=== PATIENT | male | born 1965 | race Caucasian/White ===

== ENCOUNTER → 2017-07-06 | Outpatient (CLI) | payer MEDICAID ==
--- NOTE | 2017-07-06 11:43 | RADIOLOGY REPORT (SQ) ---
EXAM DESCRIPTION: CT ABD/PELVIS NO ORAL OR IV COMPLETED DATE/TIME: 07/06/2017 10:34 am REASON FOR STUDY: RENAL COLIC N23 UNSPECIFIED RENAL COLIC COMPARISON: None. TECHNIQUE: CT scan of the abdomen and pelvis performed without intravenous or oral contrast. Images reviewed with lung, soft tissue, and bone windows. Reconstructed coronal and sagittal MPR images revi ewed. All images stored on PACS. All CT scanners at this facility use dose modulation, iterative reconstruction, and/or weight based d osing when appropriate to reduce radiation dose to as low as reasonably achievable (ALARA). [facility]: Dose Right [facility]: CareDose [facility]: Dose Right [facility]: Teradose 4D [facility]: [employer] RADIATION DOSE: CT Rad equipment meets quality standard of care and radiation dose reduction techniq ues were employed. CTDIvol: 19.0 mGy. DLP: 1109 mGy-cm.mGy. LIMITATIONS: None. FINDINGS: LOWER CHEST: No significant findings. No nodules or infiltrates. NON-CONTRASTED LIVER, SPLEEN, ADRENALS: Evaluation limited by lack of IV contrast. No identified sign ificant masses. PANCREAS: No masses. No peripancreatic inflammatory changes. GALLBLADDER: No identified stones by CT criteria. No inflammatory changes to suggest cholecystitis. RIGHT KIDNEY AND URETER: No suspicious masses. Assessment limited by lack of IV contrast. No signif icant calcifications. No hydronephrosis or hydroureter. LEFT KIDNEY AND URETER: No suspicious masses. Assessment limited by lack of IV contrast. No signifi cant calcifications. No hydronephrosis or hydroureter. AORTA AND RETROPERITONEUM: No aneurysm. No retroperitoneal masses or adenopathy. BOWEL AND PERITONEAL CAVITY: No obvious masses or inflammatory changes. No free fluid. APPENDIX: Normal. PELVIS, BLADDER, AND ABDOMINAL WALL:No abnormal masses. No free fluid. Urine distended bladder is id entified. BONES: There is a mild lumbar scoliosis convex to the left with associated degenerative changes. OTHER: No other significant finding. IMPRESSION: NO SIGNIFICANT OR ACUTE PROCESS IN THE ABDOMEN OR PELVIS. COMMENT: Quality ID # [id number]: Final reports with documentation of one or more dose reduction techniques (e.g., Automated exposure control, adjustment of the mA and/or kV according to patient size, use of iterative reconstruction technique) TECHNICAL DOCUMENTATION: JOB ID: [id number] [employer]- All Rights Reserved Reading location - IP/workstation name: [email or web address]
== END ==
LOC: RAD 10:11
PROVIDERS: ATTEND Internal Medicine
DX: N23 Unspecified renal colic (principal)
CPT/HCPCS: 74176

== ENCOUNTER → 2017-09-13 | Outpatient (CLI) | payer MEDICAID ==
--- NOTE | 2017-09-13 13:40 | RADIOLOGY REPORT (SQ) ---
EXAM DESCRIPTION: NM GASTRIC EMPTYING STUDY COMPLETED DATE/TIME: 09/13/2017 1:26 pm REASON FOR STUDY: BLOATING (R14.0), BELCHING (R14.2), DIABETES (E11.9) R14.0 ABDOMINAL DISTENSION ( GASEOUS) R14.2 ERUCTATION COMPARISON: None. RADIONUCLIDE AND DOSE: 2.2 millicuries Tc-99m Sulfur Colloid. A wide variety of solid foods have been used. The route of agent administration: Oral. TECHNIQUE: Serial images acquired to 4 hours with each image recorded over a 30 minute time frame. I mage intensity values plotted with respect to time with linear regression algorithm. LIMITATIONS: None. FINDINGS: Patient was observed for 4 hours. Gastric emptying at 60 minutes was 3.8%. Gastric emptying at 90 minutes was 5.7%. Gastric emptying at 120 minutes was 7.6% Gastric emptying at 240 minutes was 15.2%. IMPRESSION: Decreased gastric emptying. TECHNICAL DOCUMENTATION: JOB ID: [id number] [employer]- All Rights Reserved Reading location - IP/workstation name: [email or web address]
== END ==
LOC: RAD 07:30
PROVIDERS: ATTEND Internal Medicine Gastroenterology
DX: R14.0 Abdominal distension (gaseous) (principal); R14.2 Eructation; E11.9 Type 2 diabetes mellitus without complications
CPT/HCPCS: 78264; A9541

== ENCOUNTER 2018-12-04 10:52 | Inpatient (IN) | payer MEDICAID, MEDICARE ==
--- NOTE | 2018-12-04 11:21 | ER Document Report ---
ED Medical Screen (RME) - General Chief Complaint: Hand Swelling Stated Complaint: POSSIBLE FINGER INFECTION Time Seen by Provider: 12/04/18 11:11 Primary Care Provider: KACEY BLOOD MD [Primary Care Provider] - Follow up as needed Mode of Arrival: Wheelchair Information source: Patient Notes: Patient is a 53-year-old male with past medical history of type 2 diabetes presenting with left thumb pain and swelling. Patient reports history of multiple amputations in the past. He states that the pain and swelling he is experiencing in his left thumb are similar to when he has had to have fingers amputated in the past. He denies any fever but does report some chills last night. Exam: Swelling and discoloration noted to left thumb, normal sensation and normal m otor. I have greeted and performed a rapid initial assessment of this patient. A comprehensive ED assessment and evaluation of the patient, analysis of test results and completion of the medical decision making process will be conducted by additional ED providers. I have specifically instructed the patient or family members with the patient to immediately return to any nursing staff should anything change in the patient's condition or with their chief complaint. This medical record was dictated with voice recognizing software. There may be grammatical, syntax errors that are unintended. TRAVEL OUTSIDE OF THE [place] IN LAST 30 DAYS: No - Related Data Allergies/Adverse Reactions: No Known Allergies Allergy (Verified 04/16/13 19:04) Past Medical History - Past Medical History Cardiac Medical History: Reports: Hx Hypertension - no meds at this time, Hx Peripheral Vascular Disease Denies: Hx Coronary Artery Disease, Hx Heart Attack Pulmonary Medical History: Denies: Hx Asthma, Hx Bronchitis, Hx COPD, Hx Pneumonia, Hx Tuberculosis Neurological Medical History: Denies: Hx Cerebrovascular Accident, Hx Seizures Endocrine Medical History: Reports: Hx Diabetes Mellitus Type 2, Hx Hypothyroidism Musculoskeltal Medical History: Denies Hx Arthritis Psychiatric Medical History: Denies: Hx Depression Past Surgical History: Reports: Hx Orthopedic Surgery, Hx Tonsillectomy. Denies: Hx Pacemaker - Immunizations Hx Diphtheria, Pertussis, Tetanus Vaccination: Yes Physical Exam - Vital signs Vitals: Temp Pulse Resp BP Pulse Ox 98.4 F 105 H 20 145/99 H 100 12/04/18 10:59 12/04/18 10:59 12/04/18 10:59 12/04/18 10:59 12/04/18 10:59 Course - Vital Signs Vital signs: Temp Pulse Resp BP Pulse Ox 98.4 F 105 H 20 145/99 H 100 12/04/18 10:59 12/04/18 10:59 12/04/18 10:59 12/04/18 10:59 12/04/18 10:59 Doctor's Discharge - Discharge Referrals: KACEY BLOOD MD [Primary Care Provider] - Follow up as needed
--- NOTE | 2018-12-04 11:44 | RADIOLOGY REPORT (SQ) ---
EXAM DESCRIPTION: FINGER LEFT COMPLETED DATE/TIME: 12/04/2018 11:35 am REASON FOR STUDY: eval for L thumb infection COMPARISON: None. NUMBER OF VIEWS: Three views. TECHNIQUE: AP, lateral, and oblique images acquired of the left thumb. LIMITATIONS: None. FINDINGS: MINERALIZATION: Normal. BONES: No acute fracture or dislocation. No worrisome bone lesions. Status post trans proximal phal angeal amputation of the left long finger. SOFT TISSUES: Diffuse soft tissue swelling about the left thumb. There is a dense metallic foreign b dilshad about the base of the left 1st metacarpal. OTHER: No other significant finding. IMPRESSION: 1. Diffuse soft tissue swelling about the left thumb. No radiographic evidence of osteo myelitis. Consider MRI to more sensitively evaluate if suspected. 2. There is a dense metallic foreign body about the base of the left 1st metacarpal, of uncertain si gnificance. 3. 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 TECHNICAL DOCUMENTATION: JOB ID: [id number] [employer]- All Rights Reserved Reading location - IP/workstation name: [email or web address]
[2018-12-04 12:17] LABS: ALBUMIN 4.1 g/dL (3.5-5.0); ALKALINE PHOSPHATASE 64 U/L (38-126); ANION GAP 13 (5-19); ASPARTATE AMINO TRANSFERASE 19 U/L (17-59); BILIRUBIN,DIRECT 0.3 mg/dL (0.0-0.4); BILIRUBIN,TOTAL 1.1 mg/dL (0.2-1.3); BLOOD UREA NITROGEN 21 mg/dL (7-20); CALCIUM 9.5 mg/dL (8.4-10.2); CARBON DIOXIDE 22 mmol/L (22-30); CHLORIDE 102 mmol/L (98-107); GLUCOSE 236 mg/dL (75-110); POTASSIUM 4.3 mmol/L (3.6-5.0); TOTAL PROTEIN 7.7 g/dL (6.3-8.2)
[2018-12-04 12:34] LABS: ABSOLUTE BASOPHILS # (AUTO) 0.1 10^3/uL (0.0-0.2); ABSOLUTE EOSINOPHILS # (AUTO) 0.1 10^3/uL (0.0-0.6); ABSOLUTE LYMPHOCYTES (AUTO) 2.3 10^3/uL (0.5-4.7); ABSOLUTE MONOCYTES (AUTO) 1.8 10^3/uL (0.1-1.4); ABSOLUTE NEUT (AUTO) 12.1 10^3/uL (1.7-8.2); BASOPHILS % (AUTO) 0.4 % (0-2); EOSINOPHILS % (AUTO) 0.4 % (0-6); HEMATOCRIT 44.1 % (37.9-51.0); HEMOGLOBIN 15.5 g/dL (13.5-17.0); LYMPHOCYTES % (AUTO) 14.1 % (13-45); MEAN CORPUSCULAR HEMOGLOBIN 30.9 pg (27.0-33.4); MEAN CORPUSCULAR HGB CONC 35.1 g/dL (32.0-36.0); MEAN CORPUSCULAR VOLUME 88 fl (80-97); MONOCYTES % (AUTO) 11.1 % (3-13); PLATELET COUNT 330 10^3/uL (150-450); RED BLOOD COUNT 5.01 10^6/uL (4.35-5.55); TOTAL CELLS COUNTED % (AUTO) 100 %; WHITE BLOOD COUNT 16.3 10^3/uL (4.0-10.5)
[2018-12-04 12:41] LABS: ERYTHROCYTE SEDIMENTATION RATE 62 mm/hr (0-20)
[2018-12-04] MEDS ORDERED: VANCOMYCIN HCL INJ 1000 MG VIAL IV ONE (13:09)
[2018-12-04] MEDS ORDERED: PIPERACILLIN/TAZOBACTAM 3.375 GM VIAL IV ONE (13:09)
--- NOTE | 2018-12-04 14:09 | ER Document Report ---
ED General - General Chief Complaint: Hand Swelling Stated Complaint: POSSIBLE FINGER INFECTION Time Seen by Provider: 12/04/18 11:11 Primary Care Provider: KACEY BLOOD MD [ACTIVE STAFF] - Follow up as needed Mode of Arrival: Wheelchair TRAVEL OUTSIDE OF THE [place] IN LAST 30 DAYS: No - HPI Notes: Patient is a 53-year-old male, type II diabetic with significant neuropathy, who presents emergency department for evaluation of swelling in his left thumb. He states about a week ago he believed he burned it. He did sustain a small blister. He states that 3 days ago started swelling. He had some redness. He said some chills, but is unaware of any nathen fevers. No nausea or vomiting. He states he has significant neuropathy in that area so he really does not have any pain. He said multiple fingers amputated in the past secondary to osteomyelitis, as well as right lower extremity. He presents today because he is concerned that this is what happening. - Related Data Allergies/Adverse Reactions: No Known Allergies Allergy (Verified 04/16/13 19:04) Past Medical History - General Information source: Patient - Social History Smoking Status: Never Smoker Chew tobacco use (# tins/day): No Frequency of alcohol use: None Drug Abuse: None Family History: DM, Hypertension Patient has suicidal ideation: No Patient has homicidal ideation: No - Past Medical History Cardiac Medical History: Reports: Hx Hypertension - no meds at this time, Hx Peripheral Vascular Disease Denies: Hx Coronary Artery Disease, Hx Heart Attack Pulmonary Medical History: Denies: Hx Asthma, Hx Bronchitis, Hx COPD, Hx Pneumonia, Hx Tuberculosis Neurological Medical History: Denies: Hx Cerebrovascular Accident, Hx Seizures Endocrine Medical History: Reports: Hx Diabetes Mellitus Type 2, Hx Hypothyroidism Renal/ Medical History: Denies: Hx Peritoneal Dialysis Musculoskeletal Medical History: Denies Hx Arthritis Psychiatric Medical History: Denies: Hx Depression Past Surgical History: Reports: Hx Orthopedic Surgery, Hx Tonsillectomy. Denies : Hx Pacemaker - Immunizations Hx Diphtheria, Pertussis, Tetanus Vaccination: Yes Hx Pneumococcal Vaccination: 12/29/12 Review of Systems - Review of Systems Constitutional: See HPI EENT: No symptoms reported Cardiovascular: No symptoms reported Respiratory: No symptoms reported Gastrointestinal: No symptoms reported Genitourinary: No symptoms reported Musculoskeletal: See HPI Skin: No symptoms reported Neurological/Psychological: No symptoms reported Physical Exam - Vital signs Vitals: Temp Pulse Resp BP Pulse Ox 98.4 F 105 H 20 145/99 H 100 12/04/18 10:59 12/04/18 10:59 12/04/18 10:59 12/04/18 10:59 12/04/18 10:59 - Notes Notes: This is a pleasant 53-year-old male who appears her stated age in no acute distress. Vital signs reviewed, please refer to chart. Head is normocephalic, atraumatic. Pupils equal round, reactive to light. Neck is supple without meningismus. Heart is regular rate and rhythm. Lungs are clear to auscultation bilaterally. Abdomen is soft, nontender, normoactive bowel sounds throughout. Extremities without cyanosis, clubbing. 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 Peripheral pulses are equal. Examination of the left hand yields a significant amount of swelling and erythema to the left thumb. He does have a purulent appearing collection on the ulnar aspect of the palmar thumb, distal phalanx. He has had a previous amputation at the proximal phalangeal joint of the middle finger of the left upper extremity. He has full range of motion of the thumb. Sensation is diminished to the entire set of fingers, but capillary refill is brisk. Course - Re-evaluation Re-evalutation: 12/04/18 14:08 Patient presents emergency department for evaluation. This is a 53-year-old male with a history of poorly controlled diabetes, significant neuropathy, and multiple bouts of osteomyelitis. He sustained multiple limitations in the past. I am concerned that there is a fluid collection this time, but in this diabetic with a 16,000 white count multiple limitations, I do not feel comfortable doing this here in the emergency department. Orthopedics was consulted. I am concerned about the possibility of osteomyelitis. At any rate this patient is certainly at risk for losing this thumb, and I believe IV antibiotic therapy is indicated. Zosyn and vancomycin ordered. MRI is ordered. Orthopedics has been consulted. Will contact medicine for admission. 12/04/18 14:13 Dr. Adhikari will admit the patient - Vital Signs Vital signs: Temp Pulse Resp BP Pulse Ox 98.4 F 105 H 20 145/99 H 100 12/04/18 10:59 12/04/18 10:59 12/04/18 10:59 12/04/18 10:59 12/04/18 10:59 - Laboratory Result Diagrams: 12/04/18 11:40 12/04/18 11:40 Laboratory results interpreted by me: 12/04/18 12/04/18 11:40 11:40 WBC 16.3 H Absolute Neutrophils 12.1 H Absolute Monocytes 1.8 H ESR 62 H BUN 21 H Glucose 236 H - Diagnostic Test Radiology reviewed: Reports reviewed Radiology results interpreted by me: 12/04/18 14:09 Finger X-Ray 12/04/18 11:18 IMPRESSION: 1. Diffuse soft tissue swelling about the left thumb. No radiographic evidence of osteomyelitis. Consider MRI to more sensitively evaluate if suspected. 2. There is a dense metallic foreign body about the base of the left 1st me tacarpal, of uncertain significance. 3. 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 Discharge - Discharge Clinical Impression: Cellulitis of left thumb, Rule out osteomyelitis Condition: Stable Disposition: ADMITTED INPATIENT Admitting Provider: [facility] Unit Admitted: Medical Floor Referrals: KACEY BLOOD MD [ACTIVE STAFF] - Follow up as needed
[2018-12-04] MEDS ORDERED: NORMAL SALINE 1000 ML 1,000 ML IV PRN (18:26)
[2018-12-04] MEDS ORDERED: GLUCAGON,HUMAN RECOMB 1 MG INJ IM PRN (18:30)
[2018-12-04] MEDS ORDERED: DEXTROSE 50%-WATER 25 GM/50 ML DISP.SYRIN IV PRN ×2 (18:30)
[2018-12-04] MEDS ORDERED: DEXTROSE 40% GEL 15 GM TUBE PO PRN ×2 (18:30)
[2018-12-04] MEDS ORDERED: VANCOMYCIN HCL 0 MG in DEXTROSE 5%-WATER 250 ML IV NR (18:45)
[2018-12-04] MEDS ORDERED: LIRAGLUTIDE SQ SCH (18:45)
[2018-12-04 19:30] LABS: PROTHROMBIN TIME 14.2 SEC (11.4-15.4)
[2018-12-04 19:31] LABS: PARTIAL THROMBOPLASTIN TIME 42.2 SEC (23.5-35.8)
[2018-12-04 19:44] LABS: PHOSPHORUS 4.3 mg/dL (2.5-4.5)
[2018-12-04 19:56] LABS: CREATINE KINASE MB 1.04 ng/mL (<4.55)
[2018-12-04 20:00] LABS: FREE T4 (FREE THYROXINE) 1.19 ng/dL (0.78-2.19)
[2018-12-04 20:02] LABS: TROPONIN I < 0.012 ng/mL
--- NOTE | 2018-12-04 20:05 | PDOC H&P ---
History of Present Illness Admission Date/PCP: 12/04/18 14:25 AUDI GARCIA MD History of Present Illness: JULIAN CACERES is a 53 year old male, He has a history of poorly controlled type 2 diabetes he came to the emergency room for evaluation of a 3-day history of swelling of the left thumb, He stated that he had a small blister about 3 days ago on it as progressively worsened with swelling consistent with abscess of the thumb,There is no systemic symptoms there is no fever or chills but he has had multiple fingers amputated from both hands.There was leukocytosis with a left shift with elevated ESR Past Medical History Cardiac Medical History: Reports: Hypertension - no meds at this time, Peripheral Vascular Disease Endocrine Medical History: Reports: Diabetes Mellitus Type 2, Hypothyroidism Hematology: Denies: Anemia Past Surgical History Past Surgical History: Reports: Orthopedic Surgery, Tonsillectomy Social History Smoking Status: Never Smoker Frequency of Alcohol Use: None Hx Recreational Drug Use: No Drugs: None Hx Prescription Drug Abuse: No Family History Family History: DM, Hypertension Parental Family History Reviewed: Yes Children Family History Reviewed: Yes Sibling(s) Family History Reviewed.: Yes Medication/Allergy Home Medications: Atorvastatin Calcium [Lipitor 10 mg Tablet] 10 mg PO QHS #30 tablet 04/19/13 Tamsulosin HCl [Flomax 0.4 mg Cap.sr] 0.4 mg PO DAILY cap.sr.24h 12/17/15 Insulin Lispro [Humalog Insulin (Lispro) 100 unit/mL] 0 unit SUBCUT .SLIDING SCALE PRN 12/04/18 Levothyroxine Sodium [Synthroid 0.1 mg Tablet] 0.1 mg PO DAILY 12/04/18 Liraglutide [Victoza 2-Franklin] 1.8 ml SQ DAILY 12/04/18 Lisinopril [Prinivil 10 mg Tablet] 10 mg PO DAILY 12/04/18 Omeprazole 20 mg PO DAILY 12/04/18 Allergies/Adverse Reactions: No Known Allergies Allergy (Verified 04/16/13 19:04) Review of Systems Constitutional: ABSENT: chills, fever(s), headache(s), weight gain, weight loss Eyes: ABSENT: visual disturbances Ears: ABSENT: hearing changes Cardiovascular: ABSENT: chest pain, dyspnea on exertion, edema, orthropnea, palpitations Respiratory: ABSENT: cough, hemoptysis Gastrointestinal: ABSENT: abdominal pain, constipation, diarrhea, hematemesis, hematochezia, nausea, vomiting Genitourinary: ABSENT: dysuria, hematuria Musculoskeletal: ABSENT: joint swelling Integumentary: ABSENT: rash, wounds Neurological: ABSENT: abnormal gait, abnormal speech, confusion, dizziness, focal weakness, syncope Psychiatric: ABSENT: anxiety, depression, homidical ideation, suicidal ideation Endocrine: ABSENT: cold intolerance, heat intolerance, menstrual abnormalities, polydipsia, polyuria Hematologic/Lymphatic: ABSENT: easy bleeding, easy bruising, lymphadenopathy Physical Exam Vital Signs: Temp Pulse Resp BP Pulse Ox 98.2 F 91 16 144/88 H 100 12/04/18 17:41 12/04/18 17:41 12/04/18 17:41 12/04/18 17:41 12/04/18 17:41 Intake & Output 12/03/18 12/04/18 12/05/18 06:59 06:59 06:59 Weight 114.7 kg General appearance: PRESENT: no acute distress, well-developed, well-nourished Head exam: PRESENT: atraumatic, normocephalic Eye exam: PRESENT: conjunctiva pink, EOMI, PERRLA Ear exam: PRESENT: normal external ear exam Mouth exam: PRESENT: moist, tongue midline Neck exam: PRESENT: full ROM Respiratory exam: PRESENT: clear to auscultation mamta Cardiovascular exam: PRESENT: RRR, +S1, +S2 Pulses: PRESENT: normal dorsalis pedis pul, +2 pedal pulses bilateral Vascular exam: PRESENT: normal capillary refill GI/Abdominal exam: PRESENT: normal bowel sounds, soft Rectal exam: PRESENT: deferred Extremities exam: PRESENT: right AKA Musculoskeletal exam: PRESENT: other - There is abscess in the left thumb Multiple fingers missing in both hand Neurological exam: PRESENT: alert, awake, oriented to person, oriented to place, oriented to time, oriented to situation, CN II-XII grossly intact Psychiatric exam: PRESENT: appropriate affect, normal mood Skin exam: PRESENT: dry, intact, warm Results Laboratory Results: 12/04/18 11:40 12/04/18 11:40 12/04/18 12/04/18 12/04/18 11:40 11:40 19:05 WBC 16.3 H RBC 5.01 Hgb 15.5 Hct 44.1 MCV 88 MCH 30.9 MCHC 35.1 RDW 13.0 Plt Count 330 Seg Neutrophils % 74.0 Lymphocytes % 14.1 Monocytes % 11.1 Eosinophils % 0.4 Basophils % 0.4 Absolute Neutrophils 12.1 H Absolute Lymphocytes 2.3 Absolute Monocytes 1.8 H Absolute Eosinophils 0.1 Absolute Basophils 0.1 Sodium 137.3 Potassium 4.3 Chloride 102 Carbon Dioxide 22 Anion Gap 13 BUN 21 H Creatinine 0.96 Est GFR ( Amer) > 60 Est GFR (Non-Af Amer) > 60 Glucose 236 H Calcium 9.5 Phosphorus 4.3 Magnesium 2.1 Total Bilirubin 1.1 AST 19 Alkaline Phosphatase 64 Ammonia Total Protein 7.7 Albumin 4.1 Amylase 70 Lipase 131.8 12/04/18 19:05 WBC RBC Hgb Hct MCV MCH MCHC RDW Plt Count Seg Neutrophils % Lymphocytes % Monocytes % Eosinophils % Basophils % Absolute Neutrophils Absolute Lymphocytes Absolute Monocytes Absolute Eosinophils Absolute Basophils Sodium Potassium Chloride Carbon Dioxide Anion Gap BUN Creatinine Est GFR ( Amer) Est GFR (Non-Af Amer) Glucose Calcium Phosphorus Magnesium Total Bilirubin AST Alkaline Phosphatase Ammonia 12.4 Total Protein Albumin Amylase Lipase 12/04/18 12/04/18 19:05 19:05 Creatine Kinase 80 CK-MB (CK-2) 1.04 Troponin I < 0.012 Impressions: Finger X-Ray 12/04/18 11:18 IMPRESSION: 1. Diffuse soft tissue swelling about the left thumb. No radiographic evidence of osteomyelitis. Consider MRI to more sensitively evaluate if suspected. 2. There is a dense metallic foreign body about the base of the left 1st metacarpal, of uncertain significance. 3. 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 Assessment & Plan - Diagnosis (1) Abscess of left thumb Is this a current diagnosis for this admission?: Yes Plan: Start IV antibiotic to cover MRSA, gram-negative pathogens, consult surgery for I&D (2) T2DM (type 2 diabetes mellitus) Qualifiers: Diabetes mellitus chcf insulin use: with technician terminal and repeater use Diabetes mellit complication status: with neurologic complications Diabetes mellitus c omplication detail: with polyneuropathy Qualified Code(s): E11.42 - Type 2 diabetes mellitus with diabetic polyneuropathy; Z79.4 - jail (current) use of insulin Is this a current diagnosis for this admission?: Yes
[2018-12-04 20:14] LABS: THYROID STIMULATING HORMONE 3.23 uIU/mL (0.47-4.68)
[2018-12-04 20:17] LABS: APPEARANCE,URINE CLEAR; BILIRUBIN,URINE NEGATIVE (NEGATIVE); COLOR,URINE YELLOW; GLUCOSE, URINE >=500 mg/dL (NEGATIVE); KETONES,URINE NEGATIVE (NEGATIVE); LEUKOCYTE ESTERASE,URINE NEGATIVE (NEGATIVE); NITRITE,URINE NEGATIVE (NEGATIVE); PROTEIN,URINE 100 mg/dL (NEGATIVE); UROBILINOGEN,URINE NEGATIVE mg/dL (<2.0)
[2018-12-04] MEDS: PIPERACILLIN SODIUM/TAZOBACTAM 3.375 GM in NORMAL SALINE 100 ML IV SCH (22:11)
[2018-12-04] MEDS: LISINOPRIL 10 MG TABLET PO SCH (22:11)
[2018-12-04] MEDS: ATORVASTATIN CALCIUM 10 MG TABLET PO SCH (22:12)
[2018-12-04] MEDS: INSULIN LISPRO 100 UNIT/ML 3 ML VIAL SUBCUT SCH (22:12)
[2018-12-04] MEDS: PANTOPRAZOLE SODIUM 20 MG TABLET.DR PO SCH (22:12)
[2018-12-04] MEDS: TAMSULOSIN HCL 0.4 MG CAP.SR.24H PO SCH (22:13)
[2018-12-04] MEDS: ENOXAPARIN SODIUM INJ 40 MG/0.4 ML DISP.SYRIN SUBCUT SCH (22:13)
[2018-12-05] MEDS: VANCOMYCIN HCL 1,250 MG in DEXTROSE 5%-WATER 250 ML IV SCH ×4 (00:44→22:13)
[2018-12-05 01:53] LABS: CREATINE KINASE MB 0.71 ng/mL (<4.55)
[2018-12-05 01:59] LABS: TROPONIN I < 0.012 ng/mL
[2018-12-05] MEDS: PIPERACILLIN SODIUM/TAZOBACTAM 3.375 GM in NORMAL SALINE 100 ML IV SCH ×4 (04:05→22:12)
[2018-12-05 05:35] LABS: URINE AMPHETAMINES SCREEN NEGATIVE; URINE BARBITURATES SCREEN NEGATIVE; URINE BENZODIAZEPINES SCREEN NEGATIVE; URINE COCAINE SCREEN NEGATIVE; URINE MARIJUANA (THC) SCREEN NEGATIVE; URINE METHADONE SCREEN NEGATIVE; URINE PHENCYCLIDINE SCREEN NEGATIVE
[2018-12-05] MEDS: LEVOTHYROXINE SODIUM 0.1 MG TABLET PO SCH (06:17)
[2018-12-05] MEDS ORDERED: RINGERS SOLUTION,LACTATED 1,000 ML IV PRN ×2 (07:33→17:16)
--- NOTE | 2018-12-05 07:36 | PDOC CONSULTATION ---
Consultation Consult Date: 12/05/18 Provider Consulted: GERALD CHANDLER History of Present Illness Admission Date/PCP: 12/04/18 14:25 AUDI GARCIA MD History of Present Illness: JULIAN CACERES is a 53 year old male Patient is a 53-year-old white male with diabetes status post right below-knee amputation, left long finger amputation, right second and third digit amputation now with a left thumb abscess. Past Medical History Cardiac Medical History: Reports: Hypertension - no meds at this time, Peripheral Vascular Disease Denies: Coronary Artery Disease, Myocardial Infarction Pulmonary Medical History: Denies: Asthma, Bronchitis, Chronic Obstructive Pulmonary Disease (COPD), Pneumonia, Tuberculosis Neurological Medical History: Denies: Seizures Endocrine Medical History: Reports: Diabetes Mellitus Type 2, Hypothyroidism Musculoskeltal Medical History: Denies: Arthritis Psychiatric Medical History: Denies: Depression Hematology: Denies: Anemia Past Surgical History Past Surgical History: Reports: Orthopedic Surgery, Tonsillectomy Denies: Pacemaker Social History Information Source: Patient, [facility] Records Smoking Status: Never Smoker Frequency of Alcohol Use: None Hx Recreational Drug Use: No Drugs: None Hx Prescription Drug Abuse: No Family History Family History: DM, Hypertension Parental Family History Reviewed: No Children Family History Reviewed: No Sibling(s) Family History Reviewed.: No Medication/Allergy Home Medications: Atorvastatin Calcium [Lipitor 10 mg Tablet] 10 mg PO QHS #30 tablet 04/19/13 Tamsulosin HCl [Flomax 0.4 mg Cap.sr] 0.4 mg PO DAILY cap.sr.24h 12/17/15 Insulin Lispro [Humalog Insulin (Lispro) 100 unit/mL] 0 unit SUBCUT .SLIDING SCALE PRN 12/04/18 Levothyroxine Sodium [Synthroid 0.1 mg Tablet] 0.1 mg PO DAILY 12/04/18 Liraglutide [Victoza 2-Franklin] 1.8 ml SQ DAILY 12/04/18 Lisinopril [Prinivil 10 mg Tablet] 10 mg PO DAILY 12/04/18 Omeprazole 20 mg PO DAILY 12/04/18 Allergies/Adverse Reactions: No Known Allergies Allergy (Verified 04/16/13 19:04) Review of Systems All systems: as per PMH Physical Exam Vital Signs: Temp Pulse Resp BP Pulse Ox 37.3 C 100 18 132/42 H 100 12/04/18 22:26 12/05/18 02:00 12/04/18 22:26 12/04/18 22:26 12/04/18 22:26 Intake & Output 12/04/18 12/05/18 12/06/18 06:59 06:59 06:59 Intake Total 450 Output Total 800 Balance -350 Weight 115 kg General appearance: PRESENT: no acute distress, mild distress, obese, well- developed, well-nourished Head exam: PRESENT: normocephalic Respiratory exam: PRESENT: unlabored Cardiovascular exam: PRESENT: RRR Vascular exam: PRESENT: normal capillary refill GI/Abdominal exam: PRESENT: soft Rectal exam: PRESENT: deferred Extremities exam: PRESENT: other - Left volar thumb with discoloration consistent with an underlying abscess Psychiatric exam: PRESENT: appropriate affect, normal mood. ABSENT: homicidal ideation, suicidal ideation Skin exam: PRESENT: dry, intact, warm. ABSENT: cyanosis, rash Results Laboratory Results: 12/04/18 11:40 12/04/18 11:40 12/04/18 12/04/18 12/04/18 11:40 11:40 19:05 WBC 16.3 H RBC 5.01 Hgb 15.5 Hct 44.1 MCV 88 MCH 30.9 MCHC 35.1 RDW 13.0 Plt Count 330 Seg Neutrophils % 74.0 Lymphocytes % 14.1 Monocytes % 11.1 Eosinophils % 0.4 Basophils % 0.4 Absolute Neutrophils 12.1 H Absolute Lymphocytes 2.3 Absolute Monocytes 1.8 H Absolute Eosinophils 0.1 Absolute Basophils 0.1 Sodium 137.3 Potassium 4.3 Chloride 102 Carbon Dioxide 22 Anion Gap 13 BUN 21 H Creatinine 0.96 Est GFR ( Amer) > 60 Est GFR (Non-Af Amer) > 60 Glucose 236 H Calcium 9.5 Phosphorus 4.3 Magnesium 2.1 Total Bilirubin 1.1 AST 19 Alkaline Phosphatase 64 Ammonia Total Protein 7.7 Albumin 4.1 Amylase 70 Lipase 131.8 TSH Free T4 Urine Color Urine Appearance Urine pH Ur Specific [place] Urine Protein Urine Glucose (UA) Urine Ketones Urine Blood Urine Nitrite Ur Leukocyte Esterase Urine WBC (Auto) Urine RBC (Auto) 12/04/18 12/04/18 12/04/18 19:05 19:05 19:50 WBC RBC Hgb Hct MCV MCH MCHC RDW Plt Count Seg Neutrophils % Lymphocytes % Monocytes % Eosinophils % Basophils % Absolute Neutrophils Absolute Lymphocytes Absolute Monocytes Absolute Eosinophils Absolute Basophils Sodium Potassium Chloride Carbon Dioxide Anion Gap BUN Creatinine Est GFR ( Amer) Est GFR (Non-Af Amer) Glucose Calcium Phosphorus Magnesium Total Bilirubin AST Alkaline Phosphatase Ammonia 12.4 Total Protein Albumin Amylase Lipase TSH 3.23 Free T4 1.19 Urine Color YELLOW Urine Appearance CLEAR Urine pH 5.0 Ur Specific [place] 1.020 Urine Protein 100 H Urine Glucose (UA) >=500 H Urine Ketones NEGATIVE Urine Blood NEGATIVE Urine Nitrite NEGATIVE Ur Leukocyte Esterase NEGATIVE Urine WBC (Auto) 1 Urine RBC (Auto) 0 12/04/18 12/04/18 12/05/18 19:05 19:05 01:15 Creatine Kinase 80 70 CK-MB (CK-2) 1.04 Troponin I < 0.012 12/05/18 01:15 Creatine Kinase CK-MB (CK-2) 0.71 Troponin I < 0.012 Impressions: Finger X-Ray 12/04/18 11:18 IMPRESSION: 1. Diffuse soft tissue swelling about the left thumb. No rad iographic evidence of osteomyelitis. Consider MRI to more sensitively evaluate if suspected. 2. There is a dense metallic foreign body about the base of the left 1st metacarpal, of uncertain significance. 3. 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 Status: Imported from PACS Assessment & Plan - Diagnosis (1) Abscess of thumb, left Is this a current diagnosis for this admission?: Yes Plan: And for an I&D under local anesthesia - Time Time Spent: 50 to 70 Minutes Anticipated discharge: Home Within: within 24 hours
[2018-12-05 08:36] LABS: ABSOLUTE BASOPHILS # (AUTO) 0.1 10^3/uL (0.0-0.2); ABSOLUTE EOSINOPHILS # (AUTO) 0.1 10^3/uL (0.0-0.6); ABSOLUTE LYMPHOCYTES (AUTO) 1.3 10^3/uL (0.5-4.7); ABSOLUTE MONOCYTES (AUTO) 1.4 10^3/uL (0.1-1.4); ABSOLUTE NEUT (AUTO) 10.1 10^3/uL (1.7-8.2); BASOPHILS % (AUTO) 0.6 % (0-2); EOSINOPHILS % (AUTO) 0.7 % (0-6); HEMATOCRIT 38.9 % (37.9-51.0); HEMOGLOBIN 13.5 g/dL (13.5-17.0); MEAN CORPUSCULAR HEMOGLOBIN 30.5 pg (27.0-33.4); MEAN CORPUSCULAR HGB CONC 34.6 g/dL (32.0-36.0); MEAN CORPUSCULAR VOLUME 88 fl (80-97); MONOCYTES % (AUTO) 11.1 % (3-13); PLATELET COUNT 285 10^3/uL (150-450); RED BLOOD COUNT 4.42 10^6/uL (4.35-5.55); RED CELL DISTRIBUTION WIDTH 12.8 % (11.5-14.0); SEGMENTED NEUTROPHILS % (AUTO) 77.6 % (42-78); TOTAL CELLS COUNTED % (AUTO) 100 %
[2018-12-05] MEDS: INSULIN LISPRO 100 UNIT/ML 3 ML VIAL SUBCUT SCH ×4 (08:54→22:13)
[2018-12-05 08:56] LABS: ALBUMIN 3.3 g/dL (3.5-5.0); ALKALINE PHOSPHATASE 63 U/L (38-126); ANION GAP 12 (5-19); ASPARTATE AMINO TRANSFERASE 15 U/L (17-59); BILIRUBIN,DIRECT 0.4 mg/dL (0.0-0.4); BILIRUBIN,TOTAL 1.1 mg/dL (0.2-1.3); BLOOD UREA NITROGEN 19 mg/dL (7-20); CALCIUM 8.6 mg/dL (8.4-10.2); CARBON DIOXIDE 20 mmol/L (22-30); CHLORIDE 103 mmol/L (98-107); CREATINE KINASE 61 U/L (55-170); GLUCOSE 199 mg/dL (75-110); POTASSIUM 3.8 mmol/L (3.6-5.0); TOTAL PROTEIN 6.6 g/dL (6.3-8.2); TRIGLYCERIDES 138 mg/dL (<150)
[2018-12-05 09:06] LABS: CREATINE KINASE MB 0.49 ng/mL (<4.55)
[2018-12-05 09:07] LABS: DIRECT LDL 72 mg/dL (<100)
[2018-12-05 09:11] LABS: TROPONIN I < 0.012 ng/mL
[2018-12-05] MEDS: LISINOPRIL 10 MG TABLET PO SCH (09:14)
[2018-12-05] MEDS: TAMSULOSIN HCL 0.4 MG CAP.SR.24H PO SCH (09:14)
[2018-12-05] MEDS: PANTOPRAZOLE SODIUM 20 MG TABLET.DR PO SCH (09:14)
[2018-12-05] MEDS: ENOXAPARIN SODIUM INJ 40 MG/0.4 ML DISP.SYRIN SUBCUT SCH (09:33)
[2018-12-05] MEDS ORDERED: DEXAMETHASONE SOD PHOSPHATE INJ 4 MG/1 ML VIAL ONE (16:01)
[2018-12-05] MEDS ORDERED: ONDANSETRON HCL INJ/PF 4 MG/2 ML SDV ONE (16:01)
[2018-12-05] MEDS ORDERED: MIDAZOLAM 2 MG/2 ML INJ ONE (16:01)
[2018-12-05] MEDS ORDERED: FENTANYL CITRATE INJ/PF 100 MCG/2 ML AMPUL ONE (16:01)
[2018-12-05] MEDS ORDERED: PROPOFOL INJ 200 MG/20 ML VIAL IV ONE (16:02)
[2018-12-05] MEDS ORDERED: BACITRACIN INJ 50,000 UNIT VIAL ONE (16:10)
[2018-12-05] MEDS ORDERED: LIDOCAINE 0.5% INJ-PF (5 MG/ML) 50 ML SDV ONE (16:12)
[2018-12-05] MEDS ORDERED: BUPIVACAINE HCL 0.25 % INJ/PF (2.5 MG/1 ML) 30 ML VIAL ONE (16:39)
[2018-12-05] MEDS ORDERED: LIDOCAINE 1% INJ-PF (10 MG/ML) 30 ML SDV ONE (16:39)
[2018-12-05] MEDS ORDERED: PROMETHAZINE HCL INJ 25 MG/1 ML VIAL IV PRN ×2 (16:46)
[2018-12-05] MEDS ORDERED: MEPERIDINE HCL/PF INJ 25 MG/1 ML DISP.SYRIN IV PRN (16:46)
[2018-12-05] MEDS ORDERED: ONDANSETRON HCL INJ/PF 4 MG/2 ML SDV IV PRN (16:46)
[2018-12-05] MEDS ORDERED: MORPHINE SULFATE 10 MG/ML INJ IV PRN (16:46)
[2018-12-05] MEDS ORDERED: DIPHENHYDRAMINE HCL 50 MG/ML VIAL IV PRN (16:46)
[2018-12-05] MEDS ORDERED: FENTANYL CITRATE INJ/PF 100 MCG/2 ML AMPUL IV PRN ×3 (16:46)
--- NOTE | 2018-12-05 17:02 | Operative Report ---
Operative Report DATE OF SURGERY: 12/05/18 PREOPERATIVE DIAGNOSIS: Left thumb abscess OPERATION: I&D left thumb abscess SURGEON: GERALD CHANDLER ANESTHESIA: LMAC TISSUE REMOVED OR ALTERED: Cultures to microbiology ESTIMATED BLOOD LOSS: Normal PROCEDURE: With the patient supine on the operating table the left hand is prepped and draped in sterile fashion. A digital block is performed with a combination of Marcaine and Xylocaine at the base of the left thumb. Subsequently trached a longitudinal incision was made over the pulp of the left thumb and sharp dissection was carried incision through the dermis which unroofed a large amount of purulent material. This is sent for culture and sensitivity. The bed is then debrided sharply using a curette. The wound is irrigated with 1 L of normal saline containing Betadine. Iodoform gauze was placed into the bed of the wound. The wound was reapproximated using interrupted nylon. A sterile compressive dressing was applied and the patient's return to the PACU in satisfactory condition.
--- NOTE | 2018-12-05 20:58 | PDOC PROGRESS REPORT ---
Subjective Progress Note for:: 12/05/18 Subjective:: Patient seen by the bedside, he was seen by the surgeon today he underwent I&D of the abscess in the left thumb without complications Reason For Visit: CELLULITIS OF THE LEFT THUMB, T2DM Physical Exam Vital Signs: Temp Pulse Resp BP Pulse Ox 98.4 F 89 16 121/82 99 12/05/18 18:58 12/05/18 18:58 12/05/18 18:58 12/05/18 18:58 12/05/18 18:58 Intake & Output 12/04/18 12/05/18 12/06/18 06:59 06:59 06:59 Intake Total 450 1900 Output Total 800 1005 Balance -350 895 Weight 115 kg General appearance: PRESENT: no acute distress Eye exam: PRESENT: PERRLA Respiratory exam: PRESENT: clear to auscultation mamta Cardiovascular exam: PRESENT: +S1, +S2 GI/Abdominal exam: PRESENT: soft Neurological exam: PRESENT: alert Results Laboratory Results: 12/05/18 07:48 12/05/18 07:48 12/05/18 12/05/18 07:48 07:48 WBC 13.0 H RBC 4.42 Hgb 13.5 Hct 38.9 MCV 88 MCH 30.5 MCHC 34.6 RDW 12.8 Plt Count 285 Seg Neutrophils % 77.6 Lymphocytes % 10.0 L Monocytes % 11.1 Eosinophils % 0.7 Basophils % 0.6 Absolute Neutrophils 10.1 H Absolute Lymphocytes 1.3 Absolute Monocytes 1.4 Absolute Eosinophils 0.1 Absolute Basophils 0.1 Sodium 134.5 L Potassium 3.8 Chloride 103 Carbon Dioxide 20 L Anion Gap 12 BUN 19 Creatinine 0.95 Est GFR ( Amer) > 60 Est GFR (Non-Af Amer) > 60 Glucose 199 H Calcium 8.6 Total Bilirubin 1.1 AST 15 L Alkaline Phosphatase 63 Total Protein 6.6 Albumin 3.3 L Triglycerides 138 Cholesterol 117.20 LDL Cholesterol Direct 72 VLDL Cholesterol 28.0 HDL Cholesterol 31 L 12/04/18 12/04/18 12/05/18 19:05 19:05 01:15 Creatine Kinase 80 70 CK-MB (CK-2) 1.04 Troponin I < 0.012 12/05/18 12/05/18 12/05/18 01:15 07:48 07:48 Creatine Kinase 61 CK-MB (CK-2) 0.71 0.49 Troponin I < 0.012 < 0.012 Impressions: Finger X-Ray 12/04/18 11:18 IMPRESSION: 1. Diffuse soft tissue swelling about the left thumb. No radiographic evidence of osteomyelitis. Consider MRI to more sensitively evaluate if suspected. 2. There is a dense metallic foreign body about the base of the left 1st metacarpal, of uncertain significance. 3. 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 Assessment & Plan - Diagnosis (1) Abscess of left thumb Is this a current diagnosis for this admission?: Yes Plan: Patient is status post incision and drainage of the abscess, he feels better (2) T2DM (type 2 diabetes mellitus) Qualifiers: Diabetes mellitus buttermaker helper insulin use: with penitentiary use Diabetes mellitus complication status: with neurologic complications Diabetes mellitus complication detail: with polyneuropathy Qualified Code(s): E11.42 - Type 2 diabetes mellitus with diabetic polyneuropathy; Z79.4 - extermination inspector (current) use of insulin Is this a current diagnosis for this admission?: Yes
[2018-12-05] MEDS: ATORVASTATIN CALCIUM 10 MG TABLET PO SCH (22:13)
[2018-12-06] MEDS: PIPERACILLIN SODIUM/TAZOBACTAM 3.375 GM in NORMAL SALINE 100 ML IV SCH ×3 (03:36→15:52)
[2018-12-06 05:51] LABS: ANION GAP 9 (5-19); BLOOD UREA NITROGEN 20 mg/dL (7-20); CALCIUM 8.9 mg/dL (8.4-10.2); CARBON DIOXIDE 21 mmol/L (22-30); CHLORIDE 106 mmol/L (98-107); GLUCOSE 215 mg/dL (75-110); POTASSIUM 3.9 mmol/L (3.6-5.0)
[2018-12-06 05:54] LABS: ABSOLUTE BASOPHILS # (AUTO) 0.1 10^3/uL (0.0-0.2); ABSOLUTE EOSINOPHILS # (AUTO) 0.2 10^3/uL (0.0-0.6); ABSOLUTE LYMPHOCYTES (AUTO) 1.3 10^3/uL (0.5-4.7); ABSOLUTE MONOCYTES (AUTO) 1.2 10^3/uL (0.1-1.4); ABSOLUTE NEUT (AUTO) 8.3 10^3/uL (1.7-8.2); BASOPHILS % (AUTO) 0.8 % (0-2); EOSINOPHILS % (AUTO) 1.4 % (0-6); HEMATOCRIT 38.4 % (37.9-51.0); HEMOGLOBIN 13.4 g/dL (13.5-17.0); LYMPHOCYTES % (AUTO) 11.8 % (13-45); MEAN CORPUSCULAR HEMOGLOBIN 30.7 pg (27.0-33.4); MEAN CORPUSCULAR VOLUME 88 fl (80-97); MONOCYTES % (AUTO) 10.8 % (3-13); PLATELET COUNT 301 10^3/uL (150-450); RED BLOOD COUNT 4.36 10^6/uL (4.35-5.55); RED CELL DISTRIBUTION WIDTH 12.8 % (11.5-14.0); SEGMENTED NEUTROPHILS % (AUTO) 75.2 % (42-78); TOTAL CELLS COUNTED % (AUTO) 100 %; WHITE BLOOD COUNT 11.1 10^3/uL (4.0-10.5)
[2018-12-06] MEDS: LEVOTHYROXINE SODIUM 0.1 MG TABLET PO SCH (05:57)
[2018-12-06] MEDS: VANCOMYCIN HCL 1,250 MG in DEXTROSE 5%-WATER 250 ML IV SCH ×3 (05:57→21:58)
--- NOTE | 2018-12-06 07:29 | PDOC PROGRESS REPORT ---
Subjective Progress Note for:: 12/06/18 Reason For Visit: CELLULITIS OF THE LEFT THUMB, T2DM 53-year-old white male with diabetes status post multiple amputations in the past now postop day 1 status post I&D of a left thumb abscess Physical Exam Vital Signs: Temp Pulse Resp BP Pulse Ox 36.8 C 87 16 119/81 95 12/06/18 01:15 12/06/18 01:15 12/06/18 01:15 12/06/18 01:15 12/06/18 01:15 Intake & Output 12/05/18 12/06/18 12/07/18 06:59 06:59 06:59 Intake Total 450 3150 Output Total 800 2430 Balance -350 720 Weight 115 kg 115.2 kg Physical Exam: Overweight middle-aged white male lying in bed. Patient reports clinical improvement. General appearance: PRESENT: no acute distress Head exam: PRESENT: normocephalic Respiratory exam: PRESENT: unlabored Cardiovascular exam: PRESENT: RRR GI/Abdominal exam: PRESENT: soft Rectal exam: PRESENT: deferred Extremities exam: PRESENT: other - Left thumb dressing in dressing which is clean dry and intact. Neurological exam: PRESENT: alert, awake, oriented to person, oriented to place, oriented to time, oriented to situation. ABSENT: motor sensory deficit Psychiatric exam: PRESENT: appropriate affect, normal mood. ABSENT: homicidal ideation, suicidal ideation Skin exam: PRESENT: dry, intact, warm. ABSENT: cyanosis, rash Results Laboratory Results: 12/06/18 04:26 12/06/18 04:26 12/05/18 12/05/18 12/06/18 07:48 07:48 04:26 WBC 13.0 H 11.1 H RBC 4.42 4.36 Hgb 13.5 13.4 L Hct 38.9 38.4 MCV 88 88 MCH 30.5 30.7 MCHC 34.6 35.0 RDW 12.8 12.8 Plt Count 285 301 Seg Neutrophils % 77.6 75.2 Lymphocytes % 10.0 L 11.8 L Monocytes % 11.1 10.8 Eosinophils % 0.7 1.4 Basophils % 0.6 0.8 Absolute Neutrophils 10.1 H 8.3 H Absolute Lymphocytes 1.3 1.3 Absolute Monocytes 1.4 1.2 Absolute Eosinophils 0.1 0.2 Absolute Basophils 0.1 0.1 Sodium 134.5 L Potassium 3.8 Chloride 103 Carbon Dioxide 20 L Anion Gap 12 BUN 19 Creatinine 0.95 Est GFR ( Amer) > 60 Est GFR (Non-Af Amer) > 60 Glucose 199 H Calcium 8.6 Total Bilirubin 1.1 AST 15 L Alkaline Phosphatase 63 Total Protein 6.6 Albumin 3.3 L Triglycerides 138 Cholesterol 117.20 LDL Cholesterol Direct 72 VLDL Cholesterol 28.0 HDL Cholesterol 31 L 12/06/18 04:26 WBC RBC Hgb Hct MCV MCH MCHC RDW Plt Count Seg Neutrophils % Lymphocytes % Monocytes % Eosinophils % Basophils % Absolute Neutrophils Absolute Lymphocytes Absolute Monocytes Absolute Eosinophils Absolute Basophils Sodium 136.4 L Potassium 3.9 Chloride 106 Carbon Dioxide 21 L Anion Gap 9 BUN 20 Creatinine 1.06 Est GFR ( Amer) > 60 Est GFR (Non-Af Amer) > 60 Glucose 215 H Calcium 8.9 Total Bilirubin AST Alkaline Phosphatase Total Protein Albumin Triglycerides Cholesterol LDL Cholesterol Direct VLDL Cholesterol HDL Cholesterol 12/04/18 12/04/18 12/05/18 19:05 19:05 01:15 Creatine Kinase 80 70 CK-MB (CK-2) 1.04 Troponin I < 0.012 12/05/18 12/05/18 12/05/18 01:15 07:48 07:48 Creatine Kinase 61 CK-MB (CK-2) 0.71 0.49 Troponin I < 0.012 < 0.012 Impressions: Finger X-Ray 12/04/18 11:18 IMPRESSION: 1. Diffuse soft tissue swelling about the left thumb. No radiographic evidence of osteomyelitis. Consider MRI to more sensitively evaluate if suspected. 2. There is a dense metallic foreign body about the base of the left 1st metacarpal, of uncertain significance. 3. 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 Status: Imported from PACS Assessment & Plan - Diagnosis (1) Abscess of thumb, left Is this a current diagnosis for this admission?: Yes Plan: Antibiotics empirically at the current time will be tailored once microbiology data is available. Changes to start tomorrow with advancing iodoform packing. - Time Time Spent with patient: 15-24 minutes Anticipated discharge: Home with Homehealth Within: within 24 hours
[2018-12-06] MEDS: LISINOPRIL 10 MG TABLET PO SCH (09:02)
[2018-12-06] MEDS: INSULIN LISPRO 100 UNIT/ML 3 ML VIAL SUBCUT SCH ×4 (09:02→21:57)
[2018-12-06] MEDS: TAMSULOSIN HCL 0.4 MG CAP.SR.24H PO SCH (09:02)
[2018-12-06] MEDS: PANTOPRAZOLE SODIUM 20 MG TABLET.DR PO SCH (09:02)
[2018-12-06] MEDS: ENOXAPARIN SODIUM INJ 40 MG/0.4 ML DISP.SYRIN SUBCUT SCH (09:03)
--- NOTE | 2018-12-06 18:24 | PDOC PROGRESS REPORT ---
Subjective Progress Note for:: 12/06/18 Subjective:: The culture from the abscess is gram positive cocci in clusters suggesting staphylococcus, the specific Staphylococcus species is yet to be identified. Presently on Zosyn and vancomycin, will DC Zosyn, continue vancomycin until final culture result returns, if it is MSSA patient will be discharged home tomorrow if is MRSA that would complicate the picture Reason For Visit: CELLULITIS OF THE LEFT THUMB, T2DM Physical Exam Vital Signs: Temp Pulse Resp BP Pulse Ox 98.4 F 81 17 130/86 H 97 12/06/18 16:32 12/06/18 16:32 12/06/18 16:32 12/06/18 16:32 12/06/18 16:32 Intake & Output 12/05/18 12/06/18 12/07/18 06:59 06:59 06:59 Intake Total 450 3150 1420 Output Total 800 2430 Balance -941 150 8940 Weight 115 kg 115.2 kg General appearance: PRESENT: no acute distress Eye exam: PRESENT: PERRLA Respiratory exam: PRESENT: clear to auscultation mamta Cardiovascular exam: PRESENT: +S1, +S2 Neurological exam: PRESENT: alert, CN II-XII grossly intact Results Laboratory Results: 12/06/18 04:26 12/06/18 04:26 12/06/18 12/06/18 04:26 04:26 WBC 11.1 H RBC 4.36 Hgb 13.4 L Hct 38.4 MCV 88 MCH 30.7 MCHC 35.0 RDW 12.8 Plt Count 301 Seg Neutrophils % 75.2 Lymphocytes % 11.8 L Monocytes % 10.8 Eosinophils % 1.4 Basophils % 0.8 Absolute Neutrophils 8.3 H Absolute Lymphocytes 1.3 Absolute Monocytes 1.2 Absolute Eosinophils 0.2 Absolute Basophils 0.1 Sodium 136.4 L Potassium 3.9 Chloride 106 Carbon Dioxide 21 L Anion Gap 9 BUN 20 Creatinine 1.06 Est GFR ( Amer) > 60 Est GFR (Non-Af Amer) > 60 Glucose 215 H Calcium 8.9 12/04/18 19:50 Clean Catch Midstream Urine Culture - Final NO GROWTH 2 DAYS 12/04/18 12/04/18 12/05/18 19:05 19:05 01:15 Creatine Kinase 80 70 CK-MB (CK-2) 1.04 Troponin I < 0.012 12/05/18 12/05/18 12/05/18 01:15 07:48 07:48 Creatine Kinase 61 CK-MB (CK-2) 0.71 0.49 Troponin I < 0.012 < 0.012 Impressions: Finger X-Ray 12/04/18 11:18 IMPRESSION: 1. Diffuse soft tissue swelling about the left thumb. No radiographic evidence of osteomyelitis. Consider MRI to more sensitively evaluate if suspected. 2. There is a dense metallic foreign body about the base of the left 1st metacarpal, of uncertain significance. 3. 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
[2018-12-06] MEDS: ATORVASTATIN CALCIUM 10 MG TABLET PO SCH (21:58)
[2018-12-07] MEDS: LEVOTHYROXINE SODIUM 0.1 MG TABLET PO SCH (05:54)
[2018-12-07] MEDS: VANCOMYCIN HCL 1,250 MG in DEXTROSE 5%-WATER 250 ML IV SCH ×2 (05:54→14:35)
[2018-12-07 05:59] LABS: HEMATOCRIT 38.5 % (37.9-51.0); HEMOGLOBIN 13.5 g/dL (13.5-17.0); LYMPHOCYTES % (AUTO) 15.7 % (13-45); MEAN CORPUSCULAR VOLUME 89 fl (80-97); PLATELET COUNT 316 10^3/uL (150-450); RED BLOOD COUNT 4.36 10^6/uL (4.35-5.55); RED CELL DISTRIBUTION WIDTH 12.8 % (11.5-14.0); WHITE BLOOD COUNT 8.7 10^3/uL (4.0-10.5)
[2018-12-07 06:00] LABS: ABSOLUTE BASOPHILS # (AUTO) 0.1 10^3/uL (0.0-0.2); ABSOLUTE EOSINOPHILS # (AUTO) 0.2 10^3/uL (0.0-0.6); ABSOLUTE LYMPHOCYTES (AUTO) 1.4 10^3/uL (0.5-4.7); ABSOLUTE MONOCYTES (AUTO) 1.1 10^3/uL (0.1-1.4); ABSOLUTE NEUT (AUTO) 5.9 10^3/uL (1.7-8.2); BASOPHILS % (AUTO) 1.1 % (0-2); EOSINOPHILS % (AUTO) 2.4 % (0-6); MONOCYTES % (AUTO) 12.8 % (3-13); TOTAL CELLS COUNTED % (AUTO) 100 %
--- NOTE | 2018-12-07 06:40 | PDOC PROGRESS REPORT ---
Subjective Progress Note for:: 12/07/18 Reason For Visit: CELLULITIS OF THE LEFT THUMB, T2DM 53-year-old white male now postop day 2 status post I&D of a left thumb tuft abscess. Cultures are growing gram-positive cocci in clusters. Physical Exam Vital Signs: Temp Pulse Resp BP Pulse Ox 36.8 C 81 17 131/86 H 100 12/06/18 23:24 12/06/18 23:24 12/06/18 23:24 12/06/18 23:24 12/06/18 23:24 Intake & Output 12/05/18 12/06/18 12/07/18 06:59 06:59 06:59 Intake Total 450 3150 2295 Output Total 800 2430 515 Balance -840 770 6872 Weight 115 kg 115.2 kg Physical Exam: Overweight middle-aged white male sitting up in bed. Patient is alert, appropriate, and cooperative. General appearance: PRESENT: no acute distress, well-developed, well-nourished Head exam: PRESENT: normocephalic Respiratory exam: PRESENT: unlabored Cardiovascular exam: PRESENT: RRR Vascular exam: PRESENT: normal capillary refill Musculoskeletal exam: PRESENT: other - Left hand dressing is taken down. Wound is well approximated with sutures. Packing is removed. Fresh dressing is placed. Neurological exam: PRESENT: alert, awake, oriented to person, oriented to place, oriented to time, oriented to situation. ABSENT: motor sensory deficit Psychiatric exam: PRESENT: appropriate affect, normal mood. ABSENT: homicidal ideation, suicidal ideation Skin exam: PRESENT: dry, intact, warm. ABSENT: cyanosis, rash Results Laboratory Results: 12/07/18 05:20 12/06/18 04:26 12/07/18 05:20 WBC 8.7 RBC 4.36 Hgb 13.5 Hct 38.5 MCV 89 MCH 31.0 MCHC 35.0 RDW 12.8 Plt Count 316 Seg Neutrophils % 68.0 12/04/18 19:50 Clean Catch Midstream Urine Culture - Final NO GROWTH 2 DAYS 12/04/18 12/04/18 12/05/18 19:05 19:05 01:15 Creatine Kinase 80 70 CK-MB (CK-2) 1.04 Troponin I < 0.012 12/05/18 12/05/18 12/05/18 01:15 07:48 07:48 Creatine Kinase 61 CK-MB (CK-2) 0.71 0.49 Troponin I < 0.012 < 0.012 Impressions: Finger X-Ray 12/04/18 11:18 IMPRESSION: 1. Diffuse soft tissue swelling about the left thumb. No radiographic evidence of osteomyelitis. Consider MRI to more sensitively evaluate if suspected. 2. There is a dense metallic foreign body about the base of the left 1st me tacarpal, of uncertain significance. 3. 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 Status: Imported from PACS Assessment & Plan - Diagnosis (1) Abscess of thumb, left Is this a current diagnosis for this admission?: Yes Plan: At this point I think the patient could be discharged on oral antibiotics once culture and sensitivity are available. Follow-up with Dr. Tyler and [facility] for surgery on Tuesday for wound inspection. - Time Time Spent with patient: 15-24 minutes Anticipated discharge: Home Within: Other - Plan Summary Plan Summary: Follow-up with Dr. Tyler and [facility] for surgery on Tuesday for wound inspection.
[2018-12-07] MEDS: INSULIN LISPRO 100 UNIT/ML 3 ML VIAL SUBCUT SCH ×3 (08:46→17:32)
[2018-12-07] MEDS: TAMSULOSIN HCL 0.4 MG CAP.SR.24H PO SCH (09:35)
[2018-12-07] MEDS: LISINOPRIL 10 MG TABLET PO SCH (09:35)
[2018-12-07] MEDS: PANTOPRAZOLE SODIUM 20 MG TABLET.DR PO SCH (09:35)
[2018-12-07] MEDS: ENOXAPARIN SODIUM INJ 40 MG/0.4 ML DISP.SYRIN SUBCUT SCH (09:36)
[2018-12-07 19:21] VITALS: BP 132/42
--- NOTE | 2018-12-07 20:04 | PDOC DISCHARGE SUMMARY ---
General - Admit/Disc Date/PCP Admission Date/Primary Care Provider: 12/04/18 14:25 AUDI GARCIA MD Discharge Date: 12/07/18 - Discharge Diagnosis (1) Abscess of left thumb Is this a current diagnosis for this admission?: Yes (2) T2DM (type 2 diabetes mellitus) Is this a current diagnosis for this admission?: Yes - Additional Information Resuscitation Status: Full Code Discharge Diet: Diabetic Discharge Activity: Activity As Tolerated Prescriptions: Clindamycin HCl [Cleocin 300 mg Capsule] 300 mg PO Q8H #21 capsule Home Medications: Atorvastatin Calcium [Lipitor 10 mg Tablet] 10 mg PO QHS #30 tablet 04/19/13 Tamsulosin HCl [Flomax 0.4 mg Cap.sr] 0.4 mg PO DAILY cap.sr.24h 12/17/15 Insulin Lispro [Humalog Insulin (Lispro) 100 unit/mL] 0 unit SUBCUT .SLIDING SCALE PRN 12/04/18 Levothyroxine Sodium [Synthroid 0.1 mg Tablet] 0.1 mg PO DAILY 12/04/18 Liraglutide [Victoza 2-Franklin] 1.8 ml SQ DAILY 12/04/18 Lisinopril [Prinivil 10 mg Tablet] 10 mg PO DAILY 12/04/18 Omeprazole 20 mg PO DAILY 12/04/18 Clindamycin HCl [Cleocin 300 mg Capsule] 300 mg PO Q8H #21 capsule 12/07/18 History of Present Illness History of Present Illness: JULIAN CACERES is a 53 year old male, He has a history of poorly controlled type 2 diabetes he came to the emergency room for evaluation of a 3-day history of swelling of the left thumb, He stated that he had a small blister about 3 days ago on it as progressively worsened with swelling consistent with abscess of the thumb,There is no systemic symptoms there is no fever or chills but he 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 Tyler, he was initially e mpirically started on intravenous Zosyn and vancomycin. The culture from the finger grew gram positive cocci in clusters that suggest Staphylococcus bacteria, the specific speech she is not known yet. Patient is presently on intravenous vancomycin 1 g IV every 8 hours, he has multiple missing fingers on both hands due to previous infection. I advised this patient to stay on continue IV antibiotic until we know the specific Staphylococcus specie, if the Staphylococcus is MSSA, he could be discharge on p.o. antibiotic but if is MRSA, that may complicate the picture. But he insisted that he want to be discharged home today, he will be discharged home today on clindamycin and outpatient wou nd dressing I hope the Staphylococcus final result will be sensitive to clindamycin Physical Exam Vital Signs: Temp Pulse Resp BP Pulse Ox 97.9 F 76 18 132/42 H 95 12/07/18 19:17 12/07/18 19:17 12/07/18 19:17 12/07/18 19:17 12/07/18 19:17 Intake & Output 12/06/18 12/07/18 12/08/18 06:59 06:59 06:59 Intake Total 3150 2295 1300 Output Total 2430 915 Balance 720 1380 1300 Weight 115.2 kg 113.3 kg General appearance: PRESENT: no acute distress Eye exam: PRESENT: PERRLA Ear exam: PRESENT: normal external ear exam Mouth exam: PRESENT: moist, tongue midline Neck exam: PRESENT: full ROM Respiratory exam: PRESENT: clear to auscultation mamta Cardiovascular exam: PRESENT: RRR, +S1, +S2 Vascular exam: PRESENT: normal capillary refill GI/Abdominal exam: PRESENT: normal bowel sounds, soft Rectal exam: PRESENT: deferred Neurological exam: PRESENT: alert, awake, oriented to person, oriented to place, oriented to time, oriented to situation, CN II-XII grossly intact. ABSENT: motor sensory deficit Psychiatric exam: PRESENT: appropriate affect, normal mood Skin exam: PRESENT: dry, intact, warm Results Laboratory Results: 12/07/18 05:20 12/06/18 04:26 12/07/18 05:20 WBC 8.7 RBC 4.36 Hgb 13.5 Hct 38.5 MCV 89 MCH 31.0 MCHC 35.0 RDW 12.8 Plt Count 316 Seg Neutrophils % 68.0 12/05/18 16:42 Finger - Left Thumb Gram Stain - Final 12/04/18 12/04/18 12/05/18 19:05 19:05 01:15 Creatine Kinase 80 70 CK-MB (CK-2) 1.04 Troponin I < 0.012 12/05/18 12/05/18 12/05/18 01:15 07:48 07:48 Creatine Kinase 61 CK-MB (CK-2) 0.71 0.49 Troponin I < 0.012 < 0.012 Impressions: Finger X-Ray 12/04/18 11:18 IMPRESSION: 1. Diffuse soft tissue swelling about the left thumb. No radiographic evidence of osteomyelitis. Consider MRI to more sensitively evaluate if suspected. 2. There is a dense metallic foreign body about the base of the left 1st metacarpal, of uncertain significance. 3. 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 Qualifiers - * PATIENT BEING DISCHARGED WITH ANY OF THE FOLLOWING DIAGNOSIS: No VTE patient discharged on overlapping Therapy?: No Reason(s) for not prescribing Overlap Therapy:: Not indicated Stroke Pt being discharged on Anti-thrombolytic therapy?: No Reason(s) for not prescribing Anti-thrombolytic therapy:: Not indicated Stroke Pt being discharged on Anti-coagulation therapy?: No Reason(s) for not prescribing Anti-coagulation therapy:: Not indicated Stroke Pt being discharged on Statins?: No Reason(s) for not prescribing Statins therapy:: Not indicated KS Pt being discharged on Aspirin therapy?: No Reason(s) for not prescribing Aspirin therapy:: Not indicated KS Pt being discharged on Statins?: No Reason(s) for not prescribing Statin therapy:: Not indicated KS Pt discharged ACEI/ARBS?: No Reason(s) for not prescribing ACEI/ARBS:: Not indicated Acute Heart Failure - Is this a Heart Failure Patient?: No e) For LVEF <35%, discharged on Aldosterone antagonist?: Yes
== END 2018-12-07 20:00 | disposition home or self-care (01) | DRG 603 ==
LOC: ER 10:52 → EH 14:25 → 5 17:36
PROVIDERS: ADMIT Internal Medicine; ATTEND Internal Medicine
PROC: 0H9GXZZ Drainage of Left Hand Skin, External Approach (ICD-10-PCS; principal; 2018-12-05 16:30)
DX: L03.012 Cellulitis of left finger (principal); E11.40 Type 2 diabetes mellitus with diabetic neuropathy, unspecified; I10 Essential (primary) hypertension; E03.9 Hypothyroidism, unspecified; B95.61 Methicillin susceptible Staphylococcus aureus infection as the cause of diseases classified elsewhere; Z89.611 Acquired absence of right leg above knee; Z89.022 Acquired absence of left finger(s); Z79.4 Long term (current) use of insulin; Z79.899 Other long term (current) drug therapy
CPT/HCPCS: 01810; 36415; 80048; 80053; 80061; 80202; 80307; 81001; 82140; 82150; 82550; 82553; 82962; 83036; 83690; 83735; 84100; 84439; 84443; 84484; 85025; 85610; 85652; 85730; 87040; 87070; 87075; 87077; 87086; 87186; 87205; 96365; 96366; 96367; 99284; A6266; J1100; J1650; J1815; J2250; J2405; J2543; J2704; J3010; J3370; J3490; J7030; J7050; J7060

== ENCOUNTER 2019-06-09 11:39 | Inpatient (IN) | payer MEDICAID, MEDICARE ==
--- NOTE | 2019-06-09 11:52 | ER Document Report ---
ED Medical Screen (RME) - General Chief Complaint: Hand Pain Stated Complaint: FINGER PAIN Time Seen by Provider: 06/09/19 11:46 Primary Care Provider: AUDI GARCIA MD [Primary Care Provider] - Follow up as needed TRAVEL OUTSIDE OF THE [place] IN LAST 30 DAYS: No - HPI Notes: 06/09/19 11:50 Patient is a 53-year-old male with a history of peripheral neuropathy was extremities as well as diabetes and multiple amputations due to nonhealing infections presents complaining of fifth finger redness and swelling that he noticed developing over the past couple weeks, but worsened over the past 1 to 2 days. Patient is not sure if he will need his finger amputated or not, but came for evaluation. Denies drug allergies. No fever or chest pain. I have treated and performed a rapid initial assessment of this patient. A comprehensive ED assessment and evaluation of the patient, analysis of test results and completion of medical decision making process will be conducted by additional ED providers. PHYSICAL EXAMINATION: GENERAL: Well-appearing, well-nourished and in no acute distress. A&Ox4. Answers questions appropriately. Right hand: There are multiple amputations to this hand. His right fifth finger is erythemic with some necrotic appearing skin and sloughing of some superficial skin tissue. - Related Data Allergies/Adverse Reactions: No Known Allergies Allergy (Verified 04/16/13 19:04) Past Medical History - Past Medical History Cardiac Medical History: Reports: Hx Hypertension - no meds at this time, Hx Peripheral Vascular Disease Denies: Hx Coronary Artery Disease, Hx Heart Attack Pulmonary Medical History: Denies: Hx Asthma, Hx Bronchitis, Hx COPD, Hx Pneumonia, Hx Tuberculosis Neurological Medical History: Denies: Hx Cerebrovascular Accident, Hx Seizures Endocrine Medical History: Reports: Hx Diabetes Mellitus Type 2, Hx Hypothyroidism Renal/ Medical History: Denies: Hx Peritoneal Dialysis Musculoskeltal Medical History: Denies Hx Arthritis Psychiatric Medical History: Denies: Hx Depression Past Surgical History: Reports: Hx Orthopedic Surgery, Hx Tonsillectomy. Denies: Hx Pacemaker - Immunizations Hx Diphtheria, Pertussis, Tetanus Vaccination: Yes Physical Exam - Vital signs Vitals: Temp Pulse Resp BP Pulse Ox 98.1 F 84 20 167/90 H 100 06/09/19 11:46 06/09/19 11:46 06/09/19 11:46 06/09/19 11:46 06/09/19 11:46 Course - Vital Signs Vital signs: Temp Pulse Resp BP Pulse Ox 98.1 F 84 20 167/90 H 100 06/09/19 11:46 06/09/19 11:46 06/09/19 11:46 06/09/19 11:46 06/09/19 11:46 Doctor's Discharge - Discharge Referrals: AUDI GARCIA MD [Primary Care Provider] - Follow up as needed
[2019-06-09 12:26] LABS: ABSOLUTE BASOPHILS # (AUTO) 0.1 10^3/uL (0.0-0.2); ABSOLUTE EOSINOPHILS # (AUTO) 0.2 10^3/uL (0.0-0.6); ABSOLUTE LYMPHOCYTES (AUTO) 1.7 10^3/uL (0.5-4.7); ABSOLUTE MONOCYTES (AUTO) 0.9 10^3/uL (0.1-1.4); HEMATOCRIT 40.1 % (37.9-51.0); HEMOGLOBIN 14.1 g/dL (13.5-17.0); LYMPHOCYTES % (AUTO) 19.7 % (13-45); MEAN CORPUSCULAR HGB CONC 35.1 g/dL (32.0-36.0); MEAN CORPUSCULAR VOLUME 88 fl (80-97); MONOCYTES % (AUTO) 10.1 % (3-13); PLATELET COUNT 351 10^3/uL (150-450); RED BLOOD COUNT 4.54 10^6/uL (4.35-5.55); RED CELL DISTRIBUTION WIDTH 12.7 % (11.5-14.0); SEGMENTED NEUTROPHILS % (AUTO) 67.2 % (42-78); TOTAL CELLS COUNTED % (AUTO) 100 %; WHITE BLOOD COUNT 8.9 10^3/uL (4.0-10.5)
--- NOTE | 2019-06-09 12:29 | RADIOLOGY REPORT (SQ) ---
EXAM DESCRIPTION: HAND RIGHT 3 VIEWS COMPLETED DATE/TIME: 06/09/2019 12:11 pm REASON FOR STUDY: rt 5th finger erythema, h/o DM and amputations COMPARISON: None. EXAM PARAMETERS: NUMBER OF VIEWS: Three views. TECHNIQUE: AP, lateral and oblique radiographic images acquired of the right hand. LIMITATIONS: None. FINDINGS: MINERALIZATION: Normal. BONES: Prior amputation at the MCP joint seconds and 3rd digits. Posttraumatic changes DIP joint 4th digit. No significant finding along the digit. No erosion or cortical disruption. JOINTS: No effusions. SOFT TISSUES: Generalized soft tissue swelling of the 5th digit. OTHER: No other significant finding. IMPRESSION: Soft tissue swelling. No evidence for osteomyelitis. No acute fracture. TECHNICAL DOCUMENTATION: JOB ID: [id number] 2011 [employer]- All Rights Reserved Reading location - IP/workstation name: [email or web address]
[2019-06-09 12:43] LABS: ALBUMIN 3.4 g/dL (3.5-5.0); ALKALINE PHOSPHATASE 66 U/L (38-126); ANION GAP 11 (5-19); ASPARTATE AMINO TRANSFERASE 17 U/L (17-59); BILIRUBIN,DIRECT 0.3 mg/dL (0.0-0.4); BILIRUBIN,TOTAL 0.6 mg/dL (0.2-1.3); BLOOD UREA NITROGEN 12 mg/dL (7-20); CALCIUM 8.7 mg/dL (8.4-10.2); CARBON DIOXIDE 24 mmol/L (22-30); CHLORIDE 102 mmol/L (98-107); GLUCOSE 301 mg/dL (75-110); POTASSIUM 4.4 mmol/L (3.6-5.0); TOTAL PROTEIN 6.9 g/dL (6.3-8.2)
[2019-06-09] MEDS ORDERED: ERTAPENEM SODIUM INJ 1 GM VIAL IV ONE (12:48)
--- NOTE | 2019-06-09 12:55 | ER Document Report ---
ED General - General Chief Complaint: Wound Infection Stated Complaint: FINGER PAIN Time Seen by Provider: 06/09/19 11:46 Mode of Arrival: Ambulatory Information source: Patient, [facility] Records Notes: This 53-year-old insulin-dependent diabetes patient. He does have diabetic peripheral neuropathy. He reports the right fifth finger has been swelling for the past couple of weeks, is much worse the past 1 to 2 days. The skin has blistered up and peeled off. He has had the right second and third digits amputated in the past for the same problem. He has multiple other digit amputations on his other hand and his feet. TRAVEL OUTSIDE OF THE [place] IN LAST 30 DAYS: No - Related Data Allergies/Adverse Reactions: No Known Allergies Allergy (Verified 04/16/13 19:04) Home Medications: Lisinopril, Aspirin, Omeprazole, Atorvastatin, Levothyroxine. Past Medical History - General Information source: Patient, [facility] Records - Social History Smoking Status: Never Smoker Cigarette use (# per day): No Chew tobacco use (# tins/day): No Smoking Education Provided: No Frequency of alcohol use: None Drug Abuse: None Lives with: Family Family History: DM, Hypertension Patient has suicidal ideation: No Patient has homicidal ideation: No - Past Medical History Cardiac Medical History: Reports: Hx Hypertension, Hx Peripheral Vascular Dis ease Neurological Medical History: Reports: Other Endocrine Medical History: Reports: Hx Diabetes Mellitus Type 2, Hx Hypothyroidism Past Surgical History: Reports: Hx Orthopedic Surgery, Hx Tonsillectomy - Immunizations Hx Diphtheria, Pertussis, Tetanus Vaccination: Yes Hx Pneumococcal Vaccination: 12/29/12 Physical Exam - Vital signs Vitals: Temp Pulse Resp BP Pulse Ox 98.1 F 84 20 167/90 H 100 06/09/19 11:46 06/09/19 11:46 06/09/19 11:46 06/09/19 11:46 06/09/19 11:46 Interpretation: Hypertensive - General General appearance: Appears well, Alert In distress: None - HEENT Head: Normocephalic, Atraumatic Eyes: Normal Pupils: PERRL - Respiratory Respiratory status: No respiratory distress - Cardiovascular Rhythm: Regular Heart sounds: Normal auscultation Murmur: No - Abdominal Inspection: Obese Bowel sounds: Normal Tenderness: Nontender - Back Back: Normal - Extremities General upper extremity: Other - Right fifth finger is grossly swollen with desquamating skin on the distal aspect. The volar surface shows a small hole that suggests pus and abscess underneath. General lower extremity: Other - Right AKA Hand: Other - Right hand has amputations of the second and third digits at the MCP joint. - Neurological Neuro grossly intact: Yes - Psychological Associated symptoms: Normal affect, Normal mood - Skin Skin Temperature: Warm Skin Moisture: Dry Skin Color: Normal Course - Re-evaluation Re-evalutation: 06/09/19 15:06 Dr. Flores came to see the patient, debrided the finger finding a large pus pocket on the volar surface of the fingertip. - Vital Signs Vital signs: Temp Pulse Resp BP Pulse Ox 98.1 F 84 20 167/90 H 100 06/09/19 11:46 06/09/19 11:46 06/09/19 11:46 06/09/19 11:46 06/09/19 11:46 - Laboratory Result Diagrams: 06/09/19 12:00 06/09/19 12:00 Laboratory results interpreted by me: 06/09/19 12:00 Glucose 301 H Albumin 3.4 L - Diagnostic Test Radiology reviewed: Image reviewed, Reports reviewed - X-ray right fifth finger shows soft tissue swelling without bone involvement. - Consults Dr. Atkins Time consulted: 14:15 Consulted provider: will see as inpatient - Dr. Atkins requests that I consult Dr. Flores to see the patient. Dr. Flores Time consulted: 14:20 Consulted provider: will come to ER - Dr. Flores states he knows the patient well and will be by to see him sometime today. Discharge - Discharge Clinical Impression: Abscess of finger of right hand, Infected finger Diabetic neuropathy associated with type 2 diabetes mellitus Qualifiers: Diabetes mellitus complication detail: diabetic polyneuropathy Qualified Code(s): E11.42 - Type 2 diabetes mellitus with diabetic polyneuropathy Hypertension Qualifiers: Hypertension type: essential hypertension Qualified Code(s): I10 - Essential (primary) hypertension Condition: Stable Disposition: ADMITTED INPATIENT Admitting Provider: Onofre Atkins covering Unit Admitted: Medical Floor
[2019-06-09] MEDS ORDERED: LIDOCAINE 1% INJ-PF (10 MG/ML) 30 ML SDV ONE (14:45)
[2019-06-09] MEDS ORDERED: ACETAMINOPHEN 325 MG TABLET PO PRN (14:59)
[2019-06-09] MEDS ORDERED: DEXTROSE 40% GEL 15 GM TUBE PO PRN ×4 (15:04→17:58)
[2019-06-09] MEDS ORDERED: GLUCAGON,HUMAN RECOMB 1 MG INJ IM PRN ×2 (15:04→17:58)
[2019-06-09] MEDS ORDERED: DEXTROSE 50%-WATER 25 GM/50 ML DISP.SYRIN IV PRN ×4 (15:04→17:58)
--- NOTE | 2019-06-09 15:19 | Operative Report ---
Operative Report DATE OF SURGERY: 06/09/19 PREOPERATIVE DIAGNOSIS: 1. Infected, nonviable soft tissue distal right fifth phalanx. 2. Status post amputation index and middle fingers right hand. 3. Insulin-dependent diabetes mellitus POSTOPERATIVE DIAGNOSIS: Same OPERATION: Excisional debridement of nail ,skin, subcutaneous tissue, and pulp, plantar surface of distal aspect right fifth distal digit, and wound packing SURGEON: TINO BRADSHAW ANESTHESIA: Local TISSUE REMOVED OR ALTERED: Nonviable skin and deep soft tissue of the right fifth finger COMPLICATIONS: None ESTIMATED BLOOD LOSS: Scant INTRAOPERATIVE FINDINGS: See below PROCEDURE: Patient was seen in the emergency department where he is found to have a previously amputated first and second digit at the level of the metacarpal bones. These wounds were closed. There was a small ulcer mid interphalangeal joint right fourth finger, dry, palmar surface. The right fifth digit was grossly swollen, nail intact however the plantar surface of the of the distal phalanx was inflamed, swollen, with portions of nonviable tissue. The right fifth digit was prepped with Betadine. Timeout was conducted. The distal aspect of the right fifth finger was anesthetized 1% plain lidocaine. Using tenotomy scissors and a 15 blade, all obviously nonviable skin extending from the toe interphalangeal joint to the tip of the fifth finger was debrided. Beneath the dermis with some purulent material sent for Gram stain culture and sensitivity. The deep pulp of the tip of the fifth finger was excised with tenotomy scissors. All loculations were broken up. The overgrown fifth nail was debrided sharply. I felt that the damage control treatment for today was sufficient. There was good bleeding to the skin. The infection did not extend proximally into the middle or proximal phalanx. The wound was irrigated with peroxide saline and saline again, then dressed with a Xeroform 4 x 4's, and Kerlix. Patient tolerated procedure well. Recommendations: 1. Agree with IV empiric antibiotic therapy 2. We will check finger tomorrow on rounds to determine whether additional debridement is required. 3. Follow-up on wound cultures
[2019-06-09 16:06] LABS: ANION GAP 11 (5-19); BLOOD UREA NITROGEN 12 mg/dL (7-20); CALCIUM 8.8 mg/dL (8.4-10.2); CARBON DIOXIDE 23 mmol/L (22-30); CHLORIDE 104 mmol/L (98-107); GLUCOSE 207 mg/dL (75-110); POTASSIUM 3.9 mmol/L (3.6-5.0)
[2019-06-09] MEDS: INSULIN LISPRO 100 UNIT/ML 3 ML VIAL SUBCUT SCH ×2 (17:53→21:14)
--- NOTE | 2019-06-09 18:04 | PDOC H&P ---
History of Present Illness Admission Date/PCP: 06/09/19 14:20 AUDI GARCIA MD Patient complains of: Right fifth finger infections History of Present Illness: JULIAN CACERES is a 53 year old male Is a 53-year-old male patient of Dr. Garcia with a very poorly controlled diabetes with A1c is more than 9 with a history of the amputations on the right lower extremities history of the amputation of the left finger and the right 3 fingers went to see Dr. spears last week with a complaint of right fifth finger swelling and given clindamycin's and patient's try to do the dressing himself and getting more worse than the blisters came to the emergency departments In the ER patient underwent for the debridement by Dr. Flores x-ray did not show any osteomyelitis and decided to admit for the IV antibiotics Patients when I saw it in the ER patient is currently doing well Patient's denied any chest pain no short of breath Patient's denied any heart problems no strokes Patient have amputation in the lower extremity upper extremities due to the peripheral neuropathy significant Past Medical History Cardiac Medical History: Reports: Hypertension, Peripheral Vascular Disease Denies: Coronary Artery Disease, Myocardial Infarction Pulmonary Medical History: Denies: Asthma, Bronchitis, Chronic Obstructive Pulmonary Disease (COPD), Pneumonia, Tuberculosis Neurological Medical History: Reports: Other Denies: Seizures Endocrine Medical History: Reports: Diabetes Mellitus Type 2, Hypothyroidism Musculoskeltal Medical History: Denies: Arthritis Psychiatric Medical History: Denies: Depression Hematology: Denies: Anemia Past Surgical History Past Surgical History: Reports: Orthopedic Surgery, Tonsillectomy Denies: Pacemaker Social History Information Source: Patient Lives with: Family Smoking Status: Never Smoker Frequency of Alcohol Use: None Hx Recreational Drug Use: No Drugs: None Hx Prescription Drug Abuse: No Family History Family History: Reviewed & Not Pertinent, DM, Hypertension Parental Family History Reviewed: Yes Children Family History Reviewed: Yes Sibling(s) Family History Reviewed.: Yes Medication/Allergy Home Medications: Levothyroxine Sodium [Synthroid 0.1 mg Tablet] 0.1 mg PO DAILY 12/04/18 Liraglutide [Victoza 2-Franklin] 1.8 ml SQ DAILY 12/04/18 Lisinopril [Prinivil 10 mg Tablet] 10 mg PO DAILY 12/04/18 Omeprazole 20 mg PO DAILY 12/04/18 Aspirin [Ecotrin 81 mg EC Tablet] 81 mg PO DAILY 06/09/19 Atorvastatin Calcium [Lipitor 10 mg Tablet] 10 mg PO DAILY 06/09/19 Clindamycin HCl [Cleocin 300 mg Capsule] 300 mg PO DAILY 06/09/19 Allergies/Adverse Reactions: No Known Allergies Allergy (Verified 04/16/13 19:04) Review of Systems Constitutional: ABSENT: chills, fever(s), headache(s), weight gain, weight loss Eyes: ABSENT: visual disturbances Ears: ABSENT: hearing changes Cardiovascular: ABSENT: chest pain, dyspnea on exertion, edema, orthropnea, palpitations Respiratory: ABSENT: cough, hemoptysis Gastrointestinal: ABSENT: abdominal pain, constipation, diarrhea, hematemesis, hematochezia, nausea, vomiting Genitourinary: ABSENT: dysuria, hematuria Musculoskeletal: ABSENT: joint swelling Integumentary: ABSENT: rash, wounds Neurological: ABSENT: abnormal gait, abnormal speech, confusion, dizziness, focal weakness, syncope Psychiatric: ABSENT: anxiety, depression, homidical ideation, suicidal ideation Endocrine: ABSENT: cold intolerance, heat intolerance, menstrual abnormalities, polydipsia, polyuria Hematologic/Lymphatic: ABSENT: easy bleeding, easy bruising, lymphadenopathy Physical Exam Vital Signs: Temp Pulse Resp BP Pulse Ox 98 F 80 16 152/94 H 98 06/09/19 17:54 06/09/19 17:54 06/09/19 17:54 06/09/19 17:54 06/09/19 17:54 Intake & Output 06/08/19 06/09/19 06/10/19 06:59 06:59 06:59 Weight 118.6 kg General appearance: PRESENT: no acute distress, well-developed, well-nourished Head exam: PRESENT: atraumatic, normocephalic Eye exam: PRESENT: conjunctiva pink, EOMI, PERRLA. ABSENT: scleral icterus Ear exam: PRESENT: normal external ear exam Mouth exam: PRESENT: moist, tongue midline Neck exam: PRESENT: full ROM. ABSENT: carotid bruit, JVD, lymphadenopathy, thyromegaly Respiratory exam: PRESENT: clear to auscultation mamta Cardiovascular exam: PRESENT: RRR. ABSENT: diastolic murmur, rubs, systolic murmur Vascular exam: PRESENT: normal capillary refill GI/Abdominal exam: PRESENT: normal bowel sounds, soft. ABSENT: distended, guarding, mass, organolmegaly, rebound, tenderness Rectal exam: PRESENT: deferred Extremities exam: PRESENT: right AKA Additional comments: Amputation of the left upper extremities finger and the right 3 fingers Neurological exam: PRESENT: alert, awake, oriented to person, oriented to place, oriented to time, oriented to situation, CN II-XII grossly intact. ABSENT: motor sensory deficit Psychiatric exam: PRESENT: appropriate affect, normal mood. ABSENT: homicidal ideation, suicidal ideation Skin exam: PRESENT: dry, intact, warm. ABSENT: cyanosis, rash Results Laboratory Results: 06/09/19 12:00 06/09/19 15:25 06/09/19 06/09/19 06/09/19 12:00 12:00 15:25 WBC 8.9 RBC 4.54 Hgb 14.1 Hct 40.1 MCV 88 MCH 31.0 MCHC 35.1 RDW 12.7 Plt Count 351 Seg Neutrophils % 67.2 Sodium 137.2 137.5 Potassium 4.4 3.9 Chloride 102 104 Carbon Dioxide 24 23 Anion Gap 11 11 BUN 12 12 Creatinine 0.74 0.73 Est GFR ( Amer) > 60 > 60 Glucose 301 H 207 H Calcium 8.7 8.8 Total Bilirubin 0.6 AST 17 Alkaline Phosphatase 66 Total Protein 6.9 Albumin 3.4 L Impressions: Hand X-Ray 06/09/19 11:50 IMPRESSION: Soft tissue swelling. No evidence for osteomyelitis. No acute fracture. Assessment & Plan - Diagnosis (1) Abscess of finger of right hand Is this a current diagnosis for this admission?: Yes Plan: Underwent further debridement of the right hand fingers by Dr. Flores continues to IV antibiotic (2) Diabetic neuropathy associated with type 2 diabetes mellitus Qualifiers: Diabetes mellitus complication detail: diabetic polyneuropathy Qualified Code(s): E11.42 - Type 2 diabetes mellitus with diabetic polyneuropathy Is this a current diagnosis for this admission?: Yes Plan: Diabetic education's adjust the insulin (3) Hypertension Qualifiers: Hypertension type: essential hypertension Qualified Code(s): I10 - Essential (primary) hypertension Is this a current diagnosis for this admission?: Yes Plan: Your stable (4) Peripheral vascular disease Is this a current diagnosis for this admission?: Yes - Time Time Spent: 30 to 50 Minutes Medications reviewed and adjusted accordingly: Yes Anticipated discharge: Home Within: Other - Inpatient Certification Based on my medical assessment, after consideration of the patient's comorbidities, presenting symptoms, or acuity I expect that the services needed warrant INPATIENT care.: Yes I certify that my determination is in accordance with my understanding of Medicare's requirements for reasonable and necessary INPATIENT services [42 CFR 412.3e].: Yes Medical Necessity: Significant Comorbidiites Make Outpatient Treatment Too Risky, Need Close Monitoring Due to Risk of Patient Decompensation, Need for IV Antibiotics Post Hospital Care: D/C Strip Cutter Documentation - Plan Summary Plan Summary: With the patient on a medical floor Cover with the antibiotic Follow-up with the surgery
[2019-06-09] MEDS: MEROPENEM 500 MG in NORMAL SALINE 50 ML IV SCH (18:09)
[2019-06-09] MEDS ORDERED: INSULIN GLARGINE,HUM.REC.ANLOG 1,000 UNIT/10 ML VIAL (PYX) SUBCUT ONE (21:12)
[2019-06-09] MEDS: INSULIN GLARGINE,HUM.REC.ANLOG 1,000 UNIT/10 ML VIAL SUBCUT SCH (21:14)
[2019-06-10] MEDS: MEROPENEM 500 MG in NORMAL SALINE 50 ML IV SCH ×3 (01:04→17:09)
[2019-06-10] MEDS: PANTOPRAZOLE SODIUM 20 MG TABLET.DR PO SCH (05:19)
[2019-06-10 05:34] LABS: ABSOLUTE BASOPHILS # (AUTO) 0.1 10^3/uL (0.0-0.2); ABSOLUTE EOSINOPHILS # (AUTO) 0.2 10^3/uL (0.0-0.6); ABSOLUTE LYMPHOCYTES (AUTO) 1.6 10^3/uL (0.5-4.7); BASOPHILS % (AUTO) 1.1 % (0-2); EOSINOPHILS % (AUTO) 2.1 % (0-6); HEMATOCRIT 38.7 % (37.9-51.0); MEAN CORPUSCULAR HEMOGLOBIN 31.9 pg (27.0-33.4); MEAN CORPUSCULAR HGB CONC 36.2 g/dL (32.0-36.0); MEAN CORPUSCULAR VOLUME 88 fl (80-97); MONOCYTES % (AUTO) 10.9 % (3-13); PLATELET COUNT 356 10^3/uL (150-450); RED BLOOD COUNT 4.39 10^6/uL (4.35-5.55); RED CELL DISTRIBUTION WIDTH 12.5 % (11.5-14.0); SEGMENTED NEUTROPHILS % (AUTO) 67.9 % (42-78); TOTAL CELLS COUNTED % (AUTO) 100 %; WHITE BLOOD COUNT 8.8 10^3/uL (4.0-10.5)
[2019-06-10] MEDS: INSULIN LISPRO 100 UNIT/ML 3 ML VIAL SUBCUT SCH ×4 (08:59→21:25)
[2019-06-10] MEDS: ATORVASTATIN CALCIUM 10 MG TABLET PO SCH (09:47)
[2019-06-10] MEDS: ASPIRIN 81 MG TABLET, ENT COATED PO SCH (09:47)
[2019-06-10] MEDS: LISINOPRIL 10 MG TABLET PO SCH (09:47)
[2019-06-10] MEDS: LEVOTHYROXINE SODIUM 0.1 MG TABLET PO SCH (09:47)
--- NOTE | 2019-06-10 09:58 | PDOC PROGRESS REPORT ---
Subjective Progress Note for:: 06/10/19 Subjective:: Patient is currently doing well Patient's denied any chest pain no short of breath Patient's blood sugar is all stable patient is a noncompliance of the Controlling the diabetes Reason For Visit: DM INFECTED FINGER Physical Exam Vital Signs: Temp Pulse Resp BP Pulse Ox 98.4 F 97 16 162/97 H 94 06/10/19 07:46 06/10/19 07:46 06/10/19 07:46 06/10/19 07:46 06/10/19 07:46 Intake & Output 06/09/19 06/10/19 06/11/19 06:59 06:59 06:59 Intake Total 750 Balance 750 Weight 116.2 kg General appearance: PRESENT: no acute distress, well-developed, well-nourished Head exam: PRESENT: atraumatic, normocephalic Eye exam: PRESENT: conjunctiva pink, EOMI, PERRLA. ABSENT: scleral icterus Ear exam: PRESENT: normal external ear exam Mouth exam: PRESENT: moist, tongue midline Neck exam: PRESENT: full ROM. ABSENT: carotid bruit, JVD, lymphadenopathy, thyromegaly Respiratory exam: PRESENT: clear to auscultation mamta Cardiovascular exam: PRESENT: RRR. ABSENT: diastolic murmur, rubs, systolic murmur Vascular exam: PRESENT: normal capillary refill GI/Abdominal exam: PRESENT: normal bowel sounds, soft. ABSENT: distended, guarding, mass, organolmegaly, rebound, tenderness Rectal exam: PRESENT: deferred Additional comments: Right finger the dressing is intact other exam is pretty much same Neurological exam: PRESENT: alert, awake, oriented to person, oriented to place, oriented to time, oriented to situation, CN II-XII grossly intact. ABSENT: motor sensory deficit Psychiatric exam: PRESENT: appropriate affect, normal mood. ABSENT: homicidal ideation, suicidal ideation Skin exam: PRESENT: dry, intact, warm. ABSENT: cyanosis, rash Results Laboratory Results: 06/10/19 04:17 06/09/19 15:25 06/09/19 06/09/19 06/09/19 12:00 12:00 15:25 WBC 8.9 RBC 4.54 Hgb 14.1 Hct 40.1 MCV 88 MCH 31.0 MCHC 35.1 RDW 12.7 Plt Count 351 Seg Neutrophils % 67.2 Sodium 137.2 137.5 Potassium 4.4 3.9 Chloride 102 104 Carbon Dioxide 24 23 Anion Gap 11 11 BUN 12 12 Creatinine 0.74 0.73 Est GFR ( Amer) > 60 > 60 Glucose 301 H 207 H Calcium 8.7 8.8 Total Bilirubin 0.6 AST 17 Alkaline Phosphatase 66 Total Protein 6.9 Albumin 3.4 L 06/10/19 04:17 WBC 8.8 RBC 4.39 Hgb 14.0 Hct 38.7 MCV 88 MCH 31.9 MCHC 36.2 H RDW 12.5 Plt Count 356 Seg Neutrophils % 67.9 Sodium Potassium Chloride Carbon Dioxide Anion Gap BUN Creatinine Est GFR ( Amer) Glucose Calcium Total Bilirubin AST Alkaline Phosphatase Total Protein Albumin Impressions: Hand X-Ray 06/09/19 11:50 IMPRESSION: Soft tissue swelling. No evidence for osteomyelitis. No acute fracture. Assessment & Plan - Diagnosis (1) Abscess of finger of right hand Is this a current diagnosis for this admission?: Yes (2) Diabetic neuropathy associated with type 2 diabetes mellitus Qualifiers: Diabetes mellitus complication detail: diabetic polyneuropathy Qualified Code(s): E11.42 - Type 2 diabetes mellitus with diabetic polyneuropathy Is this a current diagnosis for this admission?: Yes (3) Hypertension Qualifiers: Hypertension type: essential hypertension Qualified Code(s): I10 - Essential (primary) hypertension Is this a current diagnosis for this admission?: Yes (4) Peripheral vascular disease Is this a current diagnosis for this admission?: Yes - Time Time Spent with patient: 15-24 minutes Level of Care: IMCU Medications reviewed and adjusted accordingly: Yes Anticipated discharge: Other Within: Other - Plan Summary Plan Summary: Continues to current medications
[2019-06-10] MEDS ORDERED: LIRAGLUTIDE SQ SCH (10:00)
[2019-06-10] MEDS ORDERED: ERTAPENEM SODIUM 1 GM in NORMAL SALINE 50 ML IV SCH (10:00)
--- NOTE | 2019-06-10 15:10 | PDOC PROGRESS REPORT ---
Subjective Progress Note for:: 06/10/19 Reason For Visit: DM INFECTED FINGER Patient did well overnight; again his right hand remains essentially insensate, so we cannot appreciate any difference between yesterday and today. Physical Exam Vital Signs: Temp Pulse Resp BP Pulse Ox 98.0 F 91 16 156/103 H 97 06/10/19 11:01 06/10/19 11:01 06/10/19 11:01 06/10/19 11:01 06/10/19 11:01 Intake & Output 06/09/19 06/10/19 06/11/19 06:59 06:59 06:59 Intake Total 750 290 Balance 750 290 Weight 116.2 kg General appearance: PRESENT: no acute distress Extremities exam: PRESENT: other - Dressing removed. Some devitalized deep subcutaneous tissue on the plantar aspect of the fifth finger. This was sharply debrided at bedside with pickups and scissors. Overall the edema, erythema and hostility to the finger proximally is diminished. Skin edges bled nicely. The nail remains viable. Results Laboratory Results: 06/10/19 04:17 06/09/19 15:25 06/09/19 06/10/19 15:25 04:17 WBC 8.8 RBC 4.39 Hgb 14.0 Hct 38.7 MCV 88 MCH 31.9 MCHC 36.2 H RDW 12.5 Plt Count 356 Seg Neutrophils % 67.9 Sodium 137.5 Potassium 3.9 Chloride 104 Carbon Dioxide 23 Anion Gap 11 BUN 12 Creatinine 0.73 Est GFR ( Amer) > 60 Glucose 207 H Calcium 8.8 Impressions: Hand X-Ray 06/09/19 11:50 IMPRESSION: Soft tissue swelling. No evidence for osteomyelitis. No acute fracture. Assessment & Plan - Diagnosis (1) Abscess of finger of right hand Plan: Impression: Deep soft tissue infection distal aspect right fifth finger status post serial debridements with marked clinical improvement in erythema and edema of the remainder of the digit with hand elevation, intravenous antibiotics Recommendations: 1. I believe the finger is no longer in jeopardy. Patient is growing gram- positive cocci. Continue patient on IV antibiotics, then may switch to oral antibiotics in the next 24 to 48 hours. 2. Patient is very familiar with wounds and wound management, and has acceptable support system. I would suggest twice daily dressing changes which I have ordered today, and follow-up with [facility] on an outpatient basis at time of discharge. 3. General surgery will sign off at this time; please reconsult if clinically indicated. - Time Time Spent: 30 to 50 Minutes
[2019-06-10] MEDS: INSULIN GLARGINE,HUM.REC.ANLOG 1,000 UNIT/10 ML VIAL SUBCUT SCH (21:26)
[2019-06-11] MEDS: MEROPENEM 500 MG in NORMAL SALINE 50 ML IV SCH ×3 (01:01→17:09)
[2019-06-11] MEDS: PANTOPRAZOLE SODIUM 20 MG TABLET.DR PO SCH (05:21)
[2019-06-11 05:59] LABS: ABSOLUTE BASOPHILS # (AUTO) 0.1 10^3/uL (0.0-0.2); ABSOLUTE EOSINOPHILS # (AUTO) 0.2 10^3/uL (0.0-0.6); ABSOLUTE LYMPHOCYTES (AUTO) 1.7 10^3/uL (0.5-4.7); ABSOLUTE MONOCYTES (AUTO) 0.7 10^3/uL (0.1-1.4); BASOPHILS % (AUTO) 1.7 % (0-2); EOSINOPHILS % (AUTO) 3.2 % (0-6); HEMATOCRIT 37.6 % (37.9-51.0); HEMOGLOBIN 13.7 g/dL (13.5-17.0); LYMPHOCYTES % (AUTO) 25.6 % (13-45); MEAN CORPUSCULAR HEMOGLOBIN 31.8 pg (27.0-33.4); MEAN CORPUSCULAR HGB CONC 36.5 g/dL (32.0-36.0); MEAN CORPUSCULAR VOLUME 87 fl (80-97); MONOCYTES % (AUTO) 10.8 % (3-13); PLATELET COUNT 358 10^3/uL (150-450); RED BLOOD COUNT 4.32 10^6/uL (4.35-5.55); RED CELL DISTRIBUTION WIDTH 12.6 % (11.5-14.0); SEGMENTED NEUTROPHILS % (AUTO) 58.7 % (42-78); TOTAL CELLS COUNTED % (AUTO) 100 %; WHITE BLOOD COUNT 6.7 10^3/uL (4.0-10.5)
[2019-06-11] MEDS: INSULIN LISPRO 100 UNIT/ML 3 ML VIAL SUBCUT SCH ×4 (08:21→22:08)
[2019-06-11] MEDS: LISINOPRIL 10 MG TABLET PO SCH (10:06)
[2019-06-11] MEDS: ASPIRIN 81 MG TABLET, ENT COATED PO SCH (10:06)
[2019-06-11] MEDS: ATORVASTATIN CALCIUM 10 MG TABLET PO SCH (10:06)
[2019-06-11] MEDS: LEVOTHYROXINE SODIUM 0.1 MG TABLET PO SCH (10:06)
--- NOTE | 2019-06-11 21:16 | PDOC PROGRESS REPORT ---
Subjective Progress Note for:: 06/11/19 Subjective:: Patient was admitted over the weekend when he presented with infected small finger of the right hand, he underwent debridement over the weekend by Dr. Flores. 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 Reason For Visit: DM INFECTED FINGER Physical Exam Vital Signs: Temp Pulse Resp BP Pulse Ox 97.8 F 84 16 151/96 H 97 06/11/19 15:33 06/11/19 15:33 06/11/19 15:33 06/11/19 15:33 06/11/19 15:33 Intake & Output 06/10/19 06/11/19 06/12/19 06:59 06:59 06:59 Intake Total 750 2072 565 Balance 750 2072 565 Weight 116.2 kg 117.1 kg General appearance: PRESENT: no acute distress Eye exam: PRESENT: PERRLA Respiratory exam: PRESENT: clear to auscultation mamta Cardiovascular exam: PRESENT: +S1, +S2 GI/Abdominal exam: PRESENT: soft Extremities exam: PRESENT: right AKA, other - Right hand many missing fingers Neurological exam: PRESENT: alert, CN II-XII grossly intact Results Laboratory Results: 06/11/19 04:32 06/09/19 15:25 06/11/19 04:32 WBC 6.7 RBC 4.32 L Hgb 13.7 Hct 37.6 L MCV 87 MCH 31.8 MCHC 36.5 H RDW 12.6 Plt Count 358 Seg Neutrophils % 58.7 06/09/19 15:10 Finger - Right Pinky Finger Gram Stain - Final 06/09/19 15:10 Finger - Right Pinky Finger Wound Culture - Final Staphylococcus Aureus No Anaerobic Organisms Impressions: Hand X-Ray 06/09/19 11:50 IMPRESSION: Soft tissue swelling. No evidence for osteomyelitis. No acute fracture. Assessment & Plan - Diagnosis (1) Type 2 diabetes mellitus with diabetic polyneuropathy Qualifiers: Diabetes mellitus alf insulin use: with alf use Qualified Code(s): E11.42 - Type 2 diabetes mellitus with diabetic polyneuropathy; Z79.4 - halfway (current) use of insulin Is this a current diagnosis for this admission?: Yes (2) Abscess of finger of right hand Is this a current diagnosis for this admission?: Yes Plan: The culture from the debridement is staph aureus sensitive to Levaquin resistant to clindamycin, DC meropenem start p.o. Levaquin, patient want to go home tomorrow - Time Time Spent with patient: 25-34 minutes Level of Care: MEDICAL
--- NOTE | 2019-06-11 21:30 | PDOC DISCHARGE SUMMARY ---
Impression - Admit/DC Date/PCP Admission Date/Primary Care Provider: 06/09/19 14:20 AUDI GARCIA MD Discharge Date: 06/12/19 - Discharge Diagnosis (1) Type 2 diabetes mellitus with diabetic polyneuropathy Is this a current diagnosis for this admission?: Yes (2) Abscess of finger of right hand Is this a current diagnosis for this admission?: Yes - Additional Information Discharge Diet: Diabetic Referrals: AUDI GARCIA MD [Primary Care Provider] - Follow up as needed Prescriptions: Levofloxacin [Levaquin 750 mg Tablet] 750 mg PO DAILY #10 tablet Lisinopril [Prinivil 10 mg Tablet] 10 mg PO DAILY #30 Home Medications: Levothyroxine Sodium [Synthroid 0.1 mg Tablet] 0.1 mg PO DAILY 12/04/18 Liraglutide [Victoza 2-[place]] 1.8 ml SQ DAILY 12/04/18 Omeprazole 20 mg PO DAILY 12/04/18 Aspirin [Ecotrin 81 mg EC Tablet] 81 mg PO DAILY 06/09/19 Atorvastatin Calcium [Lipitor 10 mg Tablet] 10 mg PO DAILY 06/09/19 Acetaminophen [Tylenol 325 mg Tablet] 650 mg PO Q4HP PRN tablet 06/11/19 Levofloxacin [Levaquin 750 mg Tablet] 750 mg PO DAILY #10 tablet 06/11/19 Lisinopril [Prinivil 10 mg Tablet] 10 mg PO DAILY #30 06/11/19 History of Present Illiness History of Present Illness: JULIAN CACERES is a 53 year old male Physical Exam Vital Signs: Temp Pulse Resp BP Pulse Ox 97.8 F 73 17 159/99 H 95 06/11/19 19:24 06/11/19 19:24 06/11/19 19:24 06/11/19 19:24 06/11/19 19:24 Intake & Output 06/10/19 06/11/19 06/12/19 06:59 06:59 06:59 Intake Total 750 2072 565 Balance 750 2072 565 Weight 116.2 kg 117.1 kg Results Laboratory Results: WBC 6.7 10^3/uL (4.0-10.5) 06/11/19 04:32 RBC 4.32 10^6/uL (4.35-5.55) L 06/11/19 04:32 Hgb 13.7 g/dL (13.5-17.0) 06/11/19 04:32 Hct 37.6 % (37.9-51.0) L 06/11/19 04:32 MCV 87 fl (80-97) 06/11/19 04:32 MCH 31.8 pg (27.0-33.4) 06/11/19 04:32 MCHC 36.5 g/dL (32.0-36.0) H 06/11/19 04:32 RDW 12.6 % (11.5-14.0) 06/11/19 04:32 Plt Count 358 10^3/uL (150-450) 06/11/19 04:32 Lymph % (Auto) 25.6 % (13-45) 06/11/19 04:32 [place] % (Auto) 10.8 % (3-13) 06/11/19 04:32 Eos % (Auto) 3.2 % (0-6) 06/11/19 04:32 Baso % (Auto) 1.7 % (0-2) 06/11/19 04:32 Absolute Neuts (auto) 4.0 10^3/uL (1.7-8.2) 06/11/19 04:32 Absolute Lymphs (auto) 1.7 10^3/uL (0.5-4.7) 06/11/19 04:32 Absolute Monos (auto) 0.7 10^3/uL (0.1-1.4) 06/11/19 04:32 Absolute Eos (auto) 0.2 10^3/uL (0.0-0.6) 06/11/19 04:32 Absolute Basos (auto) 0.1 10^3/uL (0.0-0.2) 06/11/19 04:32 Seg Neutrophils % 58.7 % (42-78) 06/11/19 04:32 Sodium 137.5 mmol/L (137-145) 06/09/19 15:25 Potassium 3.9 mmol/L (3.6-5.0) 06/09/19 15:25 Chloride 104 mmol/L (98-107) 06/09/19 15:25 Carbon Dioxide 23 mmol/L (22-30) 06/09/19 15:25 Anion Gap 11 (5-19) 06/09/19 15:25 BUN 12 mg/dL (7-20) 06/09/19 15:25 Creatinine 0.73 mg/dL (0.52-1.25) 06/09/19 15:25 Est GFR ( Amer) > 60 (>60) 06/09/19 15:25 Est GFR (MDRD) Non-Af > 60 (>60) 06/09/19 15:25 Glucose 207 mg/dL (75-110) H 06/09/19 15:25 POC Glucose 313 mg/dL (70-110) H 06/11/19 20:39 Calcium 8.8 mg/dL (8.4-10.2) 06/09/19 15:25 Total Bilirubin 0.6 mg/dL (0.2-1.3) 06/09/19 12:00 Direct Bilirubin 0.3 mg/dL (0.0-0.4) 06/09/19 12:00 Neonat Total Bilirubin Not Reportable 06/09/19 12:00 Neonat Direct Bilirubin Not Reportable 06/09/19 12:00 Neonat Indirect Bili Not Reportable 06/09/19 12:00 AST 17 U/L (17-59) 06/09/19 12:00 ALT 18 U/L (<50) 06/09/19 12:00 Alkaline Phosphatase 66 U/L (38-126) 06/09/19 12:00 Total Protein 6.9 g/dL (6.3-8.2) 06/09/19 12:00 Albumin 3.4 g/dL (3.5-5.0) L 06/09/19 12:00 Impressions: Hand X-Ray 06/09/19 11:50 IMPRESSION: Soft tissue swelling. No evidence for osteomyelitis. No acute fracture.
[2019-06-11] MEDS ORDERED: LEVOFLOXACIN 750 MG TABLET PO SCH (22:00)
[2019-06-11] MEDS: INSULIN GLARGINE,HUM.REC.ANLOG 1,000 UNIT/10 ML VIAL SUBCUT SCH (22:08)
[2019-06-12 05:06] LABS: ABSOLUTE BASOPHILS # (AUTO) 0.1 10^3/uL (0.0-0.2); ABSOLUTE EOSINOPHILS # (AUTO) 0.2 10^3/uL (0.0-0.6); ABSOLUTE LYMPHOCYTES (AUTO) 1.6 10^3/uL (0.5-4.7); ABSOLUTE MONOCYTES (AUTO) 0.8 10^3/uL (0.1-1.4); BASOPHILS % (AUTO) 1.2 % (0-2); EOSINOPHILS % (AUTO) 2.3 % (0-6); HEMATOCRIT 38.1 % (37.9-51.0); HEMOGLOBIN 13.6 g/dL (13.5-17.0); LYMPHOCYTES % (AUTO) 20.9 % (13-45); MEAN CORPUSCULAR HEMOGLOBIN 31.2 pg (27.0-33.4); MEAN CORPUSCULAR HGB CONC 35.8 g/dL (32.0-36.0); MEAN CORPUSCULAR VOLUME 87 fl (80-97); MONOCYTES % (AUTO) 10.2 % (3-13); PLATELET COUNT 352 10^3/uL (150-450); RED BLOOD COUNT 4.36 10^6/uL (4.35-5.55); RED CELL DISTRIBUTION WIDTH 12.5 % (11.5-14.0); SEGMENTED NEUTROPHILS % (AUTO) 65.4 % (42-78); TOTAL CELLS COUNTED % (AUTO) 100 %; WHITE BLOOD COUNT 7.7 10^3/uL (4.0-10.5)
[2019-06-12] MEDS: PANTOPRAZOLE SODIUM 20 MG TABLET.DR PO SCH (05:41)
[2019-06-12 06:29] VITALS: BP 139/94
[2019-06-12] MEDS: INSULIN LISPRO 100 UNIT/ML 3 ML VIAL SUBCUT SCH (07:26)
--- NOTE | 2019-06-12 20:22 | PDOC DISCHARGE SUMMARY ---
Impression - Admit/DC Date/PCP Admission Date/Primary Care Provider: 06/09/19 14:20 AUDI GARCIA MD Discharge Date: 06/12/19 - Discharge Diagnosis (1) Type 2 diabetes mellitus with diabetic polyneuropathy Is this a current diagnosis for this admission?: Yes (2) Abscess of finger of right hand Is this a current diagnosis for this admission?: Yes (4) Peripheral vascular disease Is this a current diagnosis for this admission?: Yes - Additional Information Discharge Diet: Diabetic Discharge Activity: Activity As Tolerated, No Lifting/Push/Pulling Referrals: [facility] [Provider Group] - 06/19/19 2:30 pm AUDI GARCIA MD [Primary Care Provider] - 06/19/19 9:30 am Prescriptions: Levofloxacin [Levaquin 750 mg Tablet] 750 mg PO DAILY #10 tablet Lisinopril [Prinivil 10 mg Tablet] 10 mg PO DAILY #30 Home Medications: Levothyroxine Sodium [Synthroid 0.1 mg Tablet] 0.1 mg PO DAILY 12/04/18 Liraglutide [Victoza 2-[place]] 1.8 ml SQ DAILY 12/04/18 Omeprazole 20 mg PO DAILY 12/04/18 Aspirin [Ecotrin 81 mg EC Tablet] 81 mg PO DAILY 06/09/19 Atorvastatin Calcium [Lipitor 10 mg Tablet] 10 mg PO DAILY 06/09/19 Acetaminophen [Tylenol 325 mg Tablet] 650 mg PO Q4HP PRN tablet 06/11/19 Levofloxacin [Levaquin 750 mg Tablet] 750 mg PO DAILY #10 tablet 06/11/19 Lisinopril [Prinivil 10 mg Tablet] 10 mg PO DAILY #30 06/11/19 History of Present Illiness History of Present Illness: JULIAN CACERES is a 53-year-old male insulin-dependent diabetes patient. He does have diabetic peripheral neuropathy. He reports the right fifth finger has been swelling for the past couple of weeks, is much worse the past 1 to 2 days. The skin has blistered up and peeled off. He has had the right second and third digits amputated in the past for the same problem. He has multiple other digit amputations on his other hand and his feet. Hospital Course Hospital Course: Patient was admitted for the management of abscess, infected small finger of the right hand, he was empirically treated with IV antibiotic meropenem, he was seen by the surgeon Dr. Flores, he underwent debridement of the infected small finger. The culture from the abscess was staph aureus sensitive to Levaquin, the medication was transition to p.o. Levaquin yesterday. Patient insisted on going home today. Patient is not very compliant with his diabetic care he does not follow-up consistently in the office for the management of his diabetes, status post amputation of his right leg from PAD. He also have multiple amputation of many fingers of his hand Physical Exam Vital Signs: Temp Pulse Resp BP Pulse Ox 97.9 F 77 17 139/94 H 98 06/12/19 07:49 06/12/19 07:49 06/12/19 07:49 06/12/19 07:49 06/12/19 07:49 Intake & Output 06/11/19 06/12/19 06/13/19 06:59 06:59 06:59 Intake Total 2071 113 Balance 2071 1135 Weight 117.1 kg 116.6 kg General appearance: PRESENT: no acute distress Eye exam: PRESENT: PERRLA Respiratory exam: PRESENT: clear to auscultation mamta Cardiovascular exam: PRESENT: +S1 GI/Abdominal exam: PRESENT: soft Neurological exam: PRESENT: alert, CN II-XII grossly intact Results Laboratory Results: WBC 7.7 10^3/uL (4.0-10.5) 06/12/19 04:19 RBC 4.36 10^6/uL (4.35-5.55) 06/12/19 04:19 Hgb 13.6 g/dL (13.5-17.0) 06/12/19 04:19 Hct 38.1 % (37.9-51.0) 06/12/19 04:19 MCV 87 fl (80-97) 06/12/19 04:19 MCH 31.2 pg (27.0-33.4) 06/12/19 04:19 MCHC 35.8 g/dL (32.0-36.0) 06/12/19 04:19 RDW 12.5 % (11.5-14.0) 06/12/19 04:19 Plt Count 352 10^3/uL (150-450) 06/12/19 04:19 Lymph % (Auto) 20.9 % (13-45) 06/12/19 04:19 [place] % (Auto) 10.2 % (3-13) 06/12/19 04:19 Eos % (Auto) 2.3 % (0-6) 06/12/19 04:19 Baso % (Auto) 1.2 % (0-2) 06/12/19 04:19 Absolute Neuts (auto) 5.0 10^3/uL (1.7-8.2) 06/12/19 04:19 Absolute Lymphs (auto) 1.6 10^3/uL (0.5-4.7) 06/12/19 04:19 Absolute Monos (auto) 0.8 10^3/uL (0.1-1.4) 06/12/19 04:19 Absolute Eos (auto) 0.2 10^3/uL (0.0-0.6) 06/12/19 04:19 Absolute Basos (auto) 0.1 10^3/uL (0.0-0.2) 06/12/19 04:19 Seg Neutrophils % 65.4 % (42-78) 06/12/19 04:19 Sodium 137.5 mmol/L (137-145) 06/09/19 15:25 Potassium 3.9 mmol/L (3.6-5.0) 06/09/19 15:25 Chloride 104 mmol/L (98-107) 06/09/19 15:25 Carbon Dioxide 23 mmol/L (22-30) 06/09/19 15:25 Anion Gap 11 (5-19) 06/09/19 15:25 BUN 12 mg/dL (7-20) 06/09/19 15:25 Creatinine 0.73 mg/dL (0.52-1.25) 06/09/19 15:25 Est GFR ( Amer) > 60 (>60) 06/09/19 15:25 Est GFR (MDRD) Non-Af > 60 (>60) 06/09/19 15:25 Glucose 207 mg/dL (75-110) H 06/09/19 15:25 POC Glucose 194 mg/dL (70-110) H 06/12/19 06:25 Calcium 8.8 mg/dL (8.4-10.2) 06/09/19 15:25 Total Bilirubin 0.6 mg/dL (0.2-1.3) 06/09/19 12:00 Direct Bilirubin 0.3 mg/dL (0.0-0.4) 06/09/19 12:00 Neonat Total Bilirubin Not Reportable 06/09/19 12:00 Neonat Direct Bilirubin Not Reportable 06/09/19 12:00 Neonat Indirect Bili Not Reportable 06/09/19 12:00 AST 17 U/L (17-59) 06/09/19 12:00 ALT 18 U/L (<50) 06/09/19 12:00 Alkaline Phosphatase 66 U/L (38-126) 06/09/19 12:00 Total Protein 6.9 g/dL (6.3-8.2) 06/09/19 12:00 Albumin 3.4 g/dL (3.5-5.0) L 06/09/19 12:00 Impressions: Hand X-Ray 06/09/19 11:50 IMPRESSION: Soft tissue swelling. No evidence for osteomyelitis. No acute fracture. Stroke Is this a Stroke Patient?: No Acute Heart Failure - Is this a Heart Failure Patient?: No
== END 2019-06-12 09:11 | disposition home or self-care (01) | DRG 603 ==
LOC: ER 11:39 → EH 14:20 → 4N 18:06
PROVIDERS: ADMIT Internal Medicine; ATTEND Internal Medicine
PROC: 0HBFXZZ Excision of Right Hand Skin, External Approach (ICD-10-PCS; principal; 2019-06-11)
DX: L02.511 Cutaneous abscess of right hand (principal); E11.51 Type 2 diabetes mellitus with diabetic peripheral angiopathy without gangrene; E11.42 Type 2 diabetes mellitus with diabetic polyneuropathy; E11.622 Type 2 diabetes mellitus with other skin ulcer; L98.499 Non-pressure chronic ulcer of skin of other sites with unspecified severity; E03.9 Hypothyroidism, unspecified; B95.61 Methicillin susceptible Staphylococcus aureus infection as the cause of diseases classified elsewhere; Z89.021 Acquired absence of right finger(s); Z89.022 Acquired absence of left finger(s); Z89.611 Acquired absence of right leg above knee; Z89.422 Acquired absence of other left toe(s); Z91.19 Patient's noncompliance with other medical treatment and regimen
CPT/HCPCS: 36415; 80053; 82962; 85025; 87040; 87070; 87075; 87077; 87186; 87205; 96365; 99285; J1335; J1815; J2185

== ENCOUNTER → 2019-09-20 | Outpatient (CLI) | payer MEDICAID, MEDICARE ==
--- NOTE | 2019-09-20 11:45 | RADIOLOGY REPORT (SQ) ---
EXAM DESCRIPTION: MRI HEAD WITHOUT IMAGES COMPLETED DATE/TIME: 09/20/2019 10:39 am REASON FOR STUDY: CEREBRAL INFARCTION, UNSPEC (I63.9) I63.9 CEREBRAL INFARCTION, UNSPECIFIED COMPARISON: None. TECHNIQUE: Multiplanar imaging includes non-contrasted T1, T2, FLAIR, and diffusion with ADC map seq uences. Images stored on PACS. LIMITATIONS: None. FINDINGS: ANATOMY: No anomalies. Normal vascular flow voids. Pituitary fossa normal. CSF SPACES: Normal in size and contour. No hemorrhage. CEREBRUM: Sulci and gyri normal in size and contour. Normal white matter signal on FLAIR imaging. No evidence of hemorrhage, mass, or extraaxial fluid collection. POSTERIOR FOSSA: No signal alteration. No hemorrhage. No edema, masses or mass effect. Internal watson tory canals, cerebello-pontine angles, mastoids normal. DIFFUSION IMAGING: Negative for acute or sub-acute infarction. ORBITS: No masses. Globes normal. PARANASAL SINUSES: Small polyp or retention cyst right maxillary sinus. OTHER: No other significant finding. IMPRESSION: Normal brain. EVIDENCE OF ACUTE STROKE: NO. TECHNICAL DOCUMENTATION: JOB ID: [id number] [employer]- All Rights Reserved Reading location - IP/workstation name: [email or web address]
== END ==
LOC: RAD 10:00
PROVIDERS: ATTEND Internal Medicine
DX: I63.9 Cerebral infarction, unspecified (principal)
CPT/HCPCS: 70551

== ENCOUNTER 2019-10-11 09:07 | Inpatient (IN) | payer MEDICAID, MEDICARE ==
--- NOTE | 2019-10-11 09:51 | ER Document Report ---
ED Medical Screen (RME) - General Chief Complaint: Hand Swelling Stated Complaint: HAND SWELLING Time Seen by Provider: 10/11/19 09:48 Primary Care Provider: AUDI GARCIA MD [Primary Care Provider] - Follow up as needed Information source: Patient Notes: This is a 53-year-old male who presents to the emergency room today stating that he has discomfort to his right hand he had some drainage coming out of it he is Hussain had several digits amputated. TRAVEL OUTSIDE OF THE [place] IN LAST 30 DAYS: No - Related Data Allergies/Adverse Reactions: No Known Allergies Allergy (Verified 10/11/19 09:39) Past Medical History - Social History Frequency of alcohol use: None Drug Abuse: None - Past Medical History Cardiac Medical History: Reports: Hx Hypertension, Hx Peripheral Vascular Disea se Denies: Hx Coronary Artery Disease, Hx Heart Attack Pulmonary Medical History: Denies: Hx Asthma, Hx Bronchitis, Hx COPD, Hx Pneumonia, Hx Tuberculosis Neurological Medical History: Denies: Hx Cerebrovascular Accident, Hx Seizures Endocrine Medical History: Reports: Hx Diabetes Mellitus Type 2, Hx Hypothyroidism Renal/ Medical History: Denies: Hx Peritoneal Dialysis Musculoskeltal Medical History: Denies Hx Arthritis Psychiatric Medical History: Denies: Hx Depression Past Surgical History: Reports: Hx Orthopedic Surgery - 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, Hx Tonsillectomy. Denies: Hx Pacemaker - Immunizations Hx Diphtheria, Pertussis, Tetanus Vaccination: Yes Physical Exam - Vital signs Vitals: Temp Pulse Resp BP Pulse Ox 98.4 F 117 H 16 151/87 H 97 10/11/19 09:11 10/11/19 09:11 10/11/19 09:11 10/11/19 09:11 10/11/19 09:11 Course - Vital Signs Vital signs: Temp Pulse Resp BP Pulse Ox 98.4 F 117 H 16 151/87 H 97 10/11/19 09:39 10/11/19 09:11 10/11/19 09:11 10/11/19 09:11 10/11/19 09:11 Doctor's Discharge - Discharge Referrals: AUDI GARCIA MD [Primary Care Provider] - Follow up as needed
[2019-10-11 10:18] LABS: HEMATOCRIT 42.1 % (37.9-51.0); HEMOGLOBIN 14.6 g/dL (13.5-17.0); MEAN CORPUSCULAR HEMOGLOBIN 30.8 pg (27.0-33.4); MEAN CORPUSCULAR HGB CONC 34.6 g/dL (32.0-36.0); MEAN CORPUSCULAR VOLUME 89 fl (80-97); PLATELET COUNT 281 10^3/uL (150-450); RED BLOOD COUNT 4.73 10^6/uL (4.35-5.55); RED CELL DISTRIBUTION WIDTH 13.5 % (11.5-14.0); WHITE BLOOD COUNT 20.6 10^3/uL (4.0-10.5)
[2019-10-11 10:25] LABS: APPEARANCE,URINE SLIGHTLY-CLOUDY; BILIRUBIN,URINE NEGATIVE (NEGATIVE); COLOR,URINE YELLOW; GLUCOSE, URINE >=500 mg/dL (NEGATIVE); KETONES,URINE 20 mg/dL (NEGATIVE); LEUKOCYTE ESTERASE,URINE NEGATIVE (NEGATIVE); NITRITE,URINE NEGATIVE (NEGATIVE); PROTEIN,URINE >=500 mg/dL (NEGATIVE); URINE SPECIFIC GRAVITY 1.028; UROBILINOGEN,URINE NEGATIVE mg/dL (<2.0)
[2019-10-11 10:37] LABS: ALBUMIN 3.7 g/dL (3.5-5.0); ALKALINE PHOSPHATASE 77 U/L (38-126); ANION GAP 11 (5-19); ASPARTATE AMINO TRANSFERASE 16 U/L (17-59); BILIRUBIN,DIRECT 0.2 mg/dL (0.0-0.4); BILIRUBIN,TOTAL 1.8 mg/dL (0.2-1.3); BLOOD UREA NITROGEN 19 mg/dL (7-20); CALCIUM 9.2 mg/dL (8.4-10.2); CARBON DIOXIDE 23 mmol/L (22-30); CHLORIDE 95 mmol/L (98-107); POTASSIUM 4.7 mmol/L (3.6-5.0); TOTAL PROTEIN 7.3 g/dL (6.3-8.2)
[2019-10-11 10:38] LABS: ABSOLUTE LYMPHOCYTES# (MANUAL) 1.2 10^3/uL (0.5-4.7); ABSOLUTE MONOCYTES # (MANUAL) 0.8 10^3/uL (0.1-1.4); BASOPHILS % (MANUAL) 0 % (0-2); EOSINOPHILS % (MANUAL) 0 % (0-6); LYMPHOCYTES % (MANUAL) 6 % (13-45); MONOCYTES % (MANUAL) 4 % (3-13); SEGMENTED NEUTROPHILS % (MAN) 90 % (42-78); TOTAL CELLS COUNTED 100
[2019-10-11 10:39] LABS: PLATELET CLUMPS PRESENT; PLATELET COMMENT ADEQUATE; PLATELET LARGE PRESENT; TOXIC VACUOLATION PRESENT
[2019-10-11 10:40] LABS: RBC MORPHOLOGY COMMENT NORMO-CYTIC/CHROMIC
[2019-10-11 10:44] LABS: GLUCOSE 411 mg/dL (75-110)
--- NOTE | 2019-10-11 10:48 | RADIOLOGY REPORT (SQ) ---
EXAM DESCRIPTION: HAND RIGHT 3 VIEWS IMAGES COMPLETED DATE/TIME: 10/11/2019 10:13 am REASON FOR STUDY: pain COMPARISON: 06/09/2019 EXAM PARAMETERS: NUMBER OF VIEWS: Three views. TECHNIQUE: AP, lateral and oblique radiographic images acquired of the right hand. LIMITATIONS: None. FINDINGS: MINERALIZATION: Normal. BONES: Status post 2nd and 3rd digit amputations at the metacarpal phalangeal joints. Mildly distrac emily tuft fracture involving the 5th digit. Marked degenerative changes are seen of the 4th and 5th d istal interphalangeal joints. JOINTS: No effusions. SOFT TISSUES: Circumferential soft tissue edema is present. No retained radiopaque foreign body demo nstrated. OTHER: No other significant finding. IMPRESSION: Mildly distracted tuft fracture involving the 5th digit distal phalanx. Circumferential soft tissue edema. Otherwise stable radiographic appearance of the hand. TECHNICAL DOCUMENTATION: JOB ID: [id number] 2010 [employer]- All Rights Reserved Reading location - IP/workstation name: [email or web address]
[2019-10-11] MEDS ORDERED: AMPICILLIN SOD/SULBACTAM 3 GM VIAL IV ONE (12:48)
[2019-10-11] MEDS ORDERED: VANCOMYCIN HCL INJ 1000 MG VIAL IV ONE (12:49)
[2019-10-11] MEDS ORDERED: NORMAL SALINE 1000 ML 1,000 ML IV ONE (12:49)
[2019-10-11] MEDS ORDERED: INSULIN REG, HUMAN 100 UNIT/ML 3 ML VIAL (PYX) IV ONE (12:49)
--- NOTE | 2019-10-11 13:47 | ER Document Report ---
Entered by MAHNAZ ZURITA SCRIBE 10/11/19 1323 Acting as scribe for:DIONE DELACRUZ DO ED Hand/Wrist Injury - General Chief Complaint: Hand Swelling Stated Complaint: HAND SWELLING Time Seen by Provider: 10/11/19 09:48 Mode of Arrival: Ambulatory Information source: Patient Notes: This 53-year-old male patient presents to the emergency department today with complaints of a possible infection to his RUE. 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 Patient denies fevers or sick contacts. Patient complained to nursing staff that he has had right hand swelling and redness for he last two days. TRAVEL OUTSIDE OF THE [place] IN LAST 30 DAYS: No - Related Data Allergies/Adverse Reactions: No Known Allergies Allergy (Verified 10/11/19 09:39) Past Medical History - General Information source: Patient - Social History Smoking Status: Never Smoker Cigarette use (# per day): No Frequency of alcohol use: None Drug Abuse: None Lives with: Family Family History: Reviewed & Not Pertinent, DM, Hypertension Patient has homicidal ideation: No - Past Medical History Cardiac Medical History: Reports: Hx Hypertension, Hx Peripheral Vascular Disease Endocrine Medical History: Reports: Hx Diabetes Mellitus Type 2, Hx Hypothyroidism Past Surgical History: Reports: Hx Orthopedic Surgery - 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, Hx Tonsillectomy - Immunizations Hx Diphtheria, Pertussis, Tetanus Vaccination: Yes Hx Pneumococcal Vaccination: 12/29/12 Review of Systems - Review of Systems Constitutional: denies: Fever EENT: No symptoms reported Cardiovascular: No symptoms reported Respiratory: No symptoms reported Gastrointestinal: No symptoms reported Genitourinary: No symptoms reported Male Genitourinary: No symptoms reported Musculoskeletal: No symptoms reported Skin: See HPI, Change in color, Lesions, Rash Hematologic/Lymphatic: No symptoms reported Neurological/Psychological: No symptoms reported -: Yes All other systems reviewed and negative Physical Exam - Vital signs Vitals: Temp Pulse Resp BP Pulse Ox 98.4 F 117 H 16 151/87 H 97 10/11/19 09:11 10/11/19 09:11 10/11/19 09:11 10/11/19 09:11 10/11/19 09:11 - Notes Notes: Physical Exam: General: Alert, appears chronically ill. HEENT: Normocephalic. Atraumatic. PERRL. Extraocular movements intact. Oropharynx clear. Neck: Supple. Non-tender. Respiratory: No respiratory distress. Clear and equal breath sounds bilaterally. Cardiovascular: Regular rate and rhythm. Abdominal: Normal Inspection. Non-tender. No distension. Normal Bowel Sounds. Back: No gross abnormalities. Extremities: Upper extremities: 2nd and 3rd fingers on the right hand and 3rd finger on the left hand are surgically absent. Lower extremities: Right AKA Neurological: Normal cognition. AAOx4. Normal speech. Psychological: Normal affect. Normal Mood. Skin: There is redness streaking up the RUE to the level of the elbow. Course - Re-evaluation Re-evalutation: 10/11/19 14:43 MDM 53 year old vasculopath with right arm/ forearm infection. Mild pain. Although nec fasc was considered feel this unlikely. DM as comorbidity is present and he was rapidly administered antibiotics here covering staph, strep and MRSA. I have discussed with Dr. GARCIA and he has graciously agreed to see and evaluate for admission. - Vital Signs Vital signs: Temp Pulse Resp BP Pulse Ox 98.4 F 117 H 16 151/87 H 97 10/11/19 09:39 10/11/19 09:11 10/11/19 09:11 10/11/19 09:11 10/11/19 09:11 - Laboratory Result Diagrams: 10/11/19 09:59 10/11/19 09:59 Laboratory results interpreted by me: 10/11/19 10/11/19 10/11/19 09:59 09:59 09:59 WBC 20.6 H Seg Neuts % (Manual) 90 H Lymphocytes % (Manual) 6 L Abs Neuts (Manual) 18.5 H Sodium 129.3 L Chloride 95 L Glucose 411 H* Total Bilirubin 1.8 H AST 16 L Urine Protein >=500 H Urine Glucose (UA) >=500 H Urine Ketones 20 H Urine Blood SMALL H Discharge - Discharge Clinical Impression: PAD (peripheral artery disease) Sepsis Qualifiers: Sepsis type: sepsis due to unspecified organism Sepsis acute organ dysfunction status: unspecified Qualified Code(s): A41.9 - Sepsis, unspecified organism Diabetes mellitus Qualifiers: Diabetes mellitus type: type 2 Diabetes mellitus hair spring winder insulin use: with hair spring winder use Diabetes mellitus complication status: with other specified complication Qualified Code(s): E11.69 - Type 2 diabetes mellitus with other specified complication; Z79.4 - undercover operator (current) use of insulin Cellulitis Qualifiers: Site of cellulitis: extremity Site of cellulitis of extremity: upper extremity Laterality: right Qualified Code(s): L03.113 - Cellulitis of right upper limb Condition: Stable Disposition: ADMITTED INPATIENT Admitting Provider: Onofre Unit Admitted: IMDARIO I personally performed the services described in the documentation, reviewed and edited the documentation which was dictated to the scribe in my presence, and it accurately records my words and actions.
[2019-10-11] MEDS ORDERED: VANCOMYCIN HCL 0 MG in DEXTROSE 5%-WATER 250 ML IV NR (14:15)
[2019-10-11] MEDS ORDERED: GLUCAGON,HUMAN RECOMB 1 MG INJ IM PRN (14:32)
[2019-10-11] MEDS ORDERED: DEXTROSE 50%-WATER 25 GM/50 ML DISP.SYRIN IV PRN ×2 (14:32)
[2019-10-11] MEDS ORDERED: DEXTROSE 40% GEL 15 GM TUBE PO PRN ×2 (14:32)
[2019-10-11 14:43] LABS: PHOSPHORUS 3.7 mg/dL (2.5-4.5)
[2019-10-11] MEDS ORDERED: GABAPENTIN 300 MG CAPSULE PO SCH (14:45)
[2019-10-11] MEDS: PIPERACILLIN SODIUM/TAZOBACTAM 3.375 GM in NORMAL SALINE 100 ML IV SCH ×3 (14:58→23:19)
[2019-10-11 15:00] LABS: FREE T4 (FREE THYROXINE) 1.15 ng/dL (0.78-2.19)
[2019-10-11 15:14] LABS: THYROID STIMULATING HORMONE 1.99 uIU/mL (0.47-4.68)
[2019-10-11] MEDS: LISINOPRIL 10 MG TABLET PO SCH (15:14)
[2019-10-11] MEDS: ASPIRIN 81 MG TABLET, ENT COATED PO SCH (15:14)
[2019-10-11 15:24] LABS: PROTHROMBIN TIME 15.3 SEC (11.4-15.4)
[2019-10-11 15:25] LABS: PARTIAL THROMBOPLASTIN TIME 42.4 SEC (23.5-35.8)
[2019-10-11 15:34] LABS: CREATINE KINASE MB 0.35 ng/mL (<4.55)
[2019-10-11 15:43] LABS: TROPONIN I < 0.012 ng/mL
[2019-10-11 15:57] LABS: ARTERIAL BLOOD BASE EXCESS -1.8 mmol/L; ARTERIAL BLOOD H2CO3 1.11 mmol/L (1.05-1.35); ARTERIAL BLOOD HCO3 22.6 mmol/L (20-24); ARTERIAL BLOOD O2 SATURATION 88.4 % (94-98); ARTERIAL BLOOD PCO2 36.9 mmHg (35-45); ARTERIAL BLOOD PO2 53.9 mmHg (80-100); ARTERIAL BLOOD TOTAL CO2 23.7 mmol/L (23-27)
[2019-10-11 15:59] LABS: ARTERIAL BLOOD FIO2 ROOM AIR
[2019-10-11 16:00] LABS: ANION GAP 10 (5-19); BLOOD UREA NITROGEN 19 mg/dL (7-20); CALCIUM 8.5 mg/dL (8.4-10.2); CARBON DIOXIDE 20 mmol/L (22-30); CHLORIDE 98 mmol/L (98-107); GLUCOSE 378 mg/dL (75-110); POTASSIUM 4.2 mmol/L (3.6-5.0)
[2019-10-11] MEDS: NORMAL SALINE 100 ML with INSULIN REGULAR, HUMAN 100 UNIT IV PRN ×2 (16:00)
[2019-10-11] MEDS: NORMAL SALINE 1000 ML 1,000 ML IV PRN (18:14)
[2019-10-11 19:14] LABS: AMORPHOUS SEDIMENT,URINE TRACE /HPF; APPEARANCE,URINE SLIGHTLY-CLOUDY; BILIRUBIN,URINE NEGATIVE (NEGATIVE); COLOR,URINE YELLOW; GLUCOSE, URINE >=500 mg/dL (NEGATIVE); KETONES,URINE TRACE mg/dL (NEGATIVE); LEUKOCYTE ESTERASE,URINE NEGATIVE (NEGATIVE); NITRITE,URINE NEGATIVE (NEGATIVE); PROTEIN,URINE >=500 mg/dL (NEGATIVE); URINE SPECIFIC GRAVITY 1.029; UROBILINOGEN,URINE NEGATIVE mg/dL (<2.0)
[2019-10-11 19:26] LABS: URINE AMPHETAMINES SCREEN NEGATIVE; URINE BARBITURATES SCREEN NEGATIVE; URINE BENZODIAZEPINES SCREEN NEGATIVE; URINE COCAINE SCREEN NEGATIVE; URINE MARIJUANA (THC) SCREEN NEGATIVE; URINE METHADONE SCREEN NEGATIVE; URINE PHENCYCLIDINE SCREEN NEGATIVE
[2019-10-11] MEDS: ACETAMINOPHEN 325 MG TABLET PO PRN (20:13)
[2019-10-11 21:27] LABS: ANION GAP 9 (5-19); BLOOD UREA NITROGEN 22 mg/dL (7-20); CALCIUM 8.3 mg/dL (8.4-10.2); CARBON DIOXIDE 23 mmol/L (22-30); CHLORIDE 96 mmol/L (98-107); GLUCOSE 329 mg/dL (75-110); POTASSIUM 4.3 mmol/L (3.6-5.0)
[2019-10-11 21:27] LABS: URINE CREATININE 96.5 mg/dL (22-328)
[2019-10-11 21:28] LABS: CREATINE KINASE MB 0.34 ng/mL (<4.55)
[2019-10-11] MEDS: GABAPENTIN 300 MG CAPSULE PO SCH (21:30)
[2019-10-11] MEDS: ATORVASTATIN CALCIUM 10 MG TABLET PO SCH (21:30)
--- NOTE | 2019-10-11 21:30 | PDOC H&P ---
History of Present Illness Admission Date/PCP: 10/11/19 14:23 AUDI GARCIA MD History of Present Illness: JULIAN CACERES is a 53 year old male, He came to the emergency room earlier today for evaluation of swelling of his right hand and possibly infection. 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 Mildly distracted fracture involving the fifth digit. Marked degenerative changes of the fourth and fifth digit interphalangeal joints. Circumferential soft tissue edema is present.There is severe leuk ocytosis, white blood cell count 20,000, on examination of this patient there is erythema extending from the hand to the elbow consistent with severe cellulitisThe serum glucose was more than 400, patient is not adherent with medication for the control of diabetes outpatient, is supposed to be on GLP agonist, Victoza, SGLT1 inhibitor farxiga Past Medical History Cardiac Medical History: Reports: Hypertension, Peripheral Vascular Disease Endocrine Medical History: Reports: Diabetes Mellitus Type 2, Hypothyroidism, Obesity Musculoskeltal Medical History: Denies: Arthritis Psychiatric Medical History: Denies: Depression Hematology: Denies: Anemia Past Surgical History Past Surgical History: Reports: Orthopedic Surgery - 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, Tonsillectomy Denies: Pacemaker Social History Lives with: Family Smoking Status: Never Smoker Electronic Cigarette use?: No Frequency of Alcohol Use: None Hx Recreational Drug Use: No Drugs: Cocaine Hx Prescription Drug Abuse: No Family History Family History: Reviewed & Not Pertinent, DM, Hypertension Parental Family History Reviewed: Yes Children Family History Reviewed: Yes Sibling(s) Family History Reviewed.: Yes Medication/Allergy Home Medications: Levothyroxine Sodium [Synthroid 0.1 mg Tablet] 0.1 mg PO DAILY 12/04/18 Omeprazole 20 mg PO DAILY 12/04/18 Aspirin [Ecotrin 81 mg EC Tablet] 81 mg PO DAILY 06/09/19 Atorvastatin Calcium [Lipitor 10 mg Tablet] 10 mg PO DAILY 06/09/19 Lisinopril [Prinivil 10 mg Tablet] 10 mg PO DAILY #30 06/11/19 Gabapentin 300 mg PO TID 10/11/19 Victoza 18mg/3ml Pen 1.8 mg SQ QHS 10/11/19 Allergies/Adverse Reactions: No Known Allergies Allergy (Verified 10/11/19 09:39) Review of Systems Constitutional: PRESENT: chills Ears: ABSENT: hearing changes Cardiovascular: ABSENT: chest pain, dyspnea on exertion, edema, orthropnea, palpitations Respiratory: ABSENT: cough, hemoptysis Gastrointestinal: ABSENT: abdominal pain, constipation, diarrhea, hematemesis, hematochezia, nausea, vomiting Genitourinary: ABSENT: dysuria, hematuria Musculoskeletal: ABSENT: joint swelling Integumentary: PRESENT: erythema. ABSENT: rash, wounds Neurological: ABSENT: abnormal gait, abnormal speech, confusion, dizziness, focal weakness, syncope Psychiatric: ABSENT: anxiety, depression, homidical ideation, suicidal ideation Endocrine: ABSENT: cold intolerance, heat intolerance, menstrual abnormalities, polydipsia, polyuria Hematologic/Lymphatic: ABSENT: easy bleeding, easy bruising, lymphadenopathy Physical Exam Vital Signs: Temp Pulse Resp BP Pulse Ox 102.7 F H 119 H 22 H 107/44 L 97 10/11/19 19:26 10/11/19 19:26 10/11/19 19:26 10/11/19 19:26 10/11/19 19:26 Intake & Output 10/10/19 10/11/19 10/12/19 06:59 06:59 06:59 Intake Total 1215 Balance 1215 Weight 117.2 kg General appearance: PRESENT: no acute distress Head exam: PRESENT: atraumatic, normocephalic Eye exam: PRESENT: PERRLA Ear exam: PRESENT: normal external ear exam Mouth exam: PRESENT: moist, tongue midline Neck exam: PRESENT: full ROM Respiratory exam: PRESENT: clear to auscultation mamta Cardiovascular exam: PRESENT: RRR, +S1, +S2 Vascular exam: PRESENT: normal capillary refill GI/Abdominal exam: PRESENT: normal bowel sounds, soft Rectal exam: PRESENT: deferred Extremities exam: PRESENT: right AKA, tenderness - Erythema, tenderness of the right upper extremities,2nd and 3rd digit amputations, other Neurological exam: PRESENT: alert, CN II-XII grossly intact Psychiatric exam: PRESENT: appropriate affect, normal mood Skin exam: PRESENT: dry, intact, warm Results Laboratory Results: 10/11/19 09:59 10/11/19 10/11/19 10/11/19 09:59 09:59 09:59 WBC 20.6 H RBC 4.73 Hgb 14.6 Hct 42.1 MCV 89 MCH 30.8 MCHC 34.6 RDW 13.5 Plt Count 281 Seg Neutrophils % Not Reportable Carbonic Acid HCO3/H2CO3 Ratio ABG pH ABG pCO2 ABG pO2 ABG HCO3 ABG O2 Saturation ABG Base Excess FiO2 Sodium 129.3 L Potassium 4.7 Chloride 95 L Carbon Dioxide 23 Anion Gap 11 BUN 19 Creatinine 1.13 Est GFR ( Amer) > 60 Est GFR (Non-Af Amer) Glucose 411 H* Lactic Acid Calcium 9.2 Phosphorus Magnesium Total Bilirubin 1.8 H AST 16 L Alkaline Phosphatase 77 Ammonia Total Protein 7.3 Albumin 3.7 Amylase Lipase TSH Free T4 Urine Color YELLOW Urine Appearance SLIGHTLY-CLOUDY Urine pH 5.0 Ur Specific [place] 1.028 Urine Protein >=500 H Urine Glucose (UA) >=500 H Urine Ketones 20 H Urine Blood SMALL H Urine Nitrite NEGATIVE Ur Leukocyte Esterase NEGATIVE Urine WBC (Auto) 1 Urine RBC (Auto) 2 10/11/19 10/11/19 10/11/19 09:59 09:59 14:47 WBC RBC Hgb Hct MCV MCH MCHC RDW Plt Count Seg Neutrophils % Carbonic Acid HCO3/H2CO3 Ratio ABG pH ABG pCO2 ABG pO2 ABG HCO3 ABG O2 Saturation ABG Base Excess FiO2 Sodium Cancelled Potassium Cancelled Chloride Cancelled Carbon Dioxide Cancelled Anion Gap Cancelled BUN Cancelled Creatinine Cancelled Est GFR ( Amer) Cancelled Est GFR (Non-Af Amer) Cancelled Glucose Cancelled Lactic Acid 1.3 Calcium Cancelled Phosphorus 3.7 Magnesium 2.1 Total Bilirubin AST Alkaline Phosphatase Ammonia Total Protein Albumin Amylase 33 Lipase 67.5 TSH 1.99 Free T4 1.15 Urine Color Urine Appearance Urine pH Ur Specific [place] Urine Protein Urine Glucose (UA) Urine Ketones Urine Blood Urine Nitrite Ur Leukocyte Esterase Urine WBC (Auto) Urine RBC (Auto) 10/11/19 10/11/19 10/11/19 14:47 15:20 15:46 WBC RBC Hgb Hct MCV MCH MCHC RDW Plt Count Seg Neutrophils % Carbonic Acid 1.11 HCO3/H2CO3 Ratio 20:1 ABG pH 7.40 ABG pCO2 36.9 ABG pO2 53.9 L ABG HCO3 22.6 ABG O2 Saturation 88.4 L ABG Base Excess -1.8 FiO2 ROOM AIR Sodium 128.2 L Potassium 4.2 Chloride 98 Carbon Dioxide 20 L Anion Gap 10 BUN 19 Creatinine 1.05 Est GFR ( Amer) > 60 Est GFR (Non-Af Amer) Glucose 378 H Lactic Acid Calcium 8.5 Phosphorus Magnesium Total Bilirubin AST Alkaline Phosphatase Ammonia < 8.7 L Total Protein Albumin Amylase Lipase TSH Free T4 Urine Color Urine Appearance Urine pH Ur Specific [place] Urine Protein Urine Glucose (UA) Urine Ketones Urine Blood Urine Nitrite Ur Leukocyte Esterase Urine WBC (Auto) Urine RBC (Auto) 10/11/19 18:22 WBC RBC Hgb Hct MCV MCH MCHC RDW Plt Count Seg Neutrophils % Carbonic Acid HCO3/H2CO3 Ratio ABG pH ABG pCO2 ABG pO2 ABG HCO3 ABG O2 Saturation ABG Base Excess FiO2 Sodium Potassium Chloride Carbon Dioxide Anion Gap BUN Creatinine Est GFR ( Amer) Est GFR (Non-Af Amer) Glucose Lactic Acid Calcium Phosphorus Magnesium Total Bilirubin AST Alkaline Phosphatase Ammonia Total Protein Albumin Amylase Lipase TSH Free T4 Urine Color YELLOW Urine Appearance SLIGHTLY-CLOUDY Urine pH 5.0 Ur Specific [place] 1.029 Urine Protein >=500 H Urine Glucose (UA) >=500 H Urine Ketones TRACE H Urine Blood SMALL H Urine Nitrite NEGATIVE Ur Leukocyte Esterase NEGATIVE Urine WBC (Auto) 2 Urine RBC (Auto) 4 10/11/19 10/11/19 10/11/19 09:59 14:47 15:20 Creatine Kinase 60 CK-MB (CK-2) 0.35 Troponin I < 0.012 NT-Pro-B Natriuret Pep 185 H Impressions: Hand X-Ray 10/11/19 09:49 IMPRESSION: Mildly distracted tuft fracture involving the 5th digit distal phalanx. Circumferential soft tissue edema. Otherwise stable radiographic appearance of the hand. Assessment & Plan - Diagnosis (1) Cellulitis of right upper extremity Is this a current diagnosis for this admission?: Yes Plan: He has cellulitis of the right upper extremity is very extensive, patient will be treated empirically with Zosyn and vancomycin to cover all potential pathogens (2) Hypoxemia Is this a current diagnosis for this admission?: Yes Plan: The arterial blood gas, pH 7.4, PO2 53.9, PCO2 36.9, bicarbonate 22.6, FiO2 ambient air, he has unexplained hypoxemia, he has no symptoms of shortness of breath or cough, a VQ scan to be obtained to rule out PE especially in this patient very sedentary (3) T2DM (type 2 diabetes mellitus) Qualifiers: Diabetes mellitus intermediate insulin use: with intermediate use Diabetes mellitus complication status: with neurologic complications Diabetes mellitus complication detail: with polyneuropathy Qualified Code(s): E11.42 - Type 2 diabetes mellitus with diabetic polyneuropathy; Z79.4 - nursing home (current) use of insulin Is this a current diagnosis for this admission?: Yes Plan: Continue treatment (4) Morbid obesity due to excess calories Is this a current diagnosis for this admission?: Yes (5) Hyperosmolar non-ketotic state due to type 2 diabetes mellitus Is this a current diagnosis for this admission?: Yes Plan: Start insulin drip, normal saline
[2019-10-11 21:31] LABS: TROPONIN I < 0.012 ng/mL
[2019-10-11 21:34] LABS: UR PRO/CREAT RATIO RESULT 4.3 mg/mg (0.0-0.2); URINE PROTEIN 415.8 mg/dL (<12)
[2019-10-11] MEDS: VANCOMYCIN HCL 1,250 MG in DEXTROSE 5%-WATER 250 ML IV SCH (21:35)
[2019-10-11] MEDS ORDERED: VICTOZA SUBCUT SCH (22:00)
--- NOTE | 2019-10-11 22:25 | RADIOLOGY REPORT (SQ) ---
EXAM DESCRIPTION: XR CHEST 2 VIEWS COMPLETED DATE/TME: 10/11/2019 00:00 CLINICAL HISTORY: 53 years, Male, unexplain hypoxemia EXAM DESCRIPTION: CLINICAL HISTORY: unexplain hypoxemia COMPARISON: None. FINDINGS: Two views of the chest are submitted. Cardiac silhouette appears enlarged. There is mild bilateral pulmonary edema. There is a small left pleural effusion. No focal parenchymal or pleural disease. There is bilateral pulmonary vascular engorgement. IMPRESSION: Mild pulmonary edema with cardiomegaly. Small left pleural effusion.
--- NOTE | 2019-10-11 22:57 | RADIOLOGY REPORT (SQ) ---
EXAM DESCRIPTION: NM LUNG PERFUSION COMPLETED DATE/TME: 10/11/2019 00:00 CLINICAL HISTORY: 53 years, Male, UNEXPLAINED HYPOXEMIA COMPARISON: Chest x-ray today's date Technique: Following the IV administration of 5 mCi technetium 99m MAA, a perfusion scan was performed. Multiple projections of the lungs were obtained. LIMITATIONS: None. FINDINGS: No visible perfusion defects. Normal background activity IMPRESSION: Normal perfusion scan copyright 2010 [employer]- All Rights Reserved
[2019-10-12] MEDS: NORMAL SALINE 100 ML with INSULIN REGULAR, HUMAN 100 UNIT IV PRN ×6 (00:06→23:23)
[2019-10-12 01:29] LABS: ANION GAP 9 (5-19); BLOOD UREA NITROGEN 26 mg/dL (7-20); CALCIUM 8.2 mg/dL (8.4-10.2); CARBON DIOXIDE 22 mmol/L (22-30); CHLORIDE 100 mmol/L (98-107); GLUCOSE 202 mg/dL (75-110); POTASSIUM 4.3 mmol/L (3.6-5.0)
[2019-10-12] MEDS: ACETAMINOPHEN 325 MG TABLET PO PRN ×2 (03:36→17:02)
[2019-10-12] MEDS: NORMAL SALINE 1000 ML 1,000 ML IV PRN (03:40)
[2019-10-12] MEDS: LEVOTHYROXINE SODIUM 0.1 MG TABLET PO SCH (05:23)
[2019-10-12] MEDS: GABAPENTIN 300 MG CAPSULE PO SCH ×3 (05:23→21:30)
[2019-10-12 05:24] LABS: HEMATOCRIT 35.1 % (37.9-51.0); MEAN CORPUSCULAR HGB CONC 35.7 g/dL (32.0-36.0); MEAN CORPUSCULAR VOLUME 87 fl (80-97); PLATELET COUNT 240 10^3/uL (150-450); RED BLOOD COUNT 4.04 10^6/uL (4.35-5.55); RED CELL DISTRIBUTION WIDTH 13.3 % (11.5-14.0)
[2019-10-12] MEDS: PIPERACILLIN SODIUM/TAZOBACTAM 3.375 GM in NORMAL SALINE 100 ML IV SCH ×4 (05:24→23:20)
[2019-10-12 05:29] LABS: ANION GAP 8 (5-19); BLOOD UREA NITROGEN 27 mg/dL (7-20); CALCIUM 8.2 mg/dL (8.4-10.2); CARBON DIOXIDE 20 mmol/L (22-30); CHLORIDE 102 mmol/L (98-107); CHOLESTEROL 102.65 mg/dL (0-200); CREATINE KINASE 69 U/L (55-170); GLUCOSE 142 mg/dL (75-110); POTASSIUM 3.8 mmol/L (3.6-5.0); TRIGLYCERIDES 136 mg/dL (<150)
[2019-10-12 05:41] LABS: DIRECT LDL 53 mg/dL (<100)
[2019-10-12 05:46] LABS: CREATINE KINASE MB 0.35 ng/mL (<4.55)
[2019-10-12 05:56] LABS: TROPONIN I < 0.012 ng/mL
[2019-10-12 05:58] LABS: ABSOLUTE LYMPHOCYTES# (MANUAL) 0.6 10^3/uL (0.5-4.7); ABSOLUTE MONOCYTES # (MANUAL) 0.2 10^3/uL (0.1-1.4); BASOPHILS % (MANUAL) 0 % (0-2); EOSINOPHILS % (MANUAL) 0 % (0-6); LYMPHOCYTES % (MANUAL) 2 % (13-45); MONOCYTES % (MANUAL) 1 % (3-13); SEGMENTED NEUTROPHILS % (MAN) 95 % (42-78); TOTAL CELLS COUNTED 100
[2019-10-12 06:00] LABS: HEMOGLOBIN 12.5 g/dL (13.5-17.0); PLATELET COMMENT ADEQUATE; TOXIC GRANULATION 1+
[2019-10-12 06:01] LABS: RBC MORPHOLOGY COMMENT NORMO-CYTIC/CHROMIC
[2019-10-12] MEDS ORDERED: NORMAL SALINE 250 ML with FUROSEMIDE 250 MG IV PRN ×4 (08:29→19:54)
[2019-10-12] MEDS: ASPIRIN 81 MG TABLET, ENT COATED PO SCH (09:13)
[2019-10-12] MEDS: LISINOPRIL 10 MG TABLET PO SCH (09:13)
[2019-10-12] MEDS: PANTOPRAZOLE SODIUM 20 MG TABLET.DR PO SCH (09:13)
[2019-10-12] MEDS: ENOXAPARIN SODIUM INJ 40 MG/0.4 ML DISP.SYRIN SUBCUT SCH (09:13)
[2019-10-12] MEDS: VANCOMYCIN HCL 1,250 MG in DEXTROSE 5%-WATER 250 ML IV SCH (09:53)
[2019-10-12 10:09] LABS: ANION GAP 10 (5-19); BLOOD UREA NITROGEN 29 mg/dL (7-20); CALCIUM 8.1 mg/dL (8.4-10.2); CARBON DIOXIDE 19 mmol/L (22-30); CHLORIDE 101 mmol/L (98-107); GLUCOSE 128 mg/dL (75-110)
[2019-10-12 10:24] LABS: VANCOMYCIN,TROUGH 13.4 ug/mL (5.0-20.0)
--- NOTE | 2019-10-12 13:22 | CDI QUERY ---
CDI Query CDI Review: Dear Provider: To better reflect your patients severity of illness, morbidity, and resource utilization Please specify and document in the Progress Notes and Discharge Summary if you are monitoring / treating / evaluating any of the following conditions: Query Clinical indicators Please clarify: Sepsis ruled out Sepsis resolved Unable to determine Other Per ED Note: Sepsis Qualifiers: Sepsis type: sepsis due to unspecified organism Sepsis acute organ dysfunction status: unspecified Qualified Code(s): A41.9 - Sepsis, unspecified organism Vitals 10/11/19 19:26 Temp 102.7.F H Pulse 119H Resp 22H BP 107/44 WBC 20.6 Cellulitis of right upper extremity The terms probable, suspected, likely, possible or still to be ruled out may be used if you are unable to determine the exact nature of a condition. Thank you for your consideration, Clinical Documentation Physician Advisor CHRISTIE Banks RN
[2019-10-12] MEDS ORDERED: INSULIN GLARGINE,HUM.REC.ANLOG 1,000 UNIT/10 ML VIAL SUBCUT ONE (13:44)
--- NOTE | 2019-10-12 13:44 | PDOC PROGRESS REPORT ---
Subjective Progress Note for:: 10/12/19 Subjective:: Patient was admitted yesterday for the management of cellulitis of the right upper extremities, he developed acute kidney injury today, he also have nephrotic range proteinuria Reason For Visit: CELLULITIS OF LUE T2DM WITH COMPLICATIONS Physical Exam Vital Signs: Temp Pulse Resp BP Pulse Ox 99.3 F 113 H 16 113/71 97 10/12/19 11:40 10/12/19 11:40 10/12/19 11:40 10/12/19 11:40 10/12/19 11:40 Intake & Output 10/11/19 10/12/19 10/13/19 06:59 06:59 06:59 Intake Total 2535 101 Balance 2535 101 Weight 117 kg General appearance: PRESENT: no acute distress Eye exam: PRESENT: PERRLA Respiratory exam: PRESENT: clear to auscultation mamta Cardiovascular exam: PRESENT: +S1, +S2 GI/Abdominal exam: PRESENT: soft Extremities exam: PRESENT: other - Cellulitis of the left upper extremities Neurological exam: PRESENT: alert, CN II-XII grossly intact Results Laboratory Results: 10/12/19 04:52 10/11/19 10/11/19 10/11/19 09:59 09:59 14:47 WBC RBC Hgb Hct MCV MCH MCHC RDW Plt Count Seg Neutrophils % Carbonic Acid HCO3/H2CO3 Ratio ABG pH ABG pCO2 ABG pO2 ABG HCO3 ABG O2 Saturation ABG Base Excess FiO2 Sodium Cancelled Potassium Cancelled Chloride Cancelled Carbon Dioxide Cancelled Anion Gap Cancelled BUN Cancelled Creatinine Cancelled Est GFR ( Amer) Cancelled Est GFR (Non-Af Amer) Cancelled Glucose Cancelled Lactic Acid 1.3 Calcium Cancelled Phosphorus 3.7 Magnesium 2.1 Ammonia Triglycerides Cholesterol LDL Cholesterol Direct VLDL Cholesterol HDL Cholesterol Amylase 33 Lipase 67.5 TSH 1.99 Free T4 1.15 Urine Color Urine Appearance Urine pH Ur Specific [place] Urine Protein Urine Glucose (UA) Urine Ketones Urine Blood Urine Nitrite Ur Leukocyte Esterase Urine WBC (Auto) Urine RBC (Auto) 10/11/19 10/11/19 10/11/19 14:47 15:20 15:46 WBC RBC Hgb Hct MCV MCH MCHC RDW Plt Count Seg Neutrophils % Carbonic Acid 1.11 HCO3/H2CO3 Ratio 20:1 ABG pH 7.40 ABG pCO2 36.9 ABG pO2 53.9 L ABG HCO3 22.6 ABG O2 Saturation 88.4 L ABG Base Excess -1.8 FiO2 ROOM AIR Sodium 128.2 L Potassium 4.2 Chloride 98 Carbon Dioxide 20 L Anion Gap 10 BUN 19 Creatinine 1.05 Est GFR ( Amer) > 60 Est GFR (Non-Af Amer) Glucose 378 H Lactic Acid Calcium 8.5 Phosphorus Magnesium Ammonia < 8.7 L Triglycerides Cholesterol LDL Cholesterol Direct VLDL Cholesterol HDL Cholesterol Amylase Lipase TSH Free T4 Urine Color Urine Appearance Urine pH Ur Specific [place] Urine Protein Urine Glucose (UA) Urine Ketones Urine Blood Urine Nitrite Ur Leukocyte Esterase Urine WBC (Auto) Urine RBC (Auto) 10/11/19 10/11/19 10/12/19 18:22 20:38 00:45 WBC RBC Hgb Hct MCV MCH MCHC RDW Plt Count Seg Neutrophils % Carbonic Acid HCO3/H2CO3 Ratio ABG pH ABG pCO2 ABG pO2 ABG HCO3 ABG O2 Saturation ABG Base Excess FiO2 Sodium 127.8 L 130.5 L Potassium 4.3 4.3 Chloride 96 L 100 Carbon Dioxide 23 22 Anion Gap 9 9 BUN 22 H 26 H Creatinine 1.41 H 1.78 H Est GFR ( Amer) > 60 49 L Est GFR (Non-Af Amer) Glucose 329 H 202 H Lactic Acid Calcium 8.3 L 8.2 L Phosphorus Magnesium Ammonia Triglycerides Cholesterol LDL Cholesterol Direct VLDL Cholesterol HDL Cholesterol Amylase Lipase TSH Free T4 Urine Color YELLOW Urine Appearance SLIGHTLY-CLOUDY Urine pH 5.0 Ur Specific [place] 1.029 Urine Protein >=500 H Urine Glucose (UA) >=500 H Urine Ketones TRACE H Urine Blood SMALL H Urine Nitrite NEGATIVE Ur Leukocyte Esterase NEGATIVE Urine WBC (Auto) 2 Urine RBC (Auto) 4 10/12/19 10/12/19 10/12/19 04:52 04:52 09:20 WBC 16.0 H RBC 4.04 L Hgb 12.5 L D Hct 35.1 L MCV 87 MCH 31.0 MCHC 35.7 RDW 13.3 Plt Count 240 Seg Neutrophils % Not Reportable Carbonic Acid HCO3/H2CO3 Ratio ABG pH ABG pCO2 ABG pO2 ABG HCO3 ABG O2 Saturation ABG Base Excess FiO2 Sodium 130.3 L 130.1 L Potassium 3.8 4.0 Chloride 102 101 Carbon Dioxide 20 L 19 L Anion Gap 8 10 BUN 27 H 29 H Creatinine 2.21 H 2.56 H Est GFR ( Amer) 38 L 32 L Est GFR (Non-Af Amer) Glucose 142 H 128 H Lactic Acid Calcium 8.2 L 8.1 L Phosphorus Magnesium Ammonia Triglycerides 136 Cholesterol 102.65 LDL Cholesterol Direct 53 VLDL Cholesterol 27.0 HDL Cholesterol 23 L Amylase Lipase TSH Free T4 Urine Color Urine Appearance Urine pH Ur Specific [place] Urine Protein Urine Glucose (UA) Urine Ketones Urine Blood Urine Nitrite Ur Leukocyte Esterase Urine WBC (Auto) Urine RBC (Auto) 10/11/19 10/11/19 10/11/19 09:59 14:47 15:20 Creatine Kinase 60 CK-MB (CK-2) 0.35 Troponin I < 0.012 NT-Pro-B Natriuret Pep 185 H 10/11/19 10/11/19 10/12/19 20:38 20:38 04:52 Creatine Kinase 55 69 CK-MB (CK-2) 0.34 Troponin I < 0.012 NT-Pro-B Natriuret Pep 10/12/19 04:52 Creatine Kinase CK-MB (CK-2) 0.35 Troponin I < 0.012 NT-Pro-B Natriuret Pep Impressions: Chest X-Ray 10/11/19 00:00 IMPRESSION: Mild pulmonary edema with cardiomegaly. Small left pleural effusion. Lung Scan-VQ NM 10/11/19 00:00 IMPRESSION: Normal perfusion scan copyright 2011 [employer]- All Rights Reserved Hand X-Ray 10/11/19 09:49 IMPRESSION: Mildly distracted tuft fracture involving the 5th digit distal phalanx. Circumferential soft tissue edema. Otherwise stable radiographic appearance of the hand. Assessment & Plan - Diagnosis (1) Cellulitis of right upper extremity Is this a current diagnosis for this admission?: Yes (2) Hypoxemia Is this a current diagnosis for this admission?: Yes Plan: Resolved (3) T2DM (type 2 diabetes mellitus) Qualifiers: Diabetes mellitus umbrella mender insulin use: with umbrella mender use Diabetes mellitus complication status: with neurologic complications Diabetes mellitus complication detail: with polyneuropathy Qualified Code(s): E11.42 - Type 2 diabetes mellitus with diabetic polyneuropathy; Z79.4 - quantitative analyst marketing (current) use of insulin Is this a current diagnosis for this admission?: Yes (4) Morbid obesity due to excess calories Is this a current diagnosis for this admission?: Yes (5) Hyperosmolar non-ketotic state due to type 2 diabetes mellitus Is this a current diagnosis for this admission?: Yes Plan: Start Lantus insulin patient still on insulin drip (6) Acute kidney injury Is this a current diagnosis for this admission?: Yes Plan: He sustained acute kidney injury, on admission the serum creatinine was normal, this most likely from vancomycin, vancomycin is nephrotoxic, he was started on antibiotic empirically to cover gram-negative organisms and MRSA. The antib iotic be changed to Zyvox less nephrotoxic excreted through the liver The other potential causes of acute kidney injury is sepsis, fluctuations in hemodynamics (7) Nephrotic range proteinuria Is this a current diagnosis for this admission?: Yes Plan: Urine protein creatinine ratio is 4.3 consistent with nephrotic range proteinuri a, discontinue normal saline start Lasix drip (8) Sepsis Qualifiers: Sepsis type: sepsis due to unspecified organism Sepsis acute organ dysfu nction status: with acute organ dysfunction Severe sepsis acute organ dys function type: acute renal failure Acute renal failure type: with acute tubular necrosis Severe sepsis shock status: without septic shock Qualified Code(s): A41.9 - Sepsis, unspecified organism; R65.20 - Severe sepsis without septic shock; N17.0 - Acute kidney failure with tubular necrosis Is this a current diagnosis for this admission?: Yes Plan: He has nephrotic proteinuria - Time Time Spent with patient: 35 or more minutes Level of Care: IMCU
[2019-10-12 14:00] LABS: ANION GAP 11 (5-19); BLOOD UREA NITROGEN 31 mg/dL (7-20); CALCIUM 7.7 mg/dL (8.4-10.2); CARBON DIOXIDE 17 mmol/L (22-30); CHLORIDE 100 mmol/L (98-107); GLUCOSE 119 mg/dL (75-110)
[2019-10-12] MEDS ORDERED: INSULIN GLARGINE,HUM.REC.ANLOG 1,000 UNIT/10 ML VIAL (PYX) SUBCUT ONE (14:30)
[2019-10-12] MEDS: LINEZOLID 600 MG/300 ML RTUPB IV SCH (16:57)
[2019-10-12 17:31] LABS: ANION GAP 11 (5-19); BLOOD UREA NITROGEN 32 mg/dL (7-20); CALCIUM 7.7 mg/dL (8.4-10.2); CARBON DIOXIDE 18 mmol/L (22-30); CHLORIDE 99 mmol/L (98-107); GLUCOSE 76 mg/dL (75-110); POTASSIUM 3.8 mmol/L (3.6-5.0)
[2019-10-12 21:09] LABS: ANION GAP 13 (5-19); BLOOD UREA NITROGEN 34 mg/dL (7-20); CALCIUM 7.5 mg/dL (8.4-10.2); CARBON DIOXIDE 17 mmol/L (22-30); CHLORIDE 96 mmol/L (98-107); GLUCOSE 136 mg/dL (75-110); POTASSIUM 3.7 mmol/L (3.6-5.0)
[2019-10-12] MEDS: ATORVASTATIN CALCIUM 10 MG TABLET PO SCH (21:30)
[2019-10-12] MEDS ORDERED: INSULIN GLARGINE,HUM.REC.ANLOG 1,000 UNIT/10 ML VIAL SUBCUT SCH (22:00)
[2019-10-13 04:35] LABS: ANION GAP 13 (5-19); BLOOD UREA NITROGEN 38 mg/dL (7-20); CALCIUM 7.6 mg/dL (8.4-10.2); CARBON DIOXIDE 15 mmol/L (22-30); CHLORIDE 99 mmol/L (98-107); GLUCOSE 109 mg/dL (75-110); POTASSIUM 3.6 mmol/L (3.6-5.0)
[2019-10-13] MEDS: PIPERACILLIN SODIUM/TAZOBACTAM 3.375 GM in NORMAL SALINE 100 ML IV SCH ×4 (05:29→23:17)
[2019-10-13] MEDS: LINEZOLID 600 MG/300 ML RTUPB IV SCH ×2 (05:30→17:26)
[2019-10-13] MEDS: LEVOTHYROXINE SODIUM 0.1 MG TABLET PO SCH (05:30)
[2019-10-13] MEDS: GABAPENTIN 300 MG CAPSULE PO SCH ×3 (05:31→21:52)
[2019-10-13 07:24] LABS: ABSOLUTE MONOCYTES (AUTO) 1.6 10^3/uL (0.1-1.4); ABSOLUTE NEUT (AUTO) 10.3 10^3/uL (1.7-8.2); BASOPHILS % (AUTO) 0.3 % (0-2); EOSINOPHILS % (AUTO) 0.2 % (0-6); HEMATOCRIT 33.3 % (37.9-51.0); HEMOGLOBIN 11.6 g/dL (13.5-17.0); LYMPHOCYTES % (AUTO) 7.6 % (13-45); MEAN CORPUSCULAR HEMOGLOBIN 30.8 pg (27.0-33.4); MEAN CORPUSCULAR HGB CONC 34.8 g/dL (32.0-36.0); MEAN CORPUSCULAR VOLUME 88 fl (80-97); MONOCYTES % (AUTO) 12.3 % (3-13); PLATELET COUNT 246 10^3/uL (150-450); RED BLOOD COUNT 3.77 10^6/uL (4.35-5.55); RED CELL DISTRIBUTION WIDTH 13.4 % (11.5-14.0); SEGMENTED NEUTROPHILS % (AUTO) 79.6 % (42-78); TOTAL CELLS COUNTED % (AUTO) 100 %
[2019-10-13 07:41] LABS: ANION GAP 13 (5-19); BLOOD UREA NITROGEN 37 mg/dL (7-20); CALCIUM 7.4 mg/dL (8.4-10.2); CARBON DIOXIDE 16 mmol/L (22-30); CHLORIDE 97 mmol/L (98-107); GLUCOSE 131 mg/dL (75-110); POTASSIUM 3.6 mmol/L (3.6-5.0)
[2019-10-13] MEDS: PANTOPRAZOLE SODIUM 20 MG TABLET.DR PO SCH (10:51)
[2019-10-13] MEDS: ENOXAPARIN SODIUM INJ 40 MG/0.4 ML DISP.SYRIN SUBCUT SCH (10:51)
[2019-10-13] MEDS: ASPIRIN 81 MG TABLET, ENT COATED PO SCH (10:51)
[2019-10-13] MEDS: LISINOPRIL 10 MG TABLET PO SCH (10:52)
[2019-10-13 12:14] LABS: ANION GAP 13 (5-19); BLOOD UREA NITROGEN 40 mg/dL (7-20); CALCIUM 7.7 mg/dL (8.4-10.2); CARBON DIOXIDE 16 mmol/L (22-30); CHLORIDE 97 mmol/L (98-107); GLUCOSE 213 mg/dL (75-110); POTASSIUM 3.8 mmol/L (3.6-5.0)
[2019-10-13] MEDS: NORMAL SALINE 100 ML with INSULIN REGULAR, HUMAN 100 UNIT IV PRN ×2 (15:12)
[2019-10-13 15:17] LABS: ANION GAP 12 (5-19); BLOOD UREA NITROGEN 40 mg/dL (7-20); CALCIUM 7.5 mg/dL (8.4-10.2); CARBON DIOXIDE 19 mmol/L (22-30); CHLORIDE 96 mmol/L (98-107); GLUCOSE 123 mg/dL (75-110); POTASSIUM 3.7 mmol/L (3.6-5.0)
[2019-10-13] MEDS: ACETAMINOPHEN 325 MG TABLET PO PRN ×2 (16:25→23:18)
[2019-10-13 19:02] LABS: ANION GAP 12 (5-19); BLOOD UREA NITROGEN 43 mg/dL (7-20); CALCIUM 7.2 mg/dL (8.4-10.2); CARBON DIOXIDE 15 mmol/L (22-30); CHLORIDE 98 mmol/L (98-107); GLUCOSE 139 mg/dL (75-110); POTASSIUM 3.6 mmol/L (3.6-5.0)
[2019-10-13] MEDS ORDERED: INSULIN GLARGINE,HUM.REC.ANLOG 1,000 UNIT/10 ML VIAL (PYX) SUBCUT PRN ×2 (20:10→20:30)
[2019-10-13] MEDS ORDERED: INSULIN GLARGINE,HUM.REC.ANLOG 1,000 UNIT/10 ML VIAL (PYX) SUBCUT ONE (21:49)
[2019-10-13] MEDS: ATORVASTATIN CALCIUM 10 MG TABLET PO SCH (21:52)
[2019-10-13] MEDS: INSULIN GLARGINE,HUM.REC.ANLOG 1,000 UNIT/10 ML VIAL SUBCUT SCH (21:52)
[2019-10-13 22:24] LABS: ANION GAP 11 (5-19); BLOOD UREA NITROGEN 44 mg/dL (7-20); CALCIUM 7.4 mg/dL (8.4-10.2); CARBON DIOXIDE 16 mmol/L (22-30); CHLORIDE 98 mmol/L (98-107); GLUCOSE 75 mg/dL (75-110); POTASSIUM 3.8 mmol/L (3.6-5.0)
[2019-10-14 04:15] LABS: ANION GAP 15 (5-19); BLOOD UREA NITROGEN 45 mg/dL (7-20); CALCIUM 7.7 mg/dL (8.4-10.2); CARBON DIOXIDE 17 mmol/L (22-30); CHLORIDE 97 mmol/L (98-107); GLUCOSE 118 mg/dL (75-110)
[2019-10-14] MEDS: LINEZOLID 600 MG/300 ML RTUPB IV SCH ×2 (05:44→17:33)
[2019-10-14] MEDS: PIPERACILLIN SODIUM/TAZOBACTAM 3.375 GM in NORMAL SALINE 100 ML IV SCH ×3 (05:45→18:44)
[2019-10-14] MEDS: GABAPENTIN 300 MG CAPSULE PO SCH ×2 (05:49→13:27)
[2019-10-14] MEDS: LEVOTHYROXINE SODIUM 0.1 MG TABLET PO SCH (05:49)
[2019-10-14 07:06] LABS: ABSOLUTE BASOPHILS # (AUTO) 0.1 10^3/uL (0.0-0.2); ABSOLUTE EOSINOPHILS # (AUTO) 0.1 10^3/uL (0.0-0.6); ABSOLUTE LYMPHOCYTES (AUTO) 0.7 10^3/uL (0.5-4.7); ABSOLUTE MONOCYTES (AUTO) 1.4 10^3/uL (0.1-1.4); ABSOLUTE NEUT (AUTO) 9.6 10^3/uL (1.7-8.2); BASOPHILS % (AUTO) 0.7 % (0-2); EOSINOPHILS % (AUTO) 0.8 % (0-6); HEMATOCRIT 32.3 % (37.9-51.0); HEMOGLOBIN 11.3 g/dL (13.5-17.0); MEAN CORPUSCULAR HEMOGLOBIN 30.8 pg (27.0-33.4); MEAN CORPUSCULAR VOLUME 88 fl (80-97); MONOCYTES % (AUTO) 11.6 % (3-13); PLATELET COUNT 241 10^3/uL (150-450); RED BLOOD COUNT 3.67 10^6/uL (4.35-5.55); RED CELL DISTRIBUTION WIDTH 13.5 % (11.5-14.0); SEGMENTED NEUTROPHILS % (AUTO) 80.9 % (42-78); TOTAL CELLS COUNTED % (AUTO) 100 %; WHITE BLOOD COUNT 11.9 10^3/uL (4.0-10.5)
[2019-10-14 07:24] LABS: ANION GAP 16 (5-19); BLOOD UREA NITROGEN 46 mg/dL (7-20); CALCIUM 7.5 mg/dL (8.4-10.2); CARBON DIOXIDE 13 mmol/L (22-30); CHLORIDE 98 mmol/L (98-107); GLUCOSE 122 mg/dL (75-110); POTASSIUM 3.7 mmol/L (3.6-5.0)
[2019-10-14] MEDS ORDERED: DEXTROSE 50%-WATER SYRINGE 12.5 GM/25 ML DOSE IV PRN (09:00)
[2019-10-14] MEDS ORDERED: GLUCAGON,HUMAN RECOMB 1 MG INJ IM PRN (09:00)
[2019-10-14] MEDS ORDERED: DEXTROSE 40% GEL 15 GM TUBE PO PRN (09:00)
[2019-10-14] MEDS ORDERED: DEXTROSE 40% GEL 15 GM TUBE X 2 PO PRN (09:00)
[2019-10-14] MEDS ORDERED: DEXTROSE 50%-WATER SYRINGE 25 GM/50 ML DOSE IV PRN (09:00)
[2019-10-14] MEDS: ASPIRIN 81 MG TABLET, ENT COATED PO SCH (09:09)
[2019-10-14] MEDS: PANTOPRAZOLE SODIUM 20 MG TABLET.DR PO SCH (09:09)
[2019-10-14] MEDS: INSULIN GLARGINE,HUM.REC.ANLOG 1,000 UNIT/10 ML VIAL SUBCUT SCH ×2 (09:09→21:17)
[2019-10-14] MEDS: LISINOPRIL 10 MG TABLET PO SCH (09:09)
[2019-10-14] MEDS: ENOXAPARIN SODIUM INJ 40 MG/0.4 ML DISP.SYRIN SUBCUT SCH (09:10)
[2019-10-14] MEDS: ACETAMINOPHEN 325 MG TABLET PO PRN ×3 (09:10→23:27)
[2019-10-14] MEDS: INSULIN LISPRO 100 UNIT/ML 3 ML VIAL SUBCUT SCH ×3 (12:08→21:16)
[2019-10-14 14:36] LABS: C DIFFICILE GDH NEGATIVE (NEGATIVE)
[2019-10-14] MEDS ORDERED: LOPERAMIDE HCL 2 MG CAPSULE PO ONE (16:00)
--- NOTE | 2019-10-14 20:29 | PDOC PROGRESS REPORT ---
Subjective Progress Note for:: 10/13/19 Subjective:: No chest pain or difficulty with breathing. No fever or chills. Remain on insulin drip. Accuchek have been fairly stable. Reason For Visit: CELLULITIS OF LUE T2DM WITH COMPLICATIONS Physical Exam Vital Signs: Temp Pulse Resp BP Pulse Ox 98.1 F 105 H 16 105/63 91 L 10/13/19 17:41 10/13/19 15:53 10/13/19 15:53 10/13/19 15:53 10/13/19 15:53 Intake & Output 10/12/19 10/13/19 10/14/19 06:59 06:59 06:59 Intake Total 2635 3140 1323 Balance 2635 3140 1323 Weight 117 kg 120.1 kg 120.1 kg General appearance: PRESENT: no acute distress, obese Head exam: PRESENT: atraumatic, normocephalic Eye exam: PRESENT: conjunctiva pink. ABSENT: scleral icterus Mouth exam: PRESENT: moist Respiratory exam: PRESENT: clear to auscultation mamta, decreased breath sounds - at lung bases Cardiovascular exam: PRESENT: RRR, +S1, +S2. ABSENT: diastolic murmur, rubs, systolic murmur Vascular exam: ABSENT: pallor GI/Abdominal exam: PRESENT: normal bowel sounds, soft. ABSENT: distended, guarding, mass, organolmegaly, rebound, tenderness Extremities exam: PRESENT: right AKA, other - multiple fingers amputation bilaterally Musculoskeletal exam: PRESENT: deformity - from finger amputations Neurological exam: PRESENT: alert, awake, oriented to person, oriented to place, oriented to time, oriented to situation, CN II-XII grossly intact. ABSENT: motor sensory deficit Psychiatric exam: PRESENT: appropriate affect, normal mood. ABSENT: homicidal ideation, suicidal ideation Skin exam: PRESENT: dry, warm, other - resolving erythematous rash region right forearm medial aspect. Results Laboratory Results: 10/13/19 07:00 10/13/19 18:39 10/12/19 10/13/19 10/13/19 20:35 03:45 07:00 WBC 13.0 H RBC 3.77 L Hgb 11.6 L Hct 33.3 L MCV 88 MCH 30.8 MCHC 34.8 RDW 13.4 Plt Count 246 Seg Neutrophils % 79.6 H Sodium 125.8 L 127.4 L Potassium 3.7 3.6 Chloride 96 L 99 Carbon Dioxide 17 L 15 L Anion Gap 13 13 BUN 34 H 38 H Creatinine 3.67 H 4.12 H Est GFR ( Amer) 21 L 18 L Glucose 136 H 109 Calcium 7.5 L 7.6 L 10/13/19 10/13/19 10/13/19 07:00 11:07 14:40 WBC RBC Hgb Hct MCV MCH MCHC RDW Plt Count Seg Neutrophils % Sodium 126.4 L 126.0 L 126.7 L Potassium 3.6 3.8 3.7 Chloride 97 L 97 L 96 L Carbon Dioxide 16 L 16 L 19 L Anion Gap 13 13 12 BUN 37 H 40 H 40 H Creatinine 4.32 H 4.85 H 5.04 H Est GFR ( Amer) 17 L 15 L 15 L Glucose 131 H 213 H 123 H Calcium 7.4 L 7.7 L 7.5 L 10/13/19 18:39 WBC RBC Hgb Hct MCV MCH MCHC RDW Plt Count Seg Neutrophils % Sodium 124.9 L Potassium 3.6 Chloride 98 Carbon Dioxide 15 L Anion Gap 12 BUN 43 H Creatinine 5.03 H Est GFR ( Amer) 15 L Glucose 139 H Calcium 7.2 L 10/11/19 10/11/19 10/11/19 09:59 14:47 15:20 Creatine Kinase 60 CK-MB (CK-2) 0.35 Troponin I < 0.012 NT-Pro-B Natriuret Pep 185 H 10/11/19 10/11/19 10/12/19 20:38 20:38 04:52 Creatine Kinase 55 69 CK-MB (CK-2) 0.34 Troponin I < 0.012 NT-Pro-B Natriuret Pep 10/12/19 04:52 Creatine Kinase CK-MB (CK-2) 0.35 Troponin I < 0.012 NT-Pro-B Natriuret Pep Impressions: Chest X-Ray 10/11/19 00:00 IMPRESSION: Mild pulmonary edema with cardiomegaly. Small left pleural effusion. Lung Scan-VQ NM 10/11/19 00:00 IMPRESSION: Normal perfusion scan copyright 2011 [employer]- All Rights Reserved Hand X-Ray 10/11/19 09:49 IMPRESSION: Mildly distracted tuft fracture involving the 5th digit distal phalanx. Circumferential soft tissue edema. Otherwise stable radiographic appearance of the hand. Assessment & Plan - Diagnosis (1) Cellulitis of right upper extremity Is this a current diagnosis for this admission?: Yes Plan: Continue current medication management. (2) Acute kidney injury Is this a current diagnosis for this admission?: Yes Plan: Continue current medication management. (3) Hyperosmolar non-ketotic state due to type 2 diabetes mellitus Is this a current diagnosis for this admission?: Yes Plan: Continue current medication management. (4) Nephrotic range proteinuria Is this a current diagnosis for this admission?: Yes Plan: Continue current medication management. (5) Diabetic neuropathy associated with type 2 diabetes mellitus Qualifiers: Diabetes mellitus complication detail: diabetic polyneuropathy Qualified Code(s): E11.42 - Type 2 diabetes mellitus with diabetic polyneuropathy Is this a current diagnosis for this admission?: Yes Plan: Continue current medication management. (6) Hypertension Qualifiers: Hypertension type: essential hypertension Qualified Code(s): I10 - Essential (primary) hypertension Is this a current diagnosis for this admission?: Yes Plan: Continue current medication management. - Time Time Spent with patient: 25-34 minutes Level of Care: IMCU Medications reviewed and adjusted accordingly: Yes Anticipated discharge: Home with Homehealth Within: Other - Inpatient Certification Based on my medical assessment, after consideration of the patient's comorbidities, presenting symptoms, or acuity I expect that the services needed warrant INPATIENT care.: Yes I certify that my determination is in accordance with my understanding of Medicare's requirements for reasonable and necessary INPATIENT services [42 CFR 412.3e].: Yes Medical Necessity: Significant Comorbidiites Make Outpatient Treatment Too Risky, Need Close Monitoring Due to Risk of Patient Decompensation, Need For IV Fluids, Need For Continuous Telemetry Monitoring, Need for IV Antibiotics, Risk of Complication if Not Cared For in Hospital, Risk of Diagnosis Which Will Require Inpatient Eval/Care/Monitoring Post Hospital Care: D/C Increment Manager Documentation - Plan Summary Plan Summary: Continue current medication management.
--- NOTE | 2019-10-14 20:34 | PDOC PROGRESS REPORT ---
Subjective Progress Note for:: 10/14/19 Subjective:: Patient reported episodes of diarrhea. No chest pain or difficulty with breathing. No fever or chills. No nausea, vomiting, or abdominal pain. Reason For Visit: CELLULITIS OF LUE T2DM WITH COMPLICATIONS Physical Exam Vital Signs: Temp Pulse Resp BP Pulse Ox 98.8 F 85 16 115/70 98 10/14/19 15:18 10/14/19 15:18 10/14/19 15:18 10/14/19 15:18 10/14/19 15:18 Intake & Output 10/13/19 10/14/19 10/15/19 06:59 06:59 06:59 Intake Total 3140 1523 2225 Output Total 250 1325 Balance 3140 1273 900 Weight 120.1 kg 120 kg Physical Exam: General appearance: PRESENT: no acute distress, obese Head exam: PRESENT: atraumatic, normocephalic Eye exam: PRESENT: conjunctiva pink. ABSENT: pallor, scleral icterus Mouth exam: PRESENT: moist Respiratory exam: PRESENT: clear to auscultation mamta, decreased breath sounds - at lung bases Cardiovascular exam: PRESENT: RRR, +S1, +S2. ABSENT: diastolic murmur, rubs, systolic murmur GI/Abdominal exam: PRESENT: normal bowel sounds, soft. ABSENT: distended, guarding, mass, organomegaly, rebound, tenderness Extremities exam: PRESENT: right AKA, other - multiple fingers amputation bilaterally Musculoskeletal exam: PRESENT: deformity - from finger amputations Neurological exam: PRESENT: alert, awake, oriented to person, oriented to place, oriented to time, oriented to situation, CN II-XII grossly intact. ABSENT: motor sensory deficit Psychiatric exam: PRESENT: appropriate affect, normal mood. ABSENT: homicidal ideation, suicidal ideation Skin exam: PRESENT: dry, warm, other - resolving erythematous rash region right forearm medial aspect. Results Laboratory Results: 10/14/19 06:45 10/14/19 06:45 10/13/19 10/14/19 10/14/19 21:44 03:20 06:45 WBC 11.9 H RBC 3.67 L Hgb 11.3 L Hct 32.3 L MCV 88 MCH 30.8 MCHC 35.0 RDW 13.5 Plt Count 241 Seg Neutrophils % 80.9 H Sodium 125.2 L 128.7 L Potassium 3.8 4.0 Chloride 98 97 L Carbon Dioxide 16 L 17 L Anion Gap 11 15 BUN 44 H 45 H Creatinine 5.24 H 5.74 H Est GFR ( Amer) 14 L 13 L Glucose 75 118 H Calcium 7.4 L 7.7 L 10/14/19 06:45 WBC RBC Hgb Hct MCV MCH MCHC RDW Plt Count Seg Neutrophils % Sodium 126.7 L Potassium 3.7 Chloride 98 Carbon Dioxide 13 L Anion Gap 16 BUN 46 H Creatinine 5.66 H Est GFR ( Amer) 13 L Glucose 122 H Calcium 7.5 L 10/11/19 10/11/19 10/11/19 09:59 14:47 15:20 Creatine Kinase 60 CK-MB (CK-2) 0.35 Troponin I < 0.012 NT-Pro-B Natriuret Pep 185 H 10/11/19 10/11/19 10/12/19 20:38 20:38 04:52 Creatine Kinase 55 69 CK-MB (CK-2) 0.34 Troponin I < 0.012 NT-Pro-B Natriuret Pep 10/12/19 04:52 Creatine Kinase CK-MB (CK-2) 0.35 Troponin I < 0.012 NT-Pro-B Natriuret Pep Impressions: Chest X-Ray 10/11/19 00:00 IMPRESSION: Mild pulmonary edema with cardiomegaly. Small left pleural effusion. Lung Scan-VQ NM 10/11/19 00:00 IMPRESSION: Normal perfusion scan copyright 2010 [employer] All Rights Reserved Hand X-Ray 10/11/19 09:49 IMPRESSION: Mildly distracted tuft fracture involving the 5th digit distal phalanx. Circumferential soft tissue edema. Otherwise stable radiographic appearance of the hand. Assessment & Plan - Diagnosis (1) Cellulitis of right upper extremity Is this a current diagnosis for this admission?: Yes (2) Acute kidney injury Is this a current diagnosis for this admission?: Yes Plan: D/C Lisinopril and adjust antibiotic dosing as per renal status. Start on IV flu id N/S at 100 mL/hour. Obtain BMP in AM. (3) Hyperosmolar non-ketotic state due to type 2 diabetes mellitus Is this a current diagnosis for this admission?: Yes (4) Nephrotic range proteinuria Is this a current diagnosis for this admission?: Yes (5) Diabetic neuropathy associated with type 2 diabetes mellitus Qualifiers: Diabetes mellitus complication detail: diabetic polyneuropathy Qualified Code(s): E11.42 - Type 2 diabetes mellitus with diabetic polyneuropathy Is this a current diagnosis for this admission?: Yes Plan: Adjust Gabapentin [place] as per his current renal status. Continue other current medication management. (6) Hypertension Qualifiers: Hypertension type: essential hypertension Qualified Code(s): I10 - Essential (primary) hypertension Is this a current diagnosis for this admission?: Yes - Time Time Spent with patient: 25-34 minutes Level of Care: IMCU Medications reviewed and adjusted accordingly: Yes Anticipated discharge: Home with Homehealth Within: Other - Inpatient Certification Based on my medical assessment, after consideration of the patient's comorbidities, presenting symptoms, or acuity I expect that the services needed warrant INPATIENT care.: Yes I certify that my determination is in accordance with my understanding of Medicare's requirements for reasonable and necessary INPATIENT services [42 CFR 412.3e].: Yes Medical Necessity: Significant Comorbidiites Make Outpatient Treatment Too Risky, Need Close Monitoring Due to Risk of Patient Decompensation, Need For IV Fluids, Need For Continuous Telemetry Monitoring, Need for IV Antibiotics, Risk of Complication if Not Cared For in Hospital, Risk of Diagnosis Which Will Require Inpatient Eval/Care/Monitoring Post Hospital Care: D/C Brand Strategy Manager Documentation - Plan Summary Plan Summary: See covering attending physician orders for details about care plan.
[2019-10-14] MEDS: ATORVASTATIN CALCIUM 10 MG TABLET PO SCH (21:17)
[2019-10-14] MEDS ORDERED: PIPERACILLIN/TAZOBACTAM 2.25 GM VIAL IV ONE (22:40)
[2019-10-14] MEDS: NORMAL SALINE 1000 ML 1,000 ML IV PRN (23:30)
[2019-10-14] MEDS: PIPERACILLIN SODIUM/TAZOBACTAM 2.25 GM in NORMAL SALINE 50 ML IV SCH (23:31)
[2019-10-15] MEDS ORDERED: PIPERACILLIN/TAZOBACTAM 2.25 GM VIAL IV ONE (02:46)
[2019-10-15 03:45] LABS: ANION GAP 14 (5-19); BLOOD UREA NITROGEN 51 mg/dL (7-20); CALCIUM 7.5 mg/dL (8.4-10.2); CARBON DIOXIDE 16 mmol/L (22-30); CHLORIDE 98 mmol/L (98-107); GLUCOSE 143 mg/dL (75-110); POTASSIUM 3.8 mmol/L (3.6-5.0)
[2019-10-15] MEDS: LEVOTHYROXINE SODIUM 0.1 MG TABLET PO SCH (05:10)
[2019-10-15] MEDS: PIPERACILLIN SODIUM/TAZOBACTAM 2.25 GM in NORMAL SALINE 50 ML IV SCH ×3 (05:12→22:45)
[2019-10-15] MEDS: LINEZOLID 600 MG/300 ML RTUPB IV SCH ×2 (06:26→17:00)
[2019-10-15] MEDS: INSULIN LISPRO 100 UNIT/ML 3 ML VIAL SUBCUT SCH ×4 (08:13→22:44)
[2019-10-15] MEDS: PANTOPRAZOLE SODIUM 20 MG TABLET.DR PO SCH (08:13)
[2019-10-15] MEDS ORDERED: ACETAMINOPHEN 325 MG TABLET PO PRN (09:01)
[2019-10-15] MEDS: ASPIRIN 81 MG TABLET, ENT COATED PO SCH (09:42)
[2019-10-15] MEDS: OXYCODONE-ACETAMINOPHEN 5-325 MG TABLET PO PRN ×3 (09:42→22:44)
[2019-10-15] MEDS: GABAPENTIN 300 MG CAPSULE PO SCH (09:43)
[2019-10-15] MEDS: ENOXAPARIN SODIUM INJ 40 MG/0.4 ML DISP.SYRIN SUBCUT SCH (09:43)
[2019-10-15] MEDS: INSULIN GLARGINE,HUM.REC.ANLOG 1,000 UNIT/10 ML VIAL SUBCUT SCH ×2 (09:43→22:44)
[2019-10-15] MEDS: NORMAL SALINE 1000 ML 1,000 ML IV PRN (12:56)
[2019-10-15 13:56] LABS: URIC ACID 10.9 mg/dL (3.5-8.5)
--- NOTE | 2019-10-15 15:16 | RADIOLOGY REPORT (SQ) ---
EXAM DESCRIPTION: U/S RETROPERITON (RENAL/AORTA) IMAGES COMPLETED DATE/TIME: 10/15/2019 3:04 pm REASON FOR STUDY: WILL COMPARISON: None. TECHNIQUE: Dynamic and static grayscale images acquired of the kidneys and bladder and recorded on P ACS. Additional selected color Doppler and spectral images recorded. LIMITATIONS: None. FINDINGS: RIGHT KIDNEY: The right kidney measures 13.4 cm in length. Normal echogenicity. No so lid or suspicious masses. Mild dilatation of the right collecting system. No calcifications. LEFT KIDNEY: The left kidney measures 14.8 cm in length. Normal echogenicity. No solid or suspic ious masses. No hydronephrosis. No calcifications. BLADDER: No masses. OTHER FINDINGS: No other significant finding. IMPRESSION: Mild right-sided hydronephrosis. No other significant findings. TECHNICAL DOCUMENTATION: JOB ID: [id number] 2010 [employer]- All Rights Reserved Reading location - IP/workstation name: [email or web address]
[2019-10-15 16:57] LABS: APPEARANCE,URINE SLIGHTLY-CLOUDY; BILIRUBIN,URINE NEGATIVE (NEGATIVE); COLOR,URINE YELLOW; GLUCOSE, URINE NEGATIVE (NEGATIVE); KETONES,URINE NEGATIVE (NEGATIVE); PROTEIN,URINE 30 mg/dL (NEGATIVE); URINE SPECIFIC GRAVITY 1.008; UROBILINOGEN,URINE NEGATIVE mg/dL (<2.0)
[2019-10-15 17:29] LABS: URINE CREATININE 64.1 mg/dL (22-328)
[2019-10-15 18:46] LABS: EOSINOPHIL SMEAR RARE; SPECIMEN TYPE URINE
--- NOTE | 2019-10-15 20:37 | PDOC PROGRESS REPORT ---
Subjective Progress Note for:: 10/15/19 Subjective:: Patient seen by the bedside the cellulitis of the right upper extremity is improved, He developed acute kidney injury most likely from compression of factors including vancomycin nephrotoxicity, hemodynamic instability, Complain of back pain Reason For Visit: CELLULITIS OF LUE T2DM WITH COMPLICATIONS Physical Exam Vital Signs: Temp Pulse Resp BP Pulse Ox 98.2 F 91 18 126/97 H 93 10/15/19 12:47 10/15/19 16:45 10/15/19 15:58 10/15/19 16:45 10/15/19 16:45 Intake & Output 10/14/19 10/15/19 10/16/19 06:59 06:59 06:59 Intake Total 1523 3425 2687 Output Total 250 1825 900 Balance 1273 1600 1787 Weight 120 kg 120 kg General appearance: PRESENT: no acute distress Eye exam: PRESENT: PERRLA Respiratory exam: PRESENT: clear to auscultation mamta Cardiovascular exam: PRESENT: +S1, +S2 GI/Abdominal exam: PRESENT: soft Results Laboratory Results: 10/14/19 06:45 10/15/19 03:04 10/15/19 10/15/19 10/15/19 03:04 03:04 03:04 Sodium 128.0 L Potassium 3.8 Chloride 98 Carbon Dioxide 16 L Anion Gap 14 BUN 51 H Creatinine 6.38 H Est GFR ( Amer) 11 L Glucose 143 H Serum Osmolality 279 Uric Acid 10.9 H Calcium 7.5 L Urine Color Urine Appearance Urine pH Ur Specific [place] Urine Protein Urine Glucose (UA) Urine Ketones Urine Blood Urine RBC (Auto) Urine Osmolality 10/15/19 10/15/19 16:15 16:15 Sodium Potassium Chloride Carbon Dioxide Anion Gap BUN Creatinine Est GFR ( Amer) Glucose Serum Osmolality Uric Acid Calcium Urine Color YELLOW Urine Appearance SLIGHTLY-CLOUDY Urine pH 5.0 Ur Specific [place] 1.008 Urine Protein 30 H Urine Glucose (UA) NEGATIVE Urine Ketones NEGATIVE Urine Blood MODERATE H Urine RBC (Auto) 2 Urine Osmolality 172 L 10/11/19 10/11/19 10/11/19 09:59 14:47 15:20 Creatine Kinase 60 CK-MB (CK-2) 0.35 Troponin I < 0.012 NT-Pro-B Natriuret Pep 185 H 10/11/19 10/11/19 10/12/19 20:38 20:38 04:52 Creatine Kinase 55 69 CK-MB (CK-2) 0.34 Troponin I < 0.012 NT-Pro-B Natriuret Pep 10/12/19 04:52 Creatine Kinase CK-MB (CK-2) 0.35 Troponin I < 0.012 NT-Pro-B Natriuret Pep Impressions: Chest X-Ray 10/11/19 00:00 IMPRESSION: Mild pulmonary edema with cardiomegaly. Small left pleural effusion. Lung Scan-VQ NM 10/11/19 00:00 IMPRESSION: Normal perfusion scan copyright 2010 [employer]- All Rights Reserved Hand X-Ray 10/11/19 09:49 IMPRESSION: Mildly distracted tuft fracture involving the 5th digit distal phalanx. Circumferential soft tissue edema. Otherwise stable radiographic appearance of the hand. Renal Ultrasound 10/15/19 00:00 IMPRESSION: Mild right-sided hydronephrosis. No other significant findings. Assessment & Plan - Diagnosis (1) Cellulitis of right upper extremity Is this a current diagnosis for this admission?: Yes (2) Hypoxemia Is this a current diagnosis for this admission?: Yes (3) T2DM (type 2 diabetes mellitus) Qualifiers: Diabetes mellitus detention insulin use: with extermination inspector use Diabetes mellitus complication status: with neurologic complications Diabetes mellitus complication detail: with polyneuropathy Qualified Code(s): E11.42 - Type 2 diabetes mellitus with diabetic polyneuropathy; Z79.4 - buttermaker (current) use of insulin Is this a current diagnosis for this admission?: Yes (4) Morbid obesity due to excess calories Is this a current diagnosis for this admission?: Yes (5) Hyperosmolar non-ketotic state due to type 2 diabetes mellitus Is this a current diagnosis for this admission?: Yes (6) Acute kidney injury Is this a current diagnosis for this admission?: Yes Plan: consult nephrology (7) Nephrotic range proteinuria Is this a current diagnosis for this admission?: Yes (8) Sepsis Qualifiers: Sepsis type: sepsis due to unspecified organism Sepsis acute organ dysfunction status: with acute organ dysfunction Severe sepsis acute organ dysfunction type: acute renal failure Acute renal failure type: with acute tubular necrosis Severe sepsis shock status: without septic shock Qualified Code(s): A41.9 - Sepsis, unspecified organism; R65.20 - Severe sepsis without septic shock; N17.0 - Acute kidney failure with tubular necrosis Is this a current diagnosis for this admission?: Yes Plan: continue treatment - Time Time Spent with patient: 15-24 minutes Level of Care: IMCU
[2019-10-15] MEDS: ATORVASTATIN CALCIUM 10 MG TABLET PO SCH (22:45)
--- NOTE | 2019-10-15 23:26 | PDOC CONSULTATION ---
Consultation Consult Date: 10/15/19 Provider Consulted: RUTHIE ROSAS Consult reason:: WILL History of Present Illness Admission Date/PCP: 10/11/19 14:23 AUDI GARCIA MD History of Present Illness: JULIAN CACERSE is a 53 year old gentleman with history of uncontrolled diabetes mellitus type 2, hypertension, peripheral vascular disease, hypothyroidism and obesity who was admitted on 10/11/2019 for cellulitis of the right upper extremity. Patient has received antibiotics since admission including a dose of Unasyn, 2 doses of vancomycin and currently patient is being maintained on IV linezolid and IV Zosyn. Since admission the patient said that his right hand and forearm swelling has improved including the erythema and he is able to move his fingers on his right hand but it still hurting. He reports decreased appetite although he is eating. He has occasional dry heaves but not much vomiting, no abdominal pain. He denies any shortness of breath or chest pains. On admission he was noted to have hypoxemia of unknown etiology with negative and normal VQ scan. Chest x-ray on admission showed some bilateral pulmonary congestion and small left pleural effusion though. He was placed on Lasix on admission but has been discontinued. Patient also reports some diarrhea for which he tested negative for C. difficile. On admission the patient has a normal kidney function with a BUN of 19, creatinine 1.13. He has low sodium of 129.3. Subsequently during the following days of admission the patient's kidney function is getting worse and today he has a BUN of 51, creatinine of 6.38. His sodium is still low at 128. His bicarbonate is low at 16 from 23. His initial urinalysis showed greater than or equal to 500 of protein and glucose and small blood. He also has urine protein to creatinine ratio 4.3. His hemoglobin A1c is 11.1 which he said was previously 12. His urine output for the last 24 hours has been 1825 mL and prior to that is not being quantified. Patient states that within the last 4 years he had an episode of acute kidney injury when he was hospitalized in [place] for the right second and third finger amputation. He said he was given an antibiotics which cause nephrotoxicity presumably vancomycin requiring him to stay in the hospital for about 17 days. He did not require any hemodialysis at this time. He said his kidney function improved and went back to normal after that. He did follow- up with a vp organizational development in [place] for 2-3 times after that but has not followed for a while. He denies any NSAID use no use of any herbal [id number] medications. He denies any history of hepatitis. Past Medical History Cardiac Medical History: Reports: Hypertension-primary, Peripheral Vascular D isease Endocrine Medical History: Reports: Diabetes Mellitus Type 2, Hypothyroidism, Obesity Renal/ Medical History: Reports: Proteinuria Past Surgical History Past Surgical History: Reports: Orthopedic Surgery - 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, left middle finger amputation, Tonsillectomy Social History Information Source: Patient, [facility] Records Lives with: Family Smoking Status: Never Smoker Electronic Cigarette use?: No Frequency of Alcohol Use: None Hx Recreational Drug Use: No Drugs: Cocaine Hx Prescription Drug Abuse: No Family History Family History: CAD - Father with CABG, Malignancy - Mother has metastatic breast cancer, Other - Kidney stones in his father Parental Family History Reviewed: Yes Children Family History Reviewed: Yes Sibling(s) Family History Reviewed.: Yes Medication/Allergy Home Medications: Levothyroxine Sodium [Synthroid 0.1 mg Tablet] 0.1 mg PO DAILY 12/04/18 Omeprazole 20 mg PO DAILY 12/04/18 Aspirin [Ecotrin 81 mg EC Tablet] 81 mg PO DAILY 06/09/19 Atorvastatin Calcium [Lipitor 10 mg Tablet] 10 mg PO DAILY 06/09/19 Lisinopril [Prinivil 10 mg Tablet] 10 mg PO DAILY #30 06/11/19 Gabapentin 300 mg PO TID 10/11/19 Victoza 18mg/3ml Pen 1.8 mg SQ QHS 10/11/19 Allergies/Adverse Reactions: No Known Allergies Allergy (Verified 10/11/19 09:39) Review of Systems All systems: reviewed and no additional remarkable complaints except as stated Review of Systems: Constitutional: ABSENT: chills, fatigue, fever(s), headache(s), weight gain, weight loss; admits decreased appetite Eyes: ABSENT: visual disturbances Ears: ABSENT: hearing changes Cardiovascular: ABSENT: chest pain, dyspnea on exertion, edema, orthropnea, palpitations Respiratory: ABSENT: cough, dyspnea, hemoptysis Gastrointestinal: ABSENT: abdominal pain, constipation, hematemesis, hematochezia, vomiting; admits diarrhea and occasional dry heaves. Genitourinary: ABSENT: dysuria, hematuria Musculoskeletal: ABSENT: joint swelling; right forearm and right hand swelling and pain Integumentary: ABSENT: rash, wounds Neurological: ABSENT: abnormal gait, abnormal speech, confusion, dizziness, focal weakness, numbness, syncope Psychiatric: ABSENT: anxiety, depression Endocrine: ABSENT: cold intolerance, heat intolerance, polydipsia, polyuria Hematologic/Lymphatic: ABSENT: easy bleeding, easy bruising, lymphadenopathy Physical Exam Vital Signs: Temp Pulse Resp BP Pulse Ox 98.6 F 92 20 111/70 91 L 10/15/19 08:01 10/15/19 08:01 10/15/19 08:01 10/15/19 08:01 10/15/19 08:01 Intake & Output 10/14/19 10/15/19 10/16/19 06:59 06:59 06:59 Intake Total 1523 3425 1300 Output Total 250 1825 Balance 1273 1600 1300 Weight 120 kg 120 kg Exam: General appearance: No acute distress, cooperative, well-developed, well- nourished Head exam: PRESENT: atraumatic, normocephalic Eye exam: PRESENT: Conjunctiva Noel, EOMI, PERRLA. ABSENT: conjunctival injection, scleral icterus Mouth exam: PRESENT: moist, neck supple, tongue midline Neck exam: PRESENT: full ROM. ABSENT: carotid bruit, JVD, lymphadenopathy, thyromegaly Respiratory exam: PRESENT: clear to auscultation bilaterally. ABSENT: rales, rhonchi, stridor, wheezes Cardiovascular exam: PRESENT: RRR, +S1, +S2. ABSENT: systolic murmur Pulses: PRESENT: normal radial pulses, normal dorsalis pedis pulses GI/Abdominal exam: PRESENT: normal bowel sounds, soft. ABSENT: guarding, mass, tenderness Rectal exam: Deferred Extremities exam: PRESENT: Right hand and forearm swelling seems to have significantly improve although it still swollen and the erythema has improved as well. Patient is able to move his remaining fingers. ABSENT: calf tenderness, pedal edema Musculoskeletal: PRESENT: full ROM. Right hand second and third finger amputation, left middle finger amputation, right AKA. ABSENT: deformity Neurological exam: PRESENT: alert, Awake, Oriented to person, Oriented to place, Oriented to time, reflexes normal, CN II-XII grossly intact. ABSENT: motor sensory deficit Psychiatric exam: PRESENT: appropriate affect, normal mood. ABSENT: homicidal ideation, suicidal ideation Skin exam: PRESENT: intact, dry, warm. ABSENT: rash Results Laboratory Results: 10/14/19 06:45 10/15/19 03:04 10/15/19 03:04 Sodium 128.0 L Potassium 3.8 Chloride 98 Carbon Dioxide 16 L Anion Gap 14 BUN 51 H Creatinine 6.38 H Est GFR ( Amer) 11 L Glucose 143 H Calcium 7.5 L 10/11/19 10/11/19 10/11/19 09:59 14:47 15:20 Creatine Kinase 60 CK-MB (CK-2) 0.35 Troponin I < 0.012 NT-Pro-B Natriuret Pep 185 H 10/11/19 10/11/19 10/12/19 20:38 20:38 04:52 Creatine Kinase 55 69 CK-MB (CK-2) 0.34 Troponin I < 0.012 NT-Pro-B Natriuret Pep 10/12/19 04:52 Creatine Kinase CK-MB (CK-2) 0.35 Troponin I < 0.012 NT-Pro-B Natriuret Pep Impressions: Chest X-Ray 10/11/19 00:00 IMPRESSION: Mild pulmonary edema with cardiomegaly. Small left pleural effusion. Lung Scan-VQ NM 10/11/19 00:00 IMPRESSION: Normal perfusion scan copyright 2011 [employer]- All Rights Reserved Hand X-Ray 10/11/19 09:49 IMPRESSION: Mildly distracted tuft fracture involving the 5th digit distal phalanx. Circumferential soft tissue edema. Otherwise stable radiographic ap pearance of the hand. Assessment & Plan - Diagnosis (1) Acute kidney injury Is this a current diagnosis for this admission?: Yes Plan: Patient is nonoliguric. He is hemodynamically stable. Possible etiology of his worsening kidney function could be related to his IV antibiotics more likely due to the IV piperacillin/tazobactam which can cause acute interstitial nephritis causing slow insidious worsening kidney function. He only received 2 doses of vancomycin and a trough level was within therapeutic level during early part of admission so that could not have been the cause of his WILL. I will check the patient's urinalysis again, urine sodium and urine creatinine, urine eosinophils and kidney ultrasound. If possible he may need to change the patient's IV Zosyn to another type of antibiotics. At this time the patient does not need any acute renal replacement therapy nevertheless I discussed the possibility of this if the patient's kidney function continued to get worse. Patient states that if needed he will agree to do dialysis. Avoid further nephrotoxic medications. Continue monitoring the patient's kidney function and electrolytes. (2) Cellulitis of right upper extremity Is this a current diagnosis for this admission?: Yes Plan: Currently on IV penicillin and piperacillin/tazobactam. Per Dr. Garcia. (3) Metabolic acidosis Is this a current diagnosis for this admission?: Yes Plan: Secondary to WILL. Start sodium bicarbonate 650 mg twice a day. (4) Nephrotic range proteinuria Is this a current diagnosis for this admission?: Yes Plan: Patient most likely has underlying diabetic nephropathy causing the nephrotic range proteinuria due to uncontrolled diabetes mellitus. I will also check the patient's serum for protein electrophoresis. (5) T2DM (type 2 diabetes mellitus) Qualifiers: Diabetes mellitus [facility] insulin use: with weaver hand loom use Diabetes mellitus complication status: with neurologic complications Diabetes mellitus complication detail: with polyneuropathy Qualified Code(s): E11.42 - Type 2 diabetes mellitus with diabetic polyneuropathy; Z79.4 - custodial (current) use of insulin Is this a current diagnosis for this admission?: Yes Plan: Uncontrolled. Defer to Dr. Garcia. Advised patient that he needs to control his diabetes to retard progression of kidney disease if ever his kidney function will improve from here. (6) Hyponatremia Is this a current diagnosis for this admission?: Yes Plan: Mild. TSH and free T4 normal. Uric acid is elevated. Will check cortisol, urine osmolality, plasma osmolality and urine sodium and urine creatinine. Will do free water restriction. (7) Hypertension Qualifiers: Hypertension type: essential hypertension Qualified Code(s): I10 - Essential (primary) hypertension Is this a current diagnosis for this admission?: Yes Plan: Well-controlled. (8) Peripheral vascular disease Is this a current diagnosis for this admission?: Yes Plan: Status post right AKA, right hand second and third finger amputation and left hand third finger amputation. (9) Diarrhea Is this a current diagnosis for this admission?: Yes Plan: Likely antibiotic induced. C. difficile is negative. - Notes Notes: Thank you very much for this consultation. We will follow patient with you. - Time Time Spent: Greater than 70 Minutes
[2019-10-16] MEDS: OXYCODONE-ACETAMINOPHEN 5-325 MG TABLET PO PRN ×3 (04:45→18:04)
[2019-10-16] MEDS: NORMAL SALINE 1000 ML 1,000 ML IV PRN ×2 (04:50→19:00)
[2019-10-16] MEDS: PIPERACILLIN SODIUM/TAZOBACTAM 2.25 GM in NORMAL SALINE 50 ML IV SCH (05:39)
[2019-10-16] MEDS: LINEZOLID 600 MG/300 ML RTUPB IV SCH ×2 (05:39→17:58)
[2019-10-16] MEDS: LEVOTHYROXINE SODIUM 0.1 MG TABLET PO SCH (05:39)
[2019-10-16 07:08] LABS: ANION GAP 12 (5-19); BLOOD UREA NITROGEN 52 mg/dL (7-20); CALCIUM 7.3 mg/dL (8.4-10.2); CARBON DIOXIDE 13 mmol/L (22-30); CHLORIDE 102 mmol/L (98-107); GLUCOSE 184 mg/dL (75-110); PHOSPHORUS 6.7 mg/dL (2.5-4.5)
[2019-10-16] MEDS: INSULIN LISPRO 100 UNIT/ML 3 ML VIAL SUBCUT SCH ×4 (08:57→22:17)
[2019-10-16] MEDS: PANTOPRAZOLE SODIUM 20 MG TABLET.DR PO SCH (08:57)
[2019-10-16] MEDS: SODIUM BICARBONATE 650 MG TABLET PO SCH ×4 (09:11→17:57)
[2019-10-16] MEDS: INSULIN GLARGINE,HUM.REC.ANLOG 1,000 UNIT/10 ML VIAL SUBCUT SCH ×2 (09:11→22:18)
[2019-10-16] MEDS: GABAPENTIN 300 MG CAPSULE PO SCH (09:11)
[2019-10-16] MEDS: ASPIRIN 81 MG TABLET, ENT COATED PO SCH (09:11)
[2019-10-16] MEDS: ENOXAPARIN SODIUM INJ 40 MG/0.4 ML DISP.SYRIN SUBCUT SCH (09:12)
--- NOTE | 2019-10-16 11:35 | PDOC PROGRESS REPORT ---
Subjective Progress Note for:: 10/16/19 Subjective:: Patient said his not doing too well today he was complaining of his sinuses bothering him in his some left lower back pain with radiation to his left leg. Other than that he continues to make adequate amount of urine output. He denies any shortness of breathing. No other new complaints. Reason For Visit: CELLULITIS OF LUE T2DM WITH COMPLICATIONS Physical Exam Vital Signs: Temp Pulse Resp BP Pulse Ox 97.5 F 77 18 118/78 99 10/16/19 08:00 10/16/19 08:00 10/16/19 08:00 10/16/19 08:00 10/16/19 08:00 Intake & Output 10/15/19 10/16/19 10/17/19 06:59 06:59 06:59 Intake Total 3425 3737 Output Total 1825 1400 Balance 1600 2337 Weight 120 kg 122 kg Exam: General appearance: PRESENT: no acute distress, cooperative, well-developed, well-nourished Head exam: PRESENT: atraumatic, normocephalic Eye exam: PRESENT: conjunctiva pink, PERRLA. ABSENT: scleral icterus Neck exam: ABSENT: JVD Respiratory exam: PRESENT: Normal breath sounds. ABSENT: crackles, rales, rhonchi, unlabored, wheezes Cardiovascular exam: PRESENT: Regular rate rhythm -+S1, +S2. ABSENT: diastolic murmur, systolic murmur GI/Abdominal exam: PRESENT: normal bowel sounds, soft. ABSENT: guarding, mass, tenderness Extremities exam: Trace left lower extremity edema Neurological exam: PRESENT: alert, awake, oriented to person, place and time. Skin exam: PRESENT: dry, warm, Results Laboratory Results: 10/14/19 06:45 10/16/19 06:09 10/15/19 10/15/19 10/15/19 03:04 03:04 16:15 Sodium Potassium Chloride Carbon Dioxide Anion Gap BUN Creatinine Est GFR ( Amer) Glucose Serum Osmolality 279 Uric Acid 10.9 H Calcium Phosphorus Magnesium Urine Color YELLOW Urine Appearance SLIGHTLY-CLOUDY Urine pH 5.0 Ur Specific [place] 1.008 Urine Protein 30 H Urine Glucose (UA) NEGATIVE Urine Ketones NEGATIVE Urine Blood MODERATE H Urine RBC (Auto) 2 Urine Osmolality 10/15/19 10/16/19 16:15 06:09 Sodium 127.0 L Potassium 4.0 Chloride 102 Carbon Dioxide 13 L Anion Gap 12 BUN 52 H Creatinine 6.30 H Est GFR ( Amer) 11 L Glucose 184 H Serum Osmolality Uric Acid Calcium 7.3 L Phosphorus 6.7 H Magnesium 1.9 Urine Color Urine Appearance Urine pH Ur Specific [place] Urine Protein Urine Glucose (UA) Urine Ketones Urine Blood Urine RBC (Auto) Urine Osmolality 172 L 10/11/19 09:59 Blood Blood Culture - Final NO GROWTH IN 5 DAYS 10/11/19 10/11/19 10/11/19 09:59 14:47 15:20 Creatine Kinase 60 CK-MB (CK-2) 0.35 Troponin I < 0.012 NT-Pro-B Natriuret Pep 185 H 10/11/19 10/11/19 10/12/19 20:38 20:38 04:52 Creatine Kinase 55 69 CK-MB (CK-2) 0.34 Troponin I < 0.012 NT-Pro-B Natriuret Pep 10/12/19 04:52 Creatine Kinase CK-MB (CK-2) 0.35 Troponin I < 0.012 NT-Pro-B Natriuret Pep Impressions: Chest X-Ray 10/11/19 00:00 IMPRESSION: Mild pulmonary edema with cardiomegaly. Small left pleural effusion. Lung Scan-VQ NM 10/11/19 00:00 IMPRESSION: Normal perfusion scan copyright 2011 [employer]- All Rights Reserved Hand X-Ray 10/11/19 09:49 IMPRESSION: Mildly distracted tuft fracture involving the 5th digit distal phalanx. Circumferential soft tissue edema. Otherwise stable radiographic appearance of the hand. Renal Ultrasound 10/15/19 00:00 IMPRESSION: Mild right-sided hydronephrosis. No other significant findings. Assessment & Plan - Diagnosis (1) Acute kidney injury Is this a current diagnosis for this admission?: Yes Plan: Nonoliguric. Consider possibility of acute interstitial nephritis secondary to IV Zosyn. Patient had previous episode of WILL secondary to vancomycin toxicity years ago. Patient had received 2 doses of vancomycin here breath he had a therapeutic trough. I discussed the case with Dr. Adhikari today. I recommended discontinuation of IV Zosyn for now to see if this to improve the kidney function and he agreed. Will monitor kidney function after that. At this time he does not have any need for renal placement therapy. His repeat urinalysis is somewhat questionable because his urine protein went down to only 30 which for the last 2 specimen is been greater than 500 and he has moderate amount of blood but no leukocyte esterase. His urine eosinophils are rare. This does not rule out acute interstitial nephritis though. His renal ultrasound showed normal size kidneys with the right kidney measuring 13.4 cm and the left kidney 14.8 cm with normal echogenicity bilaterally. There were no masses no hydronephrosis in both kidneys. However there is some mild right- sided hydronephrosis or dilation of the pelvis without any calcifications. I do not think this finding is very significant that would warrant intervention for now. (2) Cellulitis of right upper extremity Is this a current diagnosis for this admission?: Yes Plan: As above I will discontinue the IV Zosyn and continue IV linezolid for now. Discussed with Dr. Adhikari. (3) Metabolic acidosis Is this a current diagnosis for this admission?: Yes Plan: Worsening. I started the patient on sodium bicarbonate 650 mg and will make it 3 times a day today. (4) Nephrotic range proteinuria Is this a current diagnosis for this admission?: Yes Plan: Urine protein to creatinine ratio 4.3. Most likely secondary to underlying diabetic nephropathy. (5) T2DM (type 2 diabetes mellitus) Qualifiers: Diabetes mellitus nursing home insulin use: with long term care social worker use Diabetes mellitus complication status: with neurologic complications Diabetes mellitus complication detail: with polyneuropathy Qualified Code(s): E11.42 - Type 2 diabetes mellitus with diabetic polyneuropathy; Z79.4 - nursing home (current) use of insulin Is this a current diagnosis for this admission?: Yes Plan: Uncontrolled. Defer to Dr. Adhikari. (6) Hyponatremia Is this a current diagnosis for this admission?: Yes Plan: Unchanged if not slightly improved. (7) Hypertension Qualifiers: Hypertension type: essential hypertension Qualified Code(s): I10 - Ess ential (primary) hypertension Is this a current diagnosis for this admission?: Yes Plan: Controlled. (8) Peripheral vascular disease Is this a current diagnosis for this admission?: Yes (9) Diarrhea Is this a current diagnosis for this admission?: Yes Plan: C. difficile negative. Still antibiotic induced. (10) Hyperphosphatemia Is this a current diagnosis for this admission?: Yes Plan: I will temporarily put him on calcium acetate to be taken with meals. (11) Hypocalcemia Is this a current diagnosis for this admission?: Yes Plan: We will start calcium acetate as above. - Time Time with patient: 15-25 minutes
[2019-10-16] MEDS: CALCIUM ACETATE 667 MG CAPSULE PO SCH ×2 (12:50→17:57)
[2019-10-16 16:37] LABS: A/G RATIO 0.6 (0.7-1.7); ALBUMIN 2 2.2 g/dL (2.9-4.4); ALPHA-2-GLOBULIN 2 1.2 g/dL (0.4-1.0); BETA GLOBULINS 0.7 g/dL (0.7-1.3); GLOBULIN TOTAL 3.5 g/dL (2.2-3.9); MONOCLONAL SPIKE Not Observed g/dL (Not Observ); PROTEIN TOTAL SERUM 5.7 g/dL (6.0-8.5)
--- NOTE | 2019-10-16 21:45 | PDOC PROGRESS REPORT ---
Subjective Progress Note for:: 10/16/19 Subjective:: Patient seen by the bedside, complaining of back pain, the swelling of the hand ,still somewhat tight will consult surgery for guidance Reason For Visit: CELLULITIS OF LUE T2DM WITH COMPLICATIONS Physical Exam Vital Signs: Temp Pulse Resp BP Pulse Ox 99.2 F 91 18 116/76 91 L 10/16/19 16:45 10/16/19 16:45 10/16/19 16:45 10/16/19 16:45 10/16/19 16:45 Intake & Output 10/15/19 10/16/19 10/17/19 06:59 06:59 06:59 Intake Total 3425 4037 1614 Output Total 1825 1400 1000 Balance 1600 2637 614 Weight 120 kg 122 kg General appearance: PRESENT: no acute distress Eye exam: PRESENT: PERRLA Respiratory exam: PRESENT: clear to auscultation mamta Cardiovascular exam: PRESENT: +S1, +S2 GI/Abdominal exam: PRESENT: soft Results Laboratory Results: 10/14/19 06:45 10/16/19 06:09 10/16/19 06:09 Sodium 127.0 L Potassium 4.0 Chloride 102 Carbon Dioxide 13 L Anion Gap 12 BUN 52 H Creatinine 6.30 H Est GFR ( Amer) 11 L Glucose 184 H Calcium 7.3 L Phosphorus 6.7 H Magnesium 1.9 10/11/19 11:14 Blood Blood Culture - Final NO GROWTH IN 5 DAYS 10/11/19 09:59 Blood Blood Culture - Final NO GROWTH IN 5 DAYS 10/11/19 10/11/19 10/11/19 09:59 14:47 15:20 Creatine Kinase 60 CK-MB (CK-2) 0.35 Troponin I < 0.012 NT-Pro-B Natriuret Pep 185 H 10/11/19 10/11/19 10/12/19 20:38 20:38 04:52 Creatine Kinase 55 69 CK-MB (CK-2) 0.34 Troponin I < 0.012 NT-Pro-B Natriuret Pep 10/12/19 04:52 Creatine Kinase CK-MB (CK-2) 0.35 Troponin I < 0.012 NT-Pro-B Natriuret Pep Impressions: Chest X-Ray 10/11/19 00:00 IMPRESSION: Mild pulmonary edema with cardiomegaly. Small left pleural effusion. Lung Scan-VQ NM 10/11/19 00:00 IMPRESSION: Normal perfusion scan copyright 2010 [employer]- All Rights Reserved Hand X-Ray 10/11/19 09:49 IMPRESSION: Mildly distracted tuft fracture involving the 5th digit distal phalanx. Circumferential soft tissue edema. Otherwise stable radiographic appearance of the hand. Renal Ultrasound 10/15/19 00:00 IMPRESSION: Mild right-sided hydronephrosis. No other significant findings. Assessment & Plan - Diagnosis (1) Cellulitis of right upper extremity Is this a current diagnosis for this admission?: Yes (2) Hypoxemia Is this a current diagnosis for this admission?: Yes (3) T2DM (type 2 diabetes mellitus) Qualifiers: Diabetes mellitus [facility] insulin use: with ad terminal makeup operator use Diabetes mellitus complication status: with neurologic complications Diabetes mellitus complication detail: with polyneuropathy Qualified Code(s): E11.42 - Type 2 diabetes mellitus with diabetic polyneuropathy; Z79.4 - supervisor intermediates (current) use of insulin Is this a current diagnosis for this admission?: Yes (4) Morbid obesity due to excess calories Is this a current diagnosis for this admission?: Yes (5) Hyperosmolar non-ketotic state due to type 2 diabetes mellitus Is this a current diagnosis for this admission?: Yes (6) Acute kidney injury Is this a current diagnosis for this admission?: Yes Plan: d/c zosyn ,continue linezolid (7) Nephrotic range proteinuria Is this a current diagnosis for this admission?: Yes (8) Sepsis Qualifiers: Sepsis type: sepsis due to unspecified organism Sepsis acute organ dysfunction status: with acute organ dysfunction Severe sepsis acute organ dysfunction type: acute renal failure Acute renal failure type: with acute tubular necrosis Severe sepsis shock status: without septic shock Qualified Code(s): A41.9 - Sepsis, unspecified organism; R65.20 - Severe sepsis without septic shock; N17.0 - Acute kidney failure with tubular necrosis Is this a current diagnosis for this admission?: Yes Plan: continue treatment - Time Time Spent with patient: 15-24 minutes Level of Care: IMCU
[2019-10-16] MEDS: ATORVASTATIN CALCIUM 10 MG TABLET PO SCH (22:19)
[2019-10-17] MEDS: OXYCODONE-ACETAMINOPHEN 5-325 MG TABLET PO PRN ×4 (00:10→22:14)
[2019-10-17] MEDS: LEVOTHYROXINE SODIUM 0.1 MG TABLET PO SCH (05:39)
[2019-10-17] MEDS: LINEZOLID 600 MG/300 ML RTUPB IV SCH ×2 (05:40→17:31)
[2019-10-17] MEDS: NORMAL SALINE 1000 ML 1,000 ML IV PRN ×2 (05:44→15:18)
[2019-10-17 06:09] LABS: ANION GAP 11 (5-19); BLOOD UREA NITROGEN 51 mg/dL (7-20); CALCIUM 7.7 mg/dL (8.4-10.2); CARBON DIOXIDE 15 mmol/L (22-30); CHLORIDE 106 mmol/L (98-107); GLUCOSE 156 mg/dL (75-110); POTASSIUM 4.5 mmol/L (3.6-5.0)
--- NOTE | 2019-10-17 06:38 | Progress Note ---
Provider Note Provider Note: Patient with edema of the hand and new onset contractures of the fourth and fifth digits. With involvement of tendons, I cannot provide guidance. This appears to be more consistent with an orthopedic issue. I will contact orthopedics and have them evaluate the patient.
--- NOTE | 2019-10-17 07:34 | PDOC CONSULTATION ---
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 Patient's been on antibiotics and states that the swelling and erythema has considerably decreased. Past Medical History Cardiac Medical History: Reports: Hypertension, Peripheral Vascular Disease Denies: Coronary Artery Disease, Myocardial Infarction Pulmonary Medical History: Denies: Asthma, Bronchitis, Chronic Obstructive Pulmonary Disease (COPD), Pneumonia, Tuberculosis Neurological Medical History: Denies: Seizures Endocrine Medical History: Reports: Diabetes Mellitus Type 2, Hypothyroidism, Obesity Musculoskeltal Medical History: Denies: Arthritis Psychiatric Medical History: Denies: Depression Hematology: Denies: Anemia Past Surgical History Past Surgical History: Reports: Orthopedic Surgery - 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, left middle finger amputation, Tonsillectomy Denies: Pacemaker Social History Information Source: Patient, [facility] Records Lives with: Family Smoking Status: Never Smoker Electronic Cigarette use?: No Frequency of Alcohol Use: None Hx Recreational Drug Use: No Drugs: Cocaine Hx Prescription Drug Abuse: No Family History Family History: Reviewed & Not Pertinent, DM, Hypertension Parental Family History Reviewed: No Children Family History Reviewed: No Sibling(s) Family History Reviewed.: No Medication/Allergy Home Medications: Levothyroxine Sodium [Synthroid 0.1 mg Tablet] 0.1 mg PO DAILY 12/04/18 Omeprazole 20 mg PO DAILY 12/04/18 Aspirin [Ecotrin 81 mg EC Tablet] 81 mg PO DAILY 06/09/19 Atorvastatin Calcium [Lipitor 10 mg Tablet] 10 mg PO DAILY 06/09/19 Lisinopril [Prinivil 10 mg Tablet] 10 mg PO DAILY #30 06/11/19 Gabapentin 300 mg PO TID 10/11/19 Victoza 18mg/3ml Pen 1.8 mg SQ QHS 10/11/19 Allergies/Adverse Reactions: No Known Allergies Allergy (Verified 10/11/19 09:39) Review of Systems All systems: as per PMH Physical Exam Vital Signs: Temp Pulse Resp BP Pulse Ox 37.3 C 91 18 116/76 91 L 10/16/19 16:45 10/16/19 16:45 10/16/19 16:45 10/16/19 16:45 10/16/19 16:45 Intake & Output 10/16/19 10/17/19 10/18/19 06:59 06:59 06:59 Intake Total 4037 3914 Output Total 1400 1000 Balance 2637 2914 Weight 122 kg 126.8 kg General appearance: PRESENT: no acute distress, mild distress, obese Respiratory exam: PRESENT: unlabored Cardiovascular exam: PRESENT: RRR GI/Abdominal exam: PRESENT: soft Rectal exam: PRESENT: deferred Musculoskeletal exam: PRESENT: other - Right hand status post index and long finger MCP disarticulation's in the past. There is residual erythema and induration over the ulnar and dorsal border of the lateral hand at the level of the metacarpals. There is contractures of the DIP, PIP, and MCP joints of the remaining ring and small fingers. When these are passively extended there is a pulling and uncomfortable sensation that extends to the medial humeral epicondyle. There is no erythema or induration about the forearm nor is her any tenderness. There is brisk capillary refill in the subungual regions of the small and ring finger. Sensory examination is intact to touch but subjectively decreased. Results Laboratory Results: 10/14/19 06:45 10/17/19 05:29 10/15/19 10/17/19 03:04 05:29 Sodium 131.5 L Potassium 4.5 Chloride 106 Carbon Dioxide 15 L Anion Gap 11 BUN 51 H Creatinine 5.71 H Est GFR ( Amer) 13 L Glucose 156 H Calcium 7.7 L Total Protein 5.7 L Albumin 2.2 L 10/11/19 11:14 Blood Blood Culture - Final NO GROWTH IN 5 DAYS 10/11/19 09:59 Blood Blood Culture - Final NO GROWTH IN 5 DAYS 10/11/19 10/11/19 10/11/19 09:59 14:47 15:20 Creatine Kinase 60 CK-MB (CK-2) 0.35 Troponin I < 0.012 NT-Pro-B Natriuret Pep 185 H 10/11/19 10/11/19 10/12/19 20:38 20:38 04:52 Creatine Kinase 55 69 CK-MB (CK-2) 0.34 Troponin I < 0.012 NT-Pro-B Natriuret Pep 10/12/19 04:52 Creatine Kinase CK-MB (CK-2) 0.35 Troponin I < 0.012 NT-Pro-B Natriuret Pep Impressions: Chest X-Ray 10/11/19 00:00 IMPRESSION: Mild pulmonary edema with cardiomegaly. Small left pleural effusion. Lung Scan-VQ NM 10/11/19 00:00 IMPRESSION: Normal perfusion scan copyright 2011 [employer]- All Rights Reserved Hand X-Ray 10/11/19 09:49 IMPRESSION: Mildly distracted tuft fracture involving the 5th digit distal phalanx. Circumferential soft tissue edema. Otherwise stable radiographic appearance of the hand. Renal Ultrasound 10/15/19 00:00 IMPRESSION: Mild right-sided hydronephrosis. No other significant findings. 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 By the patient's report and by his vital signs he seems to be responding to the current antibiotics including Zosyn. The concern is residual flexion contractures. I think occupational therapy for active and passive range of motion of the digits and continued observation is probably appropriate at this point. I do not think that there is a drainable abscess cavity. I do not think that ring and small finger viability is threatened at this point. - Time Time Spent: 50 to 70 Minutes Anticipated discharge: Other Within: Other
[2019-10-17] MEDS: INSULIN LISPRO 100 UNIT/ML 3 ML VIAL SUBCUT SCH ×4 (08:41→22:16)
[2019-10-17] MEDS: ASPIRIN 81 MG TABLET, ENT COATED PO SCH (09:47)
[2019-10-17] MEDS: CALCIUM ACETATE 667 MG CAPSULE PO SCH ×3 (09:47→17:31)
[2019-10-17] MEDS: SODIUM BICARBONATE 650 MG TABLET PO SCH ×3 (09:47→17:31)
[2019-10-17] MEDS: GABAPENTIN 300 MG CAPSULE PO SCH (09:47)
[2019-10-17] MEDS: INSULIN GLARGINE,HUM.REC.ANLOG 1,000 UNIT/10 ML VIAL SUBCUT SCH ×2 (09:48→22:16)
[2019-10-17] MEDS: PANTOPRAZOLE SODIUM 20 MG TABLET.DR PO SCH (09:49)
[2019-10-17] MEDS: ENOXAPARIN SODIUM INJ 30 MG/0.3 ML DISP.SYRIN SUBCUT SCH (09:50)
--- NOTE | 2019-10-17 12:15 | PDOC PROGRESS REPORT ---
Subjective Progress Note for:: 10/17/19 Subjective:: Patient is clinically stable. He still complains of some difficulty in moving his fingers on his right hand. He is making some urine but apparently not being quantified accurately. He was evaluated by Dr. Castelan and Dr. Tyler who recommended just physical therapy. He continues to be on IV linezolid. I discontinued his IV Zosyn due to potential effect on the kidney function. Reason For Visit: CELLULITIS OF LUE T2DM WITH COMPLICATIONS Physical Exam Vital Signs: Temp Pulse Resp BP Pulse Ox 98.4 F 90 16 123/72 91 L 10/17/19 07:21 10/17/19 07:21 10/17/19 07:21 10/17/19 07:21 10/17/19 07:21 Intake & Output 10/16/19 10/17/19 10/18/19 06:59 06:59 06:59 Intake Total 4037 3914 300 Output Total 1400 1000 Balance 2637 2914 300 Weight 122 kg 126.8 kg Exam: General appearance: PRESENT: no acute distress, cooperative, well-developed, well-nourished Head exam: PRESENT: atraumatic, normocephalic Eye exam: PRESENT: conjunctiva slightly pale, PERRLA. ABSENT: scleral icterus Neck exam: ABSENT: JVD Respiratory exam: PRESENT: Normal breath sounds. ABSENT: crackles, rales, rhonchi, unlabored, wheezes Cardiovascular exam: PRESENT: Regular rate rhythm -+S1, +S2. ABSENT: diastolic murmur, systolic murmur GI/Abdominal exam: PRESENT: normal bowel sounds, soft. ABSENT: guarding, mass, tenderness Extremities exam: Grade 1 bilateral lower extremity pitting edema; right AKA; right hand and forearm swelling with slow improvement, localized erythematous area on the ulnar side of the right hand but the erythema on the forearm has subsided. Neurological exam: PRESENT: alert, awake, oriented to person, place and time. Skin exam: PRESENT: dry, warm, Results Laboratory Results: 10/14/19 06:45 10/17/19 05:29 10/15/19 10/17/19 03:04 05:29 Sodium 131.5 L Potassium 4.5 Chloride 106 Carbon Dioxide 15 L Anion Gap 11 BUN 51 H Creatinine 5.71 H Est GFR ( Amer) 13 L Glucose 156 H Calcium 7.7 L Total Protein 5.7 L Albumin 2.2 L 10/11/19 11:14 Blood Blood Culture - Final NO GROWTH IN 5 DAYS 10/11/19 09:59 Blood Blood Culture - Final NO GROWTH IN 5 DAYS 10/11/19 10/11/19 10/11/19 09:59 14:47 15:20 Creatine Kinase 60 CK-MB (CK-2) 0.35 Troponin I < 0.012 NT-Pro-B Natriuret Pep 185 H 10/11/19 10/11/19 10/12/19 20:38 20:38 04:52 Creatine Kinase 55 69 CK-MB (CK-2) 0.34 Troponin I < 0.012 NT-Pro-B Natriuret Pep 10/12/19 04:52 Creatine Kinase CK-MB (CK-2) 0.35 Troponin I < 0.012 NT-Pro-B Natriuret Pep Impressions: Chest X-Ray 10/11/19 00:00 IMPRESSION: Mild pulmonary edema with cardiomegaly. Small left pleural effusion. Lung Scan-VQ NM 10/11/19 00:00 IMPRESSION: Normal perfusion scan copyright 2011 [email or web address]- All Rights Reserved Hand X-Ray 10/11/19 09:49 IMPRESSION: Mildly distracted tuft fracture involving the 5th digit distal phalanx. Circumferential soft tissue edema. Otherwise stable radiographic nery earance of the hand. Renal Ultrasound 10/15/19 00:00 IMPRESSION: Mild right-sided hydronephrosis. No other significant findings. Assessment & Plan - Diagnosis (1) Acute kidney injury Is this a current diagnosis for this admission?: Yes Plan: Nonoliguric. Consider possibility of acute interstitial nephritis secondary to IV Zosyn. Patient had previous episode of WILL secondary to vancomycin toxicity years ago. Patient had received 2 doses of vancomycin here breath he had a therapeutic trough. I discussed the case with Dr. Adhikari today. I recomm ended discontinuation of IV Zosyn for now to see if this to improve the kidney function and he agreed. Will monitor kidney function after that. At this time he does not have any need for renal placement therapy. His repeat urinalysis is somewhat questionable because his urine protein went down to only 30 which for the last 2 specimen is been greater than 500 and he has moderate amount of blood but no leukocyte esterase. His urine eosinophils are rare. This does not rule out acute interstitial nephritis though. His renal ultrasound showed normal size kidneys with the right kidney measuring 13.4 cm and the left kidney 14.8 cm with normal echogenicity bilaterally. There were no masses no hydronephrosis in both kidneys. However there is some mild right- sided hydronephrosis or dilation of the pelvis without any calcifications. I do not think this finding is very significant that would warrant intervention for now. Kidney function is slightly better today after discontinuation of IV Zosyn yesterday.Continue current management. (2) Cellulitis of right upper extremity Is this a current diagnosis for this admission?: Yes Plan: As above I disconotinued the IV Zosyn on 10/15 and continue IV linezolid for now. Discussed with Dr. Adhikari. (3) Metabolic acidosis Is this a current diagnosis for this admission?: Yes Plan: Slightly better today. Patient on sodium bicarbonate 650 mg 3 times daily. (4) Nephrotic range proteinuria Is this a current diagnosis for this admission?: Yes Plan: Urine protein to creatinine ratio 4.3. Most likely secondary to underlying diabetic nephropathy. Serum protein electrophoresis negative for monoclonal protein. 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 Defer to Dr. Adhikari. Discussed with the patient the importance of controlling diabetes to prevent progression and worsening of kidney disease. (6) Hyponatremia Is this a current diagnosis for this admission?: Yes Plan: Slowly improving. (7) Hypertension Qualifiers: Hypertension type: essential hypertension Qualified Code(s): I10 - Essential (primary) hypertension Is this a current diagnosis for this admission?: Yes Plan: Controlled. (8) Peripheral vascular disease Is this a current diagnosis for this admission?: Yes (9) Diarrhea Is this a current diagnosis for this admission?: Yes Plan: C. difficile negative. Still antibiotic induced. (10) Hyperphosphatemia Is this a current diagnosis for this admission?: Yes Plan: I will temporarily put him on calcium acetate to be taken with meals. (11) Hypocalcemia Is this a current diagnosis for this admission?: Yes Plan: We will start calcium acetate as above. - Time Time with patient: 15-25 minutes
--- NOTE | 2019-10-17 16:58 | PDOC PROGRESS REPORT ---
Subjective Progress Note for:: 10/17/19 Subjective:: Patient seen by the bedside,he was seen by orthopedics,there is slight improvement of the kidney function Reason For Visit: CELLULITIS OF LUE T2DM WITH COMPLICATIONS Physical Exam Vital Signs: Temp Pulse Resp BP Pulse Ox 98.9 F 87 18 108/72 95 10/17/19 11:23 10/17/19 11:23 10/17/19 11:23 10/17/19 11:23 10/17/19 11:23 Intake & Output 10/16/19 10/17/19 10/18/19 06:59 06:59 06:59 Intake Total 4037 3914 1257 Output Total 1400 1000 Balance 2637 2914 1257 Weight 122 kg 126.8 kg General appearance: PRESENT: no acute distress Eye exam: PRESENT: PERRLA Respiratory exam: PRESENT: clear to auscultation mamta Cardiovascular exam: PRESENT: +S1, +S2 GI/Abdominal exam: PRESENT: soft Neurological exam: PRESENT: alert Results Laboratory Results: 10/14/19 06:45 10/17/19 05:29 10/15/19 10/17/19 03:04 05:29 Sodium 131.5 L Potassium 4.5 Chloride 106 Carbon Dioxide 15 L Anion Gap 11 BUN 51 H Creatinine 5.71 H Est GFR ( Amer) 13 L Glucose 156 H Calcium 7.7 L Total Protein 5.7 L Albumin 2.2 L 10/11/19 10/11/19 10/11/19 09:59 14:47 15:20 Creatine Kinase 60 CK-MB (CK-2) 0.35 Troponin I < 0.012 NT-Pro-B Natriuret Pep 185 H 10/11/19 10/11/19 10/12/19 20:38 20:38 04:52 Creatine Kinase 55 69 CK-MB (CK-2) 0.34 Troponin I < 0.012 NT-Pro-B Natriuret Pep 10/12/19 04:52 Creatine Kinase CK-MB (CK-2) 0.35 Troponin I < 0.012 NT-Pro-B Natriuret Pep Impressions: Chest X-Ray 10/11/19 00:00 IMPRESSION: Mild pulmonary edema with cardiomegaly. Small left pleural effusion. Lung Scan-VQ NM 10/11/19 00:00 IMPRESSION: Normal perfusion scan copyright 2011 [employer]- All Rights Reserved Hand X-Ray 10/11/19 09:49 IMPRESSION: Mildly distracted tuft fracture involving the 5th digit distal phalanx. Circumferential soft tissue edema. Otherwise stable radiographic appearance of the hand. Renal Ultrasound 10/15/19 00:00 IMPRESSION: Mild right-sided hydronephrosis. No other significant findings. Assessment & Plan - Diagnosis (1) Cellulitis of right upper extremity Is this a current diagnosis for this admission?: Yes (2) Hypoxemia Is this a current diagnosis for this admission?: Yes (3) T2DM (type 2 diabetes mellitus) Qualifiers: Diabetes mellitus senior care insulin use: with senior care use Diabetes mellitus complication status: with neurologic complications Diabetes mellitus complication detail: with polyneuropathy Qualified Code(s): E11.42 - Type 2 diabetes mellitus with diabetic polyneuropathy; Z79.4 - terminal worker (current) use of insulin Is this a current diagnosis for this admission?: Yes (4) Morbid obesity due to excess calories Is this a current diagnosis for this admission?: Yes (5) Hyperosmolar non-ketotic state due to type 2 diabetes mellitus Is this a current diagnosis for this admission?: Yes (6) Acute kidney injury Is this a current diagnosis for this admission?: Yes (7) Nephrotic range proteinuria Is this a current diagnosis for this admission?: Yes (8) Sepsis Qualifiers: Sepsis type: sepsis due to unspecified organism Sepsis acute organ dysfunction status: with acute organ dysfunction Severe sepsis acute organ dysfunction type: acute renal failure Acute renal failure type: with acute tubular necrosis Severe sepsis shock status: without septic shock Qualified Code(s): A41.9 - Sepsis, unspecified organism; R65.20 - Severe sepsis without septic shock; N17.0 - Acute kidney failure with tubular necrosis Is this a current diagnosis for this admission?: Yes Plan: continue treatment - Time Time Spent with patient: 15-24 minutes Level of Care: CU
[2019-10-17] MEDS: ATORVASTATIN CALCIUM 10 MG TABLET PO SCH (22:14)
[2019-10-18] MEDS: OXYCODONE-ACETAMINOPHEN 5-325 MG TABLET PO PRN ×3 (05:11→18:30)
[2019-10-18] MEDS: LEVOTHYROXINE SODIUM 0.1 MG TABLET PO SCH (05:11)
[2019-10-18] MEDS: LINEZOLID 600 MG/300 ML RTUPB IV SCH ×2 (05:11→17:34)
[2019-10-18 06:27] LABS: ANION GAP 11 (5-19); BLOOD UREA NITROGEN 46 mg/dL (7-20); CALCIUM 7.6 mg/dL (8.4-10.2); CARBON DIOXIDE 17 mmol/L (22-30); CHLORIDE 105 mmol/L (98-107); GLUCOSE 146 mg/dL (75-110); POTASSIUM 4.3 mmol/L (3.6-5.0)
--- NOTE | 2019-10-18 07:11 | PDOC PROGRESS REPORT ---
Subjective Progress Note for:: 10/18/19 Reason For Visit: CELLULITIS OF LUE T2DM WITH COMPLICATIONS Right hand cellulitis Physical Exam Vital Signs: Temp Pulse Resp BP Pulse Ox 37.5 C 94 20 127/82 H 90 L 10/18/19 00:00 10/18/19 00:00 10/18/19 00:00 10/17/19 20:00 10/17/19 20:00 Intake & Output 10/17/19 10/18/19 10/19/19 06:59 06:59 06:59 Intake Total 3914 3839 Output Total 1000 600 Balance 2914 3239 Weight 126.8 kg 124.2 kg Physical Exam: Obese middle-aged white male lying in bed. Patient is alert, oriented, and appropriate. General appearance: PRESENT: obese Musculoskeletal exam: PRESENT: other - Continued improvement in the right ulnar border dorsal hand cellulitis with decreased erythema. There continues to be focal induration but no evidence of abscess. Results Laboratory Results: 10/14/19 06:45 10/18/19 05:42 10/18/19 05:42 Sodium 132.8 L Potassium 4.3 Chloride 105 Carbon Dioxide 17 L Anion Gap 11 BUN 46 H Creatinine 5.29 H Est GFR ( Amer) 14 L Glucose 146 H Calcium 7.6 L 10/11/19 10/11/19 10/11/19 09:59 14:47 15:20 Creatine Kinase 60 CK-MB (CK-2) 0.35 Troponin I < 0.012 NT-Pro-B Natriuret Pep 185 H 10/11/19 10/11/19 10/12/19 20:38 20:38 04:52 Creatine Kinase 55 69 CK-MB (CK-2) 0.34 Troponin I < 0.012 NT-Pro-B Natriuret Pep 10/12/19 04:52 Creatine Kinase CK-MB (CK-2) 0.35 Troponin I < 0.012 NT-Pro-B Natriuret Pep Impressions: Chest X-Ray 10/11/19 00:00 IMPRESSION: Mild pulmonary edema with cardiomegaly. Small left pleural effusion. Lung Scan-VQ NM 10/11/19 00:00 IMPRESSION: Normal perfusion scan copyright 2011 [employer]- All Rights Reserved Hand X-Ray 10/11/19 09:49 IMPRESSION: Mildly distracted tuft fracture involving the 5th digit distal phalanx. Circumferential soft tissue edema. Otherwise stable radiographic appearance of the hand. Renal Ultrasound 10/15/19 00:00 IMPRESSION: Mild right-sided hydronephrosis. No other significant findings. Assessment & Plan - Diagnosis (1) Cellulitis of right upper extremity Is this a current diagnosis for this admission?: Yes Plan: Continue current care - Time Time Spent with patient: 15-24 minutes Anticipated discharge: Other Within: Other
[2019-10-18] MEDS: GABAPENTIN 300 MG CAPSULE PO SCH (09:38)
[2019-10-18] MEDS: SODIUM BICARBONATE 650 MG TABLET PO SCH ×3 (09:38→17:34)
[2019-10-18] MEDS: CALCIUM ACETATE 667 MG CAPSULE PO SCH ×3 (09:38→17:34)
[2019-10-18] MEDS: PANTOPRAZOLE SODIUM 20 MG TABLET.DR PO SCH (09:39)
[2019-10-18] MEDS: ENOXAPARIN SODIUM INJ 30 MG/0.3 ML DISP.SYRIN SUBCUT SCH (09:40)
[2019-10-18] MEDS: ASPIRIN 81 MG TABLET, ENT COATED PO SCH (09:40)
[2019-10-18] MEDS: INSULIN LISPRO 100 UNIT/ML 3 ML VIAL SUBCUT SCH ×4 (09:43→21:28)
[2019-10-18] MEDS: INSULIN GLARGINE,HUM.REC.ANLOG 1,000 UNIT/10 ML VIAL SUBCUT SCH ×2 (10:09→21:29)
[2019-10-18] MEDS: NORMAL SALINE 1000 ML 1,000 ML IV PRN (10:58)
[2019-10-18 13:05] LABS: HEMATOCRIT 33.4 % (37.9-51.0); HEMOGLOBIN 11.2 g/dL (13.5-17.0); MEAN CORPUSCULAR HEMOGLOBIN 30.1 pg (27.0-33.4); MEAN CORPUSCULAR HGB CONC 33.6 g/dL (32.0-36.0); MEAN CORPUSCULAR VOLUME 90 fl (80-97); PLATELET COUNT 319 10^3/uL (150-450); RED BLOOD COUNT 3.73 10^6/uL (4.35-5.55); RED CELL DISTRIBUTION WIDTH 13.6 % (11.5-14.0); WHITE BLOOD COUNT 8.2 10^3/uL (4.0-10.5)
[2019-10-18 13:26] LABS: ABSOLUTE LYMPHOCYTES# (MANUAL) 1.3 10^3/uL (0.5-4.7); ABSOLUTE MONOCYTES # (MANUAL) 1.1 10^3/uL (0.1-1.4); BASOPHILS % (MANUAL) 0 % (0-2); EOSINOPHILS % (MANUAL) 0 % (0-6); LYMPHOCYTES % (MANUAL) 16 % (13-45); MONOCYTES % (MANUAL) 14 % (3-13); SEGMENTED NEUTROPHILS % (MAN) 70 % (42-78); TOTAL CELLS COUNTED 100
[2019-10-18 13:27] LABS: PLATELET COMMENT ADEQUATE; RBC MORPHOLOGY COMMENT NORMO-CYTIC/CHROMIC
--- NOTE | 2019-10-18 14:55 | PDOC PROGRESS REPORT ---
Subjective Progress Note for:: 10/18/19 Subjective:: Patient was seen sitting up in bed at the time of examination. He is still concerned of the swelling of his right hand the fact that the cellulitis has not gone away. He denies fever or chills. He does still have pain with the right hand. Urine output continues to be good. He is not collecting every urination. Reason For Visit: CELLULITIS OF LUE T2DM WITH COMPLICATIONS Physical Exam Vital Signs: Temp Pulse Resp BP Pulse Ox 100.5 F H 99 15 123/78 91 L 10/18/19 12:07 10/18/19 12:07 10/18/19 12:07 10/18/19 12:07 10/18/19 12:07 Intake & Output 10/17/19 10/18/19 10/19/19 06:59 06:59 06:59 Intake Total 3914 4839 Output Total 1000 600 Balance 2914 4239 Weight 126.8 kg 124.2 kg General appearance: PRESENT: no acute distress, well-developed, well-nourished Mouth exam: PRESENT: moist, neck supple Neck exam: ABSENT: JVD, tracheal deviation Respiratory exam: PRESENT: clear to auscultation mamta. ABSENT: crackles, rales, rhonchi, wheezes Cardiovascular exam: PRESENT: +S1, +S2 GI/Abdominal exam: PRESENT: soft. ABSENT: tenderness Extremities exam: PRESENT: other - slightly swollen right hand with some erythema on the ulnar side of the hand.. ABSENT: pedal edema, tenderness, +1 edema, +2 edema Musculoskeletal exam: PRESENT: deformity - -right BKA. ABSENT: normal inspection Neurological exam: PRESENT: alert, awake, oriented to person, oriented to place, oriented to time, oriented to situation Skin exam: PRESENT: dry, erythema, intact, warm. ABSENT: cyanosis Results Laboratory Results: 10/18/19 05:42 10/18/19 05:42 10/18/19 10/18/19 05:42 05:42 WBC 8.2 RBC 3.73 L Hgb 11.2 L Hct 33.4 L MCV 90 MCH 30.1 MCHC 33.6 RDW 13.6 Plt Count 319 Seg Neutrophils % Not Reportable Sodium 132.8 L Potassium 4.3 Chloride 105 Carbon Dioxide 17 L Anion Gap 11 BUN 46 H Creatinine 5.29 H Est GFR ( Amer) 14 L Glucose 146 H Calcium 7.6 L 10/11/19 10/11/19 10/11/19 09:59 14:47 15:20 Creatine Kinase 60 CK-MB (CK-2) 0.35 Troponin I < 0.012 NT-Pro-B Natriuret Pep 185 H 10/11/19 10/11/19 10/12/19 20:38 20:38 04:52 Creatine Kinase 55 69 CK-MB (CK-2) 0.34 Troponin I < 0.012 NT-Pro-B Natriuret Pep 10/12/19 04:52 Creatine Kinase CK-MB (CK-2) 0.35 Troponin I < 0.012 NT-Pro-B Natriuret Pep Impressions: Chest X-Ray 10/11/19 00:00 IMPRESSION: Mild pulmonary edema with cardiomegaly. Small left pleural effusion. Lung Scan-VQ NM 10/11/19 00:00 IMPRESSION: Normal perfusion scan copyright 2011 [employer]- All Rights Reserved Hand X-Ray 10/11/19 09:49 IMPRESSION: Mildly distracted tuft fracture involving the 5th digit distal phalanx. Circumferential soft tissue edema. Otherwise stable radiographic appearance of the hand. Renal Ultrasound 10/15/19 00:00 IMPRESSION: Mild right-sided hydronephrosis. No other significant findings. Assessment & Plan - Diagnosis (1) Acute kidney injury Is this a current diagnosis for this admission?: Yes Plan: nonoliguric, AIN from Zoysn along with insult from ATN from the cellulitis. Zoysn was discontinued, patient has been recieving normal saline. Ultrasound of the kidneys showed normal kidneys. He did have nephrotic level proteinuria, likely from his poorly controlled diabetes. Creatinine is slowly improving since the zoysn was removed. Continue with the normal saline and reassess tomorrow. All medications should be adjusted to a GFR of less than 25. (2) Cellulitis of right upper extremity Is this a current diagnosis for this admission?: Yes Plan: on linazolid, which does not need renal dosing. (3) Hypocalcemia Is this a current diagnosis for this admission?: Yes Plan: checking PTH and ionized calcium. Will adjust calcium supplements and calcitriol pending labs. (4) Hyperphosphatemia Is this a current diagnosis for this admission?: Yes Plan: on calcium acetate 2 with meals (5) Hyponatremia Is this a current diagnosis for this admission?: Yes Plan: improving on normal saline (6) Metabolic acidosis Is this a current diagnosis for this admission?: Yes Plan: improving on sodium bicarb 650mg TID (7) Nephrotic range proteinuria Is this a current diagnosis for this admission?: Yes Plan: likely due to his poorly controlled diabetes. Patient needs to better control his diabetes. 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 (9) Hypertension Qualifiers: Hypertension type: essential hypertension Qualified Code(s): I10 - Essential (primary) hypertension Is this a current diagnosis for this admission?: Yes Plan: bp is controlled (10) Morbid obesity due to excess calories Is this a current diagnosis for this admission?: Yes
--- NOTE | 2019-10-18 20:52 | PDOC PROGRESS REPORT ---
Subjective Progress Note for:: 10/18/19 Subjective:: Patient seen by the bedside still complaining of pain involving his back he was seen by orthopedic regarding the right hand , undergoing physical therapy Reason For Visit: CELLULITIS OF LUE T2DM WITH COMPLICATIONS Physical Exam Vital Signs: Temp Pulse Resp BP Pulse Ox 100.5 F H 99 15 123/78 91 L 10/18/19 12:07 10/18/19 12:07 10/18/19 12:07 10/18/19 12:07 10/18/19 12:07 Intake & Output 10/17/19 10/18/19 10/19/19 06:59 06:59 06:59 Intake Total 3914 5139 2880 Output Total 0654 099 1587 Balance 2914 4539 280 Weight 126.8 kg 124.2 kg General appearance: PRESENT: no acute distress Eye exam: PRESENT: PERRLA Respiratory exam: PRESENT: clear to auscultation mamta Cardiovascular exam: PRESENT: +S1, +S2 Neurological exam: PRESENT: alert Results Laboratory Results: 10/18/19 05:42 10/18/19 05:42 10/18/19 10/18/19 10/18/19 05:42 05:42 15:20 WBC 8.2 RBC 3.73 L Hgb 11.2 L Hct 33.4 L MCV 90 MCH 30.1 MCHC 33.6 RDW 13.6 Plt Count 319 Seg Neutrophils % Not Reportable Sodium 132.8 L Potassium 4.3 Chloride 105 Carbon Dioxide 17 L Anion Gap 11 BUN 46 H Creatinine 5.29 H Est GFR ( Amer) 14 L Glucose 146 H Calcium 7.6 L Ionized Calcium Tenzin PTH Intact 111.3 H 10/18/19 15:20 WBC RBC Hgb Hct MCV MCH MCHC RDW Plt Count Seg Neutrophils % Sodium Potassium Chloride Carbon Dioxide Anion Gap BUN Creatinine Est GFR ( Amer) Glucose Calcium Ionized Calcium Tenzin 1.14 PTH Intact 10/11/19 10/11/19 10/11/19 09:59 14:47 15:20 Creatine Kinase 60 CK-MB (CK-2) 0.35 Troponin I < 0.012 NT-Pro-B Natriuret Pep 185 H 10/11/19 10/11/19 10/12/19 20:38 20:38 04:52 Creatine Kinase 55 69 CK-MB (CK-2) 0.34 Troponin I < 0.012 NT-Pro-B Natriuret Pep 10/12/19 04:52 Creatine Kinase CK-MB (CK-2) 0.35 Troponin I < 0.012 NT-Pro-B Natriuret Pep Impressions: Chest X-Ray 10/11/19 00:00 IMPRESSION: Mild pulmonary edema with cardiomegaly. Small left pleural effusion. Lung Scan-VQ NM 10/11/19 00:00 IMPRESSION: Normal perfusion scan copyright 2010 [employer]- All Rights Reserved Hand X-Ray 10/11/19 09:49 IMPRESSION: Mildly distracted tuft fracture involving the 5th digit distal phalanx. Circumferential soft tissue edema. Otherwise stable radiographic appearance of the hand. Renal Ultrasound 10/15/19 00:00 IMPRESSION: Mild right-sided hydronephrosis. No other significant findings. Assessment & Plan - Diagnosis (1) Cellulitis of right upper extremity Is this a current diagnosis for this admission?: Yes Plan: continue treatment (2) Hypoxemia Is this a current diagnosis for this admission?: Yes (3) T2DM (type 2 diabetes mellitus) Qualifiers: Diabetes mellitus long-term insulin use: with long-term use Diabetes mellitus complication status: with neurologic complications Diabetes mellitus complication detail: with polyneuropathy Qualified Code(s): E11.42 - Type 2 diabetes mellitus with diabetic polyneuropathy; Z79.4 - detention (current) use of insulin Is this a current diagnosis for this admission?: Yes (4) Morbid obesity due to excess calories Is this a current diagnosis for this admission?: Yes (5) Hyperosmolar non-ketotic state due to type 2 diabetes mellitus Is this a current diagnosis for this admission?: Yes (6) Acute kidney injury Is this a current diagnosis for this admission?: Yes (7) Nephrotic range proteinuria Is this a current diagnosis for this admission?: Yes (8) Sepsis Qualifiers: Sepsis type: sepsis due to unspecified organism Sepsis acute organ dysfunction status: with acute organ dysfunction Severe sepsis acute organ dysfunction type: acute renal failure Acute renal failure type: with acute tubular necrosis Severe sepsis shock status: without septic shock Qualified Code(s): A41.9 - Sepsis, unspecified organism; R65.20 - Severe sepsis without septic shock; N17.0 - Acute kidney failure with tubular necrosis Is this a current diagnosis for this admission?: Yes - Time Time Spent with patient: 15-24 minutes
[2019-10-18] MEDS: ATORVASTATIN CALCIUM 10 MG TABLET PO SCH (21:29)
[2019-10-19] MEDS: NORMAL SALINE 1000 ML 1,000 ML IV PRN (00:48)
[2019-10-19] MEDS: OXYCODONE-ACETAMINOPHEN 5-325 MG TABLET PO PRN ×2 (00:53→06:57)
[2019-10-19] MEDS: LINEZOLID 600 MG/300 ML RTUPB IV SCH (05:36)
[2019-10-19] MEDS: LEVOTHYROXINE SODIUM 0.1 MG TABLET PO SCH (05:37)
[2019-10-19 07:05] LABS: ANION GAP 8 (5-19); BLOOD UREA NITROGEN 38 mg/dL (7-20); CALCIUM 7.7 mg/dL (8.4-10.2); CARBON DIOXIDE 19 mmol/L (22-30); CHLORIDE 106 mmol/L (98-107); GLUCOSE 147 mg/dL (75-110); POTASSIUM 4.2 mmol/L (3.6-5.0)
[2019-10-19] MEDS ORDERED: LORATADINE 10 MG TABLET PO SCH (10:00)
[2019-10-19] MEDS: INSULIN LISPRO 100 UNIT/ML 3 ML VIAL SUBCUT SCH ×2 (10:01→13:50)
[2019-10-19] MEDS: SODIUM BICARBONATE 650 MG TABLET PO SCH ×2 (10:09→13:50)
[2019-10-19] MEDS: ASPIRIN 81 MG TABLET, ENT COATED PO SCH (10:10)
[2019-10-19] MEDS: PANTOPRAZOLE SODIUM 20 MG TABLET.DR PO SCH (10:10)
[2019-10-19] MEDS: GABAPENTIN 300 MG CAPSULE PO SCH (10:11)
[2019-10-19] MEDS: INSULIN GLARGINE,HUM.REC.ANLOG 1,000 UNIT/10 ML VIAL SUBCUT SCH (10:11)
[2019-10-19] MEDS: ENOXAPARIN SODIUM INJ 30 MG/0.3 ML DISP.SYRIN SUBCUT SCH (10:11)
[2019-10-19] MEDS: CALCIUM ACETATE 667 MG CAPSULE PO SCH ×2 (10:12→13:50)
[2019-10-19] MEDS ORDERED: NORMAL SALINE 1000 ML 1,000 ML IV PRN (12:46)
--- NOTE | 2019-10-19 12:54 | PDOC PROGRESS REPORT ---
Subjective Progress Note for:: 10/19/19 Reason For Visit: Patient seen today. He is generally feeling better. 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 Evaluations revealed that he had WILL with a peak creatinine of 6.3 on 10/15. His diagnosis was of AIN from Zoysn along with insult from ATN / cellulitis. Zoysn was discontinued, patient has been recieving normal saline. Ultrasound of the kidneys showed normal kidneys. Creatinine is slowly improving since the zoysn was removed. Labs and medications were reviewed. Today's creatinine is 4.2 as compared to a peak of 6.3 a few days ago. He is nonoliguric. Physical Exam Vital Signs: Temp Pulse Resp BP Pulse Ox 98.9 F 90 20 148/81 H 86 L 10/19/19 10:58 10/19/19 10:58 10/19/19 10:58 10/19/19 10:58 10/19/19 10:58 Intake & Output 10/18/19 10/19/19 10/20/19 06:59 06:59 06:59 Intake Total 5139 4180 Output Total 600 4200 Balance 4539 -20 Weight 124.2 kg 124.7 kg General appearance: PRESENT: no acute distress Respiratory exam: PRESENT: clear to auscultation mamta, decreased breath sounds. ABSENT: crackles Cardiovascular exam: PRESENT: +S1, +S2 GI/Abdominal exam: PRESENT: normal bowel sounds, soft. ABSENT: organomegaly, tenderness Extremities exam: PRESENT: pedal edema Neurological exam: PRESENT: alert, oriented to person, oriented to place Psychiatric exam: PRESENT: appropriate affect Results Laboratory Results: 10/18/19 05:42 10/19/19 06:21 10/18/19 10/18/19 10/18/19 05:42 15:20 15:20 WBC 8.2 RBC 3.73 L Hgb 11.2 L Hct 33.4 L MCV 90 MCH 30.1 MCHC 33.6 RDW 13.6 Plt Count 319 Seg Neutrophils % Not Reportable Sodium Potassium Chloride Carbon Dioxide Anion Gap BUN Creatinine Est GFR ( Amer) Glucose Calcium Ionized Calcium Tenzin 1.14 PTH Intact 111.3 H 10/19/19 06:21 WBC RBC Hgb Hct MCV MCH MCHC RDW Plt Count Seg Neutrophils % Sodium 132.7 L Potassium 4.2 Chloride 106 Carbon Dioxide 19 L Anion Gap 8 BUN 38 H Creatinine 4.24 H Est GFR ( Amer) 18 L Glucose 147 H Calcium 7.7 L Ionized Calcium Tenzin PTH Intact 10/11/19 10/11/19 10/11/19 09:59 14:47 15:20 Creatine Kinase 60 CK-MB (CK-2) 0.35 Troponin I < 0.012 NT-Pro-B Natriuret Pep 185 H 10/11/19 10/11/19 10/12/19 20:38 20:38 04:52 Creatine Kinase 55 69 CK-MB (CK-2) 0.34 Troponin I < 0.012 NT-Pro-B Natriuret Pep 10/12/19 04:52 Creatine Kinase CK-MB (CK-2) 0.35 Troponin I < 0.012 NT-Pro-B Natriuret Pep Impressions: Chest X-Ray 10/11/19 00:00 IMPRESSION: Mild pulmonary edema with cardiomegaly. Small left pleural effusion. Lung Scan-VQ NM 10/11/19 00:00 IMPRESSION: Normal perfusion scan copyright 2010 [employer]- All Rights Reserved Hand X-Ray 10/11/19 09:49 IMPRESSION: Mildly distracted tuft fracture involving the 5th digit distal phalanx. Circumferential soft tissue edema. Otherwise stable radiographic appearance of the hand. Renal Ultrasound 10/15/19 00:00 IMPRESSION: Mild right-sided hydronephrosis. No other significant findings. Assessment & Plan - Diagnosis (1) Acute kidney injury Is this a current diagnosis for this admission?: Yes Plan: Normal oliguric and improving. Current creatinine 4.2. Titrate downwards on the IV fluids which have done. Monitor. No indications for renal replacements. (2) Cellulitis of right upper extremity Is this a current diagnosis for this admission?: Yes Plan: Improving on current medications. As per PCP. (3) Diabetes mellitus Qualifiers: Diabetes mellitus type: type 2 Diabetes mellitus terminal superintendent insulin use: with terminal superintendent use Diabetes mellitus complication status: with other specified complication Qualified Code(s): E11.69 - Type 2 diabetes mellitus with other specified complication; Z79.4 - manager long term care (current) use of insulin Plan: Poorly controlled with his A1c at 11.1. Discussed nephrotic proteinuria. Advised him on the long-term consequences. (4) Hyponatremia Is this a current diagnosis for this admission?: Yes Plan: Improving. Continue current guidelines. Monitor. (5) Morbid obesity due to excess calories Is this a current diagnosis for this admission?: Yes (6) Nephrotic range proteinuria Is this a current diagnosis for this admission?: Yes Plan: Discussed the need for better diabetic control. (7) Hypertension Qualifiers: Hypertension type: essential hypertension Qualified Code(s): I10 - Esse ntial (primary) hypertension Is this a current diagnosis for this admission?: Yes Plan: Fairly well controlled. Monitor.
--- NOTE | 2019-10-19 14:12 | PDOC DISCHARGE SUMMARY ---
Impression - Admit/DC Date/PCP Admission Date/Primary Care Provider: 10/11/19 14:23 AUDI GARCIA MD Discharge Date: 10/19/19 - Discharge Diagnosis (1) Cellulitis of right upper extremity Is this a current diagnosis for this admission?: Yes (2) Hypoxemia Is this a current diagnosis for this admission?: Yes (3) T2DM (type 2 diabetes mellitus) Is this a current diagnosis for this admission?: Yes (4) Morbid obesity due to excess calories Is this a current diagnosis for this admission?: Yes (5) Hyperosmolar non-ketotic state due to type 2 diabetes mellitus Is this a current diagnosis for this admission?: Yes (6) Acute kidney injury Is this a current diagnosis for this admission?: Yes (7) Nephrotic range proteinuria Is this a current diagnosis for this admission?: Yes (8) Sepsis Is this a current diagnosis for this admission?: Yes (9) Acute interstitial nephritis Is this a current diagnosis for this admission?: Yes - Additional Information Referrals: AUDI GARCIA MD [Primary Care Provider] - Follow up as needed Prescriptions: Clindamycin HCl 300 mg PO TID #30 capsule Calcium Acetate [Phoslo 667 mg Capsule] 667 mg PO TID #360 capsule Sodium Bicarbonate [Sodium Bicarbonate 650 mg Tablet] 650 mg PO TID #90 tablet Home Medications: Levothyroxine Sodium [Synthroid 0.1 mg Tablet] 0.1 mg PO DAILY 12/04/18 Aspirin [Ecotrin 81 mg EC Tablet] 81 mg PO DAILY 06/09/19 Atorvastatin Calcium [Lipitor 10 mg Tablet] 10 mg PO DAILY 06/09/19 Lisinopril [Prinivil 10 mg Tablet] 10 mg PO DAILY #30 06/11/19 Gabapentin 300 mg PO TID 10/11/19 Victoza 18mg/3ml Pen 1.8 mg SQ QHS 10/11/19 Acetaminophen [Tylenol 325 mg Tablet] 650 mg PO Q6HP PRN tablet 10/19/19 Calcium Acetate [Phoslo 667 mg Capsule] 667 mg PO TID #360 capsule 10/19/19 Clindamycin HCl 300 mg PO TID #30 capsule 10/19/19 Loratadine [Claritin 10 mg Tablet] 10 mg PO DAILY tablet 10/19/19 Sodium Bicarbonate [Sodium Bicarbonate 650 mg Tablet] 650 mg PO TID #90 tablet 10/19/19 History of Present Illiness History of Present Illness: JULIAN CACERES is a 53 year old male, He came to the emergency room earlier today for evaluation of swelling of his right hand and possibly infection. 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 Mildly distracted fracture involving the fifth digit. Marked degenerative changes of the fourth and fifth digit interphalangeal joints. Circumferential soft tissue edema is present.There is severe leukocytosis, white blood cell count 20,000, on examination of this patient there is erythema extending from the hand to the elbow consistent with severe cellulitisThe serum glucose was more than 400, patient is not adherent with medication for the control of diabetes outpatient, is supposed to be on GLP agonist, Victoza, [facility] Hospital Course: Patient was admitted for the management of severe cellulitis affecting right upper extremities, he was empirically treated with IV antibiotic Zosyn and vancomycin, he has a history of diabetes nephropathy, with nephrotic range proteinuria he developed acute kidney injury this was felt to be due to medication initially he was taken off vancomycin because he had a similar incidence in [place] undeveloped vancomycin nephrotoxicity, despite stopping vancomycin the kidney function continues to decline, consultation was obtained from nephrology. Dr. Ruiz nephrology felt this probably acute interstitial nephritis and that Zosyn could also be a factor in the causation of the acute interstitial nephritis so she recommended that Zosyn be discontinued as well. When the vancomycin was discontinued it was replaced with zyvox the kidney function started showing improvement, the most recent serum creatinine is 4 from the peak of over 6 ,patient insisted on going home today, I felt the patient need to stay for a few more days, he has many other complaints including back pain, no sinus symptoms. The surgeon also reviewed the hand he has many fingers missing, there is tremendous swelling of the hand, the surgeon recommend physical therapy, he was seen by the physical therapist in the hospital. There was evidence of sepsis on admission the cellulitis at presentation was extensive there is near resolution of the cellulitis at the moment. Physical Exam Vital Signs: Temp Pulse Resp BP Pulse Ox 98.9 F 90 20 148/81 H 86 L 10/19/19 10:58 10/19/19 10:58 10/19/19 10:58 10/19/19 10:58 10/19/19 10:58 Intake & Output 10/18/19 10/19/19 10/20/19 06:59 06:59 06:59 Intake Total 5139 4180 Output Total 600 4200 Balance 4539 -20 Weight 124.2 kg 124.7 kg General appearance: PRESENT: no acute distress Eye exam: PRESENT: PERRLA Respiratory exam: PRESENT: clear to auscultation mamta Cardiovascular exam: PRESENT: +S1, +S2 GI/Abdominal exam: PRESENT: soft Neurological exam: PRESENT: alert Results Laboratory Results: WBC 8.2 10^3/uL (4.0-10.5) 10/18/19 05:42 RBC 3.73 10^6/uL (4.35-5.55) L 10/18/19 05:42 Hgb 11.2 g/dL (13.5-17.0) L 10/18/19 05:42 Hct 33.4 % (37.9-51.0) L 10/18/19 05:42 MCV 90 fl (80-97) 10/18/19 05:42 MCH 30.1 pg (27.0-33.4) 10/18/19 05:42 MCHC 33.6 g/dL (32.0-36.0) 10/18/19 05:42 RDW 13.6 % (11.5-14.0) 10/18/19 05:42 Plt Count 319 10^3/uL (150-450) 10/18/19 05:42 Lymph % (Auto) Not Reportable 10/18/19 05:42 Rolette % (Auto) Not Reportable 10/18/19 05:42 Eos % (Auto) Not Reportable 10/18/19 05:42 Baso % (Auto) Not Reportable 10/18/19 05:42 Absolute Neuts (auto) Not Reportable 10/18/19 05:42 Absolute Lymphs (auto) Not Reportable 10/18/19 05:42 Absolute Monos (auto) Not Reportable 10/18/19 05:42 Absolute Eos (auto) Not Reportable 10/18/19 05:42 Absolute Basos (auto) Not Reportable 10/18/19 05:42 Total Counted 100 10/18/19 05:42 Seg Neutrophils % Not Reportable 10/18/19 05:42 Seg Neuts % (Manual) 70 % (42-78) 10/18/19 05:42 Lymphocytes % (Manual) 16 % (13-45) 10/18/19 05:42 Atypical Lymphs % 2 % (0) 10/12/19 04:52 Monocytes % (Manual) 14 % (3-13) H 10/18/19 05:42 Eosinophils % (Manual) 0 % (0-6) 10/18/19 05:42 Basophils % (Manual) 0 % (0-2) 10/18/19 05:42 Abs Neuts (Manual) 5.7 10^3/uL (1.7-8.2) 10/18/19 05:42 Abs Lymphs (Manual) 1.3 10^3/uL (0.5-4.7) 10/18/19 05:42 Abs Monocytes (Manual) 1.1 10^3/uL (0.1-1.4) 10/18/19 05:42 Absolute Eos (Manual) 0.0 10^3/uL (0.0-0.6) 10/18/19 05:42 Abs Basophils (Manual) 0.0 10^3/uL (0.0-0.2) 10/18/19 05:42 Toxic Granulation 1+ 10/12/19 04:52 Toxic Vacuolation PRESENT 10/11/19 09:59 Clumped Platelets PRESENT 10/11/19 09:59 Large Platelets PRESENT 10/11/19 09:59 Platelet Comment ADEQUATE 10/18/19 05:42 RBC Morph Comment NORMO-CYTIC/CHROMIC 10/18/19 05:42 Eos Smear Source URINE 10/15/19 16:15 Eosinophil Smear RARE 10/15/19 16:15 PT 15.3 SEC (11.4-15.4) 10/11/19 14:47 INR 1.20 10/11/19 14:47 APTT 42.4 SEC (23.5-35.8) H 10/11/19 14:47 Carbonic Acid 1.11 mmol/L (1.05-1.35) 10/11/19 15:46 HCO3/H2CO3 Ratio 20:1 10/11/19 15:46 ABG pH 7.40 (7.35-7.45) 10/11/19 15:46 ABG pCO2 36.9 mmHg (35-45) 10/11/19 15:46 ABG pO2 53.9 mmHg (80-100) L 10/11/19 15:46 ABG HCO3 22.6 mmol/L (20-24) 10/11/19 15:46 ABG Total CO2 23.7 mmol/L (23-27) 10/11/19 15:46 ABG O2 Saturation 88.4 % (94-98) L 10/11/19 15:46 ABG Base Excess -1.8 mmol/L 10/11/19 15:46 FiO2 ROOM AIR 10/11/19 15:46 Sodium 132.7 mmol/L (137-145) L 10/19/19 06:21 Potassium 4.2 mmol/L (3.6-5.0) 10/19/19 06:21 Chloride 106 mmol/L (98-107) 10/19/19 06:21 Carbon Dioxide 19 mmol/L (22-30) L 10/19/19 06:21 Anion Gap 8 (5-19) 10/19/19 06:21 BUN 38 mg/dL (7-20) H 10/19/19 06:21 Creatinine 4.24 mg/dL (0.52-1.25) H 10/19/19 06:21 Est GFR ( Amer) 18 (>60) L 10/19/19 06:21 Est GFR (Non-Af Amer) Cancelled 10/11/19 09:59 Est GFR (MDRD) Non-Af 15 (>60) L 10/19/19 06:21 Glucose 147 mg/dL (75-110) H 10/19/19 06:21 POC Glucose 170 mg/dL (70-110) H 10/19/19 10:58 Hemoglobin A1c % 11.1 % (4.7-6.0) H 10/12/19 04:52 Serum Osmolality 279 mOsm/kg (275-301) 10/15/19 03:04 Lactic Acid 1.3 mmol/L (0.7-2.1) 10/11/19 14:47 Uric Acid 10.9 mg/dL (3.5-8.5) H 10/15/19 03:04 Calcium 7.7 mg/dL (8.4-10.2) L 10/19/19 06:21 Ionized Calcium Tenzin 1.14 mmol/L (1.14-1.30) 10/18/19 15:20 Phosphorus 6.7 mg/dL (2.5-4.5) H 10/16/19 06:09 Magnesium 1.9 mg/dL (1.6-2.3) 10/16/19 06:09 Total Bilirubin 1.8 mg/dL (0.2-1.3) H 10/11/19 09:59 Direct Bilirubin 0.2 mg/dL (0.0-0.4) 10/11/19 09:59 Neonat Total Bilirubin Not Reportable 10/11/19 09:59 Neonat Direct Bilirubin Not Reportable 10/11/19 09:59 Neonat Indirect Bili Not Reportable 10/11/19 09:59 AST 16 U/L (17-59) L 10/11/19 09:59 ALT 14 U/L (<50) 10/11/19 09:59 Alkaline Phosphatase 77 U/L (38-126) 10/11/19 09:59 Ammonia < 8.7 umol/L (9-33) L 10/11/19 14:47 Creatine Kinase 69 U/L (55-170) 10/12/19 04:52 CK-MB (CK-2) 0.35 ng/mL (<4.55) 10/12/19 04:52 Troponin I < 0.012 ng/mL 10/12/19 04:52 NT-Pro-B Natriuret Pep 185 pg/mL (<125) H 10/11/19 09:59 Total Protein 5.7 g/dL (6.0-8.5) L 10/15/19 03:04 Albumin 2.2 g/dL (2.9-4.4) L 10/15/19 03:04 Globulin 3.5 g/dL (2.2-3.9) 10/15/19 03:04 Albumin/Globulin Ratio 0.6 (0.7-1.7) L 10/15/19 03:04 [id number]-7-[id number] 0.5 g/dL (0.0-0.4) H 10/15/19 03:04 Beta Globulins 0.7 g/dL (0.7-1.3) 10/15/19 03:04 Gamma Globulins 1.0 g/dL (0.4-1.8) 10/15/19 03:04 M-Anshul Not Observed g/dL (Not Observ) 10/15/19 03:04 PEP Note Comment (.) 10/15/19 03:04 PEP Interpretation Comment (.) 10/15/19 03:04 Triglycerides 136 mg/dL (<150) 10/12/19 04:52 Cholesterol 102.65 mg/dL (0-200) 10/12/19 04:52 LDL Cholesterol Direct 53 mg/dL (<100) 10/12/19 04:52 VLDL Cholesterol 27.0 mg/dL (10-31) 10/12/19 04:52 HDL Cholesterol 23 mg/dL (>40) L 10/12/19 04:52 Amylase 33 U/L (30-110) 10/11/19 09:59 Lipase 67.5 U/L (23-300) 10/11/19 09:59 EGFR Cancelled 10/11/19 09:59 Procalcitonin 1.37 ng/mL (0.00-0.08) H 10/11/19 20:38 TSH 1.99 uIU/mL (0.47-4.68) 10/11/19 09:59 Free T4 1.15 ng/dL (0.78-2.19) 10/11/19 09:59 PTH Intact 111.3 pg/mL (10.0-65.0) H 10/18/19 15:20 Random Cortisol 18.20 ug/dL (None Established) 10/15/19 03:04 Urine Color YELLOW 10/15/19 16:15 Urine Appearance SLIGHTLY-CLOUDY 10/15/19 16:15 Urine pH 5.0 (5.0-9.0) 10/15/19 16:15 Ur Specific [place] 1.008 10/15/19 16:15 Urine Protein 30 mg/dL (NEGATIVE) H 10/15/19 16:15 Urine Glucose (UA) NEGATIVE mg/dL (NEGATIVE) 10/15/19 16:15 Urine Ketones NEGATIVE mg/dL (NEGATIVE) 10/15/19 16:15 Urine Blood MODERATE (NEGATIVE) H 10/15/19 16:15 Urine Nitrite NEGATIVE (NEGATIVE) 10/11/19 18:22 Urine Nitrite (Reflex) NEGATIVE (NEGATIVE) 10/15/19 16:15 Urine Bilirubin NEGATIVE (NEGATIVE) 10/15/19 16:15 Urine Urobilinogen NEGATIVE mg/dL (<2.0) 10/15/19 16:15 Ur Leukocyte Esterase NEGATIVE (NEGATIVE) 10/11/19 18:22 Leukocyte Esterase Rfl NEGATIVE (NEGATIVE) 10/15/19 16:15 Urine WBC (Auto) 2 /HPF 10/11/19 18:22 Urine RBC (Auto) 2 /HPF 10/15/19 16:15 Urine WBC (Reflex) 1 /HPF 10/15/19 16:15 Squamous Epi Cells Auto <1 /HPF 10/15/19 16:15 Amorphous Sediment Auto TRACE /HPF 10/11/19 18:22 Urine Mucus (Auto) RARE /LPF 10/15/19 16:15 Urine Osmolality 172 mOsm/kg (300-900) L 10/15/19 16:15 Urine Creatinine 64.1 mg/dL (22-328) 10/15/19 16:15 Protein/Creatinin Ratio 4.3 mg/mg (0.0-0.2) H 10/11/19 18:22 Urine Sodium 22 mmol/L (30-90) L 10/15/19 16:15 Urine Total Protein 415.8 mg/dL (<12) H 10/11/19 18:22 Urine Ascorbic Acid NEGATIVE (NEGATIVE) 10/15/19 16:15 Stl C. Difficile GDH Ag NEGATIVE (NEGATIVE) 10/14/19 10:01 Stl C.difficile Tox A&B NEGATIVE (NEGATIVE) 10/14/19 10:01 Time Trough Drawn 91910/12/19 09:20 Vancomycin Trough 13.4 ug/mL (5.0-20.0) 10/12/19 09:20 Urine Opiates Screen NEGATIVE 10/11/19 18:22 Urine Methadone Screen NEGATIVE 10/11/19 18:22 Ur Barbiturates Screen NEGATIVE 10/11/19 18:22 Ur Phencyclidine Scrn NEGATIVE 10/11/19 18:22 Ur Amphetamines Screen NEGATIVE 10/11/19 18:22 U Benzodiazepines Scrn NEGATIVE 10/11/19 18:22 Urine Cocaine Screen NEGATIVE 10/11/19 18:22 U Marijuana (THC) Screen NEGATIVE 10/11/19 18:22 Fnybo-4-Ickkjpmtl TOM 1.2 g/dL (0.4-1.0) H 10/15/19 03:04 10/11/19 10/11/19 10/11/19 09:59 14:47 20:38 CK-MB (CK-2) 0.35 0.34 Troponin I < 0.012 < 0.012 NT-Pro-B Natriuret Pep 185 H 10/12/19 04:52 CK-MB (CK-2) 0.35 Troponin I < 0.012 NT-Pro-B Natriuret Pep Impressions: Chest X-Ray 10/11/19 00:00 IMPRESSION: Mild pulmonary edema with cardiomegaly. Small left pleural effusion. Lung Scan-VQ NM 10/11/19 00:00 IMPRESSION: Normal perfusion scan copyright 2011 [employer]- All Rights Reserved Hand X-Ray 10/11/19 09:49 IMPRESSION: Mildly distracted tuft fracture involving the 5th digit distal phalanx. Circumferential soft tissue edema. Otherwise stable radiographic appearance of the hand. Renal Ultrasound 10/15/19 00:00 IMPRESSION: Mild right-sided hydronephrosis. No other significant findings. Stroke Is this a Stroke Patient?: No Acute Heart Failure - Is this a Heart Failure Patient?: No
[2019-10-19 14:46] VITALS: BP 135/84
== END 2019-10-19 15:57 | disposition home or self-care (01) | DRG 871 ==
LOC: ER 09:07 → EH 14:23 → 3S 16:36
PROVIDERS: ADMIT Internal Medicine; ATTEND Internal Medicine
DX: A41.9 Sepsis, unspecified organism (principal); E11.00 Type 2 diabetes mellitus with hyperosmolarity without nonketotic hyperglycemic-hyperosmolar coma (NKHHC); N17.0 Acute kidney failure with tubular necrosis; L03.113 Cellulitis of right upper limb; N10 Acute pyelonephritis; K52.1 Toxic gastroenteritis and colitis; R65.20 Severe sepsis without septic shock; R09.02 Hypoxemia; E66.01 Morbid (severe) obesity due to excess calories; E03.9 Hypothyroidism, unspecified; I10 Essential (primary) hypertension; E11.51 Type 2 diabetes mellitus with diabetic peripheral angiopathy without gangrene; E11.65 Type 2 diabetes mellitus with hyperglycemia; E11.42 Type 2 diabetes mellitus with diabetic polyneuropathy; N14.1 Nephropathy induced by other drugs, medicaments and biological substances; T36.8X5A Adverse effect of other systemic antibiotics, initial encounter; E83.39 Other disorders of phosphorus metabolism; E83.51 Hypocalcemia; Z68.38 Body mass index [BMI] 38.0-38.9, adult; M62.441 Contracture of muscle, right hand; Y92.9 Unspecified place or not applicable; Z41.9 Encounter for procedure for purposes other than remedying health state, unspecified; Z79.82 Long term (current) use of aspirin; Z79.890 Hormone replacement therapy; Z79.899 Other long term (current) drug therapy; Z89.611 Acquired absence of right leg above knee; Z89.021 Acquired absence of right finger(s); Z89.022 Acquired absence of left finger(s); Z79.4 Long term (current) use of insulin
CPT/HCPCS: 36415; 71046; 76770; 78580; 80048; 80053; 80061; 80202; 80307; 81001; 82140; 82150; 82330; 82533; 82550; 82553; 82570; 82803; 82962; 83036; 83605; 83690; 83735; 83880; 83930; 83935; 83970; 84100; 84145; 84156; 84165; 84300; 84439; 84443; 84484; 84550; 85025; 85610; 85730; 87040; 87324; 87449; 89190; 96365; 96368; 99285; A9540; J0295; J1650; J1815; J1940; J2020; J2543; J3370; J3490; J7030; J7050; J7060; Q9969

== ENCOUNTER 2019-10-22 01:20 | Inpatient (IN) | payer MEDICARE ==
[2019-10-22] MEDS ORDERED: LEVOFLOXACIN 750 MG/D5W RTU 750 MG/150 ML RTUPB IV ONE (02:05)
[2019-10-22] MEDS ORDERED: NORMAL SALINE IV ONE (02:05)
[2019-10-22 02:13] LABS: ABSOLUTE LYMPHOCYTES (AUTO) 0.8 10^3/uL (0.5-4.7); ABSOLUTE NEUT (AUTO) 9.7 10^3/uL (1.7-8.2); BASOPHILS % (AUTO) 0.3 % (0-2); EOSINOPHILS % (AUTO) 0.1 % (0-6); HEMATOCRIT 34.9 % (37.9-51.0); LYMPHOCYTES % (AUTO) 6.9 % (13-45); MEAN CORPUSCULAR HEMOGLOBIN 30.5 pg (27.0-33.4); MEAN CORPUSCULAR HGB CONC 34.4 g/dL (32.0-36.0); MEAN CORPUSCULAR VOLUME 89 fl (80-97); MONOCYTES % (AUTO) 8.6 % (3-13); PLATELET COUNT 473 10^3/uL (150-450); RED BLOOD COUNT 3.94 10^6/uL (4.35-5.55); RED CELL DISTRIBUTION WIDTH 14.1 % (11.5-14.0); SEGMENTED NEUTROPHILS % (AUTO) 84.1 % (42-78); TOTAL CELLS COUNTED % (AUTO) 100 %; WHITE BLOOD COUNT 11.6 10^3/uL (4.0-10.5)
[2019-10-22 02:14] LABS: VENOUS BLOOD BASE EXCESS -3.7 mmol/L; VENOUS BLOOD HCO3 21.1 mmol/L (20-32); VENOUS BLOOD PH 7.37 (7.30-7.42)
[2019-10-22 02:15] LABS: INTERNATIONAL RATION (INR) 1.16; PROTHROMBIN TIME 14.8 SEC (11.4-15.4)
[2019-10-22 02:20] LABS: ALBUMIN 3.1 g/dL (3.5-5.0); ALKALINE PHOSPHATASE 80 U/L (38-126); ANION GAP 12 (5-19); ASPARTATE AMINO TRANSFERASE 39 U/L (17-59); BILIRUBIN,DIRECT 0.1 mg/dL (0.0-0.4); BILIRUBIN,TOTAL 0.6 mg/dL (0.2-1.3); BLOOD UREA NITROGEN 27 mg/dL (7-20); CALCIUM 8.5 mg/dL (8.4-10.2); CARBON DIOXIDE 20 mmol/L (22-30); CHLORIDE 104 mmol/L (98-107); GLUCOSE 178 mg/dL (75-110); POTASSIUM 4.3 mmol/L (3.6-5.0)
--- NOTE | 2019-10-22 03:21 | RADIOLOGY REPORT (SQ) ---
CLINICAL INDICATION: dyspnea. TECHNIQUE: A single portable AP view was obtained of the chest at 0247 hours. COMPARISON: October 11, 2019. FINDINGS: The cardiomediastinal silhouette is prominent but stable. The lungs demonstrate progressive patchy interstitial and airspace disease, bilaterally. Small right effusion. No pneumothorax. The visualized bones are unremarkable. IMPRESSION: Aggressive patchy interstitial and airspace disease, likely infectious inflammatory.
--- NOTE | 2019-10-22 03:49 | ER Document Report ---
Entered by CHEY BALDERAS SCRIBE 10/22/19 0143 Acting as scribe for:JUAN JOSE KHAN IV, MD ED General - General Chief Complaint: Respiratory Distress Stated Complaint: LOWER BACK PAIN Primary Care Provider: AUDI PIERRE MD [Primary Care Provider] - Follow up as needed Mode of Arrival: Medic Information source: Patient, Emergency Med Personnel Notes: This 53 year old male patient with a history of hypertension, type 2 diabetes mellitus, hypothyroidism, and peripheral vascular disease brought in by EMS presents to the ED today with complaints of lower back pain. EMS reports that they were called out for back pain, but upon their arrival, patient's O2 sats were 87% on RA. EMS placed the patient on 4L O2 and administered an Albuterol neb. Patient was admitted here on 10/11/2019 for RUE cellulitis and was treated with IV Vancomycin and IV Zosyn. Upon admission, patient had hypoxemia of unknown etiology and had VQ scan performed which was normal. Patient developed WILL due to Vancomycin toxicity on 10/11 so that was discontinued and replaced with IV Linezoid. IV Zosyn was then discontinued on 10/16 due to the potential effect on kidney function. Patient was discharged on 10/19/2019. TRAVEL OUTSIDE OF THE [place] IN LAST 30 DAYS: No - Related Data Allergies/Adverse Reactions: No Known Allergies Allergy (Verified 10/22/19 01:45) Past Medical History - General Information source: Patient, [facility] Records - Social History Smoking Status: Unknown if Ever Smoked Cigarette use (# per day): No Chew tobacco use (# tins/day): No Smoking Education Provided: No Family History: Reviewed & Not Pertinent, DM, Hypertension Patient has suicidal ideation: No Patient has homicidal ideation: No - Past Medical History Cardiac Medical History: Reports: Hx Hypertension, Hx Peripheral Vascular Dise ase Endocrine Medical History: Reports: Hx Diabetes Mellitus Type 2, Hx Hyp othyroidism Past Surgical History: Reports: Hx Orthopedic Surgery - 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, left middle finger amputation, Hx Tonsillectomy - Immunizations Hx Diphtheria, Pertussis, Tetanus Vaccination: Yes Hx Pneumococcal Vaccination: 12/29/12 Review of Systems - Review of Systems Constitutional: No symptoms reported EENT: No symptoms reported Cardiovascular: No symptoms reported Respiratory: See HPI, Short of breath Gastrointestinal: No symptoms reported Genitourinary: No symptoms reported Male Genitourinary: No symptoms reported Musculoskeletal: See HPI, Back pain Skin: No symptoms reported Hematologic/Lymphatic: No symptoms reported Neurological/Psychological: No symptoms reported -: Yes All other systems reviewed and negative Physical Exam - Vital signs Vitals: Resp BP Pulse Ox 23 H 143/89 H 87 L 10/22/19 01:28 10/22/19 01:28 10/22/19 01:28 - General General appearance: Alert, Other - Shaking chills - HEENT Head: Normocephalic, Atraumatic Eyes: Normal Pupils: PERRL - Respiratory Respiratory status: No respiratory distress Chest status: Nontender Breath sounds: Decreased air movement - Diminished breath sounds on the left Chest palpation: Normal - Cardiovascular Rhythm: Regular, Tachycardia Heart sounds: Normal auscultation Murmur: No Friction rub: No Gallop: None auscultated - Abdominal Inspection: Normal Distension: No distension Bowel sounds: Normal Tenderness: Nontender - Abdomen soft Organomegaly: No organomegaly - Back Back: Normal, Nontender - Extremities General upper extremity: Other - Amputation of 2nd and 3rd digit of right hand, and 3rd digit of left hand General lower extremity: Other - Right AKA - Neurological Neuro grossly intact: Yes Orientation: AAOx4 Stephens Coma Scale Eye Opening: Spontaneous Alanya Coma Scale Verbal: Oriented Alayna Coma Scale Motor: Obeys Commands Alayna Coma Scale Total: 15 - Psychological Associated symptoms: Normal affect, Normal mood - Skin Skin Temperature: Warm Skin Moisture: Dry Skin Color: Normal Course - Re-evaluation Re-evalutation: 10/22/19 03:42 Results of ED MSE discussed with patient. All questions were answered. Recommendation for admission was shared with patient. - Vital Signs Vital signs: Temp Pulse Resp BP Pulse Ox 99.9 F 32 H 170/94 H 97 10/22/19 01:40 10/22/19 02:31 10/22/19 02:31 10/22/19 02:31 - Laboratory Result Diagrams: 10/22/19 01:40 10/22/19 01:40 Laboratory results interpreted by me: 10/22/19 10/22/19 01:40 01:40 WBC 11.6 H RBC 3.94 L Hgb 12.0 L Hct 34.9 L RDW 14.1 H Plt Count 473 H Lymph % (Auto) 6.9 L Absolute Neuts (auto) 9.7 H Seg Neutrophils % 84.1 H Sodium 136.4 L Carbon Dioxide 20 L BUN 27 H Creatinine 2.67 H Est GFR ( Amer) 30 L Est GFR (MDRD) Non-Af 25 L Glucose 178 H Albumin 3.1 L - Diagnostic Test Radiology reviewed: Reports reviewed - EKG Interpretation by Me Additional EKG results interpreted by me: 10/22/19 03:43 EKG obtained on 10/22/2019 at 0242 hrs. was interpreted by this MD. Findings sinus tachycardia with a rate of 108, normal axis, P waves preceding QRS complexes, QRS complexes appear narrow, there are no obvious patterns of ST segment elevation or depression present to suggest acute myocardial ischemia or infarction. Impression: Sinus tachycardia with nonspecific ST segments. - Consults Dr. Pierre Time consulted: 03:39 - dr. pierre agreed to admit pt to imcu Reason for consultation: 10/22/19 03:44 respiratory distress, bilateral pneumonia Consulted provider: will see as inpatient Discharge - Discharge Clinical Impression: Renal insufficiency Bilateral pneumonia Qualifiers: Pneumonia type: due to unspecified organism Lung location: unspecified part of lung Qualified Code(s): J18.9 - Pneumonia, unspecified organism Condition: Stable Disposition: ADMITTED INPATIENT Admitting Provider: Onofre Unit Admitted: [facility] Referrals: AUDI PIERRE MD [Primary Care Provider] - Follow up as needed I personally performed the services described in the documentation, reviewed and edited the documentation which was dictated to the scribe in my presence, and it accurately records my words and actions.
[2019-10-22] MEDS ORDERED: OXYCODONE-ACETAMINOPHEN 5-325 MG TABLET PO ONE (04:13)
[2019-10-22 05:00] LABS: APPEARANCE,URINE CLEAR; BILIRUBIN,URINE NEGATIVE (NEGATIVE); COLOR,URINE YELLOW; GLUCOSE, URINE NEGATIVE (NEGATIVE); KETONES,URINE TRACE mg/dL (NEGATIVE); PROTEIN,URINE 100 mg/dL (NEGATIVE); URINE SPECIFIC GRAVITY 1.009; UROBILINOGEN,URINE NEGATIVE mg/dL (<2.0)
[2019-10-22] MEDS ORDERED: GUAIFENESIN SYRP 200 MG/10 ML UDC PO PRN (07:06)
[2019-10-22] MEDS ORDERED: ALBUTEROL SULFATE HFA (90 MCG/PUFF) 8 GM MDI IH PRN (07:06)
[2019-10-22] MEDS ORDERED: ACETAMINOPHEN 325 MG TABLET PO PRN (07:06)
[2019-10-22] MEDS ORDERED: DEXTROSE 50%-WATER 25 GM/50 ML DISP.SYRIN IV PRN ×2 (07:13)
[2019-10-22] MEDS ORDERED: GLUCAGON,HUMAN RECOMB 1 MG INJ IM PRN (07:13)
[2019-10-22] MEDS ORDERED: DEXTROSE 40% GEL 15 GM TUBE PO PRN ×2 (07:13)
[2019-10-22] MEDS ORDERED: ALBUTEROL SULFATE HFA (90 MCG/PUFF) 200 PUFF/8.5 GM MDI IH PRN (08:04)
[2019-10-22] MEDS: INSULIN LISPRO 100 UNIT/ML 3 ML VIAL SUBCUT SCH ×4 (08:56→21:25)
[2019-10-22 10:07] LABS: CREATINE KINASE MB 0.61 ng/mL (<4.55)
[2019-10-22 10:14] LABS: TROPONIN I < 0.012 ng/mL
[2019-10-22 10:22] LABS: ARTERIAL BLOOD BASE EXCESS -5.3 mmol/L; ARTERIAL BLOOD FIO2 5L; ARTERIAL BLOOD H2CO3 0.83 mmol/L (1.05-1.35); ARTERIAL BLOOD HCO3 17.9 mmol/L (20-24); ARTERIAL BLOOD O2 SATURATION 90.4 % (94-98); ARTERIAL BLOOD PCO2 27.6 mmHg (35-45); ARTERIAL BLOOD PH 7.43 (7.35-7.45); ARTERIAL BLOOD PO2 55.8 mmHg (80-100); ARTERIAL BLOOD TOTAL CO2 18.7 mmol/L (23-27)
--- NOTE | 2019-10-22 10:39 | EKG REPORT ---
SEVERITY:- OTHERWISE NORMAL ECG - SINUS TACHYCARDIA LOW VOLTAGE IN FRONTAL LEADS : Confirmed by: Juan Diego Alcala MD 22-Oct-2019 10:38:46
[2019-10-22] MEDS: HEPARIN SOD (PORCINE) 5,000 UNIT/ML 1 ML VIAL SUBCUT SCH ×2 (11:37→17:26)
[2019-10-22] MEDS: FAMOTIDINE 20 MG TABLET PO SCH ×2 (11:37→21:17)
[2019-10-22] MEDS: LINEZOLID 600 MG/300 ML RTUPB IV SCH ×2 (11:37→21:17)
[2019-10-22] MEDS: OXYCODONE-ACETAMINOPHEN 5-325 MG TABLET PO PRN ×2 (11:52→20:04)
[2019-10-22] MEDS: AZTREONAM 1 GM in DEXTROSE 5%-WATER 50 ML IV SCH ×2 (12:57→17:26)
[2019-10-22] MEDS: RINGERS SOLUTION,LACTATED 1,000 ML IV PRN (14:49)
--- NOTE | 2019-10-22 19:32 | PDOC H&P ---
History of Present Illness Admission Date/PCP: 10/22/19 04:15 AUDI GARCIA MD History of Present Illness: JULIAN CACERES is a 53 year old male,He came to the emergency room earlier this morning for evaluation of respiratory distress, he was recently admitted on October 11, 2019 when he presented with right upper extremity cellulitis, at that time he was treated with intravenous vancomycin and Zosyn, he developed acute kidney injury felt to be due to vancomycin toxicity this was discontinued and despite that the kidney function continued to decline. He was seen by nephrology ,Dr. Ruiz she felt patient probably sustained acute interstitial nephritis due to antibiotic she also recommended that the intravenous Zosyn should be discontinued, he was continued on IV Zyvox. The kidney function was showing improvement this past weekend When he decided he needed to be discharged home, he was discharged home on October 19 2019, He was not ready yet for discharge, on discharge the serum creatinine was 4, when he presented this morning the chest x-ray that was done demonstrated diffuse bilateral infiltrate of both lung field the arterial blood gas that was done, pH was 7.43, PO2 55.8, PCO2 27.6, bicarbonate 17.9, FiO2 5 L Past Medical History Cardiac Medical History: Reports: Hypertension, Peripheral Vascular Disease Denies: Coronary Artery Disease, Myocardial Infarction Pulmonary Medical History: Denies: Asthma, Bronchitis, Chronic Obstructive Pulmonary Disease (COPD), Pneumonia, Tuberculosis Neurological Medical History: Denies: Seizures Endocrine Medical History: Reports: Diabetes Mellitus Type 2, Hypothyroidism Musculoskeltal Medical History: Denies: Arthritis Psychiatric Medical History: Denies: Depression Hematology: Denies: Anemia Past Surgical History Past Surgical History: Reports: Orthopedic Surgery - 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, left middle finger amputation, Tonsillectomy Denies: Pacemaker Social History Smoking Status: Unknown if Ever Smoked Electronic Cigarette use?: No Frequency of Alcohol Use: None Hx Recreational Drug Use: No Drugs: None Hx Prescription Drug Abuse: No Family History Family History: Reviewed & Not Pertinent, DM, Hypertension Parental Family History Reviewed: Yes Children Family History Reviewed: Yes Sibling(s) Family History Reviewed.: Yes Medication/Allergy Home Medications: Levothyroxine Sodium [Synthroid 0.1 mg Tablet] 0.1 mg PO DAILY 12/04/18 Aspirin [Ecotrin 81 mg EC Tablet] 81 mg PO DAILY 06/09/19 Atorvastatin Calcium [Lipitor 10 mg Tablet] 10 mg PO DAILY 06/09/19 Lisinopril [Prinivil 10 mg Tablet] 10 mg PO DAILY #30 06/11/19 Gabapentin 300 mg PO TID 10/11/19 Victoza 18mg/3ml Pen 1.8 mg SQ QHS 10/11/19 Acetaminophen [Tylenol 325 mg Tablet] 650 mg PO Q6HP PRN tablet 10/19/19 Calcium Acetate [Phoslo 667 mg Capsule] 667 mg PO TID #360 capsule 10/19/19 Clindamycin HCl 300 mg PO TID #30 capsule 10/19/19 Loratadine [Claritin 10 mg Tablet] 10 mg PO DAILY tablet 10/19/19 Sodium Bicarbonate [Sodium Bicarbonate 650 mg Tablet] 650 mg PO TID #90 tablet 10/19/19 Allergies/Adverse Reactions: No Known Allergies Allergy (Verified 10/22/19 01:45) Review of Systems Constitutional: PRESENT: chills, weakness Eyes: ABSENT: visual disturbances Ears: ABSENT: hearing changes Cardiovascular: PRESENT: dyspnea on exertion Respiratory: PRESENT: cough, dyspnea, sputum Gastrointestinal: ABSENT: abdominal pain, constipation, diarrhea, hematemesis, hematochezia, nausea, vomiting Genitourinary: ABSENT: dysuria, hematuria Musculoskeletal: ABSENT: joint swelling Integumentary: ABSENT: rash, wounds Neurological: ABSENT: abnormal gait, abnormal speech, confusion, dizziness, focal weakness, syncope Psychiatric: ABSENT: anxiety, depression, homidical ideation, suicidal ideation Endocrine: ABSENT: cold intolerance, heat intolerance, menstrual abnormalities, polydipsia, polyuria Hematologic/Lymphatic: ABSENT: easy bleeding, easy bruising, lymphadenopathy Physical Exam Vital Signs: Temp Pulse Resp BP Pulse Ox 98.0 F 81 23 H 141/84 H 91 L 10/22/19 15:38 10/22/19 15:38 10/22/19 15:38 10/22/19 15:38 10/22/19 15:38 Intake & Output 10/21/19 10/22/19 10/23/19 06:59 06:59 06:59 Intake Total 150 1040 Output Total 400 750 Balance -250 290 Weight 121.3 kg General appearance: PRESENT: obese Head exam: PRESENT: atraumatic, normocephalic Eye exam: PRESENT: PERRLA Mouth exam: PRESENT: moist, tongue midline Neck exam: PRESENT: full ROM Respiratory exam: PRESENT: rhonchi Cardiovascular exam: PRESENT: RRR, +S1, +S2 Pulses: PRESENT: normal dorsalis pedis pul, +2 pedal pulses bilateral Vascular exam: PRESENT: normal capillary refill GI/Abdominal exam: PRESENT: normal bowel sounds, soft Rectal exam: PRESENT: deferred Extremities exam: PRESENT: right AKA Neurological exam: PRESENT: alert, CN II-XII grossly intact Psychiatric exam: PRESENT: appropriate affect, normal mood Skin exam: PRESENT: dry, intact, warm. ABSENT: cyanosis, rash Results Laboratory Results: 10/22/19 01:40 10/22/19 01:40 10/22/19 10/22/19 10/22/19 01:40 01:40 01:40 WBC 11.6 H RBC 3.94 L Hgb 12.0 L Hct 34.9 L MCV 89 MCH 30.5 MCHC 34.4 RDW 14.1 H Plt Count 473 H Seg Neutrophils % 84.1 H Carbonic Acid HCO3/H2CO3 Ratio ABG pH ABG pCO2 ABG pO2 ABG HCO3 ABG O2 Saturation ABG Base Excess VBG pH 7.37 VBG pCO2 37.0 VBG HCO3 21.1 VBG Base Excess -3.7 FiO2 Sodium 136.4 L Potassium 4.3 Chloride 104 Carbon Dioxide 20 L Anion Gap 12 BUN 27 H Creatinine 2.67 H Est GFR ( Amer) 30 L Glucose 178 H Lactic Acid Calcium 8.5 Total Bilirubin 0.6 AST 39 Alkaline Phosphatase 80 Total Protein 7.0 Albumin 3.1 L Urine Color Urine Appearance Urine pH Ur Specific [place] Urine Protein Urine Glucose (UA) Urine Ketones Urine Blood Urine RBC (Auto) 10/22/19 10/22/19 10/22/19 01:40 04:34 05:59 WBC RBC Hgb Hct MCV MCH MCHC RDW Plt Count Seg Neutrophils % Carbonic Acid HCO3/H2CO3 Ratio ABG pH ABG pCO2 ABG pO2 ABG HCO3 ABG O2 Saturation ABG Base Excess VBG pH VBG pCO2 VBG HCO3 VBG Base Excess FiO2 Sodium Potassium Chloride Carbon Dioxide Anion Gap BUN Creatinine Est GFR ( Amer) Glucose Lactic Acid 1.5 1.5 Calcium Total Bilirubin AST Alkaline Phosphatase Total Protein Albumin Urine Color YELLOW Urine Appearance CLEAR Urine pH 6.0 Ur Specific [place] 1.009 Urine Protein 100 H Urine Glucose (UA) NEGATIVE Urine Ketones TRACE H Urine Blood SMALL H Urine RBC (Auto) 3 10/22/19 10/22/19 09:06 09:46 WBC RBC Hgb Hct MCV MCH MCHC RDW Plt Count Seg Neutrophils % Carbonic Acid 0.83 L HCO3/H2CO3 Ratio 21:1 ABG pH 7.43 ABG pCO2 27.6 L ABG pO2 55.8 L ABG HCO3 17.9 L ABG O2 Saturation 90.4 L ABG Base Excess -5.3 VBG pH VBG pCO2 VBG HCO3 VBG Base Excess FiO2 5L Sodium Potassium Chloride Carbon Dioxide Anion Gap BUN Creatinine Est GFR ( Amer) Glucose Lactic Acid 1.1 Calcium Total Bilirubin AST Alkaline Phosphatase Total Protein Albumin Urine Color Urine Appearance Urine pH Ur Specific [place] Urine Protein Urine Glucose (UA) Urine Ketones Urine Blood Urine RBC (Auto) 10/22/19 10/22/19 10/22/19 01:40 09:06 09:06 Creatine Kinase 156 CK-MB (CK-2) 0.61 Troponin I < 0.012 < 0.012 Impressions: Chest X-Ray 10/22/19 02:05 IMPRESSION: Aggressive patchy interstitial and airspace disease, likely infectious inflammatory. Assessment & Plan - Diagnosis (1) Acute hypoxemic respiratory failure Is this a current diagnosis for this admission?: Yes Plan: Patient presently not requiring noninvasive positive pressure ventilation BiPAP he was initially supported with this device in the emergency room presently on oxygen via nasal cannula (2) Healthcare-associated pneumonia Is this a current diagnosis for this admission?: Yes Plan: He has healthcare associated pneumonia he was just discharged from the hospital, he will empirically be treated with IV antibiotic to cover MRSA, gram-positive and gram-negative organisms unfortunately he developed acute interstitial nephritis from Zosyn and vancomycin, he will be treated with IV antibiotic, aztreonam, and IV Zyvox,SARS-CoV-2 infection needs to be ruled out (3) Acute kidney injury Is this a current diagnosis for this admission?: Yes Plan: The serum creatinine on discharge was 4, The serum creatinine today is 2.67, kidney function continues to show some improvement (4) T2DM (type 2 diabetes mellitus) Qualifiers: Diabetes mellitus termite technician insulin use: with chcf use Diabetes mellitus complication status: with neurologic complications Diabetes mellitus complication detail: with polyneuropathy Qualified Code(s): E11.42 - Type 2 diabetes mellitus with diabetic polyneuropathy; Z79.4 - buttermaker continuous churn (current) use of insulin Is this a current diagnosis for this admission?: Yes
[2019-10-22 22:54] LABS: APPEARANCE,URINE CLEAR; BILIRUBIN,URINE NEGATIVE (NEGATIVE); COLOR,URINE YELLOW; GLUCOSE, URINE NEGATIVE (NEGATIVE); KETONES,URINE NEGATIVE (NEGATIVE); LEUKOCYTE ESTERASE,URINE NEGATIVE (NEGATIVE); NITRITE,URINE NEGATIVE (NEGATIVE); PROTEIN,URINE 100 mg/dL (NEGATIVE); UROBILINOGEN,URINE NEGATIVE mg/dL (<2.0)
[2019-10-23] MEDS: AZTREONAM 1 GM in DEXTROSE 5%-WATER 50 ML IV SCH ×3 (02:07→18:38)
[2019-10-23] MEDS: HEPARIN SOD (PORCINE) 5,000 UNIT/ML 1 ML VIAL SUBCUT SCH ×3 (02:07→17:01)
[2019-10-23] MEDS: OXYCODONE-ACETAMINOPHEN 5-325 MG TABLET PO PRN ×4 (02:33→22:27)
[2019-10-23 06:13] LABS: ABSOLUTE LYMPHOCYTES (AUTO) 0.5 10^3/uL (0.5-4.7); ABSOLUTE MONOCYTES (AUTO) 0.7 10^3/uL (0.1-1.4); BASOPHILS % (AUTO) 0.2 % (0-2); HEMATOCRIT 29.7 % (37.9-51.0); HEMOGLOBIN 10.6 g/dL (13.5-17.0); LYMPHOCYTES % (AUTO) 6.1 % (13-45); MEAN CORPUSCULAR HEMOGLOBIN 31.1 pg (27.0-33.4); MEAN CORPUSCULAR HGB CONC 35.5 g/dL (32.0-36.0); MEAN CORPUSCULAR VOLUME 88 fl (80-97); MONOCYTES % (AUTO) 9.1 % (3-13); PLATELET COUNT 427 10^3/uL (150-450); RED BLOOD COUNT 3.39 10^6/uL (4.35-5.55); RED CELL DISTRIBUTION WIDTH 14.1 % (11.5-14.0); SEGMENTED NEUTROPHILS % (AUTO) 84.6 % (42-78); TOTAL CELLS COUNTED % (AUTO) 100 %; WHITE BLOOD COUNT 8.3 10^3/uL (4.0-10.5)
[2019-10-23 06:32] LABS: ALKALINE PHOSPHATASE 55 U/L (38-126); ANION GAP 10 (5-19); ASPARTATE AMINO TRANSFERASE 29 U/L (17-59); BILIRUBIN,TOTAL 0.4 mg/dL (0.2-1.3); BLOOD UREA NITROGEN 25 mg/dL (7-20); CARBON DIOXIDE 18 mmol/L (22-30); CHLORIDE 105 mmol/L (98-107); GLUCOSE 184 mg/dL (75-110); POTASSIUM 4.3 mmol/L (3.6-5.0); TOTAL PROTEIN 6.8 g/dL (6.3-8.2)
[2019-10-23] MEDS: INSULIN LISPRO 100 UNIT/ML 3 ML VIAL SUBCUT SCH ×4 (08:26→22:27)
[2019-10-23] MEDS: LINEZOLID 600 MG/300 ML RTUPB IV SCH ×2 (08:27→22:24)
[2019-10-23] MEDS: FAMOTIDINE 20 MG TABLET PO SCH ×2 (10:35→22:29)
[2019-10-23] MEDS: RINGERS SOLUTION,LACTATED 1,000 ML IV PRN (18:39)
--- NOTE | 2019-10-23 19:49 | PDOC PROGRESS REPORT ---
Subjective Progress Note for:: 10/23/19 Subjective:: Patient was admitted with severe bilateral pneumonia, the SARS-CoV-2 test came back positive Reason For Visit: HEALTHCARE ASSOCIATED PNEUMONIA, RECENT H/O WILL, Physical Exam Vital Signs: Temp Pulse Resp BP Pulse Ox 99.2 F 102 H 24 H 144/75 H 91 L 10/23/19 15:49 10/23/19 15:49 10/23/19 15:49 10/23/19 15:49 10/23/19 15:49 Intake & Output 10/22/19 10/23/19 10/24/19 06:59 06:59 06:59 Intake Total 150 1040 2440 Output Total 400 1775 450 Balance -250 -735 1989 Weight 121.3 kg 121 kg General appearance: PRESENT: obese Respiratory exam: PRESENT: rhonchi Cardiovascular exam: PRESENT: +S1, +S2 GI/Abdominal exam: PRESENT: soft Neurological exam: PRESENT: alert Results Laboratory Results: 10/23/19 05:25 10/23/19 05:25 10/22/19 10/23/19 10/23/19 22:10 05:25 05:25 WBC 8.3 RBC 3.39 L Hgb 10.6 L Hct 29.7 L MCV 88 MCH 31.1 MCHC 35.5 RDW 14.1 H Plt Count 427 Seg Neutrophils % 84.6 H Sodium 132.6 L Potassium 4.3 Chloride 105 Carbon Dioxide 18 L Anion Gap 10 BUN 25 H Creatinine 2.32 H Est GFR ( Amer) 36 L Glucose 184 H Calcium 8.0 L Total Bilirubin 0.4 AST 29 Alkaline Phosphatase 55 Total Protein 6.8 Albumin 3.0 L Urine Color YELLOW Urine Appearance CLEAR Urine pH 6.0 Ur Specific [place] 1.010 Urine Protein 100 H Urine Glucose (UA) NEGATIVE Urine Ketones NEGATIVE Urine Blood SMALL H Urine Nitrite NEGATIVE Ur Leukocyte Esterase NEGATIVE Urine WBC (Auto) 4 Urine RBC (Auto) 3 10/22/19 10/22/19 10/22/19 01:40 09:06 09:06 Creatine Kinase 156 CK-MB (CK-2) 0.61 Troponin I < 0.012 < 0.012 Impressions: Chest X-Ray 10/22/19 02:05 IMPRESSION: Aggressive patchy interstitial and airspace disease, likely infectious inflammatory. Assessment & Plan - Diagnosis (1) Acute hypoxemic respiratory failure Is this a current diagnosis for this admission?: Yes (2) Healthcare-associated pneumonia Is this a current diagnosis for this admission?: Yes Plan: Continue present IV antibiotic coverage (3) Acute kidney injury Is this a current diagnosis for this admission?: Yes Plan: Continue present IV therapy with Ringer's lactate in light of acute kidney injury (4) T2DM (type 2 diabetes mellitus) Qualifiers: Diabetes mellitus termite exterminator insulin use: with fci use Diabetes mellitus complication status: with neurologic complications Diabetes mellitus complication detail: with polyneuropathy Qualified Code(s): E11.42 - Type 2 diabetes mellitus with diabetic polyneuropathy; Z79.4 - care home (current) use of insulin Is this a current diagnosis for this admission?: Yes (5) Pneumonia due to COVID-19 virus Is this a current diagnosis for this admission?: Yes Plan: The only approved strategy at the moment is to use dexamethasone 6 mg IV daily, REMDESIVIR, this is presently nonformulary - Time Time Spent with patient: 35 or more minutes Level of Care: IMCU Medications reviewed and adjusted accordingly: Yes
[2019-10-23] MEDS: DEXAMETHASONE SOD PHOSPHATE INJ 4 MG/1 ML VIAL IV SCH ×2 (20:51→22:27)
[2019-10-24] MEDS: MORPHINE SULFATE 10 MG/ML INJ IV PRN ×5 (00:54→16:48)
[2019-10-24] MEDS ORDERED: OXYCODONE-ACETAMINOPHEN 5-325 MG TABLET PO PRN (01:00)
[2019-10-24] MEDS: AZTREONAM 1 GM in DEXTROSE 5%-WATER 50 ML IV SCH ×3 (01:03→17:56)
[2019-10-24] MEDS: HEPARIN SOD (PORCINE) 5,000 UNIT/ML 1 ML VIAL SUBCUT SCH ×3 (01:09→17:56)
[2019-10-24 07:10] LABS: HEMATOCRIT 30.4 % (37.9-51.0); HEMOGLOBIN 10.7 g/dL (13.5-17.0); MEAN CORPUSCULAR HEMOGLOBIN 30.7 pg (27.0-33.4); MEAN CORPUSCULAR HGB CONC 35.1 g/dL (32.0-36.0); MEAN CORPUSCULAR VOLUME 87 fl (80-97); PLATELET COUNT 466 10^3/uL (150-450); RED BLOOD COUNT 3.48 10^6/uL (4.35-5.55); RED CELL DISTRIBUTION WIDTH 13.9 % (11.5-14.0); WHITE BLOOD COUNT 9.7 10^3/uL (4.0-10.5)
[2019-10-24 07:24] LABS: ALBUMIN 2.6 g/dL (3.5-5.0); ALKALINE PHOSPHATASE 55 U/L (38-126); ANION GAP 11 (5-19); ASPARTATE AMINO TRANSFERASE 28 U/L (17-59); BILIRUBIN,DIRECT 0.1 mg/dL (0.0-0.4); BILIRUBIN,TOTAL 0.5 mg/dL (0.2-1.3); BLOOD UREA NITROGEN 27 mg/dL (7-20); CALCIUM 7.9 mg/dL (8.4-10.2); CARBON DIOXIDE 19 mmol/L (22-30); CHLORIDE 102 mmol/L (98-107); GLUCOSE 208 mg/dL (75-110); POTASSIUM 5.1 mmol/L (3.6-5.0); TOTAL PROTEIN 6.2 g/dL (6.3-8.2)
[2019-10-24 07:36] LABS: ABSOLUTE LYMPHOCYTES# (MANUAL) 0.2 10^3/uL (0.5-4.7); ABSOLUTE MONOCYTES # (MANUAL) 0.6 10^3/uL (0.1-1.4); BASOPHILS % (MANUAL) 0 % (0-2); EOSINOPHILS % (MANUAL) 0 % (0-6); LYMPHOCYTES % (MANUAL) 2 % (13-45); MONOCYTES % (MANUAL) 6 % (3-13); SEGMENTED NEUTROPHILS % (MAN) 92 % (42-78); TOTAL CELLS COUNTED 100
[2019-10-24 07:46] LABS: POLYCHROMASIA SLIGHT
[2019-10-24 07:47] LABS: PLATELET COMMENT INCREASED
[2019-10-24] MEDS: INSULIN LISPRO 100 UNIT/ML 3 ML VIAL SUBCUT SCH ×4 (08:45→21:57)
[2019-10-24] MEDS: LINEZOLID 600 MG/300 ML RTUPB IV SCH ×2 (08:47→21:53)
[2019-10-24] MEDS: FAMOTIDINE 20 MG TABLET PO SCH ×2 (10:05→21:57)
[2019-10-24] MEDS: DEXAMETHASONE SOD PHOSPHATE INJ 4 MG/1 ML VIAL IV SCH ×2 (10:10→17:57)
--- NOTE | 2019-10-24 15:59 | PDOC PROGRESS REPORT ---
Subjective Progress Note for:: 10/24/19 Subjective:: Patient with positive SARS-CoV-2,COVID Pneumonia.He continues to require noninvasive positive pressure ventilation so far he is able to maintain adequate oxygenation, patient have a potential to decompensate, he has severe bilateral pneumonia. Presently on dexamethasone, antibiotic,anti-viral Remdesivir is nonformulary at [facility], is the only presently approved evidence-based medication for SARS COVID pneumonia.Hydroxychloroquine is not FDA approved for this condition Reason For Visit: HEALTHCARE ASSOCIATED PNEUMONIA, RECENT H/O WILL, Physical Exam Vital Signs: Temp Pulse Resp BP Pulse Ox 97.5 F 80 19 172/94 H 96 10/24/19 11:34 10/24/19 11:34 10/24/19 11:34 10/24/19 11:34 10/24/19 11:34 Intake & Output 10/23/19 10/24/19 10/25/19 06:59 06:59 06:59 Intake Total 1040 3340 300 Output Total 1775 1000 Balance -735 2340 300 Weight 121 kg 122.3 kg General appearance: PRESENT: obese Results Laboratory Results: 10/24/19 05:52 10/24/19 05:52 10/24/19 10/24/19 05:52 05:52 WBC 9.7 RBC 3.48 L Hgb 10.7 L Hct 30.4 L MCV 87 MCH 30.7 MCHC 35.1 RDW 13.9 Plt Count 466 H Seg Neutrophils % Not Reportable Sodium 131.7 L Potassium 5.1 H Chloride 102 Carbon Dioxide 19 L Anion Gap 11 BUN 27 H Creatinine 2.13 H Est GFR ( Amer) 40 L Glucose 208 H Calcium 7.9 L Total Bilirubin 0.5 AST 28 Alkaline Phosphatase 55 Total Protein 6.2 L Albumin 2.6 L 10/22/19 22:10 Clean Catch Midstream Urine Culture - Final NO GROWTH 2 DAYS 10/22/19 10/22/19 10/22/19 01:40 09:06 09:06 Creatine Kinase 156 CK-MB (CK-2) 0.61 Troponin I < 0.012 < 0.012 Impressions: Chest X-Ray 10/22/19 02:05 IMPRESSION: Aggressive patchy interstitial and airspace disease, likely infectious inflammatory. Assessment & Plan - Diagnosis (1) Acute hypoxemic respiratory failure Is this a current diagnosis for this admission?: Yes Plan: Patient continues to require noninvasive positive pressure ventilation, BiPAP (2) Healthcare-associated pneumonia Is this a current diagnosis for this admission?: Yes Plan: Continue present IV antibiotic coverage (3) Acute kidney injury Is this a current diagnosis for this admission?: Yes Plan: Slight improvement in the serum creatinine (4) T2DM (type 2 diabetes mellitus) Qualifiers: Diabetes mellitus photogrammetric technician insulin use: with usp use Diabetes mellitus complication status: with neurologic complications Diabetes mellitus complication detail: with polyneuropathy Qualified Code(s): E11.42 - Type 2 diabetes mellitus with diabetic polyneuropathy; Z79.4 - FDC (current) use of insulin Is this a current diagnosis for this admission?: Yes (5) Pneumonia due to COVID-19 virus Is this a current diagnosis for this admission?: Yes Plan: Continue dexamethasone 3 mg IV every 12 hours continue other supportive care - Time Time Spent with patient: 35 or more minutes Level of Care: IMCU Medications reviewed and adjusted accordingly: Yes
[2019-10-24] MEDS ORDERED: DEXAMETHASONE SOD PHOS INJ 10 MG/1 ML VIAL IV SCH ×2 (16:00→22:00)
[2019-10-25] MEDS: HEPARIN SOD (PORCINE) 5,000 UNIT/ML 1 ML VIAL SUBCUT SCH ×4 (02:56→21:53)
[2019-10-25] MEDS: AZTREONAM 1 GM in DEXTROSE 5%-WATER 50 ML IV SCH ×3 (02:56→18:55)
[2019-10-25 05:18] LABS: HEMATOCRIT 32.4 % (37.9-51.0); HEMOGLOBIN 11.3 g/dL (13.5-17.0); MEAN CORPUSCULAR HEMOGLOBIN 30.3 pg (27.0-33.4); MEAN CORPUSCULAR HGB CONC 34.7 g/dL (32.0-36.0); MEAN CORPUSCULAR VOLUME 87 fl (80-97); PLATELET COUNT 508 10^3/uL (150-450); RED BLOOD COUNT 3.71 10^6/uL (4.35-5.55); RED CELL DISTRIBUTION WIDTH 14.2 % (11.5-14.0); WHITE BLOOD COUNT 6.5 10^3/uL (4.0-10.5)
[2019-10-25 05:51] LABS: ABSOLUTE LYMPHOCYTES# (MANUAL) 0.3 10^3/uL (0.5-4.7); ABSOLUTE MONOCYTES # (MANUAL) 0.3 10^3/uL (0.1-1.4); ANISOCYTOSIS SLIGHT; BASOPHILS % (MANUAL) 0 % (0-2); EOSINOPHILS % (MANUAL) 0 % (0-6); LYMPHOCYTES % (MANUAL) 5 % (13-45); MONOCYTES % (MANUAL) 4 % (3-13); PLATELET COMMENT INCREASED; SEGMENTED NEUTROPHILS % (MAN) 91 % (42-78); TOTAL CELLS COUNTED 100
[2019-10-25 05:52] LABS: ALBUMIN 2.7 g/dL (3.5-5.0); ALKALINE PHOSPHATASE 57 U/L (38-126); ANION GAP 12 (5-19); ASPARTATE AMINO TRANSFERASE 24 U/L (17-59); BILIRUBIN,DIRECT 0.1 mg/dL (0.0-0.4); BILIRUBIN,TOTAL 0.4 mg/dL (0.2-1.3); BLOOD UREA NITROGEN 36 mg/dL (7-20); CALCIUM 8.4 mg/dL (8.4-10.2); CARBON DIOXIDE 17 mmol/L (22-30); CHLORIDE 104 mmol/L (98-107); GLUCOSE 293 mg/dL (75-110); POLYCHROMASIA SLIGHT; POTASSIUM 5.3 mmol/L (3.6-5.0); TOTAL PROTEIN 6.5 g/dL (6.3-8.2)
[2019-10-25] MEDS: DEXAMETHASONE SOD PHOSPHATE INJ 4 MG/1 ML VIAL IV SCH ×2 (06:14→17:24)
[2019-10-25] MEDS: INSULIN LISPRO 100 UNIT/ML 3 ML VIAL SUBCUT SCH ×4 (08:50→21:54)
[2019-10-25] MEDS: LINEZOLID 600 MG/300 ML RTUPB IV SCH ×2 (08:50→21:53)
[2019-10-25] MEDS: RINGERS SOLUTION,LACTATED 1,000 ML IV PRN (08:50)
[2019-10-25] MEDS: FAMOTIDINE 20 MG TABLET PO SCH ×2 (10:18→21:53)
--- NOTE | 2019-10-25 18:35 | RADIOLOGY REPORT (SQ) ---
EXAM DESCRIPTION: CHEST SINGLE VIEW IMAGES COMPLETED DATE/TIME: 10/25/2019 6:16 pm REASON FOR STUDY: bilateral pneumonia COMPARISON: Chest films 10/11/2019, 10/22/2019 EXAM PARAMETERS: NUMBER OF VIEWS: One view. TECHNIQUE: Single frontal radiographic view of the chest acquired. RADIATION DOSE: NA LIMITATIONS: None. FINDINGS: LUNGS AND PLEURA: Diffuse bilateral airspace disease is present, similar compared to 020 No pleural effusions. No pneumothorax MEDIASTINUM AND HILAR STRUCTURES: No masses. Contour normal. HEART AND VASCULAR STRUCTURES: No cardiomegaly BONES: No acute findings. HARDWARE: None in the chest. OTHER: No other significant finding. IMPRESSION: Stable diffuse bilateral airspace disease worrisome for pneumonia TECHNICAL DOCUMENTATION: JOB ID: [id number] [employer]- All Rights Reserved Reading location - IP/workstation name: [email or web address]
--- NOTE | 2019-10-25 20:35 | PDOC PROGRESS REPORT ---
Subjective Progress Note for:: 10/25/19 Subjective:: Patient with covid pneumonia I communicated with him via telephonic conference to preserve PPE and also to reduce the spread of a highly contagious infection it sounds very upbeat on the phone, the chest x-ray that was done today did not show worsening of the infiltrate seem to have stabilized that is a good sign, presently requiring high flow nasal cannula oxygen therapy also on dexamethasone 3 mg IV every 12 empirically on antibiotic this strategy seems to be effective patient seems to be pulling through this process 1 day at a time. The kidney function is also improving Reason For Visit: HEALTHCARE ASSOCIATED PNEUMONIA, RECENT H/O WILL, Physical Exam Vital Signs: Temp Pulse Resp BP Pulse Ox 97.6 F 71 19 127/84 H 92 10/25/19 16:38 10/25/19 16:38 10/25/19 12:07 10/25/19 16:38 10/25/19 16:38 Intake & Output 10/24/19 10/25/19 10/26/19 06:59 06:59 06:59 Intake Total 3340 1713 762 Output Total 1000 800 Balance 2340 913 762 Weight 122.3 kg 123.6 kg Results Laboratory Results: 10/25/19 04:26 10/25/19 04:26 10/25/19 10/25/19 04:26 04:26 WBC 6.5 RBC 3.71 L Hgb 11.3 L Hct 32.4 L MCV 87 MCH 30.3 MCHC 34.7 RDW 14.2 H Plt Count 508 H Seg Neutrophils % Not Reportable Sodium 132.5 L Potassium 5.3 H Chloride 104 Carbon Dioxide 17 L Anion Gap 12 BUN 36 H Creatinine 1.79 H Est GFR ( Amer) 48 L Glucose 293 H Calcium 8.4 Total Bilirubin 0.4 AST 24 Alkaline Phosphatase 57 Total Protein 6.5 Albumin 2.7 L 10/22/19 22:10 Sputum Gram Stain - Final 10/22/19 22:10 Sputum Sputum Culture - Final C.albicans/C.dubliniensis Normal Susan 10/22/19 10/22/19 10/22/19 01:40 09:06 09:06 Creatine Kinase 156 CK-MB (CK-2) 0.61 Troponin I < 0.012 < 0.012 Impressions: Chest X-Ray 10/25/19 00:00 IMPRESSION: Stable diffuse bilateral airspace disease worrisome for pneumonia Assessment & Plan - Diagnosis (1) Acute hypoxemic respiratory failure Is this a current diagnosis for this admission?: Yes Plan: Patient continues to require noninvasive positive pressure ventilation, BiPAP (2) Healthcare-associated pneumonia Is this a current diagnosis for this admission?: Yes Plan: Continue present IV antibiotic coverage (3) Acute kidney injury Is this a current diagnosis for this admission?: Yes Plan: Slight improvement in the serum creatinine (4) T2DM (type 2 diabetes mellitus) Qualifiers: Diabetes mellitus fdc insulin use: with fdc use Diabetes mellitus complication status: with neurologic complications Diabetes mellitus complication detail: with polyneuropathy Qualified Code(s): E11.42 - Type 2 diabetes mellitus with diabetic polyneuropathy; Z79.4 - certified physician assistant (current) use of insulin Is this a current diagnosis for this admission?: Yes (5) Pneumonia due to COVID-19 virus Is this a current diagnosis for this admission?: Yes Plan: Continue dexamethasone 3 mg IV every 12 hours continue other supportive care - Time Time Spent with patient: 35 or more minutes Level of Care: IMCU
[2019-10-26] MEDS: AZTREONAM 1 GM in DEXTROSE 5%-WATER 50 ML IV SCH ×3 (02:17→23:52)
[2019-10-26] MEDS: DEXAMETHASONE SOD PHOSPHATE INJ 4 MG/1 ML VIAL IV SCH ×2 (06:36→17:53)
[2019-10-26] MEDS: HEPARIN SOD (PORCINE) 5,000 UNIT/ML 1 ML VIAL SUBCUT SCH ×3 (06:36→21:47)
[2019-10-26] MEDS: INSULIN LISPRO 100 UNIT/ML 3 ML VIAL SUBCUT SCH ×4 (08:38→21:52)
[2019-10-26 10:24] LABS: HEMATOCRIT 34.6 % (37.9-51.0); HEMOGLOBIN 11.8 g/dL (13.5-17.0); MEAN CORPUSCULAR HGB CONC 34.1 g/dL (32.0-36.0); MEAN CORPUSCULAR VOLUME 88 fl (80-97); PLATELET COUNT 648 10^3/uL (150-450); RED BLOOD COUNT 3.93 10^6/uL (4.35-5.55); RED CELL DISTRIBUTION WIDTH 14.1 % (11.5-14.0); WHITE BLOOD COUNT 9.4 10^3/uL (4.0-10.5)
[2019-10-26 10:35] LABS: ALBUMIN 2.7 g/dL (3.5-5.0); ALKALINE PHOSPHATASE 58 U/L (38-126); ASPARTATE AMINO TRANSFERASE 20 U/L (17-59); CARBON DIOXIDE 20 mmol/L (22-30); GLUCOSE 291 mg/dL (75-110); POTASSIUM 5.3 mmol/L (3.6-5.0)
[2019-10-26 10:36] LABS: BILIRUBIN,TOTAL 0.5 mg/dL (0.2-1.3); BLOOD UREA NITROGEN 47 mg/dL (7-20); CALCIUM 8.6 mg/dL (8.4-10.2); TOTAL PROTEIN 6.4 g/dL (6.3-8.2)
[2019-10-26 10:37] LABS: ANION GAP 9 (5-19); CHLORIDE 106 mmol/L (98-107)
[2019-10-26] MEDS: LINEZOLID 600 MG/300 ML RTUPB IV SCH ×2 (11:04→21:46)
[2019-10-26 12:23] LABS: ABSOLUTE LYMPHOCYTES# (MANUAL) 0.2 10^3/uL (0.5-4.7); ABSOLUTE MONOCYTES # (MANUAL) 0.9 10^3/uL (0.1-1.4); ANISOCYTOSIS SLIGHT; BASOPHILS % (MANUAL) 0 % (0-2); EOSINOPHILS % (MANUAL) 0 % (0-6); LYMPHOCYTES % (MANUAL) 2 % (13-45); MONOCYTES % (MANUAL) 10 % (3-13); PLATELET COMMENT INCREASED; PLATELET LARGE PRESENT; POLYCHROMASIA SLIGHT; SEGMENTED NEUTROPHILS % (MAN) 88 % (42-78); TOTAL CELLS COUNTED 100
[2019-10-26] MEDS: FAMOTIDINE 20 MG TABLET PO SCH ×2 (13:56→21:47)
[2019-10-26] MEDS: MORPHINE SULFATE 10 MG/ML INJ IV PRN (14:57)
--- NOTE | 2019-10-26 21:02 | PDOC PROGRESS REPORT ---
Subjective Progress Note for:: 10/26/19 Subjective:: Patient with COVID pneumonia on low-dose dexamethasone 3 mg IV every 12 hours ,will receive the steroid for 10 days and will continue antibiotic as well for healthcare associated pneumonia patient continues to require supplemental oxygen ,high flow oxygen therapy with occasional use of noninvasive positive pressure ventilation. Reason For Visit: HEALTHCARE ASSOCIATED PNEUMONIA, RECENT H/O WILL, Physical Exam Vital Signs: Temp Pulse Resp BP Pulse Ox 97.4 F 56 L 22 H 177/92 H 98 10/26/19 11:57 10/26/19 14:00 10/26/19 16:00 10/26/19 11:57 10/26/19 16:00 Intake & Output 10/25/19 10/26/19 10/27/19 06:59 06:59 06:59 Intake Total 1713 1062 640 Output Total 800 Balance 913 1062 640 Weight 123.6 kg 121.2 kg General appearance: PRESENT: no acute distress, obese Eye exam: PRESENT: PERRLA Respiratory exam: PRESENT: rhonchi Cardiovascular exam: PRESENT: +S1, +S2 GI/Abdominal exam: PRESENT: soft Neurological exam: PRESENT: alert Results Laboratory Results: 10/26/19 09:42 10/26/19 09:42 10/26/19 10/26/19 09:42 09:42 WBC 9.4 RBC 3.93 L Hgb 11.8 L Hct 34.6 L MCV 88 MCH 30.0 MCHC 34.1 RDW 14.1 H Plt Count 648 H Seg Neutrophils % Not Reportable Sodium 134.8 L Potassium 5.3 H Chloride 106 Carbon Dioxide 20 L Anion Gap 9 BUN 47 H Creatinine 1.76 H Est GFR ( Amer) 49 L Glucose 291 H Calcium 8.6 Total Bilirubin 0.5 AST 20 Alkaline Phosphatase 58 Total Protein 6.4 Albumin 2.7 L 10/22/19 10/22/19 10/22/19 01:40 09:06 09:06 Creatine Kinase 156 CK-MB (CK-2) 0.61 Troponin I < 0.012 < 0.012 Impressions: Chest X-Ray 10/25/19 00:00 IMPRESSION: Stable diffuse bilateral airspace disease worrisome for pneumonia Assessment & Plan - Diagnosis (1) Acute hypoxemic respiratory failure Is this a current diagnosis for this admission?: Yes Plan: Patient continues to require noninvasive positive pressure ventilation, BiPAP (2) Healthcare-associated pneumonia Is this a current diagnosis for this admission?: Yes Plan: Continue present IV antibiotic coverage (3) Acute kidney injury Is this a current diagnosis for this admission?: Yes Plan: Slight improvement in the serum creatinine (4) T2DM (type 2 diabetes mellitus) Qualifiers: Diabetes mellitus usp insulin use: with termite renewal inspector use Diabetes mellitus complication status: with neurologic complications Diabetes mellitus complication detail: with polyneuropathy Qualified Code(s): E11.42 - Type 2 diabetes mellitus with diabetic polyneuropathy; Z79.4 - termite inspector (current) use of insulin Is this a current diagnosis for this admission?: Yes (5) Pneumonia due to COVID-19 virus Is this a current diagnosis for this admission?: Yes Plan: Continue dexamethasone 3 mg IV every 12 hours continue other supportive care - Time Time Spent with patient: 25-34 minutes Level of Care: IMCU
[2019-10-27] MEDS: MORPHINE SULFATE 10 MG/ML INJ IV PRN ×4 (00:26→22:55)
[2019-10-27] MEDS: DEXAMETHASONE SOD PHOSPHATE INJ 4 MG/1 ML VIAL IV SCH ×2 (06:02→17:13)
[2019-10-27] MEDS: AZTREONAM 1 GM in DEXTROSE 5%-WATER 50 ML IV SCH ×2 (06:02→14:31)
[2019-10-27] MEDS: HEPARIN SOD (PORCINE) 5,000 UNIT/ML 1 ML VIAL SUBCUT SCH ×3 (06:03→22:35)
[2019-10-27] MEDS: LINEZOLID 600 MG/300 ML RTUPB IV SCH ×2 (08:55→22:33)
[2019-10-27] MEDS: INSULIN LISPRO 100 UNIT/ML 3 ML VIAL SUBCUT SCH ×4 (08:55→22:35)
[2019-10-27] MEDS: FAMOTIDINE 20 MG TABLET PO SCH ×2 (10:02→22:35)
--- NOTE | 2019-10-27 11:40 | PDOC PROGRESS REPORT ---
Subjective Progress Note for:: 10/27/19 Subjective:: Patient admitted because of the COVID and respiratory distress and pneumonia Patient is currently on a BiPAP Patient is currently doing fair Patient in no distress Currently on IV antibiotic and dexamethasone Antiviral drugs is nonformulary in the hospital Discussed with the nursing staff no other concerns Tele visit outside the room Reason For Visit: HEALTHCARE ASSOCIATED PNEUMONIA, RECENT H/O WILL, Physical Exam Vital Signs: Temp Pulse Resp BP Pulse Ox 97.4 F 56 L 12 177/92 H 98 10/26/19 11:57 10/27/19 07:00 10/27/19 08:00 10/26/19 11:57 10/27/19 08:00 Intake & Output 10/26/19 10/27/19 10/28/19 06:59 06:59 06:59 Intake Total 1062 1180 300 Balance 1062 1180 300 Weight 121.2 kg 118.6 kg Results Laboratory Results: 10/26/19 09:42 10/26/19 09:42 10/26/19 09:42 WBC 9.4 RBC 3.93 L Hgb 11.8 L Hct 34.6 L MCV 88 MCH 30.0 MCHC 34.1 RDW 14.1 H Plt Count 648 H Seg Neutrophils % Not Reportable 10/22/19 02:50 Blood Blood Culture - Final NO GROWTH IN 5 DAYS 10/22/19 01:40 Blood Blood Culture - Final NO GROWTH IN 5 DAYS 10/22/19 10/22/19 10/22/19 01:40 09:06 09:06 Creatine Kinase 156 CK-MB (CK-2) 0.61 Troponin I < 0.012 < 0.012 Impressions: Chest X-Ray 10/25/19 00:00 IMPRESSION: Stable diffuse bilateral airspace disease worrisome for pneumonia Assessment & Plan - Diagnosis (1) Acute hypoxemic respiratory failure Is this a current diagnosis for this admission?: Yes Plan: Patient continues to require noninvasive positive pressure ventilation, BiPAP (2) Bilateral pneumonia Qualifiers: Pneumonia type: due to unspecified organism Lung location: unspecified part of lung Qualified Code(s): J18.9 - Pneumonia, unspecified organism Is this a current diagnosis for this admission?: Yes (3) Pneumonia due to COVID-19 virus Is this a current diagnosis for this admission?: Yes Plan: Continue dexamethasone 3 mg IV every 12 hours continue other supportive care (4) Renal insufficiency Is this a current diagnosis for this admission?: Yes (5) Diabetes mellitus Qualifiers: Diabetes mellitus type: type 2 Diabetes mellitus intermediate manager insulin use: with intermediate manager use Diabetes mellitus complication status: with other specified complication Qualified Code(s): E11.69 - Type 2 diabetes mellitus with other specified complication; Z79.4 - penitentiary (current) use of insulin Is this a current diagnosis for this admission?: Yes (6) Hypertension Qualifiers: Hypertension type: essential hypertension Qualified Code(s): I10 - Essential (primary) hypertension Is this a current diagnosis for this admission?: Yes - Time Time Spent with patient: 15-24 minutes Level of Care: IMCU Medications reviewed and adjusted accordingly: Yes Anticipated discharge: Other Within: Other - Plan Summary Plan Summary: Continues to current medications we will repeat the blood work in the morning we will repeat the ABG in the morning
[2019-10-27] MEDS: RINGERS SOLUTION,LACTATED 1,000 ML IV PRN (22:32)
[2019-10-28] MEDS: AZTREONAM 1 GM in DEXTROSE 5%-WATER 50 ML IV SCH ×4 (01:21→21:59)
[2019-10-28] MEDS: DEXAMETHASONE SOD PHOSPHATE INJ 4 MG/1 ML VIAL IV SCH ×2 (05:44→17:21)
[2019-10-28] MEDS: HEPARIN SOD (PORCINE) 5,000 UNIT/ML 1 ML VIAL SUBCUT SCH ×3 (05:45→22:00)
[2019-10-28 06:25] LABS: HEMATOCRIT 35.4 % (37.9-51.0); HEMOGLOBIN 12.2 g/dL (13.5-17.0); MEAN CORPUSCULAR HGB CONC 34.6 g/dL (32.0-36.0); MEAN CORPUSCULAR VOLUME 87 fl (80-97); PLATELET COUNT 554 10^3/uL (150-450); RED BLOOD COUNT 4.09 10^6/uL (4.35-5.55); RED CELL DISTRIBUTION WIDTH 13.9 % (11.5-14.0); WHITE BLOOD COUNT 7.7 10^3/uL (4.0-10.5)
[2019-10-28 06:40] LABS: ANION GAP 6 (5-19); BLOOD UREA NITROGEN 45 mg/dL (7-20); CALCIUM 8.9 mg/dL (8.4-10.2); CARBON DIOXIDE 21 mmol/L (22-30); CHLORIDE 109 mmol/L (98-107); GLUCOSE 199 mg/dL (75-110); POTASSIUM 4.7 mmol/L (3.6-5.0)
[2019-10-28 07:15] LABS: ABSOLUTE LYMPHOCYTES# (MANUAL) 0.5 10^3/uL (0.5-4.7); ABSOLUTE MONOCYTES # (MANUAL) 0.5 10^3/uL (0.1-1.4); BASOPHILS % (MANUAL) 0 % (0-2); EOSINOPHILS % (MANUAL) 1 % (0-6); LYMPHOCYTES % (MANUAL) 6 % (13-45); MONOCYTES % (MANUAL) 7 % (3-13); PLATELET COMMENT INCREASED; SEGMENTED NEUTROPHILS % (MAN) 86 % (42-78); TOTAL CELLS COUNTED 100
[2019-10-28 07:16] LABS: BURR CELLS SLIGHT
[2019-10-28 07:18] LABS: POLYCHROMASIA SLIGHT; SCHISTOCYTES SLIGHT
[2019-10-28] MEDS: INSULIN LISPRO 100 UNIT/ML 3 ML VIAL SUBCUT SCH ×4 (08:19→21:58)
[2019-10-28] MEDS: LINEZOLID 600 MG/300 ML RTUPB IV SCH ×2 (08:20→20:18)
[2019-10-28] MEDS: MORPHINE SULFATE 10 MG/ML INJ IV PRN (09:29)
[2019-10-28] MEDS: FAMOTIDINE 20 MG TABLET PO SCH ×2 (09:29→22:00)
--- NOTE | 2019-10-28 09:39 | PDOC PROGRESS REPORT ---
Subjective Progress Note for:: 10/28/19 Subjective:: Patient is currently doing much better Patient's kidney function is all improving Patient's denied any chest pain No shortness of the breath Continues the IV antibiotic Reason For Visit: HEALTHCARE ASSOCIATED PNEUMONIA, RECENT H/O WILL, Physical Exam Vital Signs: Temp Pulse Resp BP Pulse Ox 97.3 F 55 L 13 157/96 H 100 10/27/19 16:33 10/28/19 07:00 10/28/19 08:05 10/27/19 16:33 10/28/19 04:35 Intake & Output 10/27/19 10/28/19 10/29/19 06:59 06:59 06:59 Intake Total 1180 1990 Output Total 600 Balance 1180 1390 Weight 118.6 kg 119 kg Results Laboratory Results: 10/28/19 05:59 10/28/19 05:59 10/28/19 10/28/19 05:59 05:59 WBC 7.7 RBC 4.09 L Hgb 12.2 L Hct 35.4 L MCV 87 MCH 30.0 MCHC 34.6 RDW 13.9 Plt Count 554 H Seg Neutrophils % Not Reportable Sodium 135.8 L Potassium 4.7 Chloride 109 H Carbon Dioxide 21 L Anion Gap 6 BUN 45 H Creatinine 1.41 H Est GFR ( Amer) > 60 Glucose 199 H Calcium 8.9 10/22/19 10/22/19 10/22/19 01:40 09:06 09:06 Creatine Kinase 156 CK-MB (CK-2) 0.61 Troponin I < 0.012 < 0.012 Impressions: Chest X-Ray 10/25/19 00:00 IMPRESSION: Stable diffuse bilateral airspace disease worrisome for pneumonia Assessment & Plan - Diagnosis (1) Acute hypoxemic respiratory failure Is this a current diagnosis for this admission?: Yes Plan: Patient continues to require noninvasive positive pressure ventilation, BiPAP (2) Bilateral pneumonia Qualifiers: Pneumonia type: due to unspecified organism Lung location: unspecified part of lung Qualified Code(s): J18.9 - Pneumonia, unspecified organism Is this a current diagnosis for this admission?: Yes Plan: Continues the IV antibiotic (3) Pneumonia due to COVID-19 virus Is this a current diagnosis for this admission?: Yes Plan: Continue dexamethasone 3 mg IV every 12 hours continue other supportive care (4) Renal insufficiency Is this a current diagnosis for this admission?: Yes Plan: Currently all improving (5) Diabetes mellitus Qualifiers: Diabetes mellitus type: type 2 Diabetes mellitus fpc insulin use: with ferry terminal supervisor use Diabetes mellitus complication status: with other specified complication Qualified Code(s): E11.69 - Type 2 diabetes mellitus with other specified complication; Z79.4 - detention (current) use of insulin Is this a current diagnosis for this admission?: Yes (6) Hypertension Qualifiers: Hypertension type: essential hypertension Qualified Code(s): I10 - Essential (primary) hypertension Is this a current diagnosis for this admission?: Yes - Time Time Spent with patient: 15-24 minutes Level of Care: IMCU Medications reviewed and adjusted accordingly: Yes Anticipated discharge: Other Within: Other - Plan Summary Plan Summary: Patient is currently improving continues to current medications
[2019-10-28] MEDS ORDERED: OXYCODONE-ACETAMINOPHEN 5-325 MG TABLET PO PRN (13:12)
[2019-10-28] MEDS: RINGERS SOLUTION,LACTATED 1,000 ML IV PRN (14:42)
[2019-10-28] MEDS ORDERED: DEXAMETHASONE SOD PHOSPHATE INJ 4 MG/1 ML VIAL ONE (17:07)
[2019-10-29] MEDS: HEPARIN SOD (PORCINE) 5,000 UNIT/ML 1 ML VIAL SUBCUT SCH ×3 (05:06→21:42)
[2019-10-29] MEDS: AZTREONAM 1 GM in DEXTROSE 5%-WATER 50 ML IV SCH ×3 (05:06→21:42)
[2019-10-29] MEDS: DEXAMETHASONE SOD PHOSPHATE INJ 4 MG/1 ML VIAL IV SCH ×2 (05:06→17:56)
[2019-10-29 07:32] LABS: HEMATOCRIT 33.4 % (37.9-51.0); HEMOGLOBIN 11.7 g/dL (13.5-17.0); MEAN CORPUSCULAR HEMOGLOBIN 30.2 pg (27.0-33.4); MEAN CORPUSCULAR VOLUME 86 fl (80-97); PLATELET COUNT 481 10^3/uL (150-450); RED BLOOD COUNT 3.87 10^6/uL (4.35-5.55); RED CELL DISTRIBUTION WIDTH 13.8 % (11.5-14.0); WHITE BLOOD COUNT 8.2 10^3/uL (4.0-10.5)
[2019-10-29 07:58] LABS: ANION GAP 6 (5-19); BLOOD UREA NITROGEN 41 mg/dL (7-20); CALCIUM 8.6 mg/dL (8.4-10.2); CARBON DIOXIDE 22 mmol/L (22-30); CHLORIDE 107 mmol/L (98-107); GLUCOSE 252 mg/dL (75-110); POTASSIUM 4.5 mmol/L (3.6-5.0)
[2019-10-29 08:19] LABS: ABSOLUTE LYMPHOCYTES# (MANUAL) 0.2 10^3/uL (0.5-4.7); ABSOLUTE MONOCYTES # (MANUAL) 0.4 10^3/uL (0.1-1.4); BAND NEUTROPHILS % (MANUAL) 1 % (3-5); BASOPHILS % (MANUAL) 0 % (0-2); EOSINOPHILS % (MANUAL) 2 % (0-6); LYMPHOCYTES % (MANUAL) 2 % (13-45); MONOCYTES % (MANUAL) 5 % (3-13); SEGMENTED NEUTROPHILS % (MAN) 90 % (42-78); TOTAL CELLS COUNTED 100
[2019-10-29 08:21] LABS: RBC MORPHOLOGY COMMENT NORMO-CYTIC/CHROMIC; TOXIC GRANULATION SLIGHT
[2019-10-29 08:22] LABS: PLATELET COMMENT INCREASED
[2019-10-29] MEDS: INSULIN LISPRO 100 UNIT/ML 3 ML VIAL SUBCUT SCH ×4 (09:18→21:53)
[2019-10-29] MEDS: LINEZOLID 600 MG/300 ML RTUPB IV SCH ×2 (09:18→20:03)
[2019-10-29] MEDS: FAMOTIDINE 20 MG TABLET PO SCH ×2 (09:18→21:42)
[2019-10-29] MEDS: RINGERS SOLUTION,LACTATED 1,000 ML IV PRN (10:00)
[2019-10-29] MEDS: MORPHINE SULFATE 10 MG/ML INJ IV PRN (14:09)
--- NOTE | 2019-10-29 16:11 | RADIOLOGY REPORT (SQ) ---
EXAM DESCRIPTION: CHEST SINGLE VIEW IMAGES COMPLETED DATE/TIME: 10/29/2019 4:01 pm REASON FOR STUDY: pneumonia COMPARISON: 10/25/2019 EXAM PARAMETERS: NUMBER OF VIEWS: One view. TECHNIQUE: Single frontal radiographic view of the chest acquired. RADIATION DOSE: NA LIMITATIONS: None. FINDINGS: LUNGS AND PLEURA: Increasing bilateral alveolar and interstitial airspace disease consiste nt with pneumonia. MEDIASTINUM AND HILAR STRUCTURES: No masses. Contour normal. HEART AND VASCULAR STRUCTURES: Heart normal in size. Normal vasculature. BONES: No acute findings. HARDWARE: None in the chest. OTHER: No other significant finding. IMPRESSION: Increasing bilateral airspace disease. There is involvement of both the upper and lower lobes. There has been significant progression since the . TECHNICAL DOCUMENTATION: JOB ID: [id number] 2010 [employer]- All Rights Reserved Reading location - IP/workstation name: [email or web address]
--- NOTE | 2019-10-29 17:27 | PDOC PROGRESS REPORT ---
Subjective Progress Note for:: 10/29/19 Subjective:: Chest x-ray shows progression of bilateral infiltrate, patient continues to require noninvasive positive pressure ventilation he has COVID-19 pneumonia chest x-ray is progressing he has underlining comorbid condition, Patient's condition remains precarious, I will obtain ABG if ABG suggest that patient is tiring out he may need to be transferred to ICU hopefully we can avoid mechanical ventilation this will portend poor prognosis Reason For Visit: HEALTHCARE ASSOCIATED PNEUMONIA, RECENT H/O WILL, Physical Exam Vital Signs: Temp Pulse Resp BP Pulse Ox 97.5 F 61 19 158/85 H 99 10/29/19 15:56 10/29/19 15:56 10/29/19 15:56 10/29/19 15:56 10/29/19 15:56 Intake & Output 10/28/19 10/29/19 10/30/19 06:59 06:59 06:59 Intake Total 1990 4100 300 Output Total 600 Balance 1390 4100 300 Weight 119 kg 119 kg Results Laboratory Results: 10/29/19 07:15 10/29/19 07:15 10/29/19 10/29/19 07:15 07:15 WBC 8.2 RBC 3.87 L Hgb 11.7 L Hct 33.4 L MCV 86 MCH 30.2 MCHC 35.0 RDW 13.8 Plt Count 481 H Seg Neutrophils % Not Reportable Sodium 135.3 L Potassium 4.5 Chloride 107 Carbon Dioxide 22 Anion Gap 6 BUN 41 H Creatinine 1.31 H Est GFR ( Amer) > 60 Glucose 252 H Calcium 8.6 10/22/19 10/22/19 10/22/19 01:40 09:06 09:06 Creatine Kinase 156 CK-MB (CK-2) 0.61 Troponin I < 0.012 < 0.012 Impressions: Chest X-Ray 10/29/19 00:00 IMPRESSION: Increasing bilateral airspace disease. There is involvement of both the upper and lower lobes. There has been significant progression since the . Assessment & Plan - Diagnosis (1) Acute hypoxemic respiratory failure Is this a current diagnosis for this admission?: Yes Plan: Patient continues to require noninvasive positive pressure ventilation (2) Healthcare-associated pneumonia Is this a current diagnosis for this admission?: Yes Plan: Continue IV antibiotic (3) Acute kidney injury Is this a current diagnosis for this admission?: Yes Plan: Improving (4) T2DM (type 2 diabetes mellitus) Qualifiers: Diabetes mellitus oysterman insulin use: with custodial use Diabetes m ellitus complication status: with neurologic complications Diabetes mellitus complication detail: with polyneuropathy Qualified Code(s): E11.42 - Type 2 diabetes mellitus with diabetic polyneuropathy; Z79.4 - adjunct faculty for medical terminology (current) use of insulin Is this a current diagnosis for this admission?: Yes (5) Pneumonia due to COVID-19 virus Is this a current diagnosis for this admission?: Yes Plan: Chest x-ray suggests worsening infiltrate bilaterally, will obtain ABG, patient may require ICU transfer - Time Time Spent with patient: 35 or more minutes Level of Care: IMCU Medications reviewed and adjusted accordingly: Yes
[2019-10-29] MEDS ORDERED: LISINOPRIL 10 MG TABLET ONE (17:52)
[2019-10-29 17:58] LABS: ARTERIAL BLOOD BASE EXCESS -2.6 mmol/L; ARTERIAL BLOOD FIO2 45%; ARTERIAL BLOOD H2CO3 0.94 mmol/L (1.05-1.35); ARTERIAL BLOOD HCO3 20.6 mmol/L (20-24); ARTERIAL BLOOD O2 SATURATION 97.4 % (94-98); ARTERIAL BLOOD PCO2 31.1 mmHg (35-45); ARTERIAL BLOOD PH 7.44 (7.35-7.45); ARTERIAL BLOOD TOTAL CO2 21.6 mmol/L (23-27)
[2019-10-29] MEDS: DEXAMETHASONE SOD PHOS INJ 10 MG/1 ML VIAL IV SCH (18:11)
[2019-10-29] MEDS: LISINOPRIL 10 MG TABLET PO SCH (18:17)
[2019-10-30] MEDS: RINGERS SOLUTION,LACTATED 1,000 ML IV PRN (04:24)
[2019-10-30 05:39] LABS: ANION GAP 7 (5-19); BLOOD UREA NITROGEN 34 mg/dL (7-20); CALCIUM 8.5 mg/dL (8.4-10.2); CARBON DIOXIDE 23 mmol/L (22-30); CHLORIDE 104 mmol/L (98-107); GLUCOSE 249 mg/dL (75-110); POTASSIUM 4.2 mmol/L (3.6-5.0)
[2019-10-30] MEDS: DEXAMETHASONE SOD PHOS INJ 10 MG/1 ML VIAL IV SCH ×2 (05:51→17:34)
[2019-10-30] MEDS: AZTREONAM 1 GM in DEXTROSE 5%-WATER 50 ML IV SCH ×3 (05:51→22:29)
[2019-10-30] MEDS: HEPARIN SOD (PORCINE) 5,000 UNIT/ML 1 ML VIAL SUBCUT SCH ×2 (05:52→15:31)
--- NOTE | 2019-10-30 09:11 | RADIOLOGY REPORT (SQ) ---
EXAM DESCRIPTION: CHEST SINGLE VIEW IMAGES COMPLETED DATE/TIME: 10/30/2019 8:55 am REASON FOR STUDY: pneumonia COMPARISON: None. NUMBER OF VIEWS: One view. TECHNIQUE: Single frontal radiographic image of the chest acquired. LIMITATIONS: 10/29/2019 FINDINGS: LUNGS AND PLEURA: Patchy bilateral airspace disease not significantly changed. No evidenc e of cavitation. MEDIASTINUM AND HEART: Stable heart size and mediastinal structures. BONY STRUCTURES: No acute findings. HARDWARE: None. OTHER: No other significant finding. IMPRESSION: No significant change. TECHNICAL DOCUMENTATION: JOB ID: [id number] Reading location - IP/workstation name: [email or web address]-
[2019-10-30] MEDS: LINEZOLID 600 MG/300 ML RTUPB IV SCH ×2 (09:51→20:20)
[2019-10-30 10:29] LABS: ARTERIAL BLOOD BASE EXCESS 2.6 mmol/L; ARTERIAL BLOOD FIO2 70%; ARTERIAL BLOOD H2CO3 1.11 mmol/L (1.05-1.35); ARTERIAL BLOOD HCO3 26.2 mmol/L (20-24); ARTERIAL BLOOD O2 SATURATION 99.3 % (94-98); ARTERIAL BLOOD PH 7.47 (7.35-7.45); ARTERIAL BLOOD PO2 171.9 mmHg (80-100); ARTERIAL BLOOD TOTAL CO2 27.3 mmol/L (23-27)
[2019-10-30] MEDS: FAMOTIDINE 20 MG TABLET PO SCH ×2 (10:51→22:29)
[2019-10-30] MEDS: LISINOPRIL 10 MG TABLET PO SCH ×2 (10:51→17:37)
--- NOTE | 2019-10-30 11:58 | PDOC CRITICAL CARE PROG REPORT ---
General Date:: 10/30/19 Hospital Day:: 9 Resuscitation Status: Full Code Events in the past 12 to 24 Hours:: This obese 53-year-old male is seen in consultation at the request of Dr. LISA Adhikari for recommendations on further evaluation and management of respiratory distress. Consult request case was communicated by the nurse on the floor, requesting transfer to the ICU. The patient is seen in room 309, where the patient has been admitted at after a confirmatory test diagnosed COVID-19 pneumonia. At the time of clinical interview, the patient is on BiPAP 16/8, FiO2 70%. Respiratory rate 16-20. He is awake, alert and oriented to time, person and place. He is conversant and able to speak in complete sentences. He endorses dyspnea. He denies paroxysmal coughing. He denies pleuritic pain. No ABG was drawn prior to consult request. ABG was requested for the clinical encounter. The patient initially presented on 10/22/2019 with respiratory distress and lower back pain. He had recently been admitted (10/11/2019) for right upper extremity cellulitis and was treated with Zosyn/vancomycin. Chest x-ray revealed diffuse bilateral infiltrates. He was positive for COVID-19 by nucleic acid amplification. It is believed that his treatment was complicated by development of acute kidney injury while on vancomycin. Linezolid was substituted. He was discharged on 10/19/2019. Review of systems relevant to events:: Respiratory: COVID-19 pneumonia Endocrine: Diabetes Reason for ICU Addmission:: ICU transfer is not indicated at this time Physical Exam Vital Signs: Temp Pulse Resp BP Pulse Ox 97.6 F 67 22 H 154/91 H 98 10/30/19 08:00 10/30/19 08:00 10/30/19 08:55 10/30/19 08:00 10/30/19 08:55 Intake & Output 10/29/19 10/30/19 10/31/19 06:59 06:59 06:59 Intake Total 4100 2254 Balance 4100 2254 Weight 119 kg 114.7 kg Weight/Height Weight 114.7 kg Height 1.83 m General appearance: PRESENT: no acute distress, well-developed, well-nourished, other - On BiPAP 16/8, FiO2 70% Head exam: PRESENT: atraumatic, normocephalic Eye exam: PRESENT: conjunctiva pink, EOMI, PERRLA. ABSENT: scleral icterus Mouth exam: PRESENT: moist, tongue midline Neck exam: ABSENT: carotid bruit, JVD, lymphadenopathy, thyromegaly Respiratory exam: PRESENT: clear to auscultation mamta, crackles. ABSENT: rales, rhonchi, wheezes Cardiovascular exam: PRESENT: RRR. ABSENT: diastolic murmur, rubs, systolic mu rmur GI/Abdominal exam: PRESENT: normal bowel sounds, soft. ABSENT: distended, guarding, mass, organolmegaly, rebound, tenderness Extremities exam: PRESENT: other - Right AKA. ABSENT: joint swelling, pedal edema, +1 edema Neurological exam: PRESENT: alert, awake, oriented to person, oriented to place, oriented to time, oriented to situation, CN II-XII grossly intact. ABSENT: motor sensory deficit Psychiatric exam: PRESENT: appropriate affect, normal mood. ABSENT: homicidal ideation, suicidal ideation Skin exam: PRESENT: dry, intact, petechiae - Non-blanchable purpura, warm. ABSENT: cyanosis, rash Laboratory/Radiographs Laboratory Results: 10/29/19 07:15 10/30/19 04:19 10/29/19 10/30/19 10/30/19 17:42 04:19 10:06 Carbonic Acid 0.94 L 1.11 HCO3/H2CO3 Ratio 21:1 23:1 ABG pH 7.44 7.47 H ABG pCO2 31.1 L 37.0 ABG pO2 92.0 171.9 H ABG HCO3 20.6 26.2 H ABG O2 Saturation 97.4 99.3 H ABG Base Excess -2.6 2.6 FiO2 45% 70% Sodium 133.9 L Potassium 4.2 Chloride 104 Carbon Dioxide 23 Anion Gap 7 BUN 34 H Creatinine 1.22 Est GFR ( Amer) > 60 Glucose 249 H Calcium 8.5 10/22/19 10/22/19 10/22/19 01:40 09:06 09:06 Creatine Kinase 156 CK-MB (CK-2) 0.61 Troponin I < 0.012 < 0.012 Impressions: Chest X-Ray 10/30/19 00:00 IMPRESSION: No significant change. All labs, radiographs, diagnostic studies and EKGs were personally reviewed: Yes In addition, reports of radiographic and diagnostic studies were read: Yes Assessment and Plan - Diagnosis (1) Acute hypoxemic respiratory failure Is this a current diagnosis for this admission?: Yes Plan: * ICU transfer is not indicated at this time. * I would suggest titrating noninvasive positive pressure ventilation support based on ABG results. If necessary, pulmonary consultation may be helpful. * The most recent ABG results ([phone]/172) reflect a combined mixed metabolic and alkalotic alkalosis. That is, the patient is hyperventilatory in addition to having a metabolic alkalosis, likely secondary to volume contraction. In this scenario, ventilatory assistance in the form of BiPAP is not necessary. CPAP would be more than sufficient to correct this patient's oxygenation problems at this time. * The patient's medication list is noted to include morphine and oxycodone. These medications should be used judiciously to avoid any component of respiratory suppression. (2) Pneumonia due to COVID-19 virus Is this a current diagnosis for this admission?: Yes Plan: * Continue dexamethasone. * Continue lisinopril. * This patient is currently on standard DVT prophylaxis dosing of heparin. There is current academic interest in more aggressive DVT prophylaxis dosing in COVID-19 positive patients. I am unconvinced that this patient is actively clinically deteriorating. However, suffice it to say that significant clinical suspicion for venous thrombo-embolic disease or any compelling indication for therapeutic anticoagulation (e.g. atrial fibrillation, m yocardial ischemia) would warrant prompt initiation of therapeutic anticoagulation. * At this time, there are no proven therapies for [id number] available to this patient at this institution. On the other hand there has been discussion for potential roles of medications like hydroxychloroquine, azithromycin, zinc sulfate and vitamin C. While none of these have compelling data to establish unequivocal benefit, the risk benefit analysis may prove favorable for the patient. If the overall clinical suspicion is that the patient has failed to improve or is, in fact, declining, these therapy should be considered. (3) Diabetic neuropathy associated with type 2 diabetes mellitus Qualifiers: Diabetes mellitus complication detail: diabetic polyneuropathy Qualified Code(s): E11.42 - Type 2 diabetes mellitus with diabetic polyneuropathy Is this a current diagnosis for this admission?: Yes Plan Summary: ICU transfer is not indicated at this time. Will see if needed. Please call if needed. Critical Time Critical Time (minutes): 45 Level of Care: IMCU -: 1. The care of a critical patient is a dynamic process. This note is a employee relations representative synopsis but static in nature. The timeframe for treatments given in order is not necessarily the actual time these treatments may have been done. 2. This patient requires critical care secondary to ongoing requirements for therapy not offered or safe outside the critical care environment. Transfer to a lower level of care will result in altered life or limb morbidity and mortality. 3. Multidisciplinary rounds completed. 4. ABCDE bundle addressed.
[2019-10-30] MEDS: INSULIN LISPRO 100 UNIT/ML 3 ML VIAL SUBCUT SCH ×4 (13:15→22:29)
[2019-10-30 18:49] LABS: D-DIMER 1.77 ug/mL (0.00-0.50)
--- NOTE | 2019-10-30 19:43 | PDOC PROGRESS REPORT ---
Subjective Progress Note for:: 10/30/19 Subjective:: Patient seen by the bedside, he continues to require noninvasive positive pressure ventilation.He has a lot of bruises on the anterior chest wall, he was started on unfractionated heparin for DVT prophylaxis on admission because he has acute kidney injury from prior encounter the kidney function has normalized, patient will be started on Lovenox 40 mg for DVT prophylaxis. The chest x-ray from today did not show any worsening from yesterday that is a good finding, it was felt he may need an ICU transfer he was seen by the process manager who felt patient should still continue to be managed in [facility].there was no need at the moment for ICU transfer. Reason For Visit: HEALTHCARE ASSOCIATED PNEUMONIA, RECENT H/O WILL, Physical Exam Vital Signs: Temp Pulse Resp BP Pulse Ox 97.6 F 59 L 22 H 154/91 H 98 10/30/19 08:00 10/30/19 14:00 10/30/19 08:55 10/30/19 08:00 10/30/19 08:55 Intake & Output 10/29/19 10/30/19 10/31/19 06:59 06:59 06:59 Intake Total 4100 2254 Balance 4100 2254 Weight 119 kg 114.7 kg Results Laboratory Results: 10/29/19 07:15 10/30/19 04:19 10/30/19 10/30/19 04:19 10:06 Carbonic Acid 1.11 HCO3/H2CO3 Ratio 23:1 ABG pH 7.47 H ABG pCO2 37.0 ABG pO2 171.9 H ABG HCO3 26.2 H ABG O2 Saturation 99.3 H ABG Base Excess 2.6 FiO2 70% Sodium 133.9 L Potassium 4.2 Chloride 104 Carbon Dioxide 23 Anion Gap 7 BUN 34 H Creatinine 1.22 Est GFR ( Amer) > 60 Glucose 249 H Calcium 8.5 10/22/19 10/22/19 10/22/19 01:40 09:06 09:06 Creatine Kinase 156 CK-MB (CK-2) 0.61 Troponin I < 0.012 < 0.012 Impressions: Chest X-Ray 10/30/19 00:00 IMPRESSION: No significant change. Assessment & Plan - Diagnosis (1) Acute hypoxemic respiratory failure Is this a current diagnosis for this admission?: Yes Plan: Patient continues to require noninvasive positive pressure ventilation BiPAP (2) Healthcare-associated pneumonia Is this a current diagnosis for this admission?: Yes Plan: Continue IV antibiotic (3) Acute kidney injury Is this a current diagnosis for this admission?: Yes Plan: Acute kidney injury has resolved, kidney function normalized (4) T2DM (type 2 diabetes mellitus) Qualifiers: Diabetes mellitus rodent exterminator insulin use: with fci use Diabetes mellitus complication status: with neurologic complications Diabetes mellitus complication detail: with polyneuropathy Qualified Code(s): E11.42 - Type 2 diabetes mellitus with diabetic polyneuropathy; Z79.4 - group home (current) use of insulin Is this a current diagnosis for this admission?: Yes (5) Pneumonia due to COVID-19 virus Is this a current diagnosis for this admission?: Yes Plan: Continue low-dose dexamethasone for a total of 10 days based on current recommendationElmer there is no effusion,REMDESIVIR is nonformulary in the hospital - Time Time Spent with patient: 35 or more minutes Level of Care: IMCU
[2019-10-30 19:44] LABS: HEMATOCRIT 34.8 % (37.9-51.0); HEMOGLOBIN 11.8 g/dL (13.5-17.0); MEAN CORPUSCULAR HEMOGLOBIN 29.7 pg (27.0-33.4); MEAN CORPUSCULAR HGB CONC 33.9 g/dL (32.0-36.0); MEAN CORPUSCULAR VOLUME 87 fl (80-97); PLATELET COUNT 456 10^3/uL (150-450); RED BLOOD COUNT 3.98 10^6/uL (4.35-5.55); RED CELL DISTRIBUTION WIDTH 14.2 % (11.5-14.0); WHITE BLOOD COUNT 9.1 10^3/uL (4.0-10.5)
[2019-10-30] MEDS ORDERED: ENOXAPARIN SODIUM INJ 40 MG/0.4 ML DISP.SYRIN SUBCUT SCH (20:00)
[2019-10-30 20:01] LABS: ABSOLUTE LYMPHOCYTES# (MANUAL) 0.7 10^3/uL (0.5-4.7); ABSOLUTE MONOCYTES # (MANUAL) 0.2 10^3/uL (0.1-1.4); BAND NEUTROPHILS % (MANUAL) 1 % (3-5); BASOPHILS % (MANUAL) 0 % (0-2); EOSINOPHILS % (MANUAL) 0 % (0-6); LYMPHOCYTES % (MANUAL) 5 % (13-45); MONOCYTES % (MANUAL) 2 % (3-13); SEGMENTED NEUTROPHILS % (MAN) 89 % (42-78); TOTAL CELLS COUNTED 100
[2019-10-30 20:03] LABS: ANISOCYTOSIS SLIGHT; TOXIC GRANULATION SLIGHT
[2019-10-30 20:04] LABS: PLATELET COMMENT INCREASED
[2019-10-30] MEDS ORDERED: ENOXAPARIN SODIUM INJ 40 MG/0.4 ML DISP.SYRIN SUBCUT ONE ×2 (20:28→21:00)
[2019-10-31] MEDS: DEXAMETHASONE SOD PHOS INJ 10 MG/1 ML VIAL IV SCH (05:17)
[2019-10-31] MEDS: AZTREONAM 1 GM in DEXTROSE 5%-WATER 50 ML IV SCH ×3 (05:17→22:35)
[2019-10-31 05:21] LABS: HEMATOCRIT 33.5 % (37.9-51.0); HEMOGLOBIN 11.9 g/dL (13.5-17.0); MEAN CORPUSCULAR HEMOGLOBIN 30.3 pg (27.0-33.4); MEAN CORPUSCULAR HGB CONC 35.4 g/dL (32.0-36.0); MEAN CORPUSCULAR VOLUME 86 fl (80-97); PLATELET COUNT 399 10^3/uL (150-450); RED BLOOD COUNT 3.91 10^6/uL (4.35-5.55); RED CELL DISTRIBUTION WIDTH 13.8 % (11.5-14.0); WHITE BLOOD COUNT 7.6 10^3/uL (4.0-10.5)
[2019-10-31 05:41] LABS: ABSOLUTE LYMPHOCYTES# (MANUAL) 0.3 10^3/uL (0.5-4.7); ABSOLUTE MONOCYTES # (MANUAL) 0.8 10^3/uL (0.1-1.4); BAND NEUTROPHILS % (MANUAL) 1 % (3-5); BASOPHILS % (MANUAL) 0 % (0-2); EOSINOPHILS % (MANUAL) 2 % (0-6); LYMPHOCYTES % (MANUAL) 4 % (13-45); METAMYELOCYTES % (MANUAL) 1 % (0-1); MONOCYTES % (MANUAL) 10 % (3-13); SEGMENTED NEUTROPHILS % (MAN) 82 % (42-78); TOTAL CELLS COUNTED 100
[2019-10-31 05:42] LABS: PLATELET COMMENT ADEQUATE; RBC MORPHOLOGY COMMENT NORMO-CYTIC/CHROMIC
[2019-10-31] MEDS: INSULIN LISPRO 100 UNIT/ML 3 ML VIAL SUBCUT SCH ×4 (07:49→22:34)
[2019-10-31] MEDS: LINEZOLID 600 MG/300 ML RTUPB IV SCH ×2 (09:52→22:35)
[2019-10-31] MEDS: FAMOTIDINE 20 MG TABLET PO SCH ×2 (09:53→22:35)
[2019-10-31] MEDS: ENOXAPARIN SODIUM INJ 40 MG/0.4 ML DISP.SYRIN SUBCUT SCH (09:53)
[2019-10-31] MEDS: LISINOPRIL 10 MG TABLET PO SCH ×3 (15:01→22:35)
--- NOTE | 2019-10-31 15:07 | PDOC PROGRESS REPORT ---
Subjective Progress Note for:: 10/31/19 Subjective:: Patient seen by the bedside,, he looks better today, the excessive bruising seems to have remitted since started on Lovenox and the unfractionated heparin discontinued. It seems that patient may be showing signs of improvement, he was able to come off of the NIPPV, uses supplemental oxygen via nasal cannula. Chest x-ray from yesterday shows stability from the day before, x-ray will be obtained today as well to check for progression. Reason For Visit: HEALTHCARE ASSOCIATED PNEUMONIA, RECENT H/O WILL, Physical Exam Vital Signs: Temp Pulse Resp BP Pulse Ox 97.6 F 60 19 182/92 H 100 10/31/19 12:00 10/31/19 12:00 10/31/19 12:00 10/31/19 12:00 10/31/19 12:00 Intake & Output 10/30/19 10/31/19 11/01/19 06:59 06:59 06:59 Intake Total 2254 600 Balance 2254 600 Weight 114.7 kg 114.7 kg General appearance: PRESENT: no acute distress Eye exam: PRESENT: PERRLA Respiratory exam: PRESENT: clear to auscultation mamta Cardiovascular exam: PRESENT: +S1, +S2 GI/Abdominal exam: PRESENT: soft Neurological exam: PRESENT: alert, CN II-XII grossly intact Results Laboratory Results: 10/31/19 05:00 10/30/19 04:19 10/30/19 10/31/19 18:08 05:00 WBC 9.1 7.6 RBC 3.98 L 3.91 L Hgb 11.8 L 11.9 L Hct 34.8 L 33.5 L MCV 87 86 MCH 29.7 30.3 MCHC 33.9 35.4 RDW 14.2 H 13.8 Plt Count 456 H 399 Seg Neutrophils % Not Reportable Not Reportable 10/22/19 10/22/19 10/22/19 01:40 09:06 09:06 Creatine Kinase 156 CK-MB (CK-2) 0.61 Troponin I < 0.012 < 0.012 Impressions: Chest X-Ray 10/30/19 00:00 IMPRESSION: No significant change. Assessment & Plan - Diagnosis (1) Acute hypoxemic respiratory failure Is this a current diagnosis for this admission?: Yes Plan: Continue supportive care with NIPPV and supplemental oxygen via nasal cannula (2) Healthcare-associated pneumonia Is this a current diagnosis for this admission?: Yes Plan: Patient will continue intravenous aztreonam and Zyvox (3) Acute kidney injury Is this a current diagnosis for this admission?: Yes Plan: This is resolved, DC IV fluid (4) T2DM (type 2 diabetes mellitus) Qualifiers: Diabetes mellitus longwall shearer operator insulin use: with longwall shearer operator use Diabetes mellitus complication status: with neurologic complications Diabetes mellitus complication detail: with polyneuropathy Qualified Code(s): E11.42 - Type 2 diabetes mellitus with diabetic polyneuropathy; Z79.4 - [facility] (current) use of insulin Is this a current diagnosis for this admission?: Yes (5) Pneumonia due to COVID-19 virus Is this a current diagnosis for this admission?: Yes Plan: Continue low-dose dexamethasone for a total of 10 days based on current recommendation,,REMDESIVIR is nonformulary in the hospital - Time Time Spent with patient: 35 or more minutes Level of Care: IMCU
[2019-10-31] MEDS ORDERED: RINGERS SOLUTION,LACTATED 1,000 ML IV PRN (15:09)
--- NOTE | 2019-10-31 16:06 | RADIOLOGY REPORT (SQ) ---
EXAM DESCRIPTION: CHEST SINGLE VIEW IMAGES COMPLETED DATE/TIME: 10/31/2019 3:49 pm REASON FOR STUDY: pneumonia COMPARISON: None. EXAM PARAMETERS: NUMBER OF VIEWS: One view. TECHNIQUE: Single frontal radiographic view of the chest acquired. RADIATION DOSE: NA LIMITATIONS: None. FINDINGS: LUNGS AND PLEURA: Improving bilateral pneumonia. Residual infiltrates are present on each side. MEDIASTINUM AND HILAR STRUCTURES: No masses. Contour normal. HEART AND VASCULAR STRUCTURES: Heart normal in size. Normal vasculature. BONES: No acute findings. HARDWARE: None in the chest. OTHER: No other significant finding. IMPRESSION: Improving pneumonia. TECHNICAL DOCUMENTATION: JOB ID: [id number] 2010 [employer]- All Rights Reserved Reading location - IP/workstation name: [email or web address]
[2019-10-31] MEDS: SITAGLIPTIN PHOSPHATE 50 MG TABLET PO SCH (17:19)
[2019-10-31] MEDS: DEXAMETHASONE SOD PHOSPHATE INJ 4 MG/1 ML VIAL IV SCH (17:24)
[2019-11-01] MEDS: DEXAMETHASONE SOD PHOSPHATE INJ 4 MG/1 ML VIAL IV SCH ×2 (06:43→17:20)
[2019-11-01] MEDS: AZTREONAM 1 GM in DEXTROSE 5%-WATER 50 ML IV SCH ×3 (06:43→22:12)
[2019-11-01] MEDS: INSULIN LISPRO 100 UNIT/ML 3 ML VIAL SUBCUT SCH ×4 (08:40→23:37)
[2019-11-01] MEDS: LINEZOLID 600 MG/300 ML RTUPB IV SCH ×2 (09:20→22:10)
[2019-11-01] MEDS: FAMOTIDINE 20 MG TABLET PO SCH ×2 (11:17→22:10)
[2019-11-01] MEDS: SITAGLIPTIN PHOSPHATE 50 MG TABLET PO SCH (11:17)
[2019-11-01] MEDS: ENOXAPARIN SODIUM INJ 40 MG/0.4 ML DISP.SYRIN SUBCUT SCH (11:26)
--- NOTE | 2019-11-01 15:56 | PDOC PROGRESS REPORT ---
Subjective Progress Note for:: 11/01/19 Subjective:: Patient seen by the bedside, he seemed to be improving, He said he feels better Reason For Visit: HEALTHCARE ASSOCIATED PNEUMONIA, RECENT H/O WILL, Physical Exam Vital Signs: Temp Pulse Resp BP Pulse Ox 97.9 F 71 19 134/81 H 100 11/01/19 11:18 11/01/19 11:18 11/01/19 11:18 11/01/19 11:18 11/01/19 11:18 Intake & Output 10/31/19 11/01/19 11/02/19 06:59 06:59 06:59 Intake Total 600 600 Balance 600 600 Weight 114.7 kg 114 kg 114 kg General appearance: PRESENT: no acute distress Eye exam: PRESENT: PERRLA Respiratory exam: PRESENT: clear to auscultation mamta Cardiovascular exam: PRESENT: +S1, +S2 GI/Abdominal exam: PRESENT: soft Neurological exam: PRESENT: alert, CN II-XII grossly intact Results Laboratory Results: 10/31/19 05:00 10/30/19 04:19 10/22/19 10/22/19 10/22/19 01:40 09:06 09:06 Creatine Kinase 156 CK-MB (CK-2) 0.61 Troponin I < 0.012 < 0.012 Impressions: Chest X-Ray 10/31/19 00:00 IMPRESSION: Improving pneumonia. Assessment & Plan - Diagnosis (1) Acute hypoxemic respiratory failure Is this a current diagnosis for this admission?: Yes Plan: Patient is requiring less NIPPV now on oxygen nasal cannula 2 L (2) Healthcare-associated pneumonia Is this a current diagnosis for this admission?: Yes Plan: Patient will continue intravenous aztreonam and Zyvox (3) Acute kidney injury Is this a current diagnosis for this admission?: Yes (4) T2DM (type 2 diabetes mellitus) Qualifiers: Diabetes mellitus retirement insulin use: with retirement use Diabetes mellitus complication status: with neurologic complications Diabetes mellitus complication detail: with polyneuropathy Qualified Code(s): E11.42 - Type 2 diabetes mellitus with diabetic polyneuropathy; Z79.4 - long term acute care registered nurse (current) use of insulin Is this a current diagnosis for this admission?: Yes (5) Pneumonia due to COVID-19 virus Is this a current diagnosis for this admission?: Yes Plan: Patient to have a total of 10 days of IV dexamethasone, I spoke to the pharmacist, the dexamethasone was started on 10/23/2019 so he finishing 10 days of treatment tomorrow - Time Time Spent with patient: 25-34 minutes Level of Care: IMDARIO
[2019-11-01] MEDS: LISINOPRIL 10 MG TABLET PO SCH ×2 (17:13→22:10)
--- NOTE | 2019-11-01 19:02 | RADIOLOGY REPORT (SQ) ---
EXAM DESCRIPTION: CHEST SINGLE VIEW IMAGES COMPLETED DATE/TIME: 11/01/2019 6:36 pm REASON FOR STUDY: pneumonia COMPARISON: 10/31/2019 EXAM PARAMETERS: NUMBER OF VIEWS: One view. TECHNIQUE: Single frontal radiographic view of the chest acquired. RADIATION DOSE: NA LIMITATIONS: None. FINDINGS: LUNGS AND PLEURA: Patchy opacification bilaterally. There is slight improvement since the previous day's study. MEDIASTINUM AND HILAR STRUCTURES: No masses. Contour normal. HEART AND VASCULAR STRUCTURES: Heart normal in size. Normal vasculature. BONES: No acute findings. HARDWARE: None in the chest. OTHER: No other significant finding. IMPRESSION: Bilateral pneumonia with improvement. Possible atypical infectious/ inflammatory proces s. TECHNICAL DOCUMENTATION: JOB ID: [id number] 2010 [employer]- All Rights Reserved Reading location - IP/workstation name: [email or web address]
[2019-11-02] MEDS: AZTREONAM 1 GM in DEXTROSE 5%-WATER 50 ML IV SCH ×3 (05:29→22:33)
[2019-11-02] MEDS: DEXAMETHASONE SOD PHOSPHATE INJ 4 MG/1 ML VIAL IV SCH (05:29)
[2019-11-02] MEDS: INSULIN LISPRO 100 UNIT/ML 3 ML VIAL SUBCUT SCH ×4 (08:51→22:34)
[2019-11-02] MEDS: ENOXAPARIN SODIUM INJ 40 MG/0.4 ML DISP.SYRIN SUBCUT SCH (10:14)
[2019-11-02] MEDS: LISINOPRIL 10 MG TABLET PO SCH ×2 (10:15→22:33)
[2019-11-02] MEDS: SITAGLIPTIN PHOSPHATE 50 MG TABLET PO SCH (10:15)
[2019-11-02] MEDS: FAMOTIDINE 20 MG TABLET PO SCH ×2 (10:15→22:33)
[2019-11-02] MEDS: LINEZOLID 600 MG/300 ML RTUPB IV SCH ×2 (10:19→20:25)
--- NOTE | 2019-11-02 18:36 | RADIOLOGY REPORT (SQ) ---
EXAM DESCRIPTION: CHEST SINGLE VIEW IMAGES COMPLETED DATE/TIME: 11/02/2019 6:20 pm REASON FOR STUDY: PNEUMONIA COMPARISON: 11/01/2019 EXAM PARAMETERS: NUMBER OF VIEWS: One view. TECHNIQUE: Single frontal radiographic view of the chest acquired. RADIATION DOSE: NA LIMITATIONS: None. FINDINGS: LUNGS AND PLEURA: Patchy opacification in each lung, left more than right. The opacificat ion appears to have increased since the earlier study. MEDIASTINUM AND HILAR STRUCTURES: No masses. Contour normal. HEART AND VASCULAR STRUCTURES: Heart normal in size. Normal vasculature. BONES: No acute findings. HARDWARE: None in the chest. OTHER: No other significant finding. IMPRESSION: Pneumonia is a that shows increase infiltrate. May represent atypical infectious/ infla mmatory process. TECHNICAL DOCUMENTATION: JOB ID: [id number] 2010 [employer]- All Rights Reserved Reading location - IP/workstation name: [email or web address]
--- NOTE | 2019-11-02 20:15 | PDOC PROGRESS REPORT ---
Subjective Progress Note for:: 11/02/19 Subjective:: Patient requiring less supplemental oxygen, the chest x-ray that was done today suggests slight increase infiltrate in the left lung, patient has received 10 days of recommended IV dexamethasone, this be discontinued today Reason For Visit: HEALTHCARE ASSOCIATED PNEUMONIA, RECENT H/O WILL, Physical Exam Vital Signs: Temp Pulse Resp BP Pulse Ox 97.9 F 73 18 113/73 99 11/02/19 15:56 11/02/19 19:00 11/02/19 17:44 11/02/19 15:56 11/02/19 17:44 Intake & Output 11/01/19 11/02/19 11/03/19 06:59 06:59 06:59 Intake Total 600 1250 1170 Output Total 1 Balance 600 1249 1170 Weight 114 kg 114 kg Results Laboratory Results: 10/31/19 05:00 10/30/19 04:19 10/22/19 10/22/19 10/22/19 01:40 09:06 09:06 Creatine Kinase 156 CK-MB (CK-2) 0.61 Troponin I < 0.012 < 0.012 Impressions: Chest X-Ray 11/02/19 00:00 IMPRESSION: Pneumonia is a that shows increase infiltrate. May represent atypical infectious/ inflammatory process. Assessment & Plan - Diagnosis (1) Acute hypoxemic respiratory failure Is this a current diagnosis for this admission?: Yes Plan: Patient is requiring less NIPPV now on oxygen nasal cannula 2 L (2) Healthcare-associated pneumonia Is this a current diagnosis for this admission?: Yes Plan: Patient will continue intravenous aztreonam and Zyvox (3) Acute kidney injury Is this a current diagnosis for this admission?: Yes (4) T2DM (type 2 diabetes mellitus) Qualifiers: Diabetes mellitus group home insulin use: with terminal operations supervisor use Diabetes sarah itus complication status: with neurologic complications Diabetes mellitus complication detail: with polyneuropathy Qualified Code(s): E11.42 - Type 2 diabetes mellitus with diabetic polyneuropathy; Z79.4 - snf (current) use of insulin Is this a current diagnosis for this admission?: Yes (5) Pneumonia due to COVID-19 virus Is this a current diagnosis for this admission?: Yes Plan: Discontinue IV dexamethasone - Time Time Spent with patient: 35 or more minutes Level of Care: IMCU
[2019-11-03] MEDS: AZTREONAM 1 GM in DEXTROSE 5%-WATER 50 ML IV SCH ×3 (05:49→21:40)
[2019-11-03] MEDS: INSULIN LISPRO 100 UNIT/ML 3 ML VIAL SUBCUT SCH ×4 (08:27→22:01)
[2019-11-03] MEDS: SITAGLIPTIN PHOSPHATE 50 MG TABLET PO SCH (09:18)
[2019-11-03] MEDS: LISINOPRIL 10 MG TABLET PO SCH (09:18)
[2019-11-03] MEDS: FAMOTIDINE 20 MG TABLET PO SCH ×2 (09:18→21:40)
[2019-11-03] MEDS: LINEZOLID 600 MG/300 ML RTUPB IV SCH ×2 (09:18→21:40)
[2019-11-03] MEDS: ENOXAPARIN SODIUM INJ 40 MG/0.4 ML DISP.SYRIN SUBCUT SCH (09:19)
[2019-11-03] MEDS: CALCIUM ACETATE 667 MG CAPSULE PO SCH ×2 (12:17→17:05)
[2019-11-03] MEDS: LEVOTHYROXINE SODIUM 0.1 MG TABLET PO SCH (12:17)
[2019-11-03] MEDS: ASPIRIN 81 MG TABLET, ENT COATED PO SCH (12:17)
--- NOTE | 2019-11-03 13:26 | RADIOLOGY REPORT (SQ) ---
EXAM DESCRIPTION: CHEST SINGLE VIEW IMAGES COMPLETED DATE/TIME: 11/03/2019 1:06 pm REASON FOR STUDY: PNEUMONIA COMPARISON: 11/01/2019 and 11/02/2019 EXAM PARAMETERS: NUMBER OF VIEWS: One view. TECHNIQUE: Single frontal radiographic view of the chest acquired. RADIATION DOSE: NA LIMITATIONS: None. FINDINGS: LUNGS AND PLEURA: Bilateral parenchymal opacities. No interval improvement. MEDIASTINUM AND HILAR STRUCTURES: No masses. Contour normal. HEART AND VASCULAR STRUCTURES: Heart normal in size. Normal vasculature. BONES: No acute findings. HARDWARE: None in the chest. OTHER: No other significant finding. IMPRESSION: Stable parenchymal opacities over the previous 2 days. No improvement. TECHNICAL DOCUMENTATION: JOB ID: [id number] 2010 [employer]- All Rights Reserved Reading location - IP/workstation name: [email or web address]
--- NOTE | 2019-11-03 14:38 | PDOC PROGRESS REPORT ---
Subjective Progress Note for:: 11/03/19 Subjective:: Patient was seen via video assisted, is feeling much better, presently off oxygen therapy. The chest x-ray that was done today is no different in the last 3 days there is no worsening, that is a good sign. He was taken off dexamethasone yesterday after 10 days of treatment that is the recommended duration of treatment.The tentative plan is for discharge on Tuesday Reason For Visit: HEALTHCARE ASSOCIATED PNEUMONIA, RECENT H/O WILL, Physical Exam Vital Signs: Temp Pulse Resp BP Pulse Ox 97.3 F 82 18 127/78 H 92 11/03/19 12:00 11/03/19 12:00 11/03/19 12:00 11/03/19 12:00 11/03/19 12:00 Intake & Output 11/02/19 11/03/19 11/04/19 06:59 06:59 06:59 Intake Total 1250 1470 300 Output Total 1 Balance 1249 1470 300 Weight 114 kg 110.6 kg Results Laboratory Results: 10/31/19 05:00 10/30/19 04:19 10/22/19 10/22/19 10/22/19 01:40 09:06 09:06 Creatine Kinase 156 CK-MB (CK-2) 0.61 Troponin I < 0.012 < 0.012 Impressions: Chest X-Ray 11/03/19 00:00 IMPRESSION: Stable parenchymal opacities over the previous 2 days. No improvement. Assessment & Plan - Diagnosis (1) Acute hypoxemic respiratory failure Is this a current diagnosis for this admission?: Yes Plan: Patient presently of an IPPV presently on ambient air (2) Healthcare-associated pneumonia Is this a current diagnosis for this admission?: Yes Plan: He will continue IV antibiotic until discharge (3) Acute kidney injury Is this a current diagnosis for this admission?: Yes Plan: This is resolved (4) T2DM (type 2 diabetes mellitus) Qualifiers: Diabetes mellitus usp insulin use: with usp use Diabetes mellitus complication status: with neurologic complications Diabetes mellitus complication detail: with polyneuropathy Qualified Code(s): E11.42 - Type 2 diabetes mellitus with diabetic polyneuropathy; Z79.4 - senior care (current) use of insulin Is this a current diagnosis for this admission?: Yes (5) Pneumonia due to COVID-19 virus Is this a current diagnosis for this admission?: Yes Plan: REMDESIVIR is nonformulary in this hospital, he received 10 days of IV dexamethasone, presently stable, hopefully discharge home on Tuesday presently not requiring NIPPV, not requiring supplemental oxygen - Time Time Spent with patient: 35 or more minutes Level of Care: IMCU Medications reviewed and adjusted accordingly: Yes Anticipated discharge: Home Within: within 48 hours
[2019-11-03 16:10] LABS: ABSOLUTE BASOPHILS # (AUTO) 0.1 10^3/uL (0.0-0.2); ABSOLUTE EOSINOPHILS # (AUTO) 0.2 10^3/uL (0.0-0.6); ABSOLUTE MONOCYTES (AUTO) 1.5 10^3/uL (0.1-1.4); ABSOLUTE NEUT (AUTO) 7.4 10^3/uL (1.7-8.2); EOSINOPHILS % (AUTO) 1.7 % (0-6); HEMATOCRIT 35.8 % (37.9-51.0); HEMOGLOBIN 12.3 g/dL (13.5-17.0); LYMPHOCYTES % (AUTO) 9.7 % (13-45); MEAN CORPUSCULAR HEMOGLOBIN 29.9 pg (27.0-33.4); MEAN CORPUSCULAR HGB CONC 34.4 g/dL (32.0-36.0); MEAN CORPUSCULAR VOLUME 87 fl (80-97); MONOCYTES % (AUTO) 14.9 % (3-13); PLATELET COUNT 271 10^3/uL (150-450); RED BLOOD COUNT 4.12 10^6/uL (4.35-5.55); RED CELL DISTRIBUTION WIDTH 14.3 % (11.5-14.0); SEGMENTED NEUTROPHILS % (AUTO) 72.7 % (42-78); TOTAL CELLS COUNTED % (AUTO) 100 %; WHITE BLOOD COUNT 10.1 10^3/uL (4.0-10.5)
[2019-11-03 16:17] LABS: ANION GAP 10 (5-19); BLOOD UREA NITROGEN 32 mg/dL (7-20); CALCIUM 8.4 mg/dL (8.4-10.2); CARBON DIOXIDE 25 mmol/L (22-30); CHLORIDE 99 mmol/L (98-107); GLUCOSE 280 mg/dL (75-110); POTASSIUM 3.5 mmol/L (3.6-5.0)
[2019-11-03] MEDS: INSULIN GLARGINE,HUM.REC.ANLOG 1,000 UNIT/10 ML VIAL SUBCUT SCH (17:06)
[2019-11-03] MEDS: ATORVASTATIN CALCIUM 10 MG TABLET PO SCH (17:06)
[2019-11-03] MEDS ORDERED: VICTOZA SUBCUT SCH (22:00)
[2019-11-04] MEDS: AZTREONAM 1 GM in DEXTROSE 5%-WATER 50 ML IV SCH ×2 (05:01→13:07)
[2019-11-04] MEDS: INSULIN GLARGINE,HUM.REC.ANLOG 1,000 UNIT/10 ML VIAL SUBCUT SCH ×2 (06:22→17:47)
[2019-11-04] MEDS: INSULIN LISPRO 100 UNIT/ML 3 ML VIAL SUBCUT SCH ×4 (07:53→21:45)
[2019-11-04] MEDS: CALCIUM ACETATE 667 MG CAPSULE PO SCH ×3 (07:54→16:46)
--- NOTE | 2019-11-04 08:43 | EKG REPORT ---
SEVERITY:- ABNORMAL ECG - SINUS RHYTHM LOW VOLTAGE IN FRONTAL LEADS NONSPECIFIC T ABNORMALITIES, LATERAL LEADS : Confirmed by: Miah Mohamud MD 04-Nov-2019 08:41:29
[2019-11-04] MEDS: SITAGLIPTIN PHOSPHATE 50 MG TABLET PO SCH (09:45)
[2019-11-04] MEDS: ASPIRIN 81 MG TABLET, ENT COATED PO SCH (09:45)
[2019-11-04] MEDS: FAMOTIDINE 20 MG TABLET PO SCH ×2 (09:45→21:14)
[2019-11-04] MEDS: LEVOTHYROXINE SODIUM 0.1 MG TABLET PO SCH (09:45)
[2019-11-04] MEDS: LISINOPRIL 10 MG TABLET PO SCH (09:46)
[2019-11-04] MEDS: LINEZOLID 600 MG/300 ML RTUPB IV SCH (09:46)
[2019-11-04] MEDS: ENOXAPARIN SODIUM INJ 40 MG/0.4 ML DISP.SYRIN SUBCUT SCH (09:46)
--- NOTE | 2019-11-04 13:59 | PDOC PROGRESS REPORT ---
Subjective Progress Note for:: 11/04/19 Subjective:: Patient doing well, no longer requires supplemental oxygen, hopefully discharge home tomorrow Reason For Visit: HEALTHCARE ASSOCIATED PNEUMONIA, RECENT H/O WILL, Physical Exam Vital Signs: Temp Pulse Resp BP Pulse Ox 97.8 F 93 16 119/81 97 11/04/19 11:31 11/04/19 11:31 11/04/19 11:31 11/04/19 11:31 11/04/19 11:31 Intake & Output 11/03/19 11/04/19 11/05/19 06:59 06:59 06:59 Intake Total 1470 1204 700 Output Total 1000 Balance 1470 204 700 Weight 110.6 kg 108.6 kg Results Laboratory Results: 11/03/19 15:45 11/03/19 15:45 11/03/19 11/03/19 15:45 15:45 WBC 10.1 RBC 4.12 L Hgb 12.3 L Hct 35.8 L MCV 87 MCH 29.9 MCHC 34.4 RDW 14.3 H Plt Count 271 Seg Neutrophils % 72.7 Sodium 134.0 L Potassium 3.5 L Chloride 99 Carbon Dioxide 25 Anion Gap 10 BUN 32 H Creatinine 1.18 Est GFR ( Amer) > 60 Glucose 280 H Calcium 8.4 10/22/19 10/22/19 10/22/19 01:40 09:06 09:06 Creatine Kinase 156 CK-MB (CK-2) 0.61 Troponin I < 0.012 < 0.012 Impressions: Chest X-Ray 11/03/19 00:00 IMPRESSION: Stable parenchymal opacities over the previous 2 days. No improvement. 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 Diabetes mellitus complication status: with neurologic complications Diabetes mellitus complication detail: with polyneuropathy Qualified Code(s): E11.42 - Type 2 diabetes mellitus with diabetic polyneuropathy; Z79.4 - vermin exterminator (current) use of insulin Is this a current diagnosis for this admission?: Yes (5) Pneumonia due to COVID-19 virus Is this a current diagnosis for this admission?: Yes Plan: REMDESIVIR is nonformulary in this hospital, he received 10 days of IV dexamethasone, presently stable, hopefully discharge home on Tuesday presently not requiring NIPPV, not requiring supplemental oxygen - Time Time Spent with patient: 25-34 minutes Level of Care: IMCU Medications reviewed and adjusted accordingly: Yes Anticipated discharge: Home Within: within 24 hours
[2019-11-04] MEDS: ATORVASTATIN CALCIUM 10 MG TABLET PO SCH (17:47)
[2019-11-05] MEDS: INSULIN GLARGINE,HUM.REC.ANLOG 1,000 UNIT/10 ML VIAL SUBCUT SCH (06:21)
[2019-11-05] MEDS: INSULIN LISPRO 100 UNIT/ML 3 ML VIAL SUBCUT SCH (07:37)
[2019-11-05] MEDS: CALCIUM ACETATE 667 MG CAPSULE PO SCH (07:37)
[2019-11-05 09:00] VITALS: BP 113/78
[2019-11-05] MEDS: ASPIRIN 81 MG TABLET, ENT COATED PO SCH (09:06)
[2019-11-05] MEDS: SITAGLIPTIN PHOSPHATE 50 MG TABLET PO SCH (09:06)
[2019-11-05] MEDS: ENOXAPARIN SODIUM INJ 40 MG/0.4 ML DISP.SYRIN SUBCUT SCH (09:06)
[2019-11-05] MEDS: FAMOTIDINE 20 MG TABLET PO SCH (09:06)
[2019-11-05] MEDS: LISINOPRIL 10 MG TABLET PO SCH (09:07)
[2019-11-05] MEDS: LEVOTHYROXINE SODIUM 0.1 MG TABLET PO SCH (09:07)
--- NOTE | 2019-11-05 10:39 | PDOC DISCHARGE SUMMARY ---
Impression - Admit/DC Date/PCP Admission Date/Primary Care Provider: 10/22/19 04:15 ADUI GARCIA MD Discharge Date: 11/05/19 - Discharge Diagnosis (1) Acute hypoxemic respiratory failure Is this a current diagnosis for this admission?: Yes (2) Pneumonia due to COVID-19 virus Is this a current diagnosis for this admission?: Yes (3) Healthcare-associated pneumonia Is this a current diagnosis for this admission?: Yes (4) Acute kidney injury Is this a current diagnosis for this admission?: Yes (5) T2DM (type 2 diabetes mellitus) Is this a current diagnosis for this admission?: Yes - Additional Information Resuscitation Status: Full Code Discharge Diet: Diabetic Discharge Activity: Activity As Tolerated, Balance Activity w/Rest, Slowly Incr ease Activity Referrals: AUDI GARCIA MD [Primary Care Provider] - 11/12/19 10:15 am Prescriptions: Dapagliflozin Propanediol [Farxiga] 10 mg PO DAILY #90 tablet Sitagliptin Phosphate [Januvia 50 mg Tablet] 100 mg PO DAILY #90 tablet Home Medications: Levothyroxine Sodium [Synthroid 0.1 mg Tablet] 0.1 mg PO DAILY 12/04/18 Aspirin [Ecotrin 81 mg EC Tablet] 81 mg PO DAILY 06/09/19 Atorvastatin Calcium [Lipitor 10 mg Tablet] 10 mg PO DAILY 06/09/19 Lisinopril [Prinivil 10 mg Tablet] 10 mg PO DAILY #30 06/11/19 Victoza 18mg/3ml Pen 1.8 mg SQ QHS 10/11/19 Insulin Glargine,Hum.rec.anlog [Lantus Insulin 100 Unit/1 ml 10 ml] 10 unit SUBCUT BID 10/25/19 Insulin Lispro [Humalog Insulin (Lispro) 100 unit/mL] 0 unit SUBCUT .SLD SCALE 10/25/19 Omeprazole 20 mg PO DAILY 10/25/19 Acetaminophen [Tylenol 325 mg Tablet] 650 mg PO Q4HP PRN tablet 11/04/19 Dapagliflozin Propanediol [Farxiga] 10 mg PO DAILY #90 tablet 11/04/19 Insulin Lispro [Humalog Insulin (Lispro) 100 unit/mL] 0 - 12 unit SUBCUT ACHS unit 11/04/19 Sitagliptin Phosphate [Januvia 50 mg Tablet] 100 mg PO DAILY #90 tablet 11/04/19 History of Present Illiness History of Present Illness: JULIAN CACERES is a 53 year old male,He came to the emergency room earlier this morning for evaluation of respiratory distress, he was recently admitted on October 11, 2019 when he presented with right upper extremity cellulitis, at that time he was treated with intravenous vancomycin and Zosyn, he developed acute kidney injury felt to be due to vancomycin toxicity this was discontinued and despite that the kidney function continued to decline. He was seen by nephrology ,Dr. Ruiz she felt patient probably sustained acute interstitial nephritis due to antibiotic she also recommended that the intravenous Zosyn should be discontinued, he was continued on IV Zyvox. The kidney function was showing im provement this past weekend When he decided he needed to be discharged home, he was discharged home on October 19 2019, He was not ready yet for discharge, on discharge the serum creatinine was 4, when he presented this morning the chest x-ray that was done demonstrated diffuse bilateral infiltrate of both lung field the arterial blood gas that was done, pH was 7.43, PO2 55.8, PCO2 27.6, bicarbonate 17.9, FiO2 5 L Hospital Course Hospital Course: Patient was admitted for the management of acute hypoxemic respiratory failure initially felt to be due to healthcare associated pneumonia. Patient was positive for SARS-CoV-2, he was treated with empiric IV antibiotic, intravenous Zyvox and aztreonam. Because of the positive SARS-CoV-2 test, he was treated w ith dexamethasone with recommended dose of 6mg in divided doses. 3 mg IV every 12. REMDESIVIR Is nonformulary in the hospital. Patient required 10 days of IV dexamethasone. He required NIPPV and high flow oxygen initially to support his respiratory system, patient was very acutely ill, during the course of hospital stay patient had a sense of doom, he called his to let her know that it was unlikely that he walked out of the hospital alive.With support treatment and the IV dexamethasone patient made improvement after couple of days.He had acute kidney injury from previous hospital admission this improved on this admission Physical Exam Vital Signs: Temp Pulse Resp BP Pulse Ox 98.1 F 85 16 113/78 96 11/05/19 08:57 11/05/19 08:57 11/05/19 08:57 11/05/19 08:57 11/05/19 08:57 Intake & Output 11/04/19 11/05/19 11/06/19 06:59 06:59 06:59 Intake Total 1204 1500 Output Total 1000 800 Balance 204 700 Weight 108.6 kg 109 kg General appearance: PRESENT: no acute distress Eye exam: PRESENT: PERRLA Respiratory exam: PRESENT: clear to auscultation mamta Cardiovascular exam: PRESENT: +S1, +S2 GI/Abdominal exam: PRESENT: soft Neurological exam: PRESENT: alert, CN II-XII grossly intact Results Laboratory Results: WBC 10.1 10^3/uL (4.0-10.5) 11/03/19 15:45 RBC 4.12 10^6/uL (4.35-5.55) L 11/03/19 15:45 Hgb 12.3 g/dL (13.5-17.0) L 11/03/19 15:45 Hct 35.8 % (37.9-51.0) L 11/03/19 15:45 MCV 87 fl (80-97) 11/03/19 15:45 MCH 29.9 pg (27.0-33.4) 11/03/19 15:45 MCHC 34.4 g/dL (32.0-36.0) 11/03/19 15:45 RDW 14.3 % (11.5-14.0) H 11/03/19 15:45 Plt Count 271 10^3/uL (150-450) 11/03/19 15:45 Lymph % (Auto) 9.7 % (13-45) L 11/03/19 15:45 [place] % (Auto) 14.9 % (3-13) H 11/03/19 15:45 Eos % (Auto) 1.7 % (0-6) 11/03/19 15:45 Baso % (Auto) 1.0 % (0-2) 11/03/19 15:45 Absolute Neuts (auto) 7.4 10^3/uL (1.7-8.2) 11/03/19 15:45 Absolute Lymphs (auto) 1.0 10^3/uL (0.5-4.7) 11/03/19 15:45 Absolute Monos (auto) 1.5 10^3/uL (0.1-1.4) H 11/03/19 15:45 Absolute Eos (auto) 0.2 10^3/uL (0.0-0.6) 11/03/19 15:45 Absolute Basos (auto) 0.1 10^3/uL (0.0-0.2) 11/03/19 15:45 Total Counted 100 10/31/19 05:00 Seg Neutrophils % 72.7 % (42-78) 11/03/19 15:45 Seg Neuts % (Manual) 82 % (42-78) H 10/31/19 05:00 Band Neutrophils % 1 % (3-5) L 10/31/19 05:00 Lymphocytes % (Manual) 4 % (13-45) L 10/31/19 05:00 Atypical Lymphs % 3 % (0) 10/30/19 18:08 Monocytes % (Manual) 10 % (3-13) 10/31/19 05:00 Eosinophils % (Manual) 2 % (0-6) 10/31/19 05:00 Basophils % (Manual) 0 % (0-2) 10/31/19 05:00 Metamyelocytes % 1 % (0-1) 10/31/19 05:00 Abs Neuts (Manual) 6.4 10^3/uL (1.7-8.2) 10/31/19 05:00 Abs Lymphs (Manual) 0.3 10^3/uL (0.5-4.7) L 10/31/19 05:00 Abs Monocytes (Manual) 0.8 10^3/uL (0.1-1.4) 10/31/19 05:00 Absolute Eos (Manual) 0.2 10^3/uL (0.0-0.6) 10/31/19 05:00 Abs Basophils (Manual) 0.0 10^3/uL (0.0-0.2) 10/31/19 05:00 Toxic Granulation SLIGHT 10/30/19 18:08 Large Platelets PRESENT 10/26/19 09:42 Platelet Comment ADEQUATE 10/31/19 05:00 Polychromasia SLIGHT 10/28/19 05:59 Anisocytosis SLIGHT 10/30/19 18:08 Preethi Cells SLIGHT 10/28/19 05:59 Schistocytes SLIGHT 10/28/19 05:59 RBC Morph Comment NORMO-CYTIC/CHROMIC 10/31/19 05:00 PT 14.8 SEC (11.4-15.4) 10/22/19 01:40 INR 1.16 10/22/19 01:40 Fibrinogen 583 mg/dL (209-497) H 10/30/19 18:08 D-Dimer 1.77 ug/mL (0.00-0.50) H 10/30/19 18:08 Carbonic Acid 1.11 mmol/L (1.05-1.35) 10/30/19 10:06 HCO3/H2CO3 Ratio 23:1 10/30/19 10:06 ABG pH 7.47 (7.35-7.45) H 10/30/19 10:06 ABG pCO2 37.0 mmHg (35-45) 10/30/19 10:06 ABG pO2 171.9 mmHg (80-100) H 10/30/19 10:06 ABG HCO3 26.2 mmol/L (20-24) H 10/30/19 10:06 ABG Total CO2 27.3 mmol/L (23-27) H 10/30/19 10:06 ABG O2 Saturation 99.3 % (94-98) H 10/30/19 10:06 ABG Base Excess 2.6 mmol/L 10/30/19 10:06 VBG pH 7.37 (7.30-7.42) 10/22/19 01:40 VBG pCO2 37.0 mmHg (35-63) 10/22/19 01:40 VBG HCO3 21.1 mmol/L (20-32) 10/22/19 01:40 VBG Base Excess -3.7 mmol/L 10/22/19 01:40 FiO2 70% 10/30/19 10:06 Sodium 134.0 mmol/L (137-145) L 11/03/19 15:45 Potassium 3.5 mmol/L (3.6-5.0) L 11/03/19 15:45 Chloride 99 mmol/L (98-107) 11/03/19 15:45 Carbon Dioxide 25 mmol/L (22-30) 11/03/19 15:45 Anion Gap 10 (5-19) 11/03/19 15:45 BUN 32 mg/dL (7-20) H 11/03/19 15:45 Creatinine 1.18 mg/dL (0.52-1.25) 11/03/19 15:45 Est GFR ( Amer) > 60 (>60) 11/03/19 15:45 Est GFR (MDRD) Non-Af > 60 (>60) 11/03/19 15:45 Glucose 280 mg/dL (75-110) H 11/03/19 15:45 POC Glucose 221 mg/dL (70-110) H 11/05/19 07:18 Hemoglobin A1c % 10.3 % (4.7-6.0) H 10/23/19 05:25 Lactic Acid 1.1 mmol/L (0.7-2.1) 10/22/19 09:06 Calcium 8.4 mg/dL (8.4-10.2) 11/03/19 15:45 Total Bilirubin 0.5 mg/dL (0.2-1.3) 10/26/19 09:42 Direct Bilirubin 0.0 mg/dL (0.0-0.4) 10/26/19 09:42 Neonat Total Bilirubin Not Reportable 10/26/19 09:42 Neonat Direct Bilirubin Not Reportable 10/26/19 09:42 Neonat Indirect Bili Not Reportable 10/26/19 09:42 AST 20 U/L (17-59) 10/26/19 09:42 ALT 12 U/L (<50) 10/26/19 09:42 Alkaline Phosphatase 58 U/L (38-126) 10/26/19 09:42 Creatine Kinase 156 U/L (55-170) 10/22/19 09:06 CK-MB (CK-2) 0.61 ng/mL (<4.55) 10/22/19 09:06 Troponin I < 0.012 ng/mL 10/22/19 09:06 Total Protein 6.4 g/dL (6.3-8.2) 10/26/19 09:42 Albumin 2.7 g/dL (3.5-5.0) L 10/26/19 09:42 Procalcitonin 0.51 ng/mL (0.00-0.08) H 10/22/19 09:06 Urine Color YELLOW 10/22/19 22:10 Urine Appearance CLEAR 10/22/19 22:10 Urine pH 6.0 (5.0-9.0) 10/22/19 22:10 Ur Specific Ronald 1.010 10/22/19 22:10 Urine Protein 100 mg/dL (NEGATIVE) H 10/22/19 22:10 Urine Glucose (UA) NEGATIVE mg/dL (NEGATIVE) 10/22/19 22:10 Urine Ketones NEGATIVE mg/dL (NEGATIVE) 10/22/19 22:10 Urine Blood SMALL (NEGATIVE) H 10/22/19 22:10 Urine Nitrite NEGATIVE (NEGATIVE) 10/22/19 22:10 Urine Nitrite (Reflex) NEGATIVE (NEGATIVE) 10/22/19 04:34 Urine Bilirubin NEGATIVE (NEGATIVE) 10/22/19 22:10 Urine Urobilinogen NEGATIVE mg/dL (<2.0) 10/22/19 22:10 Ur Leukocyte Esterase NEGATIVE (NEGATIVE) 10/22/19 22:10 Leukocyte Esterase Rfl NEGATIVE (NEGATIVE) 10/22/19 04:34 Urine WBC (Auto) 4 /HPF 10/22/19 22:10 Urine RBC (Auto) 3 /HPF 10/22/19 22:10 Urine Bacteria (Auto) TRACE /HPF 10/22/19 04:34 Urine WBC (Reflex) 5 /HPF 10/22/19 04:34 Urine Mucus (Auto) RARE /LPF 10/22/19 22:10 Urine Ascorbic Acid NEGATIVE (NEGATIVE) 10/22/19 22:10 COVID-19 Source NASOPHARYNGEAL 10/22/19 05:29 COVID-19 (CEDRICK) DETECTED H 10/22/19 05:29 10/22/19 10/22/19 01:40 09:06 CK-MB (CK-2) 0.61 Troponin I < 0.012 < 0.012 Impressions: Chest X-Ray 10/22/19 02:05 IMPRESSION: Aggressive patchy interstitial and airspace disease, likely infectious inflammatory. Chest X-Ray 10/25/19 00:00 IMPRESSION: Stable diffuse bilateral airspace disease worrisome for pneumonia Chest X-Ray 10/29/19 00:00 IMPRESSION: Increasing bilateral airspace disease. There is involvement of both the upper and lower lobes. There has been significant progression since the . Chest X-Ray 10/30/19 00:00 IMPRESSION: No significant change. Chest X-Ray 10/31/19 00:00 IMPRESSION: Improving pneumonia. Chest X-Ray 11/01/19 00:00 IMPRESSION: Bilateral pneumonia with improvement. Possible atypical infectious/ inflammatory process. Chest X-Ray 11/02/19 00:00 IMPRESSION: Pneumonia is a that shows increase infiltrate. May represent atypical infectious/ inflammatory process. Chest X-Ray 11/03/19 00:00 IMPRESSION: Stable parenchymal opacities over the previous 2 days. No improvement. Stroke Is this a Stroke Patient?: No Acute Heart Failure - Is this a Heart Failure Patient?: No
== END 2019-11-05 09:53 | disposition home or self-care (01) | DRG 177 ==
LOC: ER 01:20 → EH 04:15 → 3N 05:45
PROVIDERS: ADMIT Internal Medicine; ATTEND Internal Medicine
PROC: 5A09557 Assistance with Respiratory Ventilation, Greater than 96 Consecutive Hours, Continuous Positive Airway Pressure (ICD-10-PCS; principal; 2019-10-23)
DX: U07.1 COVID-19 (principal); J12.89 Other viral pneumonia; J96.01 Acute respiratory failure with hypoxia; N17.9 Acute kidney failure, unspecified; N14.1 Nephropathy induced by other drugs, medicaments and biological substances; E11.51 Type 2 diabetes mellitus with diabetic peripheral angiopathy without gangrene; I10 Essential (primary) hypertension; Z82.49 Family history of ischemic heart disease and other diseases of the circulatory system; Z79.82 Long term (current) use of aspirin; Z83.3 Family history of diabetes mellitus; Z89.611 Acquired absence of right leg above knee; Z79.899 Other long term (current) drug therapy; T36.8X5A Adverse effect of other systemic antibiotics, initial encounter; T36.0X5A Adverse effect of penicillins, initial encounter; E11.42 Type 2 diabetes mellitus with diabetic polyneuropathy; Z79.4 Long term (current) use of insulin; Z89.022 Acquired absence of left finger(s); Z89.021 Acquired absence of right finger(s)
CPT/HCPCS: 36415; 36600; 71045; 80048; 80053; 81001; 82550; 82553; 82803; 82962; 83036; 83605; 84145; 84484; 85025; 85379; 85384; 85610; 87040; 87070; 87086; 87205; 87635; 93005; 93010; 94660; 96365; 96366; 99285; C9803; J1100; J1644; J1650; J1815; J1956; J2020; J2270; J3490; J7030; J7060; J7120

== ENCOUNTER 2020-04-03 01:12 | Observation (INO) | payer MEDICARE ==
[2020-04-03 02:44] LABS: HEMATOCRIT 24.3 % (37.9-51.0); HEMOGLOBIN 8.5 g/dL (13.5-17.0); MEAN CORPUSCULAR HGB CONC 35.1 g/dL (32.0-36.0); MEAN CORPUSCULAR VOLUME 91 fl (80-97); PLATELET COUNT 325 10^3/uL (150-450); RED BLOOD COUNT 2.67 10^6/uL (4.35-5.55); RED CELL DISTRIBUTION WIDTH 13.3 % (11.5-14.0); WHITE BLOOD COUNT 10.2 10^3/uL (4.0-10.5)
[2020-04-03 02:54] LABS: ALBUMIN 3.5 g/dL (3.5-5.0); ALKALINE PHOSPHATASE 42 U/L (38-126); ANION GAP 11 (5-19); ASPARTATE AMINO TRANSFERASE 20 U/L (17-59); BILIRUBIN,DIRECT 0.1 mg/dL (0.0-0.4); BILIRUBIN,TOTAL 0.4 mg/dL (0.2-1.3); BLOOD UREA NITROGEN 22 mg/dL (7-20); CALCIUM 9.1 mg/dL (8.4-10.2); CARBON DIOXIDE 22 mmol/L (22-30); CHLORIDE 105 mmol/L (98-107); GLUCOSE 280 mg/dL (75-110); POTASSIUM 4.1 mmol/L (3.6-5.0); TOTAL PROTEIN 6.4 g/dL (6.3-8.2)
[2020-04-03 03:34] LABS: ABSOLUTE LYMPHOCYTES# (MANUAL) 2.4 10^3/uL (0.5-4.7); ABSOLUTE MONOCYTES # (MANUAL) 0.6 10^3/uL (0.1-1.4); BASOPHILS % (MANUAL) 0 % (0-2); EOSINOPHILS % (MANUAL) 4 % (0-6); LYMPHOCYTES % (MANUAL) 24 % (13-45); MONOCYTES % (MANUAL) 6 % (3-13); SEGMENTED NEUTROPHILS % (MAN) 66 % (42-78); TOTAL CELLS COUNTED 100
[2020-04-03 03:36] LABS: PLATELET COMMENT ADEQUATE
[2020-04-03 07:08] LABS: APPEARANCE,URINE CLEAR; BILIRUBIN,URINE NEGATIVE (NEGATIVE); COLOR,URINE YELLOW; GLUCOSE, URINE >=500 mg/dL (NEGATIVE); KETONES,URINE NEGATIVE (NEGATIVE); LEUKOCYTE ESTERASE,URINE NEGATIVE (NEGATIVE); NITRITE,URINE NEGATIVE (NEGATIVE); PROTEIN,URINE 100 mg/dL (NEGATIVE); URINE SPECIFIC GRAVITY 1.027; UROBILINOGEN,URINE NEGATIVE mg/dL (<2.0)
--- NOTE | 2020-04-03 08:20 | ER Document Report ---
ED GI Bleed / Rectal Pain - General Chief Complaint: Rectal Bleeding Stated Complaint: RECTAL BLEEDING,VISION ISSUES,LIGHT HEADED Time Seen by Provider: 04/03/20 08:04 Notes: Patient is a 54 year old male that comes to the emergency department for chief complaint of bloody stools. Patient also states that he started to become intermittently lightheaded and occasionally have slightly blurred vision which quickly resolves. I saw patient on 03/29/2020 and recommended admission but patient declined at that time with plans to follow-up closely with his bridge maintainer Dr. Hadley. Patient states that he did stop bleeding until Tuesday he started having bleeding episodes again with multiple reddish bowel movements with clots. Patient actually had a recent colonoscopy a couple of weeks ago and had to polyps removed, he states there were no other concerning findings at that time. He denies history of GI bleeds. He has a history of in sulin-dependent diabetes, peripheral vascular disease, right BKA, multiple fingers removed. TRAVEL OUTSIDE OF THE [place] IN LAST 30 DAYS: No - Related Data Allergies/Adverse Reactions: No Known Allergies Allergy (Verified 10/22/19 01:45) Home Medications: lisinopril, humalog, atorvastatin, levothryxine, low dose baby assa, omeprazole Past Medical History - General Information source: Patient - Social History Smoking Status: Never Smoker Frequency of alcohol use: None Drug Abuse: None Lives with: Family Family History: Reviewed & Not Pertinent, DM, Hypertension - Past Medical History Cardiac Medical History: Reports: Hx Hypertension, Hx Peripheral Vascular Disease Denies: Hx Coronary Artery Disease, Hx Heart Attack Pulmonary Medical History: Denies: Hx Asthma, Hx Bronchitis, Hx COPD, Hx Pneumonia, Hx Tuberculosis Neurological Medical History: Denies: Hx Cerebrovascular Accident, Hx Seizures Endocrine Medical History: Reports: Hx Diabetes Mellitus Type 2, Hx Hypothyroid ism Renal/ Medical History: Denies: Hx Peritoneal Dialysis Musculoskeletal Medical History: Denies Hx Arthritis Psychiatric Medical History: Denies: Hx Depression Past Surgical History: Reports: Hx Orthopedic Surgery - 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 Denies: Hx Pacemaker - Immunizations Hx Diphtheria, Pertussis, Tetanus Vaccination: Yes Hx Pneumococcal Vaccination: 12/29/12 Review of Systems - Review of Systems Constitutional: No symptoms reported EENT: No symptoms reported Cardiovascular: See HPI Respiratory: No symptoms reported Gastrointestinal: See HPI Genitourinary: No symptoms reported Male Genitourinary: No symptoms reported Musculoskeletal: No symptoms reported Skin: No symptoms reported Hematologic/Lymphatic: No symptoms reported Neurological/Psychological: No symptoms reported Physical Exam - Vital signs Vitals: Temp Pulse Resp BP Pulse Ox 98.0 F 111 H 16 144/81 H 100 04/03/20 01:22 04/03/20 01:22 04/03/20 01:04/03/20 01:04/03/20 01:22 - Notes Notes: GENERAL: Alert, interacts well. No acute distress. HEAD: Normocephalic, atraumatic. EYES: Pupils equal, round, and reactive to light. Extraocular movements intact. ENT: Oral mucosa moist, tongue midline. Oropharynx unremarkable. Airway patent. NECK: Full range of motion. Supple. Trachea midline. No lymphadenopathy. LUNGS: Clear to auscultation bilaterally, no wheezes, rales, or rhonchi. No respiratory distress. Non-tender chest wall. HEART: Regular rate and rhythm. No murmur ABDOMEN: Soft, non-tender. Non-distended. Bowel sounds present in all 4 quadrants. RECTAL: Questionable small internal hemorrhoid at approximately the 8 o'clock position, no tenderness, masses, or concerning findings otherwise except there is Hemoccult positive stool with dark reddish appearing stool. Exam performed with Brigida HAWLEY at bedside. EXTREMITIES: Right BKA. Otherwise unremarkable extremities lower extremities. Multiple fingers missing, otherwise unremarkable upper extremities. BACK: no cervical, thoracic, lumbar midline tenderness. No saddle anesthesia, normal distal neurovascular exam. NEUROLOGICAL: Alert and oriented x3. Normal speech. Cranial nerves II through XII grossly intact. Strength 5/5 in all extremities. PSYCH: Normal affect, normal mood. SKIN: Warm, dry, normal turgor. No rashes or lesions noted. Course - Re-evaluation Re-evalutation: Patient was initially tachycardic although he is not tachycardic on my exam. He is pale compared to when I saw him a few days ago. He has positive Hemoccult with the stools with dark reddish stools. I suspect a lower GI bleed. Hemoglobin is down to 8.5 from 13.5 over the course of 5 days. I again recommended admission like last time, this time patient is agreeable. Patient has no complaints otherwise on exam, his blood pressures have not been low tonight. Work-up shows hyperglycemia without acidosis, remaining work-up unremarkable. 04/03/20 08:30 I called and spoke with Dr. Adhikari, patient's provider, he states agreement with admission but requests that I call and speak with patient's bridge maintainer Dr. Hadley. Called, left message, pending callback. 04/03/[address] Hadley, he states he will consult on the patient and he wants to do a colonoscopy tomorrow morning, he requests the bowel prep to be done today. I called and spoke with Dr. Adhikari, relayed this information, he states understanding and agreement. - Vital Signs Vital signs: Temp Pulse Resp BP Pulse Ox 98.1 F 93 20 127/84 H 95 04/03/20 08:02 04/03/20 08:02 04/03/20 08:40 04/03/20 08:31 04/03/20 08:40 - Laboratory Results Result Diagrams: 04/03/20 02:04 04/03/20 02:04 Laboratory Results Interpreted: 04/03/20 04/03/20 04/03/20 02:04 02:04 06:30 RBC 2.67 L Hgb 8.5 L Hct 24.3 L BUN 22 H Glucose 280 H Lipase 324.4 H Urine Protein 100 H Urine Glucose (UA) >=500 H Crossmatch 04/03/20 08:45 RBC Hgb Hct BUN Glucose Lipase Urine Protein Urine Glucose (UA) Crossmatch See Detail Critical Laboratory Results Reviewed: No Critical Results - Radiology Results Critical Radiology Results Reviewed: No Critical Results Discharge - Discharge Clinical Impression: Lower GI bleed, Symptomatic anemia Condition: Stable Disposition: ADMITTED INPATIENT Admitting Provider: Onofre Unit Admitted: Medical Floor
[2020-04-03] MEDS ORDERED: NORMAL SALINE 250 ML IV PRN ×4 (08:32→19:05)
[2020-04-03 08:54] LABS: INTERNATIONAL RATION (INR) 0.95; PROTHROMBIN TIME 12.9 SEC (11.4-15.4)
[2020-04-03 08:55] LABS: PARTIAL THROMBOPLASTIN TIME 29.7 SEC (23.5-35.8)
[2020-04-03] MEDS ORDERED: PEG 3350/NA SULF,BICARB,CL/KCL 4000 ML PO ONE (11:00)
[2020-04-03] MEDS ORDERED: NORMAL SALINE 1000 ML 1,000 ML IV PRN (12:40)
[2020-04-03] MEDS ORDERED: INSULN SQ SCH (12:45)
[2020-04-03] MEDS ORDERED: LISINOPRIL 10 MG TABLET PO SCH (12:45)
[2020-04-03] MEDS ORDERED: INSULIN LISPRO 100 UNIT/ML SQ SCH (12:45)
[2020-04-03] MEDS ORDERED: (PENDING PHARMACY ID) (Omeprazole [Omeprazole] 20 MG Capsule.Dr) PO SCH (12:45)
[2020-04-03] MEDS ORDERED: DEXTROSE 50%-WATER SYRINGE 25 GM/50 ML DOSE IV PRN (13:00)
[2020-04-03] MEDS ORDERED: DEXTROSE 40% GEL 15 GM TUBE PO PRN (13:00)
[2020-04-03] MEDS ORDERED: DEXTROSE 40% GEL 15 GM TUBE X 2 PO PRN (13:00)
[2020-04-03] MEDS ORDERED: GLUCAGON,HUMAN RECOMB 1 MG INJ IM PRN (13:00)
[2020-04-03] MEDS ORDERED: DEXTROSE 50%-WATER SYRINGE 12.5 GM/25 ML DOSE IV PRN (13:00)
[2020-04-03] MEDS: LEVOTHYROXINE SODIUM 0.1 MG TABLET PO SCH (13:28)
[2020-04-03] MEDS ORDERED: PANTOPRAZOLE SODIUM 20 MG TABLET.DR PO SCH (13:30)
[2020-04-03 13:56] LABS: PHOSPHORUS 4.9 mg/dL (2.5-4.5)
[2020-04-03 14:14] LABS: FREE T4 (FREE THYROXINE) 0.87 ng/dL (0.78-2.19)
[2020-04-03 14:27] LABS: THYROID STIMULATING HORMONE 5.56 uIU/mL (0.47-4.68)
[2020-04-03 15:20] LABS: APPEARANCE,URINE CLEAR; BILIRUBIN,URINE NEGATIVE (NEGATIVE); COLOR,URINE STRAW; GLUCOSE, URINE >=500 mg/dL (NEGATIVE); KETONES,URINE NEGATIVE (NEGATIVE); LEUKOCYTE ESTERASE,URINE NEGATIVE (NEGATIVE); NITRITE,URINE NEGATIVE (NEGATIVE); PROTEIN,URINE 100 mg/dL (NEGATIVE); URINE SPECIFIC GRAVITY 1.027; UROBILINOGEN,URINE NEGATIVE mg/dL (<2.0)
[2020-04-03 15:21] LABS: INTERNATIONAL RATION (INR) 0.96; PARTIAL THROMBOPLASTIN TIME 23.5 SEC (23.5-35.8)
[2020-04-03 15:41] LABS: URINE AMPHETAMINES SCREEN NEGATIVE; URINE BARBITURATES SCREEN NEGATIVE; URINE BENZODIAZEPINES SCREEN NEGATIVE; URINE COCAINE SCREEN NEGATIVE; URINE MARIJUANA (THC) SCREEN NEGATIVE; URINE METHADONE SCREEN NEGATIVE; URINE PHENCYCLIDINE SCREEN NEGATIVE
[2020-04-03 15:50] LABS: CREATINE KINASE MB 1.57 ng/mL (<4.55)
[2020-04-03 15:52] LABS: TROPONIN I < 0.012 ng/mL
[2020-04-03] MEDS: INSULIN LISPRO 100 UNIT/ML 3 ML VIAL SUBCUT SCH (18:25)
--- NOTE | 2020-04-03 19:49 | PDOC CONSULTATION ---
Consultation Consult Date: 04/03/20 Provider Consulted: KACEY BLOOD History of Present Illness Admission Date/PCP: 04/03/20 08:49 AUDI GARCIA MD History of Present Illness: JULIAN CACERES is a 54 year old male patient who was admitted to the emergency room during the night with rectal bleeding. He started bleeding about 5 days ago when he presented to the emergency room with about half a gallon amount of bleeding. His hemoglobin was 13.9 at that time and patient chose not to be admitted. He continues to see some blood off-and-on for the next few days but none for the last 2 days. He came to the emergency room last night as he was feeling dizzy and his hemoglobin was 8.5. He had a colonoscopy almost 2 weeks ago with removal of polyps from the ascending colon and the proximal transverse colon. He takes baby aspirin but denies using any other blood thinners. I started him on GoLYTELY while at the emergency room and he has had multiple bowel movements that were brown and yellow. He feels a lot better since he received blood transfusion. He denies abdominal pain. Past Medical History Cardiac Medical History: Reports: Hypertension, Peripheral Vascular Disease Denies: Coronary Artery Disease, Myocardial Infarction Pulmonary Medical History: Denies: Asthma, Bronchitis, Chronic Obstructive Pulmonary Disease (COPD), Pneumonia, Tuberculosis Neurological Medical History: Denies: Seizures Endocrine Medical History: Reports: Diabetes Mellitus Type 2, Hypothyroidism Musculoskeltal Medical History: Denies: Arthritis Psychiatric Medical History: Denies: Depression Hematology: Denies: Anemia Past Surgical History Past Surgical History: Reports: Orthopedic Surgery - 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, left middle finger amputation, Tonsillectomy Denies: Pacemaker Social History Lives with: Family Smoking Status: Never Smoker Frequency of Alcohol Use: None Hx Recreational Drug Use: No Drugs: None Hx Prescription Drug Abuse: No Family History Family History: Reviewed & Not Pertinent, DM, Hypertension Parental Family History Reviewed: No Children Family History Reviewed: NA Sibling(s) Family History Reviewed.: NA Medication/Allergy Home Medications: Levothyroxine Sodium [Synthroid 0.1 mg Tablet] 0.1 mg PO Q6AM 12/04/18 Aspirin [Ecotrin 81 mg EC Tablet] 81 mg PO DAILY 06/09/19 Atorvastatin Calcium [Lipitor 10 mg Tablet] 10 mg PO QHS 06/09/19 Lisinopril [Prinivil 10 mg Tablet] 10 mg PO DAILY #30 06/11/19 Omeprazole 20 mg PO DAILY 10/25/19 Insulin Lispro [Humalog Kwikpen U-100] 6 units SQ MEALS 04/03/20 Allergies/Adverse Reactions: No Known Allergies Allergy (Verified 10/22/19 01:45) Review of Systems All systems: reviewed and no additional remarkable complaints except as stated Physical Exam Vital Signs: Temp Pulse Resp BP Pulse Ox 97.6 F 88 18 137/80 H 100 04/03/20 15:25 04/03/20 15:25 04/03/20 15:25 04/03/20 15:25 04/03/20 15:25 Intake & Output 04/02/20 04/03/20 04/04/20 06:59 06:59 06:59 Intake Total 300 Balance 300 Weight 114.3 kg Exam: General: Patient is alert and looks well. HEENT: There is some pallor but no jaundice. PERRLA. Oropharynx normal Respiratory: No chest deformity. No respiratory distress. Chest wall palpitation was unremarkable. Breath sounds were normal Cardiovascular: Heart sounds 1 and 2 normal with no murmurs. Abdominal: Not distended. Soft and nontender. Liver and spleen not palpable. No ascites demonstrated. Bowel sounds active. Rectal examination was deferred. Extremities: No edema. He has a right above-knee amputation and also amputation of right fingers Neurological: Alert and oriented x4. Grossly nonfocal. Normal speech Skin: No significant rash Psychological: Normal affect Results Laboratory Results: 04/03/20 02:04 04/03/20 02:04 04/03/20 04/03/20 04/03/20 02:04 02:04 02:04 WBC 10.2 RBC 2.67 L Hgb 8.5 L Hct 24.3 L MCV 91 MCH 32.0 MCHC 35.1 RDW 13.3 Plt Count 325 Seg Neutrophils % Not Reportable Sodium 137.6 Potassium 4.1 Chloride 105 Carbon Dioxide 22 Anion Gap 11 BUN 22 H Creatinine 1.25 Est GFR ( Amer) > 60 Glucose 280 H Calcium 9.1 Phosphorus Magnesium Total Bilirubin 0.4 AST 20 Alkaline Phosphatase 42 Total Protein 6.4 Albumin 3.5 Amylase Lipase 324.4 H TSH Free T4 Urine Color Urine Appearance Urine pH Ur Specific Riddle Urine Protein Urine Glucose (UA) Urine Ketones Urine Blood Urine Nitrite Ur Leukocyte Esterase Urine WBC (Auto) Urine RBC (Auto) Blood Type Cancelled Antibody Screen Cancelled 04/03/20 04/03/20 04/03/20 02:04 02:04 06:30 WBC RBC Hgb Hct MCV MCH MCHC RDW Plt Count Seg Neutrophils % Sodium Potassium Chloride Carbon Dioxide Anion Gap BUN Creatinine Est GFR ( Amer) Glucose Calcium Phosphorus 4.9 H Magnesium 2.2 Total Bilirubin AST Alkaline Phosphatase Total Protein Albumin Amylase 87 Lipase 321.3 H TSH 5.56 H Free T4 0.87 Urine Color YELLOW Urine Appearance CLEAR Urine pH 5.0 Ur Specific Riddle 1.027 Urine Protein 100 H Urine Glucose (UA) >=500 H Urine Ketones NEGATIVE Urine Blood NEGATIVE Urine Nitrite NEGATIVE Ur Leukocyte Esterase NEGATIVE Urine WBC (Auto) 3 Urine RBC (Auto) 0 Blood Type Antibody Screen 04/03/20 04/03/20 08:45 14:44 WBC RBC Hgb Hct MCV MCH MCHC RDW Plt Count Seg Neutrophils % Sodium Potassium Chloride Carbon Dioxide Anion Gap BUN Creatinine Est GFR ( Amer) Glucose Calcium Phosphorus Magnesium Total Bilirubin AST Alkaline Phosphatase Total Protein Albumin Amylase Lipase TSH Free T4 Urine Color STRAW Urine Appearance CLEAR Urine pH 6.0 Ur Specific Riddle 1.027 Urine Protein 100 H Urine Glucose (UA) >=500 H Urine Ketones NEGATIVE Urine Blood NEGATIVE Urine Nitrite NEGATIVE Ur Leukocyte Esterase NEGATIVE Urine WBC (Auto) 0 Urine RBC (Auto) 0 Blood Type A POSITIVE Antibody Screen NEGATIVE 04/03/20 04/03/20 14:44 14:44 Creatine Kinase 78 CK-MB (CK-2) 1.57 Troponin I < 0.012 Assessment & Plan - Diagnosis (1) Post-polypectomy bleeding Is this a current diagnosis for this admission?: Yes Plan: He bled from his polypectomy sites but has had no active bleeding for the last few days. I will hold off on colonoscopy unless bleeding resumes. I will start him on mesalamine to use for 1 month. (2) Anemia due to GI blood loss Is this a current diagnosis for this admission?: Yes (3) Lower GI bleed Is this a current diagnosis for this admission?: Yes
[2020-04-03 21:04] LABS: CREATINE KINASE MB 1.72 ng/mL (<4.55)
[2020-04-03 21:05] LABS: TROPONIN I < 0.012 ng/mL
[2020-04-03 21:11] LABS: ABSOLUTE BASOPHILS # (AUTO) 0.1 10^3/uL (0.0-0.2); ABSOLUTE EOSINOPHILS # (AUTO) 0.2 10^3/uL (0.0-0.6); ABSOLUTE LYMPHOCYTES (AUTO) 2.4 10^3/uL (0.5-4.7); ABSOLUTE MONOCYTES (AUTO) 0.9 10^3/uL (0.1-1.4); ABSOLUTE NEUT (AUTO) 7.4 10^3/uL (1.7-8.2); HEMATOCRIT 25.9 % (37.9-51.0); HEMOGLOBIN 9.1 g/dL (13.5-17.0); LYMPHOCYTES % (AUTO) 22.1 % (13-45); MEAN CORPUSCULAR HEMOGLOBIN 31.8 pg (27.0-33.4); MEAN CORPUSCULAR HGB CONC 35.1 g/dL (32.0-36.0); MEAN CORPUSCULAR VOLUME 91 fl (80-97); MONOCYTES % (AUTO) 7.8 % (3-13); PLATELET COUNT 317 10^3/uL (150-450); RED BLOOD COUNT 2.85 10^6/uL (4.35-5.55); RED CELL DISTRIBUTION WIDTH 13.8 % (11.5-14.0); SEGMENTED NEUTROPHILS % (AUTO) 67.1 % (42-78); TOTAL CELLS COUNTED % (AUTO) 100 %
--- NOTE | 2020-04-03 21:29 | PDOC H&P ---
History of Present Illness Admission Date/PCP: 04/03/20 08:49 AUDI GARCIA MD History of Present Illness: JULIAN CACERES is a 54 year old male, He came to the emergency room last night for evaluation of rectal bleed This was the second ED visit, he was in the emergency room initially on 03/29/2020 for evaluation of rectal bleed at that time inpatient care was recommended but patient declined, he recently had colonoscopy with polypectomy about 2 weeks ago When he presented initially to the emergency room on 03/29/2020 the rectal bleed actually stopped until this morning again. I was called by the ED provider to admit this patient to hospital, I suggested that they should call The maternity floor supervisor Dr. Jefferson who did the colonoscopy .He recommended that patient should undergo GI prep to be scoped tomorrow, he has been taking GoLYTELY all day long without any rectal bleed, the stool is clear, he also received blood transfusion earlier this morning.Patient feels much better, the maternity floor supervisor felt patient does not need another colonoscopy since the bleeding has stopped, he felt he probably bled from the polypectomy site. 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, left middle finger amputation, Tonsillectomy Social History Lives with: Family Smoking Status: Never Smoker Frequency of Alcohol Use: None Hx Recreational Drug Use: No Drugs: None Hx Prescription Drug Abuse: No Family History Family History: Reviewed & Not Pertinent, DM, Hypertension Parental Family History Reviewed: Yes Children Family History Reviewed: Yes Sibling(s) Family History Reviewed.: Yes Medication/Allergy Home Medications: Levothyroxine Sodium [Synthroid 0.1 mg Tablet] 0.1 mg PO Q6AM 12/04/18 Aspirin [Ecotrin 81 mg EC Tablet] 81 mg PO DAILY 06/09/19 Atorvastatin Calcium [Lipitor 10 mg Tablet] 10 mg PO QHS 06/09/19 Lisinopril [Prinivil 10 mg Tablet] 10 mg PO DAILY #30 06/11/19 Omeprazole 20 mg PO DAILY 10/25/19 Insulin Lispro [Humalog Kwikpen U-100] 6 units SQ MEALS 04/03/20 Allergies/Adverse Reactions: No Known Allergies Allergy (Verified 10/22/19 01:45) Review of Systems Constitutional: ABSENT: chills, fever(s), headache(s), weight gain, weight loss Eyes: ABSENT: visual disturbances Ears: ABSENT: hearing changes Cardiovascular: ABSENT: chest pain, dyspnea on exertion, edema, orthropnea, palpitations Respiratory: ABSENT: cough, hemoptysis Gastrointestinal: PRESENT: hematochezia Genitourinary: ABSENT: dysuria, hematuria Musculoskeletal: ABSENT: joint swelling Integumentary: ABSENT: rash, wounds Neurological: ABSENT: abnormal gait, abnormal speech, confusion, dizziness, focal weakness, syncope Psychiatric: ABSENT: anxiety, depression, homidical ideation, suicidal ideation Endocrine: ABSENT: cold intolerance, heat intolerance, menstrual abnormalities, polydipsia, polyuria Hematologic/Lymphatic: ABSENT: easy bleeding, easy bruising, lymphadenopathy Physical Exam Vital Signs: Temp Pulse Resp BP Pulse Ox 97.7 F 94 18 105/78 100 04/03/20 20:00 04/03/20 20:00 04/03/20 20:00 04/03/20 20:00 04/03/20 20:00 Intake & Output 04/02/20 04/03/20 04/04/20 06:59 06:59 06:59 Intake Total 300 Balance 300 Weight 114.3 kg General appearance: PRESENT: no acute distress, well-developed, well-nourished Head exam: PRESENT: atraumatic, normocephalic Eye exam: PRESENT: conjunctiva pink, EOMI, PERRLA. ABSENT: scleral icterus Ear exam: PRESENT: normal external ear exam Mouth exam: PRESENT: moist, tongue midline Neck exam: PRESENT: full ROM. ABSENT: carotid bruit, JVD, lymphadenopathy, thyromegaly Respiratory exam: PRESENT: clear to auscultation mamta Cardiovascular exam: PRESENT: RRR, +S1, +S2 Pulses: PRESENT: normal dorsalis pedis pul, +2 pedal pulses bilateral Vascular exam: PRESENT: normal capillary refill GI/Abdominal exam: PRESENT: normal bowel sounds, soft Rectal exam: PRESENT: deferred Extremities exam: PRESENT: right BKA Neurological exam: PRESENT: alert, awake, oriented to person, oriented to place, oriented to time, oriented to situation, CN II-XII grossly intact Psychiatric exam: PRESENT: appropriate affect, normal mood Skin exam: PRESENT: dry, intact, warm. ABSENT: cyanosis, rash Results Laboratory Results: 04/03/20 20:27 04/03/20 02:04 04/03/20 04/03/20 04/03/20 02:04 02:04 02:04 WBC 10.2 RBC 2.67 L Hgb 8.5 L Hct 24.3 L MCV 91 MCH 32.0 MCHC 35.1 RDW 13.3 Plt Count 325 Seg Neutrophils % Not Reportable Sodium 137.6 Potassium 4.1 Chloride 105 Carbon Dioxide 22 Anion Gap 11 BUN 22 H Creatinine 1.25 Est GFR ( Amer) > 60 Glucose 280 H Calcium 9.1 Phosphorus Magnesium Total Bilirubin 0.4 AST 20 Alkaline Phosphatase 42 Total Protein 6.4 Albumin 3.5 Amylase Lipase 324.4 H TSH Free T4 Urine Color Urine Appearance Urine pH Ur Specific [place] Urine Protein Urine Glucose (UA) Urine Ketones Urine Blood Urine Nitrite Ur Leukocyte Esterase Urine WBC (Auto) Urine RBC (Auto) Blood Type Cancelled Antibody Screen Cancelled 04/03/20 04/03/20 04/03/20 02:04 02:04 06:30 WBC RBC Hgb Hct MCV MCH MCHC RDW Plt Count Seg Neutrophils % Sodium Potassium Chloride Carbon Dioxide Anion Gap BUN Creatinine Est GFR ( Amer) Glucose Calcium Phosphorus 4.9 H Magnesium 2.2 Total Bilirubin AST Alkaline Phosphatase Total Protein Albumin Amylase 87 Lipase 321.3 H TSH 5.56 H Free T4 0.87 Urine Color YELLOW Urine Appearance CLEAR Urine pH 5.0 Ur Specific [place] 1.027 Urine Protein 100 H Urine Glucose (UA) >=500 H Urine Ketones NEGATIVE Urine Blood NEGATIVE Urine Nitrite NEGATIVE Ur Leukocyte Esterase NEGATIVE Urine WBC (Auto) 3 Urine RBC (Auto) 0 Blood Type Antibody Screen 04/03/20 04/03/20 04/03/20 08:45 14:44 20:27 WBC 11.0 H RBC 2.85 L Hgb 9.1 L Hct 25.9 L MCV 91 MCH 31.8 MCHC 35.1 RDW 13.8 Plt Count 317 Seg Neutrophils % 67.1 Sodium Potassium Chloride Carbon Dioxide Anion Gap BUN Creatinine Est GFR ( Amer) Glucose Calcium Phosphorus Magnesium Total Bilirubin AST Alkaline Phosphatase Total Protein Albumin Amylase Lipase TSH Free T4 Urine Color STRAW Urine Appearance CLEAR Urine pH 6.0 Ur Specific [place] 1.027 Urine Protein 100 H Urine Glucose (UA) >=500 H Urine Ketones NEGATIVE Urine Blood NEGATIVE Urine Nitrite NEGATIVE Ur Leukocyte Esterase NEGATIVE Urine WBC (Auto) 0 Urine RBC (Auto) 0 Blood Type A POSITIVE Antibody Screen NEGATIVE 04/03/20 04/03/20 04/03/20 14:44 14:44 20:27 Creatine Kinase 78 93 CK-MB (CK-2) 1.57 Troponin I < 0.012 04/03/20 20:27 Creatine Kinase CK-MB (CK-2) 1.72 Troponin I < 0.012 Assessment & Plan - Diagnosis (1) Hematochezia Is this a current diagnosis for this admission?: Yes Plan: No active bleeding (2) Anemia due to acute blood loss Is this a current diagnosis for this admission?: Yes Plan: Patient was transfused with packed red blood cells - Time Time Spent: Greater than 70 Minutes Medications reviewed and adjusted accordingly: Yes Anticipated Discharge Disposition: Home, Self Care Anticipated Discharge Timeframe: within 24 hours
[2020-04-03] MEDS ORDERED: ATORVASTATIN CALCIUM 10 MG TABLET PO SCH (22:00)
[2020-04-04] MEDS: LEVOTHYROXINE SODIUM 0.1 MG TABLET PO SCH (05:47)
[2020-04-04 07:08] LABS: ABSOLUTE BASOPHILS # (AUTO) 0.1 10^3/uL (0.0-0.2); ABSOLUTE EOSINOPHILS # (AUTO) 0.2 10^3/uL (0.0-0.6); ABSOLUTE LYMPHOCYTES (AUTO) 1.6 10^3/uL (0.5-4.7); ABSOLUTE MONOCYTES (AUTO) 0.7 10^3/uL (0.1-1.4); ABSOLUTE NEUT (AUTO) 4.5 10^3/uL (1.7-8.2); BASOPHILS % (AUTO) 1.2 % (0-2); EOSINOPHILS % (AUTO) 2.4 % (0-6); HEMATOCRIT 22.8 % (37.9-51.0); LYMPHOCYTES % (AUTO) 22.8 % (13-45); MEAN CORPUSCULAR HEMOGLOBIN 31.6 pg (27.0-33.4); MEAN CORPUSCULAR VOLUME 90 fl (80-97); MONOCYTES % (AUTO) 10.1 % (3-13); PLATELET COUNT 259 10^3/uL (150-450); RED BLOOD COUNT 2.53 10^6/uL (4.35-5.55); RED CELL DISTRIBUTION WIDTH 13.8 % (11.5-14.0); SEGMENTED NEUTROPHILS % (AUTO) 63.5 % (42-78); TOTAL CELLS COUNTED % (AUTO) 100 %; WHITE BLOOD COUNT 7.1 10^3/uL (4.0-10.5)
[2020-04-04 07:24] LABS: ALBUMIN 2.9 g/dL (3.5-5.0); ALKALINE PHOSPHATASE 40 U/L (38-126); ANION GAP 8 (5-19); ASPARTATE AMINO TRANSFERASE 25 U/L (17-59); BILIRUBIN,TOTAL 0.6 mg/dL (0.2-1.3); BLOOD UREA NITROGEN 16 mg/dL (7-20); CALCIUM 8.6 mg/dL (8.4-10.2); CARBON DIOXIDE 22 mmol/L (22-30); CHLORIDE 106 mmol/L (98-107); GLUCOSE 232 mg/dL (75-110); TOTAL PROTEIN 5.7 g/dL (6.3-8.2)
[2020-04-04] MEDS ORDERED: MESALAMINE 1.2 GM TABLET.DR PO SCH (08:00)
[2020-04-04 08:24] VITALS: BP 103/62
[2020-04-04] MEDS: INSULIN LISPRO 100 UNIT/ML 3 ML VIAL SUBCUT SCH (08:32)
--- NOTE | 2020-04-04 20:58 | PDOC DISCHARGE SUMMARY ---
Impression - Admit/DC Date/PCP Admission Date/Primary Care Provider: 04/03/20 08:49 AUDI GARCIA MD Discharge Date: 04/04/20 - Discharge Diagnosis (1) Hematochezia Is this a current diagnosis for this admission?: Yes (2) Anemia due to acute blood loss Is this a current diagnosis for this admission?: Yes (3) Type 2 diabetes mellitus with diabetic polyneuropathy Is this a current diagnosis for this admission?: Yes - Additional Information Referrals: AUDI GARCIA MD [Primary Care Provider] - Follow up as needed Home Medications: Levothyroxine Sodium [Synthroid 0.1 mg Tablet] 0.1 mg PO Q6AM 12/04/18 Aspirin [Ecotrin 81 mg EC Tablet] 81 mg PO DAILY 06/09/19 Atorvastatin Calcium [Lipitor 10 mg Tablet] 10 mg PO QHS 06/09/19 Lisinopril [Prinivil 10 mg Tablet] 10 mg PO DAILY #30 06/11/19 Omeprazole 20 mg PO DAILY 10/25/19 Insulin Lispro [Humalog Kwikpen U-100] 6 units SQ MEALS 04/03/20 History of Present Illiness History of Present Illness: JULIAN CACERES is a 54 year old male, He came to the emergency room last night for evaluation of rectal bleed This was the second ED visit, he was in the emergency room initially on 03/29/2020 for evaluation of rectal bleed at that time inpatient care was recommended but patient declined, he recently had colonoscopy with polypectomy about 2 weeks ago When he presented initially to the emergency room on 03/29/2020 the rectal bleed actually stopped until this morning again. I was called by the ED provider to admit this patient to hospital, I suggested that they should call The de icer installer Dr. Jefferson who did the colonoscopy .He recommended that patient should undergo GI prep to be scoped tomorrow, he has been taking GoLYTELY all day long without any rectal bleed, the stool is clear, he also received blood transfusion earlier this morning.Patient feels much better, the de icer installer felt patient does not need another colonoscopy since the bleeding has stopped, he felt he probably bled from the polypectomy site. Hospital Course Hospital Course: See H&P for details, patient was admitted for observation, he was transfused with packed red blood cells, he refused subsequent transfusion patient stable for discharge Physical Exam Vital Signs: Temp Pulse Resp BP Pulse Ox 97.7 F 93 20 103/62 100 04/04/20 08:18 04/04/20 08:18 04/04/20 08:18 04/04/20 08:18 04/04/20 08:18 Intake & Output 04/03/20 04/04/20 04/05/20 06:59 06:59 06:59 Intake Total 550 Balance 550 Weight 114.3 kg 114 kg General appearance: PRESENT: no acute distress Eye exam: PRESENT: PERRLA Respiratory exam: PRESENT: clear to auscultation mamta Cardiovascular exam: PRESENT: +S1, +S2 GI/Abdominal exam: PRESENT: soft Neurological exam: PRESENT: alert, CN II-XII grossly intact Results Laboratory Results: WBC 7.1 10^3/uL (4.0-10.5) 04/04/20 06:03 RBC 2.53 10^6/uL (4.35-5.55) L 04/04/20 06:03 Hgb 8.0 g/dL (13.5-17.0) L 04/04/20 06:03 Hct 22.8 % (37.9-51.0) L 04/04/20 06:03 MCV 90 fl (80-97) 04/04/20 06:03 MCH 31.6 pg (27.0-33.4) 04/04/20 06:03 MCHC 35.0 g/dL (32.0-36.0) 04/04/20 06:03 RDW 13.8 % (11.5-14.0) 04/04/20 06:03 Plt Count 259 10^3/uL (150-450) 04/04/20 06:03 Lymph % (Auto) 22.8 % (13-45) 04/04/20 06:03 [place] % (Auto) 10.1 % (3-13) 04/04/20 06:03 Eos % (Auto) 2.4 % (0-6) 04/04/20 06:03 Baso % (Auto) 1.2 % (0-2) 04/04/20 06:03 Absolute Neuts (auto) 4.5 10^3/uL (1.7-8.2) 04/04/20 06:03 Absolute Lymphs (auto) 1.6 10^3/uL (0.5-4.7) 04/04/20 06:03 Absolute Monos (auto) 0.7 10^3/uL (0.1-1.4) 04/04/20 06:03 Absolute Eos (auto) 0.2 10^3/uL (0.0-0.6) 04/04/20 06:03 Absolute Basos (auto) 0.1 10^3/uL (0.0-0.2) 04/04/20 06:03 Total Counted 100 04/03/20 02:04 Seg Neutrophils % 63.5 % (42-78) 04/04/20 06:03 Seg Neuts % (Manual) 66 % (42-78) 04/03/20 02:04 Lymphocytes % (Manual) 24 % (13-45) 04/03/20 02:04 Monocytes % (Manual) 6 % (3-13) 04/03/20 02:04 Eosinophils % (Manual) 4 % (0-6) 04/03/20 02:04 Basophils % (Manual) 0 % (0-2) 04/03/20 02:04 Abs Neuts (Manual) 6.7 10^3/uL (1.7-8.2) 04/03/20 02:04 Abs Lymphs (Manual) 2.4 10^3/uL (0.5-4.7) 04/03/20 02:04 Abs Monocytes (Manual) 0.6 10^3/uL (0.1-1.4) 04/03/20 02:04 Absolute Eos (Manual) 0.4 10^3/uL (0.0-0.6) 04/03/20 02:04 Abs Basophils (Manual) 0.0 10^3/uL (0.0-0.2) 04/03/20 02:04 Platelet Comment ADEQUATE 04/03/20 02:04 PT 13.0 SEC (11.4-15.4) 04/03/20 14:44 INR 0.96 04/03/20 14:44 APTT 23.5 SEC (23.5-35.8) 04/03/20 14:44 APTT Cancelled 04/03/20 14:44 Sodium 135.6 mmol/L (137-145) L 04/04/20 06:03 Potassium 4.0 mmol/L (3.6-5.0) 04/04/20 06:03 Chloride 106 mmol/L (98-107) 04/04/20 06:03 Carbon Dioxide 22 mmol/L (22-30) 04/04/20 06:03 Anion Gap 8 (5-19) 04/04/20 06:03 BUN 16 mg/dL (7-20) 04/04/20 06:03 Creatinine 1.08 mg/dL (0.52-1.25) 04/04/20 06:03 Est GFR ( Amer) > 60 (>60) 04/04/20 06:03 Est GFR (MDRD) Non-Af > 60 (>60) 04/04/20 06:03 Glucose 232 mg/dL (75-110) H 04/04/20 06:03 POC Glucose 207 mg/dL (70-110) H 04/03/20 21:11 Calcium 8.6 mg/dL (8.4-10.2) 04/04/20 06:03 Phosphorus 4.9 mg/dL (2.5-4.5) H 04/03/20 02:04 Magnesium 2.2 mg/dL (1.6-2.3) 04/03/20 02:04 Total Bilirubin 0.6 mg/dL (0.2-1.3) 04/04/20 06:03 Direct Bilirubin 0.0 mg/dL (0.0-0.4) 04/04/20 06:03 Neonat Total Bilirubin Not Reportable 04/04/20 06:03 Neonat Direct Bilirubin Not Reportable 04/04/20 06:03 Neonat Indirect Bili Not Reportable 04/04/20 06:03 AST 25 U/L (17-59) 04/04/20 06:03 ALT 17 U/L (<50) 04/04/20 06:03 Alkaline Phosphatase 40 U/L (38-126) 04/04/20 06:03 Creatine Kinase 93 U/L (55-170) 04/03/20 20:27 CK-MB (CK-2) 1.72 ng/mL (<4.55) 04/03/20 20:27 Troponin I < 0.012 ng/mL 04/03/20 20:27 Total Protein 5.7 g/dL (6.3-8.2) L 04/04/20 06:03 Albumin 2.9 g/dL (3.5-5.0) L 04/04/20 06:03 Amylase 87 U/L (30-110) 04/03/20 02:04 Lipase 321.3 U/L (23-300) H 04/03/20 02:04 Lipase 324.4 U/L (23-300) H 04/03/20 02:04 TSH 5.56 uIU/mL (0.47-4.68) H 04/03/20 02:04 Free T4 0.87 ng/dL (0.78-2.19) 04/03/20 02:04 Urine Color STRAW 04/03/20 14:44 Urine Appearance CLEAR 04/03/20 14:44 Urine pH 6.0 (5.0-9.0) 04/03/20 14:44 Ur Specific [place] 1.027 04/03/20 14:44 Urine Protein 100 mg/dL (NEGATIVE) H 04/03/20 14:44 Urine Glucose (UA) >=500 mg/dL (NEGATIVE) H 04/03/20 14:44 Urine Ketones NEGATIVE mg/dL (NEGATIVE) 04/03/20 14:44 Urine Blood NEGATIVE (NEGATIVE) 04/03/20 14:44 Urine Nitrite NEGATIVE (NEGATIVE) 04/03/20 14:44 Urine Bilirubin NEGATIVE (NEGATIVE) 04/03/20 14:44 Urine Urobilinogen NEGATIVE mg/dL (<2.0) 04/03/20 14:44 Ur Leukocyte Esterase NEGATIVE (NEGATIVE) 04/03/20 14:44 Urine WBC (Auto) 0 /HPF 04/03/20 14:44 Urine RBC (Auto) 0 /HPF 04/03/20 14:44 Squamous Epi Cells Auto <1 /HPF 04/03/20 06:30 Urine Mucus (Auto) RARE /LPF 04/03/20 14:44 Urine Ascorbic Acid NEGATIVE (NEGATIVE) 04/03/20 14:44 Urine Opiates Screen NEGATIVE 04/03/20 14:44 Urine Methadone Screen NEGATIVE 04/03/20 14:44 Ur Barbiturates Screen NEGATIVE 04/03/20 14:44 Ur Phencyclidine Scrn NEGATIVE 04/03/20 14:44 Ur Amphetamines Screen NEGATIVE 04/03/20 14:44 U Benzodiazepines Scrn NEGATIVE 04/03/20 14:44 Urine Cocaine Screen NEGATIVE 04/03/20 14:44 U Marijuana (THC) Screen NEGATIVE 04/03/20 14:44 Influenza A (RT-PCR) NEGATIVE (NEGATIVE) 04/03/20 16:35 Influenza B (RT-PCR) NEGATIVE (NEGATIVE) 04/03/20 16:35 RSV (RT-PCR) NEGATIVE (NEGATIVE) 04/03/20 16:35 SARS-CoV-2 Rap RNA(RT-PCR) NEGATIVE (NEGATIVE) 04/03/20 16:35 Blood Type A POSITIVE 04/03/20 08:45 Blood Type Confirm A POSITIVE 04/03/20 08:45 Antibody Screen NEGATIVE 04/03/20 08:45 Crossmatch See Detail 04/03/20 08:45 04/03/20 04/03/20 14:44 20:27 CK-MB (CK-2) 1.57 1.72 Troponin I < 0.012 < 0.012 Stroke Is this a Stroke Patient?: Yes Acute Heart Failure Is this a Heart Failure Patient?: No
== END 2020-04-04 08:40 | disposition home or self-care (01) ==
LOC: ER 01:12 → INTOOBSV 08:49 → EH 08:49 → 4S 14:56
PROVIDERS: ADMIT Internal Medicine; ATTEND Internal Medicine
DX: K91.840 Postprocedural hemorrhage of a digestive system organ or structure following a digestive system procedure (principal); K92.1 Melena; D62 Acute posthemorrhagic anemia; E11.42 Type 2 diabetes mellitus with diabetic polyneuropathy; Z79.899 Other long term (current) drug therapy; Z79.82 Long term (current) use of aspirin; Z79.4 Long term (current) use of insulin; Z20.828 Contact with and (suspected) exposure to other viral communicable diseases
CPT/HCPCS: 99285; 86900; 86901; 36415; 87040; 87086; 84439; 82553; 36430; 86850; 82962; 82150; 82550; 83690; 83735; 84100; 84443; 85025 ×2; 85610; 85730; 82270; 0241U ×4; 87077; 80053 ×2; 81001; 84484; 80307; 86920; 87150 ×26; G0378 ×2; P9016; A9270 ×7; J7050; C9803; J1815; J3490